=== PATIENT | female | born 1930 | race African-American/Black ===

== ENCOUNTER 2016-06-23 23:14 | Emergency (ER) | payer MEDICARE, MEDICAID ==
--- NOTE | 2016-06-23 23:30 | ER Document Report ---
ED General - General Stated Complaint: CHEST PAIN Notes: Patient is a 86-year-old female presents for complaint of chest pain. She sent from correction. She has dementia. Zach Gonzalez asked her if she is having chest pain she just complains of pain in her arm from where we are poking her for a blood draw. She is not complaining of chest pain. I have the nurses wait several minutes before attempting to poke her Phenergan and then ask her again about chest pain and she denies. She does not complain of chest pain until I push on her chest and then she yells at me for pushing on her chest. She is not short of breath. She denies any recent infections. History is limited due to the patient's dementia. TRAVEL OUTSIDE OF THE [place] IN LAST 30 DAYS: No - Related Data Allergies/Adverse Reactions: codeine [Codeine] Allergy (Verified 09/05/14 13:56) iodine [Iodine] Allergy (Verified 09/05/14 13:56) Shellfish * [Shellfish] Allergy (Verified 09/05/14 13:56) Past Medical History - Social History Smoking Status: Unknown if Ever Smoked Frequency of alcohol use: None Drug Abuse: None Family History: Reviewed & Not Pertinent - Past Medical History Cardiac Medical History: Reports: Hx Atrial Fibrillation, Hx Heart Attack - The patient had an elevated troponin, but negative catheterization 03/03/13, Hx Hypercholesterolemia, Hx Hypertension Denies: Hx Coronary Artery Disease Pulmonary Medical History: Denies: Hx Asthma, Hx Bronchitis, Hx COPD, Hx Pneumonia, Hx Tuberculosis Neurological Medical History: Reports: Hx Cerebrovascular Accident. Denies: Hx Seizures Endocrine Medical History: GI Medical History: Reports: Hx Gastroesophageal Reflux Disease Musculoskeltal Medical History: Denies Hx Arthritis - was told patient has a broken back Psychiatric Medical History: Reports: Hx Dementia, Hx Depression Past Surgical History: Reports: Hx Appendectomy, Hx Cardiac Surgery - pacer/ defib, Hx Pacemaker. Denies: Hx Hysterectomy - Immunizations Hx Diphtheria, Pertussis, Tetanus Vaccination: No Hx Pneumococcal Vaccination: 09/28/13 Review of Systems - Review of Systems Notes: My Normal Review Basic REVIEW OF SYSTEMS: CONSTITUTIONAL : Denies fever, chills, or sweats. Denies recent illness. EENT: Denies eye, ear, throat, or mouth pain or symptoms. Denies nasal or sinus congestion. CARDIOVASCULAR: Previous complaint of chest pain. RESPIRATORY: Denies cough, cold, or chest congestion. Denies shortness of breath, difficulty breathing, or wheezing. GASTROINTESTINAL: Denies abdominal pain. Denies nausea, vomiting, or diarrhea. Denies constipation. Last BM: MUSCULOSKELETAL: Denies neck or back pain or joint pain or swelling. SKIN: Denies rash or skin lesions. NEUROLOGICAL: Denies sensory or motor loss. ALL OTHER SYSTEMS REVIEWED AND NEGATIVE. Physical Exam - Vital signs Vitals: Resp BP Pulse Ox 28 H 136/68 H 100 06/23/16 23:26 06/23/16 23:26 06/23/16 23:26 - Notes Notes: General Appearance: Well nourished, alert, intermittently cooperative, no acute distress, mild obvious discomfort. Vitals: reviewed, See vital signs table. Head: no swelling or tenderness to the head Eyes: PERRL, EOMI, Conjuctiva clear Mouth: No decreasd moisture Neck: Supple, no neck tenderness Chest wall: Pain to palpation over the anterior chest wall. Mostly on the left side. Patient is very tender to any palpation. Patient does not show any signs of pain when not pushing on the chest. Lungs: No wheezing, No rales, No rhonci, No accessory muscle use, good air exchange bilaterally. Heart: Normal rate, Regular rythm, No murmur, no rub Abdomen: Normal BS, soft, No rigidity, No abdominal tenderness, No guarding, no rebound, no abdominal masses, no organomegaly Extremities: strength 5/5 in all extremities, good pulses in all extremities, no swelling or tenderness in the extremities, no edema. Skin: warm, dry, appropriate color, no rash Neuro: speech clear, oriented x 2, agitated affect, responds appropriately to questions. Course - Vital Signs Vital signs: Temp Pulse Resp BP Pulse Ox 98.1 F 67 18 168/97 H 100 06/23/16 23:29 06/23/16 23:29 06/24/16 04:02 06/24/16 04:02 06/24/16 04:02 - Laboratory Result Diagrams: 06/23/16 23:42 06/23/16 23:42 Laboratory results interpreted by me: 06/23/16 06/23/16 23:42 23:42 Hgb 9.9 L Hct 30.7 L MCV 77 L MCH 25.0 L RDW 16.7 H Creatinine 1.32 H Est GFR ( Amer) 46 L Est GFR (Non-Af Amer) 38 L - EKG Interpretation by Me Additional EKG results interpreted by me: 06/23/16 23:28 EKG is reviewed and interpreted by me. EKG shows sinus rhythm with rate of 68 bpm. Patient does have some ST segment depression and T-wave inversions in the lateral leads which is actually improved in comparison to her old EKG from 09/05/2014. CO interval, QRS duration are within normal range. QTc interval is prolonged. 06/24/16 01:27 EKG #2 is reviewed and interpreted by me. EKG shows a paced rhythm with rate of [address] segment elevation. Patient's the same ST segment depression with T-wave inversions in the lateral leads. This is unchanged comparison to her previous. CO interval, QRS duration are within normal range. QTc interval slightly prolonged. - Transfer of Care Notes: 06/24/16 05:41 Patient's chest pain seems to be very much musculoskeletal on exam. Chest is very tender to palpation. She does not have any pain over her chest unless you are pushing on her chest. History from her is very limited. I did obtain EKGs which did not show any acute changes comparison to her previous EKGs. I did obtain a troponin and delta troponin which are stable. I did call and speak with her primary care doctor, Dr. Krause. Informed him of the patient's findings. He agrees that the patient can be treated discharged home that he would follow very closely with the patient to reevaluate her. I will write strict instructions for her to return to ER immediately if she has any worsening of her symptoms. Dictation of this chart was performed using voice recognition software; therefore, there may be some unintended grammatical errors. Discharge - Discharge Clinical Impression: Chest pain Qualifiers: Chest pain type: unspecified Qualified Code(s): R07.9 - Chest pain, unspecified Condition: Good Disposition: HOME, SELF-CARE Additional Instructions: NORMAL EXAM AND WORKUP: At this time, your examination and workup show no significant abnormality. No significant abnormal physical findings were noted. All laboratory, EKG, and imaging (x-ray) studies that were ordered show no significant abnormality. Although your examination and all studies that were ordered showed no significant abnormal finding, there are no examinations and no studies that are 100% accurate. There is always the possibility that some abnormality could exist and not be detected with physical examination or within the limits and capabilities of laboratory and other studies. You should return or follow up as you were instructed on your visit today for further evaluation if your symptoms do not resolve. CHEST WALL PAIN: Your chest pain may be coming from the chest wall. This is often caused by straining the muscles or joints in the chest during physical activity, direct trauma, coughing, or vigorous vomiting. Persons with arthritis are especially prone to this type of pain, due to inflammation of the cartilage joints near the breast bone. Occasionally, no cause can be found. Rest from strenuous physical activity. This kind of chest pain is usually made worse by movement of the chest. Depending on the symptoms, we may prescribe medicine for pain, muscle relaxation, and antiinflammatory effects. If the pain is new, and seems to be due to muscle strain, cold packs can help. Otherwise, apply gentle warmth to the painful area for 15 minutes every hour or two. You should call contact the doctor immediately if things change. Further evaluation is needed if you develop a fever or cough, if the nature of the pain changes, or if you become short of breath. ASPIRIN: Aspirin has been shown to have a beneficial effect on blood circulation by reducing the clotting effect of platelets in the blood. These beneficial effects can be achieved by taking just a single baby (81 mg) aspirin a day. It is recommended that any person over the age of forty take a single baby aspirin every day for heart and brain circulation, unless you are allergic to aspirin or have some significant bleeding disorder. It is strongly recommended that people who have proven cardiac or blood circulation disturbances should take a baby aspirin every day. FOLLOW-UP CARE: If you have been referred to a physician for follow-up care, call the physician s office for an appointment as you were instructed or within the next two days. If you experience worsening or a significant change in your symptoms, notify the physician immediately or return to the Emergency Department at any time for re-evaluation. Please make a very close follow up appointment with Dr. Krause, your physician, in 1-2 days. I did discuss your case with Dr. Krause and he is expecting to follow up with your closely. please call his office to arrange for the follow up appointment. Referrals: SUDHIR KRAUSE MD [Primary Care Provider] - 06/25/16
[2016-06-24 00:03] LABS: ABSOLUTE BASOPHILS # (AUTO) 0.1 10^3/uL (0.0-0.2); ABSOLUTE EOSINOPHILS # (AUTO) 0.3 10^3/uL (0.0-0.6); ABSOLUTE LYMPHOCYTES (AUTO) 2.1 10^3/uL (0.5-4.7); ABSOLUTE MONOCYTES (AUTO) 0.7 10^3/uL (0.1-1.4); ABSOLUTE NEUT (AUTO) 3.2 10^3/uL (1.7-8.2); BASOPHILS % (AUTO) 0.8 % (0-2); EOSINOPHILS % (AUTO) 5.2 % (0-6); HEMATOCRIT 30.7 % (36.0-47.0); HEMOGLOBIN 9.9 g/dL (12.0-15.5); LYMPHOCYTES % (AUTO) 32.4 % (13-45); MEAN CORPUSCULAR HGB CONC 32.2 g/dL (32.0-36.0); MEAN CORPUSCULAR VOLUME 77 fl (80-97); MONOCYTES % (AUTO) 11.2 % (3-13); RED BLOOD COUNT 3.96 10^6/uL (3.72-5.28); RED CELL DISTRIBUTION WIDTH 16.7 % (11.5-14.0); SEGMENTED NEUTROPHILS % (AUTO) 50.4 % (42-78); WHITE BLOOD COUNT 6.4 10^3/uL (4.0-10.5)
[2016-06-24 00:06] LABS: ALANINE AMINOTRANSFERASE 25 U/L (9-52); ALKALINE PHOSPHATASE 79 U/L (38-126); ANION GAP 13 (5-19); ASPARTATE AMINO TRANSFERASE 28 U/L (14-36); BILIRUBIN,DIRECT 0.2 mg/dL (0.0-0.4); BILIRUBIN,TOTAL 0.5 mg/dL (0.2-1.3); BLOOD UREA NITROGEN 16 mg/dL (7-20); CALCIUM 9.5 mg/dL (8.4-10.2); CARBON DIOXIDE 24 mmol/L (22-30); CHLORIDE 105 mmol/L (98-107); CREATINE KINASE 114 U/L (30-135); CREATININE RESULT 1.32 mg/dL (0.52-1.25); GLUCOSE 99 mg/dL (75-110); POTASSIUM 4.1 mmol/L (3.6-5.0); TOTAL PROTEIN 8.1 g/dL (6.3-8.2)
[2016-06-24 00:17] LABS: CREATINE KINASE MB 0.94 ng/mL (<4.55)
[2016-06-24 00:25] LABS: TROPONIN I 0.038 ng/mL
[2016-06-24 04:10] VITALS: BP 168/97
--- NOTE | 2016-06-24 13:09 | EKG REPORT ---
SEVERITY:- ABNORMAL ECG - SINUS RHYTHM LVH WITH SECONDARY REPOLARIZATION ABNORMALITY BORDERLINE PROLONGED QT INTERVAL : Confirmed by: Jada Marie MD 24-Jun-2016 13:08:56
--- NOTE | 2016-06-24 13:09 | EKG REPORT ---
SEVERITY:- ABNORMAL ECG - ATRIAL-PACED COMPLEXES PROBABLE LEFT ATRIAL ABNORMALITY LVH WITH SECONDARY REPOLARIZATION ABNORMALITY PROBABLE INFERIOR INFARCT, AGE INDETERMINATE BORDERLINE PROLONGED QT INTERVAL : Confirmed by: Jdaa Marie MD 24-Jun-2016 13:08:51
== END 2016-06-24 04:00 | disposition home or self-care (01) ==
LOC: ER 23:14
DX: R07.9 Chest pain, unspecified (principal); F03.90 Unspecified dementia, unspecified severity, without behavioral disturbance, psychotic disturbance, mood disturbance, and anxiety; I10 Essential (primary) hypertension; I48.91 Unspecified atrial fibrillation; Z95.810 Presence of automatic (implantable) cardiac defibrillator; Z88.5 Allergy status to narcotic agent; Z91.013 Allergy to seafood
CPT/HCPCS: 36415; 71010; 80053; 80061; 82550; 82553; 84484; 85025; 93005; 93010; 99285

== ENCOUNTER 2016-11-19 23:57 | Emergency (ER) | payer MEDICARE, MEDICAID ==
[2016-11-20 00:29] LABS: ABSOLUTE LYMPHOCYTES (AUTO) 1.7 10^3/uL (0.5-4.7); ABSOLUTE MONOCYTES (AUTO) 0.7 10^3/uL (0.1-1.4); BASOPHILS % (AUTO) 0.3 % (0-2); EOSINOPHILS % (AUTO) 0.3 % (0-6); HEMATOCRIT 32.3 % (36.0-47.0); HEMOGLOBIN 10.5 g/dL (12.0-15.5); HGB HCT DIFFERENCE -0.8; LYMPHOCYTES % (AUTO) 20.1 % (13-45); MEAN CORPUSCULAR HEMOGLOBIN 25.8 pg (27.0-33.4); MEAN CORPUSCULAR HGB CONC 32.4 g/dL (32.0-36.0); MEAN CORPUSCULAR VOLUME 80 fl (80-97); RED BLOOD COUNT 4.05 10^6/uL (3.72-5.28); RED CELL DISTRIBUTION WIDTH 16.4 % (11.5-14.0); SEGMENTED NEUTROPHILS % (AUTO) 71.3 % (42-78); WHITE BLOOD COUNT 8.4 10^3/uL (4.0-10.5)
[2016-11-20 00:30] LABS: VENOUS BLOOD BASE EXCESS 0.7 mmol/L; VENOUS BLOOD HCO3 24.8 mmol/L (20-32); VENOUS BLOOD PCO2 38.1 mmHg (35-63); VENOUS BLOOD PH 7.43 (7.30-7.42)
[2016-11-20 00:38] LABS: PROTHROMBIN TIME 13.9 SEC (11.4-15.4)
[2016-11-20 00:44] LABS: APPEARANCE,URINE CLOUDY; BILIRUBIN,URINE NEGATIVE (NEGATIVE); GLUCOSE, URINE NEGATIVE (NEGATIVE); KETONES,URINE NEGATIVE (NEGATIVE); LEUKOCYTE ESTERASE,URINE NEGATIVE (NEGATIVE); NITRITE,URINE NEGATIVE (NEGATIVE); PROTEIN,URINE >=500 mg/dL (NEGATIVE); URINE SPECIFIC GRAVITY 1.031; UROBILINOGEN,URINE NEGATIVE mg/dL (<2.0)
--- NOTE | 2016-11-20 00:59 | ER Document Report ---
ED General - General Chief Complaint: Fever Stated Complaint: FEVER/DIARRHEA Time Seen by Provider: 11/20/16 00:01 Mode of Arrival: Medic Information source: Patient Notes: 86 yr old female presents with complaints of abd pain, diarrhea of 3 day duration with fever today. pt denies any vomiting. TRAVEL OUTSIDE OF THE [place] IN LAST 30 DAYS: No - HPI Onset: Other Onset/Duration: Persistent Quality of pain: Cramping Severity: Mild Pain Level: 1 Associated symptoms: Diarrhea, Fever Exacerbated by: Denies Relieved by: Denies Similar symptoms previously: No Recently seen / treated by doctor: No - Related Data Allergies/Adverse Reactions: codeine [Codeine] Allergy (Verified 09/05/14 13:56) iodine [Iodine] Allergy (Verified 09/05/14 13:56) Shellfish * [Shellfish] Allergy (Verified 09/05/14 13:56) Past Medical History - Social History Smoking Status: Never Smoker Cigarette use (# per day): No Chew tobacco use (# tins/day): No Smoking Education Provided: No Family History: Reviewed & Not Pertinent - Past Medical History Cardiac Medical History: Reports: Hx Atrial Fibrillation, Hx Heart Attack - The patient had an elevated troponin, but negative catheterization 03/03/13, Hx Hypercholesterolemia, Hx Hypertension Denies: Hx Coronary Artery Disease Pulmonary Medical History: Denies: Hx Asthma, Hx Bronchitis, Hx COPD, Hx Pneumonia, Hx Tuberculosis Neurological Medical History: Reports: Hx Cerebrovascular Accident. Denies: Hx Seizures Endocrine Medical History: GI Medical History: Reports: Hx Gastroesophageal Reflux Disease Musculoskeltal Medical History: Denies Hx Arthritis - was told patient has a broken back Psychiatric Medical History: Reports: Hx Dementia, Hx Depression Past Surgical History: Reports: Hx Appendectomy, Hx Cardiac Surgery - pacer/ defib, Hx Pacemaker. Denies: Hx Hysterectomy - Immunizations Hx Diphtheria, Pertussis, Tetanus Vaccination: No Hx Pneumococcal Vaccination: 09/28/13 Review of Systems - Review of Systems Notes: REVIEW OF SYSTEMS: CONSTITUTIONAL : Denies fever, chills, or sweats. Denies recent illness. EENT: Denies eye, ear, throat, or mouth pain or symptoms. Denies nasal or sinus congestion or discharge. Denies throat, tongue, or mouth swelling or difficulty swallowing. CARDIOVASCULAR: Denies chest pain. Denies palpitations or racing or irregular heart beat. Denies ankle edema. RESPIRATORY: Denies cough, cold, or chest congestion. Denies shortness of breath, difficulty breathing, or wheezing. GASTROINTESTINAL: abd pain, diarrhea GENITOURINARY: Denies difficulty urinating, painful urination, burning, frequency, blood in urine, or discharge. FEMALE GENITOURINARY: Denies vaginal bleeding, heavy or abnormal periods, irregular periods. Denies vaginal discharge or odor. MUSCULOSKELETAL: Denies back or neck pain or stiffness. Denies joint pain or swelling. SKIN: Denies rash, lesions or sores. HEMATOLOGIC : Denies easy bruising or bleeding. LYMPHATIC: Denies swollen, enlarged glands. NEUROLOGICAL: Denies confusion or altered mental status. Denies passing out or loss of consciousness. Denies dizziness or lightheadedness. Denies headache. Denies weakness or paralysis or loss of use of either side. Denies problems with gait or speech. Denies sensory loss, numbness, or tingling. Denies seizures. PSYCHIATRIC: Denies anxiety or stress. Denies depression, suicidal ideation, or homicidal ideation. ALL OTHER SYSTEMS REVIEWED AND NEGATIVE. PHYSICAL EXAMINATION: GENERAL: Well-appearing, well-nourished and in no acute distress. HEAD: Atraumatic, normocephalic. EYES: Pupils equal round and reactive to light, extraocular movements intact, conjunctiva are normal. ENT: Nares patent, oropharynx clear without exudates. Moist mucous membranes. NECK: Normal range of motion, supple without lymphadenopathy LUNGS: Breath sounds clear to auscultation bilaterally and equal. No wheezes rales or rhonchi. HEART: Regular rate and rhythm without murmurs ABDOMEN: Soft, distended, mildly tender all throughout Female : deferred Musculoskeletal: Normal range of motion, no pitting or edema. No cyanosis. NEUROLOGICAL: Cranial nerves grossly intact. Normal speech, normal gait. Normal sensory, motor exams PSYCH: Normal mood, normal affect. SKIN: Warm, Dry, normal turgor, no rashes or lesions noted. Dictation was performed using [employer] voice recognition software Physical Exam - Vital signs Vitals: Resp Pulse Ox 18 96 11/20/16 00:12 11/20/16 00:12 Course - Re-evaluation Re-evalutation: 11/20/16 01:[address] still results pending at this time - Vital Signs Vital signs: Temp Pulse Resp BP Pulse Ox 99.6 F 20 167/74 H 96 11/20/16 00:41 11/20/16 01:00 11/20/16 00:31 11/20/16 00:40 - Laboratory Result Diagrams: 11/20/16 00:08 11/20/16 00:08 Laboratory results interpreted by me: 11/20/16 11/20/16 11/20/16 00:08 00:08 00:25 Hgb 10.5 L Hct 32.3 L MCH 25.8 L RDW 16.4 H VBG pH 7.43 H Urine Protein >=500 H Discharge - Discharge Referrals: SUDHIR KRAUSE MD [Primary Care Provider] - Follow up as needed
--- NOTE | 2016-11-20 03:05 | RADIOLOGY REPORT (SQ) ---
EXAM DESCRIPTION: KUB/ABDOMEN (SINGLE VIEW) COMPLETED DATE/TIME: 11/20/2016 1:57 am REASON FOR STUDY: fever diarrhea COMPARISON: 08/28/2013. NUMBER OF VIEWS: One view. TECHNIQUE: Supine radiographic image of the abdomen acquired. LIMITATIONS: None. FINDINGS: BOWEL GAS PATTERN: Normal bowel gas pattern. No dilated loops. CALCIFICATIONS: No suspicious calcifications. SOFT TISSUES: No gross mass or suggestion of organomegaly. HARDWARE: Right upper abdominal clips. Partially imaged cardiac stimulation lead. BONES: Mild chronic deformity of the right paracentral superior L2 endplate and/or mild -moderate dis c desiccation/ spondylosis. [id number] osteoarthritis involves the bilateral hip joints. OTHER: No other significant finding. IMPRESSION: No acute findings. TECHNICAL DOCUMENTATION: JOB ID: [id number] [employer]- All Rights Reserved
--- NOTE | 2016-11-20 03:14 | RADIOLOGY REPORT (SQ) ---
EXAM DESCRIPTION: CT ABD/PELVIS NO ORAL OR IV COMPLETED DATE/TIME: 11/20/2016 1:58 am REASON FOR STUDY: abd pain COMPARISON: 03/31/2015. CR, 11/20/2016. TECHNIQUE: CT scan of the abdomen and pelvis performed without intravenous or oral contrast. Images reviewed with lung, soft tissue, and bone windows. Reconstructed coronal and sagittal MPR images revi ewed. All images stored on PACS. All CT scanners at this facility use dose modulation, iterative reconstruction, and/or weight based d osing when appropriate to reduce radiation dose to as low as reasonably achievable (ALARA). [facility]: Dose Right [facility]: CareDose [facility]: Dose Right [facility]: Teradose 4D [facility]: Smart Philoptima RADIATION DOSE: Up-to-date CT equipment and radiation dose reduction techniques were employed. CTDIv ol: 25.4 mGy. DLP: 1368 mGy-cm.mGy. LIMITATIONS: None. FINDINGS: LOWER CHEST: No significant findings. No nodules or infiltrates. Cardiac stimulation lead s and metallic hardware of the left inferior chest wall partially imaged. Small atelectasis or scar bilateral lung bases. NON-CONTRASTED LIVER, SPLEEN, ADRENALS: Evaluation limited by lack of IV contrast. 1.2 cm low-attenu ation splenic lesion consistent with cyst or hemangioma without suspicious interval change compared w ith prior exam, 03/31/2015. PANCREAS: No masses. No peripancreatic inflammatory changes. GALLBLADDER: A RIGHT KIDNEY AND URETER: No suspicious masses. Assessment limited by lack of IV contrast. No signif icant calcifications. No hydronephrosis or hydroureter. 0.7 cm likely benign hemorrhagic exophytic cyst of the left kidney, not definitively characterized, stable in size as compared with prior exam, 03/31/2015. LEFT KIDNEY AND URETER: No suspicious masses. Assessment limited by lack of IV contrast. No signifi cant calcifications. No hydronephrosis or hydroureter. AORTA AND RETROPERITONEUM: No aneurysm. No retroperitoneal masses or adenopathy. Atherosclerosis. BOWEL AND PERITONEAL CAVITY: No obvious masses or inflammatory changes. No free fluid. Small fluid r etention in the colon may indicate malabsorption or nonspecific gastroenteritis. APPENDIX: Surgically absent. PELVIS, BLADDER, AND ABDOMINAL WALL:No abnormal masses. No free fluid. Bladder normal. Extensive phl eboliths. BONES: No significant findings. Chronic mild anterior vertebral wedging at the L1 level. Mild disc desiccation. 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 OTHER: No other significant finding. IMPRESSION: Small fluid retention in the large bowel which may indicate malabsorption or nonspecific gastroenteritis. COMMENT: Quality ID # [id number]: Final reports with documentation of one or more dose reduction techniques (e.g., Automated exposure control, adjustment of the mA and/or kV according to patient size, use of iterative reconstruction technique) TECHNICAL DOCUMENTATION: JOB ID: [id number] [employer]- All Rights Reserved
[2016-11-20 03:16] LABS: ALANINE AMINOTRANSFERASE 24 U/L (9-52); ALBUMIN 3.7 g/dL (3.5-5.0); ALKALINE PHOSPHATASE 80 U/L (38-126); ANION GAP 14 (5-19); ASPARTATE AMINO TRANSFERASE 23 U/L (14-36); BILIRUBIN,DIRECT 0.4 mg/dL (0.0-0.4); BILIRUBIN,TOTAL 0.6 mg/dL (0.2-1.3); BLOOD UREA NITROGEN 18 mg/dL (7-20); CALCIUM 9.2 mg/dL (8.4-10.2); CARBON DIOXIDE 24 mmol/L (22-30); CHLORIDE 103 mmol/L (98-107); CREATININE RESULT 1.45 mg/dL (0.52-1.25); GLUCOSE 107 mg/dL (75-110); POTASSIUM 4.5 mmol/L (3.6-5.0); SODIUM 140.7 mmol/L (137-145); TOTAL PROTEIN 7.9 g/dL (6.3-8.2)
[2016-11-20 04:00] VITALS: BP 158/73
--- NOTE | 2016-11-20 15:36 | EKG REPORT ---
SEVERITY:- ABNORMAL ECG - SINUS OR ECTOPIC ATRIAL RHYTHM LVH WITH SECONDARY REPOLARIZATION ABNORMALITY : Confirmed by: Ok Nash 20-Nov-2016 15:36:00
== END 2016-11-20 04:00 | disposition home or self-care (01) ==
LOC: ER 23:57
DX: K52.9 Noninfective gastroenteritis and colitis, unspecified (principal); R50.9 Fever, unspecified; R19.7 Diarrhea, unspecified
CPT/HCPCS: 36415; 74000; 74176; 80053; 81001; 82272; 82803; 83605; 85025; 85610; 87040; 87045; 87077; 87086; 87186; 87205; 87493; 93005; 93010; 99284

== ENCOUNTER 2017-01-18 20:51 | Emergency (ER) | payer MEDICARE, MEDICAID ==
[2017-01-18 21:16] LABS: ABSOLUTE BASOPHILS # (AUTO) 0.1 10^3/uL (0.0-0.2); ABSOLUTE EOSINOPHILS # (AUTO) 0.4 10^3/uL (0.0-0.6); ABSOLUTE LYMPHOCYTES (AUTO) 3.5 10^3/uL (0.5-4.7); ABSOLUTE MONOCYTES (AUTO) 0.8 10^3/uL (0.1-1.4); BASOPHILS % (AUTO) 0.9 % (0-2); EOSINOPHILS % (AUTO) 3.8 % (0-6); HEMATOCRIT 29.5 % (36.0-47.0); HEMOGLOBIN 9.6 g/dL (12.0-15.5); HGB HCT DIFFERENCE -0.7; LYMPHOCYTES % (AUTO) 35.9 % (13-45); MEAN CORPUSCULAR HEMOGLOBIN 26.2 pg (27.0-33.4); MEAN CORPUSCULAR HGB CONC 32.7 g/dL (32.0-36.0); MEAN CORPUSCULAR VOLUME 80 fl (80-97); MONOCYTES % (AUTO) 7.8 % (3-13); RED BLOOD COUNT 3.68 10^6/uL (3.72-5.28); RED CELL DISTRIBUTION WIDTH 16.2 % (11.5-14.0); SEGMENTED NEUTROPHILS % (AUTO) 51.6 % (42-78); WHITE BLOOD COUNT 9.6 10^3/uL (4.0-10.5)
--- NOTE | 2017-01-18 21:23 | RADIOLOGY REPORT (SQ) ---
EXAM DESCRIPTION: CHEST SINGLE VIEW COMPLETED DATE/TIME: 01/18/2017 9:14 pm REASON FOR STUDY: cp COMPARISON: 06/24/2016. EXAM PARAMETERS: NUMBER OF VIEWS: One view. TECHNIQUE: Single frontal radiographic view of the chest acquired. RADIATION DOSE: NA LIMITATIONS: None. FINDINGS: LUNGS AND PLEURA: No opacities, masses or pneumothorax. No pleural effusion. MEDIASTINUM AND HILAR STRUCTURES: No masses. Contour normal. HEART AND VASCULAR STRUCTURES: Heart normal in size. Normal vasculature. BONES: No acute findings. Degenerative changes in the spine. HARDWARE: Defibrillator. OTHER: No other significant finding. IMPRESSION: NO ACUTE RADIOGRAPHIC FINDING IN THE CHEST. TECHNICAL DOCUMENTATION: JOB ID: [id number]
[2017-01-18 21:35] LABS: ALANINE AMINOTRANSFERASE 23 U/L (9-52); ALBUMIN 3.7 g/dL (3.5-5.0); ALKALINE PHOSPHATASE 95 U/L (38-126); ANION GAP 14 (5-19); ASPARTATE AMINO TRANSFERASE 20 U/L (14-36); BILIRUBIN,DIRECT 0.2 mg/dL (0.0-0.4); BILIRUBIN,TOTAL 0.3 mg/dL (0.2-1.3); BLOOD UREA NITROGEN 18 mg/dL (7-20); CALCIUM 9.6 mg/dL (8.4-10.2); CARBON DIOXIDE 25 mmol/L (22-30); CHLORIDE 104 mmol/L (98-107); CREATINE KINASE 105 U/L (30-135); CREATININE RESULT 1.57 mg/dL (0.52-1.25); GLUCOSE 153 mg/dL (75-110); POTASSIUM 4.3 mmol/L (3.6-5.0); SODIUM 142.8 mmol/L (137-145)
[2017-01-18] MEDS ORDERED: HALOPERIDOL LACTATE INJ 5 MG/1 ML VIAL IV ONE (21:42)
[2017-01-18 21:46] LABS: CREATINE KINASE MB 1.07 ng/mL (<4.55)
[2017-01-18 21:50] LABS: TROPONIN I 0.043 ng/mL
--- NOTE | 2017-01-18 21:53 | ER Document Report ---
ED General - General Chief Complaint: Chest Pain Stated Complaint: CHEST PAIN Time Seen by Provider: 01/18/17 21:14 Cannot obtain history due to: Dementia Notes: Patient is an 86-year-old female, a resident of [facility], presents with chest pain. Patient is demented and a very poor historian but has apparently been complaining of chest pain for most of the day today. She states that she did get a headache after the EMS truck administered nitroglycerin but at that it has now resolved. She is otherwise a very poor historian and not able to provide any additional meaningful details. TRAVEL OUTSIDE OF THE [place] IN LAST 30 DAYS: No - Related Data Allergies/Adverse Reactions: codeine [Codeine] Allergy (Verified 09/05/14 13:56) iodine [Iodine] Allergy (Verified 09/05/14 13:56) Shellfish * [Shellfish] Allergy (Verified 09/05/14 13:56) Past Medical History - General Information source: Patient Cannot obtain history due to: Dementia - Social History Smoking Status: Former Smoker Frequency of alcohol use: None Drug Abuse: None Lives with: Jail Family History: Reviewed & Not Pertinent - Past Medical History Cardiac Medical History: Reports: Hx Atrial Fibrillation, Hx Heart Attack - The patient had an elevated troponin, but negative catheterization 03/03/13, Hx Hypercholesterolemia, Hx Hypertension Denies: Hx Coronary Artery Disease Pulmonary Medical History: Denies: Hx Asthma, Hx Bronchitis, Hx COPD, Hx Pneumonia, Hx Tuberculosis Neurological Medical History: Reports: Hx Cerebrovascular Accident. Denies: Hx Seizures Endocrine Medical History: GI Medical History: Reports: Hx Gastroesophageal Reflux Disease Musculoskeltal Medical History: Denies Hx Arthritis - was told patient has a broken back Psychiatric Medical History: Reports: Hx Dementia, Hx Depression Past Surgical History: Reports: Hx Appendectomy, Hx Cardiac Surgery - pacer/ defib, Hx Pacemaker. Denies: Hx Hysterectomy - Immunizations Hx Diphtheria, Pertussis, Tetanus Vaccination: No Hx Pneumococcal Vaccination: 09/28/13 Review of Systems - Review of Systems Notes: Constitutional: Negative for fever. HENT: Negative for sore throat. Eyes: Negative for visual changes. Cardiovascular: Positive for chest pain. Respiratory: Negative for shortness of breath. Gastrointestinal: Negative for abdominal pain, vomiting or diarrhea. Genitourinary: Negative for dysuria. Musculoskeletal: Negative for back pain. Skin: Negative for rash. Neurological: Negative for headaches, weakness or numbness. 10 point ROS negative except as marked above and in HPI. Physical Exam - Vital signs Vitals: Pulse Ox 93 01/18/17 21:02 Course - Re-evaluation Re-evalutation: 01/18/17 21:52 Patient is a very poor historian, it is very difficult to ascertain when her chest pain started, or how long it has been ongoing. She does have a long- standing history of dementia. She does have reproduction of her pain over the left chest wall. Initial EKG is without any acute ischemic changes. He does have a known history of coronary artery disease and has had stents placed in the past for records. Her initial EKG does show sinus tachycardia but no ischemic changes. She does not have a history of DVT or pulmonary embolus. However, given her persistent tachycardia and complaints of shortness of breath associated with chest pain I do believe a d-dimer assay should be ordered to further screen for possible pulmonary embolus. Will use adjacent age-adjusted criteria. If this is abnormal will proceed with CT of the chest. Her initial troponin is mildly elevated at 0.042. 01/18/17 23:30 D-dimer is below patient's age-adjusted criteria 0.81 using 0.85 is cut off. Her rate likely has has normalized. Patient no longer has chest pain. Review of patient's prior medical records does show that she typically has a mildly elevated troponin. Will obtain second troponin to see if it is trending or remaining stable. - Vital Signs Vital signs: Temp Pulse Resp BP Pulse Ox 98.9 F 14 174/105 H 97 01/18/17 21:26 01/19/17 00:31 01/19/17 00:31 01/19/17 00:31 - Laboratory Result Diagrams: 01/18/17 21:07 01/18/17 21:07 Laboratory results interpreted by me: 01/18/17 01/18/17 01/18/17 21:07 21:07 21:07 RBC 3.68 L Hgb 9.6 L Hct 29.5 L MCH 26.2 L RDW 16.2 H D-Dimer 0.81 H Creatinine 1.57 H Est GFR ( Amer) 38 L Est GFR (Non-Af Amer) 31 L Glucose 153 H - Diagnostic Test Radiology reviewed: Image reviewed, Reports reviewed Radiology results interpreted by me: 01/19/17 01:07 Chest x-ray: No acute infiltrate or pneumothorax - EKG Interpretation by Me Additional EKG results interpreted by me: 01/19/17 01:07 Sinus tachycardia. Rate 106. No ST elevations or depressions. QTC is 484. Discharge - Discharge Clinical Impression: Dementia Qualifiers: Dementia type: unspecified type Dementia behavioral disturbance: without behavioral disturbance Qualified Code(s): F03.90 - Unspecified dementia without behavioral disturbance Chest pain Qualifiers: Chest pain type: unspecified Qualified Code(s): R07.9 - Chest pain, unspecified Condition: Fair Disposition: HOME-SNF (ED ONLY) Additional Instructions: You were seen today for chest pain. The exact cause of your pain is unclear. However, based on your cardiac enzyme testing, chest x-ray, and EKG it does not appear that it is from an immediately life-threatening cause at this time. Please return to emergency department immediately if you have worsening of your chest pain, shortness of breath, vomiting, become unable to exert yourself due to pain or difficulty breathing, you pass out, or have any pain that radiates into your arms, jaw, or back. Please also return if you have any additional symptoms that are concerning to you. Referrals: ARIAN OLMSTEAD MD [Primary Care Provider] - Follow up as needed
--- NOTE | 2017-01-18 22:49 | EKG REPORT ---
SEVERITY:- ABNORMAL ECG - SINUS TACHYCARDIA LVH WITH SECONDARY REPOLARIZATION ABNORMALITY : Confirmed by: Ok Nash 18-Jan-2017 22:48:42
[2017-01-19 02:35] VITALS: BP 182/80
== END 2017-01-19 02:06 ==
LOC: ER 20:51
DX: R07.89 Other chest pain (principal); R06.02 Shortness of breath; R00.0 Tachycardia, unspecified; F03.90 Unspecified dementia, unspecified severity, without behavioral disturbance, psychotic disturbance, mood disturbance, and anxiety; I25.10 Atherosclerotic heart disease of native coronary artery without angina pectoris; I48.91 Unspecified atrial fibrillation; I10 Essential (primary) hypertension; Z87.891 Personal history of nicotine dependence; Z88.5 Allergy status to narcotic agent; Z91.013 Allergy to seafood; Z86.73 Personal history of transient ischemic attack (TIA), and cerebral infarction without residual deficits; Z95.810 Presence of automatic (implantable) cardiac defibrillator; Z95.5 Presence of coronary angioplasty implant and graft
CPT/HCPCS: 93005; 99285; 96374; 36415; 82553; 82550; 85025; 80053; 84484; 85379; 71010; 93010; J1630

== ENCOUNTER 2017-02-04 20:59 | Emergency (ER) | payer MEDICARE, MEDICAID ==
[2017-02-04] MEDS ORDERED: HYDROCODONE/ACETAMINOPHEN 5-325 MG TABLET PO ONE (21:31)
--- NOTE | 2017-02-04 21:33 | ER Document Report ---
ED Extremity Problem, Upper - General Chief Complaint: Arm Pain Stated Complaint: LEFT ARM PAIN Time Seen by Provider: 02/04/17 21:22 Notes: Patient is a 86-year-old female that comes emergency department from long-term care facility for chief complaint of 2 days of painful left arm swelling. Patient denies injury, denies history of the same, denies fever, she denies any other locations of pain. Patient is a very poor historian. Past medical history of Alzheimer's. She is on aspirin, she does not take any other blood thinners. TRAVEL OUTSIDE OF THE [place] IN LAST 30 DAYS: No - Related Data Allergies/Adverse Reactions: codeine [Codeine] Allergy (Verified 09/05/14 13:56) iodine [Iodine] Allergy (Verified 09/05/14 13:56) Shellfish * [Shellfish] Allergy (Verified 09/05/14 13:56) Past Medical History - General Information source: Patient - Social History Smoking Status: Never Smoker Frequency of alcohol use: None Drug Abuse: None Lives with: Family Family History: Reviewed & Not Pertinent Patient has suicidal ideation: No Patient has homicidal ideation: No - Past Medical History Cardiac Medical History: Reports: Hx Atrial Fibrillation, Hx Heart Attack - The patient had an elevated troponin, but negative catheterization 03/03/13, Hx Hypercholesterolemia, Hx Hypertension Denies: Hx Coronary Artery Disease Pulmonary Medical History: Denies: Hx Asthma, Hx Bronchitis, Hx COPD, Hx Pneumonia, Hx Tuberculosis Neurological Medical History: Reports: Hx Cerebrovascular Accident. Denies: Hx Seizures Endocrine Medical History: Renal/ Medical History: Denies: Hx Peritoneal Dialysis GI Medical History: Reports: Hx Gastroesophageal Reflux Disease Musculoskeltal Medical History: Denies Hx Arthritis - was told patient has a broken back Psychiatric Medical History: Reports: Hx Dementia, Hx Depression Past Surgical History: Reports: Hx Appendectomy, Hx Cardiac Surgery - pacer/ defib, Hx Pacemaker. Denies: Hx Hysterectomy - Immunizations Hx Diphtheria, Pertussis, Tetanus Vaccination: No Hx Pneumococcal Vaccination: 09/28/13 Review of Systems - Review of Systems Constitutional: No symptoms reported EENT: No symptoms reported Cardiovascular: No symptoms reported Respiratory: No symptoms reported Gastrointestinal: No symptoms reported Genitourinary: No symptoms reported Female Genitourinary: No symptoms reported Musculoskeletal: No symptoms reported Skin: No symptoms reported Hematologic/Lymphatic: No symptoms reported Neurological/Psychological: No symptoms reported Physical Exam - Vital signs Vitals: Resp BP Pulse Ox 19 187/79 H 97 02/04/17 21:07 02/04/17 21:07 02/04/17 21:07 Interpretation: Normal - General General appearance: Appears well, Alert In distress: None - HEENT Head: Normocephalic, Atraumatic Eyes: Normal Conjunctiva: Normal Extraocular movements intact: Yes Eyelashes: Normal Pupils: PERRL - Respiratory Respiratory status: No respiratory distress Chest status: Nontender Breath sounds: Normal. No: Decreased air movement, Wheezing Chest palpation: Normal - Cardiovascular Rhythm: Regular Heart sounds: Normal auscultation Murmur: No - Abdominal Inspection: Normal Distension: No distension Bowel sounds: Normal Tenderness: Nontender Organomegaly: No organomegaly - Back Back: Normal, Nontender - Extremities General upper extremity: Other - Left upper extremity with generalized tenderness, questionable soft tissue swelling specifically at the forearm and wrist, hand exam is unremarkable, normal capillary refill and sensation, normal range of motion of the hand, wrist, elbow, shoulder. No erythema, abnormal heat , or signs of trauma. General lower extremity: Normal inspection, Nontender, Normal color, Normal ROM , Normal temperature, Normal weight bearing - Neurological Neuro grossly intact: Yes Cognition: Normal Orientation: AAOx4 [place] Coma Scale Eye Opening: Spontaneous [place] Coma Scale Verbal: Oriented Kaleb Coma Scale Motor: Obeys Commands [place] Coma Scale Total: 15 Speech: Normal Motor strength normal: LUE, RUE, LLE, RLE Sensory: Normal - Psychological Associated symptoms: Normal affect, Normal mood - Skin Skin Temperature: Warm Skin Moisture: Dry Skin Color: Normal Course - Re-evaluation Re-evalutation: Patient complains regardless of where I press on her arm whether it is the upper arm or the forearm. She has full range of motion of the wrist, elbow, and shoulder. She has questionable swelling of the forearm and wrist area, she complains the most when she is moving her wrist. No signs of trauma. Normal capillary refill and sensation. No erythema, abnormal heat, or suggestion of infection. X-ray of the forearm and arm are unremarkable. Doppler ultrasound performed because of questionable swelling, this is negative. Discussed with patient results, after discussion agreed to place a supportive cock-up splint for the wrist because this appears to be the greatest area of pain. Discussed follow- up and return precautions. Patient states understanding and agreement. - Vital Signs Vital signs: Temp Pulse Resp BP Pulse Ox 97.8 F 74 19 165/64 H 98 02/04/17 21:14 02/04/17 21:14 02/05/17 02:43 02/05/17 02:43 02/05/17 02:43 Procedures - Immobilization left wrist Pre-Proc Neuro Vasc Exam: Normal Immobilizer type: Cock-up Performed by: RN Post-Proc Neuro Vasc Exam: Normal Alignment checked and good: Yes Discharge - Discharge Clinical Impression: Left arm pain Condition: Stable Disposition: HOME, SELF-CARE Additional Instructions: The exact cause of your pain is uncertain. The x-rays are normal, the ultrasound does not show blood clot or concerning abnormality. Because the pain seems to be centered at the wrist and with moving in the wrist I recommend wearing the splint provided for support if needed, take Tylenol for pain, apply ice to the area 3 times a day for the next 2 days, follow-up with primary care. Return to emergency department for any concerning or worsening symptoms including redness, swelling, fever, or any other concerning symptoms. Forms: Elevated Blood Pressure Referrals: ARIAN OLMSTEAD MD [Primary Care Provider] - Follow up as needed
--- NOTE | 2017-02-04 22:35 | RADIOLOGY REPORT (SQ) ---
EXAM DESCRIPTION: FOREARM LEFT COMPLETED DATE/TIME: 02/04/2017 10:07 pm REASON FOR STUDY: swelling, pain COMPARISON: None. NUMBER OF VIEWS: Two views. TECHNIQUE: Two radiographic images acquired of the left forearm, including elbow and wrist in at [address] one projection. LIMITATIONS: None. FINDINGS: MINERALIZATION: Normal. BONES: No acute fracture. No worrisome bone lesions. SOFT TISSUES: No obvious swelling or foreign body. OTHER: No other significant finding. IMPRESSION: NEGATIVE STUDY OF THE LEFT FOREARM. NO RADIOGRAPHIC EVIDENCE OF ACUTE INJURY. TECHNICAL DOCUMENTATION: JOB ID: [id number] [employer]- All Rights Reserved
--- NOTE | 2017-02-04 22:35 | RADIOLOGY REPORT (SQ) ---
EXAM DESCRIPTION: HUMERUS LEFT COMPLETED DATE/TIME: 02/04/2017 10:07 pm REASON FOR STUDY: swelling, pain COMPARISON: None. NUMBER OF VIEWS: Two views. TECHNIQUE: Two radiographic images were acquired of the left humerus to include elbow and shoulder i n at least one projection. LIMITATIONS: None. FINDINGS: MINERALIZATION: Normal. BONES: No acute fracture or dislocation. No worrisome bone lesions. SOFT TISSUES: No obvious swelling or foreign body. OTHER: No other significant finding. IMPRESSION: NEGATIVE STUDY OF THE LEFT HUMERUS. NO RADIOGRAPHIC EVIDENCE OF ACUTE INJURY. TECHNICAL DOCUMENTATION: JOB ID: [id number] [employer]- All Rights Reserved
[2017-02-05 02:49] VITALS: BP 165/64
--- NOTE | 2017-02-05 10:24 | XCELERA REPORT ---
[address] [address] Upper Extremity Venous Evaluation Name: BELKIS EUCEDA Age: 86 yrs Gender: Female : 1930 Patient Status: Emergency Patient Location: ER Study Date: 02/04/2017 10:06 PM Procedure: Unilateral duplex scan of the left upper extremity veins was performed, including responses to compression and other maneuvers. Reason For Study: left arm swelling Ordering Physician: DIEUDONNE GASTELUM Performed By: Ariadna Ruth Left Sided Venous Evaluation Normal vessel filling wall to wall, compression and augmentation as well as Colour flow down to the forearm veins. Interpretation Summary Normal compression, patency, spontaneous and phasic flow of the left upper extremity veins. : DIEUDONNE GASTELUM > Dennis Pimentel
== END 2017-02-05 02:50 | disposition home or self-care (01) ==
LOC: ER 20:59
DX: M79.602 Pain in left arm (principal); G30.9 Alzheimer's disease, unspecified; F02.80 Dementia in other diseases classified elsewhere, unspecified severity, without behavioral disturbance, psychotic disturbance, mood disturbance, and anxiety; I48.91 Unspecified atrial fibrillation; I10 Essential (primary) hypertension; J44.9 Chronic obstructive pulmonary disease, unspecified; Z95.810 Presence of automatic (implantable) cardiac defibrillator; Z79.82 Long term (current) use of aspirin; Z88.5 Allergy status to narcotic agent; Z91.013 Allergy to seafood; Z86.73 Personal history of transient ischemic attack (TIA), and cerebral infarction without residual deficits
CPT/HCPCS: 99284; 93971 ×2; 73090; 73060; L3908

== ENCOUNTER 2017-03-30 04:10 | Observation (INO) | payer MEDICARE, MEDICAID ==
[2017-03-30] MEDS ORDERED: ONDANSETRON 4 MG TAB.RAPDIS PO ONE (04:27)
--- NOTE | 2017-03-30 04:31 | ER Document Report ---
ED Cardiac - General TRAVEL OUTSIDE OF THE [place] IN LAST 30 DAYS: No <DIEUDONNE GASTELUM - Last Filed: 03/30/17 07:03> <TG RENE - Last Filed: 03/30/17 09:32> - General Chief Complaint: Chest Pain Stated Complaint: CHEST PAIN Time Seen by Provider: 03/30/17 04:19 Notes: Patient is an 86-year-old female who comes emergency department for chief complaint of chest pain. She states that she woke up and she felt a stabbing pain in the left side her chest, she states she sat up, she threw up, she states that after doing that she felt improved. She comes by EMS from [facility], she was given 3 nitroglycerin SL, 324 mg of aspirin. She states she has a headache. She denies abdominal pain, she states she has feels a little bit nauseated. She denies fever chills, shortness of breath, flank pain. Past medical history of dementia, GERD, has a pacemaker, anemia, chronic kidney disease, hyperlipidemia, hypertension. (DIEUDONNE GASTELUM) - Related Data Allergies/Adverse Reactions: codeine [Codeine] Allergy (Verified 09/05/14 13:56) iodine [Iodine] Allergy (Verified 09/05/14 13:56) Shellfish * [Shellfish] Allergy (Verified 09/05/14 13:56) Past Medical History - General Information source: Patient, Transfer Record, Emergency Med Personnel - Social History Smoking Status: Never Smoker Frequency of alcohol use: None Drug Abuse: None Lives with: [facility] Family History: Reviewed & Not Pertinent - Past Medical History Cardiac Medical History: Reports: Hx Atrial Fibrillation, Hx Heart Attack - The patient had an elevated troponin, but negative catheterization 03/03/13, Hx Hypercholesterolemia, Hx Hypertension Denies: Hx Coronary Artery Disease Pulmonary Medical History: Denies: Hx Asthma, Hx Bronchitis, Hx COPD, Hx Pneumonia, Hx Tuberculosis Neurological Medical History: Reports: Hx Cerebrovascular Accident. Denies: Hx Seizures Endocrine Medical History: Renal/ Medical History: Denies: Hx Peritoneal Dialysis GI Medical History: Reports: Hx Gastroesophageal Reflux Disease Musculoskeltal Medical History: Denies Hx Arthritis - was told patient has a broken back Psychiatric Medical History: Reports: Hx Dementia, Hx Depression Past Surgical History: Reports: Hx Appendectomy, Hx Cardiac Surgery - pacer/ defib, Hx Pacemaker. Denies: Hx Hysterectomy - Immunizations Hx Diphtheria, Pertussis, Tetanus Vaccination: No Hx Pneumococcal Vaccination: 09/28/13 <WAYNE GASTELUMAN - Last Filed: 03/30/17 07:03> Review of Systems - Review of Systems Constitutional: No symptoms reported EENT: No symptoms reported Cardiovascular: See HPI Respiratory: No symptoms reported Gastrointestinal: See HPI Genitourinary: No symptoms reported Female Genitourinary: No symptoms reported Musculoskeletal: No symptoms reported Skin: No symptoms reported Hematologic/Lymphatic: No symptoms reported Neurological/Psychological: No symptoms reported <DIEUDONNE GASTELUM Last Filed: 03/30/17 07:03> Physical Exam - Vital signs Interpretation: Normal - General General appearance: Appears well, Alert In distress: None - Alert, conversational, well-appearing - HEENT Head: Normocephalic, Atraumatic Eyes: Normal Pupils: PERRL - Respiratory Respiratory status: No respiratory distress Chest status: Nontender Breath sounds: Normal. No: Decreased air movement, Wheezing Chest palpation: Normal - Cardiovascular Rhythm: Regular Heart sounds: Normal auscultation Murmur: Yes Normal capillary refill: Yes - Abdominal Inspection: Normal Distension: No distension Bowel sounds: Normal Tenderness: Nontender. No: Tender, Guarding - Back Back: Normal, Nontender. No: Tender - Extremities General upper extremity: Normal inspection, Nontender, Normal ROM, Normal strength General lower extremity: Normal inspection, Nontender, Normal ROM, Normal strength. No: Edema - Neurological Neuro grossly intact: Yes Cognition: Normal Orientation: Disoriented to time. No: Disoriented to person, Disoriented to place, Disoriented to events [place] Coma Scale Eye Opening: Spontaneous [place] Coma Scale Verbal: Oriented [place] Coma Scale Motor: Obeys Commands K[place] Coma Scale Total: 15 Speech: Normal Motor strength normal: LUE, RUE, LLE, RLE Sensory: Normal - Psychological Associated symptoms: Normal affect, Normal mood - Skin Skin Temperature: Warm Skin Moisture: Dry Skin Color: Normal <DIEUDONNE GASTELUM - Last Filed: 03/30/17 07:03> - Vital signs Vitals: Temp Pulse Resp BP Pulse Ox 97.5 F 68 23 H 184/84 H 96 03/30/17 04:10 03/30/17 04:10 03/30/17 04:10 03/30/17 04:10 03/30/17 04:10 Course - Laboratory Result Diagrams: 03/30/17 04:18 03/30/17 04:18 <DIEUDONNE GASTELUM - Last Filed: 03/30/17 07:03> - Laboratory Result Diagrams: 03/30/17 04:18 03/30/17 04:18 <TG RENE - Last Filed: 03/30/17 09:32> - Re-evaluation Re-evalutation: 03/30/17 Patient states that her symptoms have resolved at this time other than a headache and some nausea. Workup pending. EKG showing T-wave inversions laterally in consecutive leads which are new compared to prior. Suggestive of ischemia. No ST elevation noted. Prolonged QT interval at QTC of 507. Patient unsure if she is ever had a heart attack before. She does have a pacemaker. The patient had an elevated troponin, but negative catheterization according to her medical record here. CBC showing mild normocytic anemia, mild leukocytosis with no shift, nonspecific. Chemistry shows chronic kidney disease which is not significantly changed from prior. Initial troponin is 0.034 which is approximately patient's baseline based on her previous labs. 03/30/17 06:40 Patient remains chest pain-free. We will cycle troponin. Potential admission versus transfer if troponin is elevating. Patient was discussed with Dr. Willingham. 03/30/17 07:09 Introduced patient to Bentley Rene PA-C at bedside. (DIEUDONNE GASTELUM) 03/30/17 09:29 2nd Trop 0.037, dec from 0.038. We will admit to with Dr. Chakraborty. IMCU per Dr. Chakraborty. Pt has no new concerns or complaints at this time. vitals stable. (TG RENE) - Vital Signs Vital signs: Temp Pulse Resp BP Pulse Ox 97.5 F 68 13 174/84 H 93 03/30/17 04:10 03/30/17 04:10 03/30/17 09:01 03/30/17 09:01 03/30/17 09:01 - Laboratory Laboratory results interpreted by me: 03/30/17 03/30/17 04:18 04:18 WBC 11.3 H Hgb 10.1 L Hct 32.1 L MCH 25.1 L MCHC 31.3 L RDW 16.3 H Sodium 145.5 H Creatinine 1.48 H Est GFR ( Amer) 41 L Est GFR (Non-Af Amer) 34 L Glucose 112 H Total Protein 8.8 H Discharge <DIEUDONNE GASTELUM - Last Filed: 03/30/17 07:03> - Discharge Admitting Provider: [facility] Unit Admitted: IMCU <TG RENE - Last Filed: 03/30/17 09:32> - Discharge Clinical Impression: Chest pain Qualifiers: Chest pain type: unspecified Qualified Code(s): R07.9 - Chest pain, unspecified Condition: Stable Disposition: ADMITTED INPATIENT
[2017-03-30 04:46] LABS: ABSOLUTE BASOPHILS # (AUTO) 0.1 10^3/uL (0.0-0.2); ABSOLUTE EOSINOPHILS # (AUTO) 0.1 10^3/uL (0.0-0.6); ABSOLUTE LYMPHOCYTES (AUTO) 2.5 10^3/uL (0.5-4.7); ABSOLUTE MONOCYTES (AUTO) 0.7 10^3/uL (0.1-1.4); BASOPHILS % (AUTO) 0.7 % (0-2); EOSINOPHILS % (AUTO) 1.2 % (0-6); HEMATOCRIT 32.1 % (36.0-47.0); HEMOGLOBIN 10.1 g/dL (12.0-15.5); LYMPHOCYTES % (AUTO) 21.9 % (13-45); MEAN CORPUSCULAR HEMOGLOBIN 25.1 pg (27.0-33.4); MEAN CORPUSCULAR HGB CONC 31.3 g/dL (32.0-36.0); MEAN CORPUSCULAR VOLUME 80 fl (80-97); MONOCYTES % (AUTO) 5.8 % (3-13); PLATELET COUNT 278 10^3/uL (150-450); RED CELL DISTRIBUTION WIDTH 16.3 % (11.5-14.0); SEGMENTED NEUTROPHILS % (AUTO) 70.4 % (42-78); TOTAL CELLS COUNTED % (AUTO) 100 %; WHITE BLOOD COUNT 11.3 10^3/uL (4.0-10.5)
[2017-03-30 04:51] LABS: ALANINE AMINOTRANSFERASE 20 U/L (9-52); ALBUMIN 4.3 g/dL (3.5-5.0); ALKALINE PHOSPHATASE 93 U/L (38-126); ANION GAP 15 (5-19); ASPARTATE AMINO TRANSFERASE 20 U/L (14-36); BILIRUBIN,DIRECT 0.2 mg/dL (0.0-0.4); BILIRUBIN,TOTAL 0.3 mg/dL (0.2-1.3); BLOOD UREA NITROGEN 17 mg/dL (7-20); CALCIUM 10.2 mg/dL (8.4-10.2); CARBON DIOXIDE 28 mmol/L (22-30); CHLORIDE 103 mmol/L (98-107); CREATINE KINASE 115 U/L (30-135); GLUCOSE 112 mg/dL (75-110); POTASSIUM 4.6 mmol/L (3.6-5.0); SODIUM 145.5 mmol/L (137-145); TOTAL PROTEIN 8.8 g/dL (6.3-8.2)
[2017-03-30] MEDS ORDERED: MORPHINE SULFATE 10 MG/ML INJ IV ONE (04:59)
[2017-03-30 05:02] LABS: CREATINE KINASE MB 1.04 ng/mL (<4.55)
[2017-03-30 05:12] LABS: TROPONIN I 0.038 ng/mL
--- NOTE | 2017-03-30 06:08 | RADIOLOGY REPORT (SQ) ---
EXAM DESCRIPTION: CHEST SINGLE VIEW CLINICAL HISTORY: 86 years, Female, chest pain COMPARISON: 01.18. LIMITATIONS: None. FINDINGS: Mild patchiness of lower lung mercer, mild central pulmonary edema pattern, mild enlargement of the cardiac silhouette, and left cardiac stimulation device with leads. Mild osteoarthritis. IMPRESSION: Mild CHF pattern. Differential diagnosis includes mild bilateral lower lobar pulmonary edema. 2011 [email or web address]- All Rights Reserved
--- NOTE | 2017-03-30 07:25 | EKG REPORT ---
SEVERITY:- ABNORMAL ECG - SINUS RHYTHM PROBABLE LEFT ATRIAL ABNORMALITY LVH WITH SECONDARY REPOLARIZATION ABNORMALITY ABNORMAL T, PROBABLE ISCHEMIA, LATERAL LEADS BORDERLINE PROLONGED QT INTERVAL : Confirmed by: Efraín Lloyd MD 30-Mar-2017 07:24:32
[2017-03-30 11:55] LABS: CREATINE KINASE MB 1.03 ng/mL (<4.55); TROPONIN I 0.043 ng/mL
[2017-03-30] MEDS: HEPARIN SOD (PORCINE) 5,000 UNIT/ML 1 ML SYRINGE SUBCUT SCH ×2 (16:30→21:21)
[2017-03-30 17:26] LABS: CREATINE KINASE MB 1.1 ng/mL (<4.55); TROPONIN I 0.049 ng/mL
[2017-03-30] MEDS ORDERED: NITROGLYCERIN 0.4 MG/TAB 25 TAB/BOTTLE SL PRN (21:48)
--- NOTE | 2017-03-30 21:48 | PDOC H&P ---
History of Present Illness Admission Date/PCP: 03/30/17 09:35 History of Present Illness: BELKIS EUCEDA is a 86 year old female, She has advanced dementia, resident of assisted living facility, she came to the emergency room for evaluation of chest pain, the chest pain is atypical in character. Past Medical History Cardiac Medical History: Reports: Atrial Fibrillation, Myocardial Infarction - The patient had an elevated troponin, but negative catheterization 03/03/13, Hyperlipidema, Hypertension Denies: Coronary Artery Disease Neurological Medical History: Reports: Migraine Endocrine Medical History: GI Medical History: Reports: Gastroesophageal Reflux Disease Musculoskeltal Medical History: Denies: Arthritis - was told patient has a broken back Psychiatric Medical History: Reports: Dementia, Depression Hematology: Reports: Anemia Past Surgical History Past Surgical History: Reports: Appendectomy, Pacemaker Denies: Hysterectomy Social History Lives with: [facility] Smoking Status: Never Smoker Frequency of Alcohol Use: None Hx Recreational Drug Use: No Drugs: None Hx Prescription Drug Abuse: No - Advance Directive Resuscitation Status: Do Not Resuscitate Family History Family History: Reviewed & Not Pertinent Parental Family History Reviewed: Yes Children Family History Reviewed: Yes Sibling(s) Family History Reviewed.: Yes Medication/Allergy Home Medications: Amlodipine Besylate [Norvasc 5 mg Tablet] 5 mg PO DAILY 03/30/17 Aspirin [Aspirin EC] 81 mg PO DAILY 03/30/17 Citalopram Hydrobromide [Celexa] 20 mg PO DAILY 03/30/17 Donepezil HCl [Aricept] 10 mg PO QHS 03/30/17 Esomeprazole Magnesium [Nexium] 40 mg PO DAILY 03/30/17 Furosemide [Lasix 20 mg Tablet] 20 mg PO DAILY 03/30/17 Hydralazine HCl [Apresoline 25 mg Tablet] 25 mg PO Q8 03/30/17 Levothyroxine Sodium [Synthroid 0.088 mg Tablet] 0.088 mg PO DAILY 03/30/17 Lorazepam [Ativan 0.5 mg Tablet] 0.5 mg PO BID 03/30/17 Memantine HCl [Namenda 10 mg Tablet] 10 mg PO BID 03/30/17 Metoprolol Succinate [Toprol Xl 50 mg Tab.sr] 50 mg PO DAILY 03/30/17 Nifedipine [Nifedipine ER] 30 mg PO DAILY 03/30/17 Nitroglycerin [Nitrostat] 0.4 mg SL Q5MP PRN 03/30/17 Quetiapine Fumarate [Seroquel 25 mg Tablet] 25 mg PO QHS 03/30/17 Allergies/Adverse Reactions: codeine [Codeine] Allergy (Verified 09/05/14 13:56) iodine [Iodine] Allergy (Verified 09/05/14 13:56) Shellfish * [Shellfish] Allergy (Verified 09/05/14 13:56) Review of Systems Constitutional: ABSENT: chills, fever(s), headache(s), weight gain, weight loss Eyes: ABSENT: visual disturbances Ears: ABSENT: hearing changes Cardiovascular: PRESENT: chest pain Respiratory: ABSENT: cough, hemoptysis Gastrointestinal: ABSENT: abdominal pain, constipation, diarrhea, hematemesis, hematochezia, nausea, vomiting Genitourinary: ABSENT: dysuria, hematuria Musculoskeletal: ABSENT: joint swelling Integumentary: ABSENT: rash, wounds Neurological: ABSENT: abnormal gait, abnormal speech, confusion, dizziness, focal weakness, syncope Psychiatric: ABSENT: anxiety, depression, homidical ideation, suicidal ideation Endocrine: ABSENT: cold intolerance, heat intolerance, menstrual abnormalities, polydipsia, polyuria Hematologic/Lymphatic: ABSENT: easy bleeding, easy bruising, lymphadenopathy Physical Exam Vital Signs: Temp Pulse Resp BP Pulse Ox 98.4 F 70 19 147/67 H 100 03/30/17 19:05 03/30/17 19:05 03/30/17 19:05 03/30/17 19:05 03/30/17 19:05 Intake & Output 03/29/17 03/30/17 03/31/17 06:59 06:59 06:59 Intake Total 10 Balance 10 Weight 91.8 kg General appearance: PRESENT: no acute distress, well-developed, well-nourished Head exam: PRESENT: atraumatic, normocephalic Eye exam: PRESENT: conjunctiva pink, EOMI, PERRLA Ear exam: PRESENT: normal external ear exam Mouth exam: PRESENT: moist, tongue midline Neck exam: PRESENT: full ROM Respiratory exam: PRESENT: clear to auscultation bimal Cardiovascular exam: PRESENT: RRR, +S1, +S2 Pulses: PRESENT: normal dorsalis pedis pul, +2 pedal pulses bilateral Vascular exam: PRESENT: normal capillary refill GI/Abdominal exam: PRESENT: normal bowel sounds, soft Rectal exam: PRESENT: deferred Neurological exam: PRESENT: alert Psychiatric exam: PRESENT: appropriate affect, normal mood Skin exam: PRESENT: dry, intact, warm. ABSENT: cyanosis, rash Results Laboratory Results: 03/30/17 03/30/17 03/30/17 11:05 11:05 16:38 Creatine Kinase 121 126 CK-MB (CK-2) 1.03 Troponin I 0.043 03/30/17 16:38 Creatine Kinase CK-MB (CK-2) 1.10 Troponin I 0.049 Impressions: Chest X-Ray 03/30/17 04:25 IMPRESSION: Mild CHF pattern. Differential diagnosis includes mild bilateral lower lobar pulmonary edema. 2011 [employer]- All Rights Reserved Assessment & Plan - Diagnosis (1) Chest pain Qualifiers: Chest pain type: unspecified Qualified Code(s): R07.9 - Chest pain, unspecified Is this a current diagnosis for this admission?: Yes Plan: This is probably chest wall pain
[2017-03-30] MEDS ORDERED: AMLODIPINE BESYLATE 5 MG TABLET PO SCH (22:00)
[2017-03-30] MEDS ORDERED: METOPROLOL SUCCINATE 50 MG TAB.SR.24H PO SCH (22:00)
[2017-03-30] MEDS ORDERED: NIFEDIPINE 30 MG TAB.ER.24 PO SCH (22:00)
[2017-03-30] MEDS ORDERED: MEMANTINE HCL 10 MG TABLET PO SCH (22:00)
[2017-03-30] MEDS ORDERED: ASPIRIN 81 MG TABLET, ENT COATED PO SCH (22:00)
[2017-03-30] MEDS ORDERED: LORAZEPAM 0.5 MG TABLET PO SCH (22:00)
[2017-03-30] MEDS ORDERED: HYDRALAZINE HCL 25 MG TABLET PO SCH (22:00)
[2017-03-30] MEDS ORDERED: CITALOPRAM HYDROBROMIDE 20 MG TABLET PO SCH (22:00)
[2017-03-30 23:16] LABS: CREATINE KINASE MB 1.1 ng/mL (<4.55); TROPONIN I 0.051 ng/mL
[2017-03-31] MEDS: LEVOTHYROXINE SODIUM 0.088 MG TABLET PO SCH (05:47)
[2017-03-31] MEDS: HYDRALAZINE HCL 25 MG TABLET PO SCH ×3 (05:48→21:32)
[2017-03-31] MEDS: HEPARIN SOD (PORCINE) 5,000 UNIT/ML 1 ML SYRINGE SUBCUT SCH ×3 (05:48→21:32)
[2017-03-31] MEDS ORDERED: ACETAMINOPHEN 325 MG TABLET ONE (10:11)
[2017-03-31] MEDS: MEMANTINE HCL 10 MG TABLET PO SCH ×2 (10:18→21:32)
[2017-03-31] MEDS: LANSOPRAZOLE 30 MG TAB.RAP.DR PO SCH (10:18)
[2017-03-31] MEDS: CITALOPRAM HYDROBROMIDE 20 MG TABLET PO SCH (10:18)
[2017-03-31] MEDS: METOPROLOL SUCCINATE 50 MG TAB.SR.24H PO SCH (10:18)
[2017-03-31] MEDS: FUROSEMIDE 20 MG TABLET PO SCH (10:19)
[2017-03-31] MEDS: ASPIRIN 81 MG TABLET, ENT COATED PO SCH (10:19)
[2017-03-31] MEDS: LORAZEPAM 0.5 MG TABLET PO SCH ×2 (10:19→21:33)
[2017-03-31] MEDS: AMLODIPINE BESYLATE 5 MG TABLET PO SCH (10:19)
[2017-03-31] MEDS: NIFEDIPINE 30 MG TAB.ER.24 PO SCH (10:20)
[2017-03-31] MEDS ORDERED: ACETAMINOPHEN 325 MG TABLET PO PRN (11:26)
[2017-03-31 13:34] LABS: CREATINE KINASE MB 0.9 ng/mL (<4.55); TROPONIN I 0.046 ng/mL
--- NOTE | 2017-03-31 18:06 | PDOC TRANSFER SUMMARY ---
General - Admit/Disc Date/PCP Admission Date/Primary Care Provider: 03/30/17 09:35 Discharge Date: 04/01/17 - Discharge Diagnosis (1) Chest pain Is this a current diagnosis for this admission?: Yes - Additional Information Resuscitation Status: Do Not Resuscitate Discharge Diet: Diabetic Home Medications: Amlodipine Besylate [Norvasc 5 mg Tablet] 5 mg PO DAILY 03/30/17 Aspirin [Aspirin EC] 81 mg PO DAILY 03/30/17 Citalopram Hydrobromide [Celexa] 20 mg PO DAILY 03/30/17 Donepezil HCl [Aricept] 10 mg PO QHS 03/30/17 Esomeprazole Magnesium [Nexium] 40 mg PO DAILY 03/30/17 Furosemide [Lasix 20 mg Tablet] 20 mg PO DAILY 03/30/17 Hydralazine HCl [Apresoline 25 mg Tablet] 25 mg PO Q8 03/30/17 Levothyroxine Sodium [Synthroid 0.088 mg Tablet] 0.088 mg PO DAILY 03/30/17 Lorazepam [Ativan 0.5 mg Tablet] 0.5 mg PO BID 03/30/17 Memantine HCl [Namenda 10 mg Tablet] 10 mg PO BID 03/30/17 Metoprolol Succinate [Toprol Xl 50 mg Tab.sr] 50 mg PO DAILY 03/30/17 Nifedipine [Nifedipine ER] 30 mg PO DAILY 03/30/17 Nitroglycerin [Nitrostat] 0.4 mg SL Q5MP PRN 03/30/17 Quetiapine Fumarate [Seroquel 25 mg Tablet] 25 mg PO QHS 03/30/17 History of Present Illness Admission Date/PCP: 03/30/17 09:35 History of Present Illness: BELKIS EUCEDA is a 86 year old female, She has advanced dementia, resident of assisted living facility, she came to the emergency room for evaluation of chest pain, the chest pain is atypical in character. Hospital Course Hospital Course: She was admitted for evaluation of chest pain, 3 sets of cardiac enzymes was negative for acute myocardial infarction Physical Exam Vital Signs: Temp Pulse Resp BP Pulse Ox 97.9 F 72 19 135/50 H 98 03/31/17 15:36 03/31/17 15:36 03/31/17 15:36 03/31/17 15:36 03/31/17 15:36 Intake & Output 03/30/17 03/31/17 04/01/17 06:59 06:59 06:59 Intake Total 489 100 Balance 489 100 Weight 92 kg General appearance: PRESENT: no acute distress, well-developed, well-nourished Head exam: PRESENT: atraumatic, normocephalic Eye exam: PRESENT: conjunctiva pink, EOMI, PERRLA Ear exam: PRESENT: normal external ear exam Mouth exam: PRESENT: moist, tongue midline Respiratory exam: PRESENT: clear to auscultation bimal Cardiovascular exam: PRESENT: RRR Pulses: PRESENT: normal dorsalis pedis pul Vascular exam: PRESENT: normal capillary refill GI/Abdominal exam: PRESENT: normal bowel sounds, soft Rectal exam: PRESENT: deferred Extremities exam: PRESENT: full ROM Neurological exam: PRESENT: alert Psychiatric exam: PRESENT: appropriate affect, normal mood. ABSENT: homicidal ideation, suicidal ideation Skin exam: PRESENT: dry, intact, warm. ABSENT: cyanosis, rash Results Laboratory Results: 03/30/17 03/30/17 03/30/17 11:05 11:05 16:38 Creatine Kinase 121 126 CK-MB (CK-2) 1.03 Troponin I 0.043 03/30/17 03/30/17 03/30/17 16:38 22:35 22:35 Creatine Kinase 135 CK-MB (CK-2) 1.10 1.10 Troponin I 0.049 0.051 03/31/17 03/31/17 13:00 13:00 Creatine Kinase 123 CK-MB (CK-2) 0.90 Troponin I 0.046 Impressions: Chest X-Ray 03/30/17 04:25 IMPRESSION: Mild CHF pattern. Differential diagnosis includes mild bilateral lower lobar pulmonary edema. 2011 [employer]- All Rights Reserved
[2017-03-31] MEDS: DONEPEZIL HCL 5 MG TABLET PO SCH (21:33)
[2017-04-01] MEDS: LEVOTHYROXINE SODIUM 0.088 MG TABLET PO SCH (06:43)
[2017-04-01] MEDS: HYDRALAZINE HCL 25 MG TABLET PO SCH ×3 (06:43→22:15)
[2017-04-01] MEDS: HEPARIN SOD (PORCINE) 5,000 UNIT/ML 1 ML SYRINGE SUBCUT SCH ×3 (06:45→22:15)
[2017-04-01] MEDS: AMLODIPINE BESYLATE 5 MG TABLET PO SCH (10:32)
[2017-04-01] MEDS: FUROSEMIDE 20 MG TABLET PO SCH (10:32)
[2017-04-01] MEDS: ASPIRIN 81 MG TABLET, ENT COATED PO SCH (10:32)
[2017-04-01] MEDS: METOPROLOL SUCCINATE 50 MG TAB.SR.24H PO SCH (10:33)
[2017-04-01] MEDS: NIFEDIPINE 30 MG TAB.ER.24 PO SCH (10:34)
[2017-04-01] MEDS: MEMANTINE HCL 10 MG TABLET PO SCH ×2 (10:34→22:15)
[2017-04-01] MEDS: CITALOPRAM HYDROBROMIDE 20 MG TABLET PO SCH (10:35)
[2017-04-01] MEDS: LORAZEPAM 0.5 MG TABLET PO SCH ×2 (10:35→22:15)
[2017-04-01] MEDS: LANSOPRAZOLE 30 MG TAB.RAP.DR PO SCH (10:36)
[2017-04-01] MEDS: DONEPEZIL HCL 5 MG TABLET PO SCH (22:15)
[2017-04-02] MEDS: HYDRALAZINE HCL 25 MG TABLET PO SCH (07:18)
[2017-04-02] MEDS: LEVOTHYROXINE SODIUM 0.088 MG TABLET PO SCH (07:18)
[2017-04-02] MEDS: HEPARIN SOD (PORCINE) 5,000 UNIT/ML 1 ML SYRINGE SUBCUT SCH (07:19)
[2017-04-02] MEDS: LANSOPRAZOLE 30 MG TAB.RAP.DR PO SCH (09:23)
[2017-04-02] MEDS: MEMANTINE HCL 10 MG TABLET PO SCH (09:23)
[2017-04-02] MEDS: FUROSEMIDE 20 MG TABLET PO SCH (09:24)
[2017-04-02] MEDS: AMLODIPINE BESYLATE 5 MG TABLET PO SCH (09:24)
[2017-04-02] MEDS: ASPIRIN 81 MG TABLET, ENT COATED PO SCH (09:25)
[2017-04-02] MEDS: CITALOPRAM HYDROBROMIDE 20 MG TABLET PO SCH (09:25)
[2017-04-02] MEDS: LORAZEPAM 0.5 MG TABLET PO SCH (09:26)
[2017-04-02] MEDS: METOPROLOL SUCCINATE 50 MG TAB.SR.24H PO SCH (09:26)
[2017-04-02] MEDS: NIFEDIPINE 30 MG TAB.ER.24 PO SCH (09:27)
[2017-04-02 12:58] VITALS: BP 124/60
== END 2017-04-02 13:10 ==
LOC: ER 04:10 → EH 09:35 → INTOOBSV 09:35 → 3S 14:32
PROVIDERS: ADMIT Internal Medicine; ATTEND Internal Medicine
DX: R07.89 Other chest pain (principal); F03.90 Unspecified dementia, unspecified severity, without behavioral disturbance, psychotic disturbance, mood disturbance, and anxiety; I12.9 Hypertensive chronic kidney disease with stage 1 through stage 4 chronic kidney disease, or unspecified chronic kidney disease; N18.9 Chronic kidney disease, unspecified; K21.9 Gastro-esophageal reflux disease without esophagitis; R11.2 Nausea with vomiting, unspecified; D64.9 Anemia, unspecified; D72.829 Elevated white blood cell count, unspecified; I48.91 Unspecified atrial fibrillation; I25.2 Old myocardial infarction; Z66 Do not resuscitate; Z79.899 Other long term (current) drug therapy; Z79.82 Long term (current) use of aspirin; Z90.49 Acquired absence of other specified parts of digestive tract; Z95.810 Presence of automatic (implantable) cardiac defibrillator
CPT/HCPCS: 93005; 99285; 96374; 36415 ×2; 82553 ×2; 82550 ×2; 85025; 80053; 84484 ×2; 71045; 93010; G0378 ×5; A9270 ×36; J1644 ×3; J2270

== ENCOUNTER 2017-07-09 19:46 | Emergency (ER) | payer MEDICARE, MEDICAID ==
[2017-07-09] MEDS ORDERED: DIPHENHYDRAMINE HCL 50 MG/ML VIAL IV ONE (19:58)
[2017-07-09] MEDS ORDERED: PROCHLORPERAZINE EDISYLATE INJ 10 MG/2 ML VIAL IV ONE (19:58)
[2017-07-09] MEDS ORDERED: NORMAL SALINE 1000 ML 1,000 ML IV ONE (19:59)
[2017-07-09] MEDS ORDERED: ACETAMINOPHEN 325 MG TABLET PO ONE (20:14)
[2017-07-09] MEDS ORDERED: ONDANSETRON HCL INJ/PF 4 MG/2 ML SDV IV ONE (20:14)
--- NOTE | 2017-07-09 20:15 | ER Document Report ---
ED General - General Chief Complaint: Vomiting Stated Complaint: VOMITING Time Seen by Provider: 07/09/17 19:57 TRAVEL OUTSIDE OF THE [place] IN LAST 30 DAYS: No - HPI Notes: There is patient is an 87-year-old female with a history of hypertension, anxiety, dementia who presents to the ED from the halfway complaining of a headache, nausea/vomiting, and right lower quadrant abdominal pain. Now it was noted that her symptoms started over the last 24 hours. She has not been eating well. Patient is otherwise a poor historian, but is but does deny any chest pain, shortness of breath, trouble breathing, or fevers. Patient states that her headache is "really bad." When asked to specify where her abdominal pain was, patient pointed to her right lower quadrant. - Related Data Allergies/Adverse Reactions: codeine [Codeine] Allergy (Verified 09/05/14 13:56) iodine [Iodine] Allergy (Verified 09/05/14 13:56) Shellfish * [Shellfish] Allergy (Verified 09/05/14 13:56) Past Medical History - General Cannot obtain history due to: Dementia - Social History Smoking Status: Unknown if Ever Smoked Family History: Reviewed & Not Pertinent - Past Medical History Cardiac Medical History: Reports: Hx Atrial Fibrillation, Hx Heart Attack - The patient had an elevated troponin, but negative catheterization 03/03/13, Hx Hypercholesterolemia, Hx Hypertension Denies: Hx Coronary Artery Disease Pulmonary Medical History: Denies: Hx Asthma, Hx Bronchitis, Hx COPD, Hx Pneumonia, Hx Tuberculosis Neurological Medical History: Reports: Hx Cerebrovascular Accident, Hx Migraine. Denies: Hx Seizures Endocrine Medical History: Renal/ Medical History: Denies: Hx Peritoneal Dialysis GI Medical History: Reports: Hx Gastroesophageal Reflux Disease Musculoskeltal Medical History: Denies Hx Arthritis - was told patient has a broken back Psychiatric Medical History: Reports: Hx Dementia, Hx Depression Past Surgical History: Reports: Hx Appendectomy, Hx Cardiac Surgery - pacer/ defib, Hx Pacemaker. Denies: Hx Hysterectomy - Immunizations Hx Diphtheria, Pertussis, Tetanus Vaccination: No Hx Pneumococcal Vaccination: 09/28/13 Review of Systems - Review of Systems -: Yes ROS unobtainable due to patient's medical condition Physical Exam - Vital signs Vitals: Temp Pulse Resp BP Pulse Ox 98.5 F 65 20 154/61 H 97 07/09/17 19:58 07/09/17 19:58 07/09/17 19:58 07/09/17 19:58 07/09/17 19:58 - Notes Notes: PHYSICAL EXAMINATION: GENERAL: Well-appearing, well-nourished and in no acute distress. A&Ox2. Patient is no accurate with the date or recent events. She was able to tell me her name, , and where she is currently. HEAD: Atraumatic, normocephalic. EYES: Pupils equal round and reactive to light, extraocular movements intact, sclera anicteric, conjunctiva are normal. ENT: Nares patent and without discharge. oropharynx clear without exudates. No tonsilar hypertrophy or erythema. Moist mucous membranes. NECK: Normal range of motion, supple without lymphadenopathy LUNGS: Breath sounds clear to auscultation bilaterally and equal. No wheezes rales or rhonchi. HEART: Regular rate and rhythm without murmurs, rubs, gallops. ABDOMEN: Soft, nondistended abdomen. No guarding, no rebound. No masses appreciated. Normal bowel sounds present. No CVA tenderness bilaterally. + tenderness to the RLQ. Rectal: stool solid, w/o impaction. No melena or marcelo blood. Musculoskeletal: FROM to passive/active. Strength 5+/5. Extremities: No cyanosis, clubbing, or edema b/l. Peripheral pulses 2+. Capillary refill less than 3 seconds. NEUROLOGICAL: Cranial nerves grossly intact. Normal speech. Normal sensory, motor exams. PSYCH: Normal mood, normal affect. SKIN: Warm, Dry, normal turgor, no rashes or lesions noted. Course - Re-evaluation Re-evalutation: 07/09/17 22:51 Recheck on patient. Pt continues to have RLQ pain and tenderness to palp. Guiac obtained. Ct head neg. No episodes of emesis. 07/10/17 03:00 Patient is an afebrile, well-hydrated, 87-year-old female who presents to the ED with abdominal pain unspecified and headache. Patient is tolerating p.o. without any difficulties. Patient was given IV fluids. Patient given Zofran and Toradol. Pt was given solumedrol, benadryl, and pepcid due to iodine sensitivity prior to CT scan. RAM improved. CBC showed a microcytic anemia without acute blood loss or active bleeding. Guaiac was negative. CBC showed stable CKD and urinalysis was unremarkable for any acute pathology. CT unremarkable for acute pathology. Low suspicion/risk for acute appendicitis, bowel obstruction, acute cholecystitis, acute cholangitis, perforated diverticulitis, incarcerated hernia, pancreatitis, perforated ulcer, peritonitis , sepsis, or other systemic emergent condition at this time. Patient is aware that her condition can change from initial presentation and she needs to monitor symptoms closely and seek medical attention if any acute changes. I will send her home with a prescription for Zofran. Conservative measures otherwise for symptoms. Recheck with your PCM in 3-5 days. Consider consult with a slag production worker. Return to the ED with any worsening/concerning symptoms otherwise as reviewed in discharge. Patient is in agreement but again , pt does have dementia. - Vital Signs Vital signs: Temp Pulse Resp BP Pulse Ox 98.5 F 65 20 154/61 H 97 07/09/17 19:58 07/09/17 19:58 07/09/17 19:58 07/09/17 19:58 07/09/17 19:58 - Laboratory Result Diagrams: 07/09/17 20:50 07/09/17 20:50 Laboratory results interpreted by me: 07/09/17 07/09/17 07/09/17 20:50 20:50 22:25 RBC 3.61 L Hgb 8.8 L Hct 27.8 L MCV 77 L MCH 24.4 L MCHC 31.7 L RDW 15.9 H Creatinine 1.48 H Est GFR ( Amer) 40 L Est GFR (Non-Af Amer) 33 L Lipase 437.5 H Urine Protein 100 H Discharge - Discharge Clinical Impression: Unspecified abdominal pain Qualifiers: Abdominal location: lower abdomen, unspecified Qualified Code(s): R10.30 - Lower abdominal pain, unspecified Condition: Stable Disposition: HOME, SELF-CARE Instructions: Gastroenteritis (adult) ([facility]), Headache ([facility]) Additional Instructions: CT scan was unremarkable for acute pathology. Maintain adequate fluid and food intake [place] diet ([employer] Bananas, rice, apples, toast, etc Zofran as needed tylenol if needed Monitor for any worsening symptoms Make sure you are staying hydrated enough to urinate and have normal BM's Recheck with your PCM in 3-5 days Consider consult with Gastroenterology for ongoing/worsening symptoms Return to the ED with any worsening symptoms and/or development of fever, headache, chest pain, palpitations, syncope, shortness of breath, trouble breathing, abdominal pain, n/v/d, blood in stool/urine, weakness, or other worsening symptoms that are concerning to you. Prescriptions: Ondansetron [Zofran Odt 4 mg Tablet] 1 - 2 tab PO Q4H PRN #15 tab.rapdis PRN Reason: For Nausea/Vomiting Forms: Elevated Blood Pressure Referrals: AJ BURGOS MD [ACTIVE STAFF] - Follow up as needed LEWIS LUU MD [ACTIVE STAFF] - Follow up as needed SUDHIR KRAUSE MD [ACTIVE STAFF] - Follow up in 3-5 days
[2017-07-09 21:01] LABS: ABSOLUTE BASOPHILS # (AUTO) 0.1 10^3/uL (0.0-0.2); ABSOLUTE EOSINOPHILS # (AUTO) 0.2 10^3/uL (0.0-0.6); ABSOLUTE LYMPHOCYTES (AUTO) 2.1 10^3/uL (0.5-4.7); ABSOLUTE MONOCYTES (AUTO) 0.7 10^3/uL (0.1-1.4); ABSOLUTE NEUT (AUTO) 4.7 10^3/uL (1.7-8.2); BASOPHILS % (AUTO) 0.9 % (0-2); EOSINOPHILS % (AUTO) 2.3 % (0-6); HEMATOCRIT 27.8 % (36.0-47.0); HEMOGLOBIN 8.8 g/dL (12.0-15.5); LYMPHOCYTES % (AUTO) 27.3 % (13-45); MEAN CORPUSCULAR HEMOGLOBIN 24.4 pg (27.0-33.4); MEAN CORPUSCULAR HGB CONC 31.7 g/dL (32.0-36.0); MEAN CORPUSCULAR VOLUME 77 fl (80-97); MONOCYTES % (AUTO) 9.5 % (3-13); PLATELET COUNT 238 10^3/uL (150-450); RED BLOOD COUNT 3.61 10^6/uL (3.72-5.28); RED CELL DISTRIBUTION WIDTH 15.9 % (11.5-14.0); TOTAL CELLS COUNTED % (AUTO) 100 %; WHITE BLOOD COUNT 7.8 10^3/uL (4.0-10.5)
[2017-07-09 21:17] LABS: ALANINE AMINOTRANSFERASE 25 U/L (9-52); ALBUMIN 3.8 g/dL (3.5-5.0); ALKALINE PHOSPHATASE 103 U/L (38-126); ANION GAP 10 (5-19); ASPARTATE AMINO TRANSFERASE 20 U/L (14-36); BILIRUBIN,DIRECT 0.2 mg/dL (0.0-0.4); BILIRUBIN,TOTAL 0.2 mg/dL (0.2-1.3); BLOOD UREA NITROGEN 19 mg/dL (7-20); CALCIUM 9.5 mg/dL (8.4-10.2); CARBON DIOXIDE 30 mmol/L (22-30); CHLORIDE 103 mmol/L (98-107); GLUCOSE 109 mg/dL (75-110); LIPASE 437.5 U/L (23-300); POTASSIUM 4.6 mmol/L (3.6-5.0); TOTAL PROTEIN 7.7 g/dL (6.3-8.2)
--- NOTE | 2017-07-09 22:19 | RADIOLOGY REPORT (SQ) ---
EXAM DESCRIPTION: CT HEAD WITHOUT COMPLETED DATE/TIME: 07/09/2017 9:53 pm REASON FOR STUDY: headache COMPARISON: 10/07/2013 TECHNIQUE: Axial images acquired through the brain without intravenous contrast. Images reviewed wi th bone, brain and subdural windows. Additional sagittal and coronal reconstructions were generated. Images stored on PACS. All CT scanners at this facility use dose modulation, iterative reconstruction, and/or weight based d osing when appropriate to reduce radiation dose to as low as reasonably achievable (ALARA). [facility]: Dose Right [facility]: CareDose [facility]: Dose Right [facility]: Teradose 4D [facility]: [employer] RADIATION DOSE: CT Rad equipment meets quality standard of care and radiation dose reduction techniq ues were employed. CTDIvol: 53.2 mGy. DLP: 1070 mGy-cm. mGy. LIMITATIONS: Sub optimal positioning FINDINGS: VENTRICLES: Prominent ventricles secondary to involutional atrophy. CEREBRUM: No masses. No hemorrhage. No midline shift. No evidence for acute infarction. Areas of l ow density in the white matter most likely chronic small vessel ischemic changes. CEREBELLUM: No masses. No hemorrhage. No alteration of density. No evidence for acute infarction. EXTRAAXIAL SPACES: No fluid collections. No masses. ORBITS AND GLOBE: No intra- or extraconal masses. Normal contour of globe without masses. CALVARIUM: No fracture. PARANASAL SINUSES: No fluid or mucosal thickening. SOFT TISSUES: No mass or hematoma. OTHER: No other significant finding. IMPRESSION: CHRONIC MICROVASCULAR ISCHEMIA. NO ACUTE IMAGING FINDINGS IN THE BRAIN. EVIDENCE OF ACUTE STROKE: NO. COMMENT: Quality ID # [id number]: Final reports with documentation of one or more dose reduction techniques (e.g., Automated exposure control, adjustment of the mA and/or kV according to patient size, use of iterative reconstruction technique) TECHNICAL DOCUMENTATION: JOB ID: [id number] [employer]- All Rights Reserved Reading location - IP/workstation name: [email or web address]
[2017-07-09] MEDS ORDERED: KETOROLAC TROMETHAMINE INJ/PF 30 MG/1 ML SDV IV ONE (22:50)
[2017-07-09 23:22] LABS: APPEARANCE,URINE CLEAR; BILIRUBIN,URINE NEGATIVE (NEGATIVE); COLOR,URINE YELLOW; GLUCOSE, URINE NEGATIVE (NEGATIVE); KETONES,URINE NEGATIVE (NEGATIVE); LEUKOCYTE ESTERASE,URINE NEGATIVE (NEGATIVE); NITRITE,URINE NEGATIVE (NEGATIVE); PROTEIN,URINE 100 mg/dL (NEGATIVE); URINE SPECIFIC GRAVITY 1.011; UROBILINOGEN,URINE NEGATIVE mg/dL (<2.0)
[2017-07-10] MEDS ORDERED: FAMOTIDINE INJ/PF 20 MG/2 ML SDV IV ONE (00:37)
[2017-07-10] MEDS ORDERED: DIPHENHYDRAMINE HCL 50 MG/ML VIAL IV ONE (00:37)
[2017-07-10] MEDS ORDERED: METHYLPREDNISOLONE INJ 125 MG/2 ML SDV IV ONE (00:37)
--- NOTE | 2017-07-10 02:55 | RADIOLOGY REPORT (SQ) ---
EXAM DESCRIPTION: CT ABDOMEN AND PELVIS WITH CONTRAST CLINICAL HISTORY: RLQ pain COMPARISON: None Available. TECHNIQUE: CT of the abdomen and pelvis performed following IV administration of 100 mL of Isovue 300. Delayed images obtained. DLP: 2039.73 mGycm FINDINGS: Lung Bases: The visualized lung bases are clear. Cardiomegaly. Pacemaker leads partially visualized. Bones: No destructive bone lesions identified. Degenerative change of the spine and hips. Abdomen: Liver: The liver has normal size and density. No intrahepatic mass or biliary dilatation. Gallbladder: Prior cholecystectomy. Spleen, Pancreas, and Adrenal Glands: Evidence in the spleen measuring 1.5 cm likely represents a cyst or hemangioma. Kidneys: The kidneys have normal size and contour without evidence of solid mass or hydronephrosis. Bosniak class I left renal cyst. No excretion of contrast on delayed images. Vasculature: The iliac atherosclerosis. IVC is unremarkable. The portal vein is patent. The proximal visceral and renal arteries are patent. Stomach: The stomach and duodenum have normal course. Other: No free intraperitoneal air. No free fluid or lymphadenopathy. Pelvis: Bladder: Urinary bladder is unremarkable. Bowel: No dilated loops of large or small bowel. Appendix: No evidence of appendicitis. The appendix is not definitely identified. Pelvis: Prior hysterectomy. IMPRESSION: 1. No acute inflammatory or obstructive process identified. This exam was performed according to our departmental dose-optimization program, which includes automated exposure control, adjustment of the mA and/or kV according to patient size and/or use of iterative reconstruction technique.
[2017-07-10 05:27] VITALS: BP 169/88
== END 2017-07-10 05:32 | disposition home or self-care (01) ==
LOC: ER 19:46
DX: R10.30 Lower abdominal pain, unspecified (principal); Z95.810 Presence of automatic (implantable) cardiac defibrillator; Z86.73 Personal history of transient ischemic attack (TIA), and cerebral infarction without residual deficits
CPT/HCPCS: 99284; 36415; 83690; 85025; 82272; 80053; 81001; 70450; 74177; A9270; J1200; J2930; J1885; J2405; J7030; S0028

== ENCOUNTER → 2017-08-25 | Outpatient (CLI) | payer MEDICARE, MEDICAID ==
[2017-08-25 15:55] LABS: ANION GAP 8 (5-19); BLOOD UREA NITROGEN 23 mg/dL (7-20); CALCIUM 9.9 mg/dL (8.4-10.2); CARBON DIOXIDE 30 mmol/L (22-30); CHLORIDE 108 mmol/L (98-107); GLUCOSE 88 mg/dL (75-110); IRON(TIBC) 38.3 ug/dL (37-170); POTASSIUM 5.2 mmol/L (3.6-5.0); SODIUM 145.7 mmol/L (137-145)
[2017-08-25 16:12] LABS: HEMATOCRIT 29.6 % (36.0-47.0); HEMOGLOBIN 9.3 g/dL (12.0-15.5); MEAN CORPUSCULAR HGB CONC 31.5 g/dL (32.0-36.0); MEAN CORPUSCULAR VOLUME 76 fl (80-97); PLATELET COUNT 227 10^3/uL (150-450); RED BLOOD COUNT 3.88 10^6/uL (3.72-5.28); WHITE BLOOD COUNT 7.9 10^3/uL (4.0-10.5)
== END ==
LOC: OD 14:39
PROVIDERS: ATTEND Internal Medicine Gastroenterology
DX: D50.0 Iron deficiency anemia secondary to blood loss (chronic) (principal)
CPT/HCPCS: 36415; 80048; 82728; 83540; 83550; 85027

== ENCOUNTER 2017-09-01 03:44 | Inpatient (IN) | payer MEDICARE, MEDICAID ==
[2017-09-01] MEDS ORDERED: FUROSEMIDE INJ/PF 40 MG/4 ML SDV IV ONE (03:59)
[2017-09-01] MEDS ORDERED: FENTANYL CITRATE INJ/PF 100 MCG/2 ML AMPUL IV ONE (04:03)
--- NOTE | 2017-09-01 04:03 | ER Document Report ---
ED General - General Stated Complaint: PAIN ALL OVER Time Seen by Provider: 09/01/17 03:53 Notes: Patient is a pleasant 87-year-old female presents with complaint of pain into her left arm and into her legs. She has a large amount of edema in these locations. According to her paramedics shelter says that she has had worsening edema over last 4 days. She is on Lasix 80 mg every morning according to her medication list. She denies any chest pain. She denies shortness of breath. She denies any fevers. She does have history of dementia. She is also hypertensive. Her initial blood pressure was 209/85 with the paramedics. She did receive nitro from the bone screw. Her current blood pressure is 171/70. No abdominal pain. No vomiting. No diarrhea. TRAVEL OUTSIDE OF THE [place] IN LAST 30 DAYS: No - Related Data Allergies/Adverse Reactions: codeine [Codeine] Allergy (Verified 09/05/14 13:56) iodine [Iodine] Allergy (Verified 09/05/14 13:56) Shellfish * [Shellfish] Allergy (Verified 09/05/14 13:56) Past Medical History - Social History Smoking Status: Unknown if Ever Smoked Frequency of alcohol use: None Drug Abuse: None Family History: Reviewed & Not Pertinent - Past Medical History Cardiac Medical History: Reports: Hx Atrial Fibrillation, Hx Heart Attack - The patient had an elevated troponin, but negative catheterization 03/03/13, Hx Hypercholesterolemia, Hx Hypertension Denies: Hx Coronary Artery Disease Pulmonary Medical History: Denies: Hx Asthma, Hx Bronchitis, Hx COPD, Hx Pneumonia, Hx Tuberculosis Neurological Medical History: Reports: Hx Cerebrovascular Accident, Hx Migraine. Denies: Hx Seizures Endocrine Medical History: Renal/ Medical History: Denies: Hx Peritoneal Dialysis GI Medical History: Reports: Hx Gastroesophageal Reflux Disease Musculoskeltal Medical History: Denies Hx Arthritis - was told patient has a broken back Psychiatric Medical History: Reports: Hx Dementia, Hx Depression Past Surgical History: Reports: Hx Appendectomy, Hx Cardiac Surgery - pacer/ defib, Hx Pacemaker. Denies: Hx Hysterectomy - Immunizations Hx Diphtheria, Pertussis, Tetanus Vaccination: No Hx Pneumococcal Vaccination: 09/28/13 Review of Systems - Review of Systems Notes: My Normal Review Basic REVIEW OF SYSTEMS: CONSTITUTIONAL : Denies fever, chills, or sweats. Denies recent illness. EENT: Denies eye, ear, throat, or mouth pain or symptoms. Denies nasal or sinus congestion. CARDIOVASCULAR: Denies chest pain. RESPIRATORY: Denies cough, cold, or chest congestion. Denies shortness of breath, difficulty breathing, or wheezing. GASTROINTESTINAL: Denies abdominal pain. Denies nausea, vomiting, or diarrhea. Denies constipation. Last BM: GENITOURINARY: Denies difficulty urinating, painful urination, burning, frequency, or blood in urine. MUSCULOSKELETAL: Extremity edema SKIN: Denies rash or skin lesions. NEUROLOGICAL: Denies altered mental status or loss of consciousness. Denies headache. Denies weakness or paralysis or loss of use of either side. Denies problems with gait or speech. Denies sensory or motor loss. ALL OTHER SYSTEMS REVIEWED AND NEGATIVE. Physical Exam - Notes Notes: General Appearance: Well nourished, alert, cooperative, no acute distress, mild to moderate obvious discomfort. Vitals: reviewed, See vital signs table. Head: no swelling or tenderness to the head Eyes: PERRL, EOMI, Conjuctiva clear Mouth: No decreasd moisture Throat: No tonsillar inflammation, No airway obstruction, No lymphadenopathy Neck: Supple, no neck tenderness, No thyromegaly Lungs: No wheezing, No rales, No rhonci, No accessory muscle use, good air exchange bilaterally. Heart: Normal rate, Regular rythm, No murmur, no rub Abdomen: Normal BS, soft, No rigidity, No abdominal tenderness, No guarding, no rebound, no abdominal masses, no organomegaly Extremities: strength 5/5 in all extremities, good pulses in all extremities, pain to palpation of left arm and bilateral lower extremities. Patient's right arm is not swollen as her left. Both lower extremities are significantly edematous with 3+ pitting edema. Skin: warm, dry, appropriate color, no rash Neuro: speech clear, oriented x 3, normal affect, responds appropriately to questions. Course - Re-evaluation Re-evalutation: 09/01/17 06:13 She does have a large amount of edema in extremities does have point vascular congestion on x-ray that is more than her baseline. I have given her large dose Lasix. Initially her blood pressure was downtrending from the nitro was given by the paramedics however started to trend back upward again therefore have given her a dose of hydralazine as well as placed Nitropaste on her chest. Clinically she looks okay except having pain in her extremities for mild edema. Feel that it is appropriate to admit her to the hospital due to acute CHF with significant fluid overload. I did speak with Dr. Chakraborty who is covering for Dr. Oshea. He agrees to accept the patient. Dictation of this chart was performed using voice recognition software; therefore, there may be some unintended grammatical errors. - Laboratory Result Diagrams: 09/01/17 05:00 09/01/17 05:00 Laboratory results interpreted by me: 09/01/17 09/01/17 09/01/17 05:00 05:00 05:00 RBC 3.54 L Hgb 8.7 L Hct 26.9 L MCV 76 L MCH 24.7 L RDW 18.6 H Sodium 146.2 H Chloride 109 H BUN 21 H Creatinine 1.28 H Est GFR ( Amer) 48 L Est GFR (Non-Af Amer) 40 L Direct Bilirubin 0.5 H NT-Pro-B Natriuret Pep 4580 H Total Protein 8.7 H Discharge - Discharge Clinical Impression: Hypertensive urgency Pulmonary edema Qualifiers: Chronicity: acute Qualified Code(s): J81.0 - Acute pulmonary edema Condition: Stable Disposition: ADMITTED OBSERVATION Admitting Provider: Dayo Unit Admitted: Telemetry Referrals: LEWIS LUU MD [ACTIVE STAFF] - Follow up as needed
--- NOTE | 2017-09-01 04:28 | RADIOLOGY REPORT (SQ) ---
EXAM DESCRIPTION: XR CHEST 1 VIEW COMPLETED DATE/TME: 09/01/2017 03:59 CLINICAL HISTORY: pain COMPARISON: 03/30/2017 FINDINGS: Single frontal view of the chest. Left-sided dual-lead pacemaker. Cardiomegaly. Low lung volumes. Patchy bibasilar airspace opacities. Pulmonary vascular congestion. No pneumothorax. No acute osseous abnormalities. Degenerative change of the spine. Upper abdominal soft tissues are unremarkable. IMPRESSION: 1. Cardiomegaly with pulmonary vascular congestion and patchy bibasilar opacities. These findings may be related to pulmonary edema.
--- NOTE | 2017-09-01 04:30 | RADIOLOGY REPORT (SQ) ---
EXAM DESCRIPTION: XR FOREARM 2 VIEWS COMPLETED DATE/TME: 09/01/2017 03:59 CLINICAL HISTORY: 87 years, Female, pain COMPARISON: 02/04/2017 FINDINGS: 2 views of the left forearm. No acute fracture or dislocation. Osteopenia. No radiopaque foreign body or subcutaneous air identified. IMPRESSION: No acute fracture or dislocation. 2010 [employer]- All Rights Reserved
[2017-09-01 05:31] LABS: ABSOLUTE BASOPHILS # (AUTO) 0.1 10^3/uL (0.0-0.2); ABSOLUTE EOSINOPHILS # (AUTO) 0.2 10^3/uL (0.0-0.6); ABSOLUTE LYMPHOCYTES (AUTO) 1.6 10^3/uL (0.5-4.7); ABSOLUTE MONOCYTES (AUTO) 0.6 10^3/uL (0.1-1.4); ABSOLUTE NEUT (AUTO) 4.1 10^3/uL (1.7-8.2); BASOPHILS % (AUTO) 0.9 % (0-2); EOSINOPHILS % (AUTO) 2.9 % (0-6); HEMATOCRIT 26.9 % (36.0-47.0); HEMOGLOBIN 8.7 g/dL (12.0-15.5); LYMPHOCYTES % (AUTO) 24.3 % (13-45); MEAN CORPUSCULAR HEMOGLOBIN 24.7 pg (27.0-33.4); MEAN CORPUSCULAR HGB CONC 32.6 g/dL (32.0-36.0); MEAN CORPUSCULAR VOLUME 76 fl (80-97); MONOCYTES % (AUTO) 8.6 % (3-13); PLATELET COUNT 192 10^3/uL (150-450); RED BLOOD COUNT 3.54 10^6/uL (3.72-5.28); RED CELL DISTRIBUTION WIDTH 18.6 % (11.5-14.0); SEGMENTED NEUTROPHILS % (AUTO) 63.3 % (42-78); TOTAL CELLS COUNTED % (AUTO) 100 %; WHITE BLOOD COUNT 6.4 10^3/uL (4.0-10.5)
[2017-09-01 05:48] LABS: ALANINE AMINOTRANSFERASE 15 U/L (9-52); ALKALINE PHOSPHATASE 86 U/L (38-126); ANION GAP 10 (5-19); ASPARTATE AMINO TRANSFERASE 27 U/L (14-36); BILIRUBIN,DIRECT 0.5 mg/dL (0.0-0.4); BILIRUBIN,TOTAL 0.5 mg/dL (0.2-1.3); BLOOD UREA NITROGEN 21 mg/dL (7-20); CALCIUM 9.7 mg/dL (8.4-10.2); CARBON DIOXIDE 27 mmol/L (22-30); CHLORIDE 109 mmol/L (98-107); GLUCOSE 106 mg/dL (75-110); POTASSIUM 4.6 mmol/L (3.6-5.0); SODIUM 146.2 mmol/L (137-145); TOTAL PROTEIN 8.7 g/dL (6.3-8.2)
[2017-09-01] MEDS ORDERED: HYDRALAZINE HCL 50 MG TABLET PO ONE (05:57)
[2017-09-01] MEDS ORDERED: NITROGLYCERIN 2% OINTMENT 1 GM PACKET TP ONE (05:58)
[2017-09-01 06:00] LABS: TROPONIN I 0.029 ng/mL
[2017-09-01] MEDS ORDERED: NITROGLYCERIN/D5W 50 MG/250 ML RTUINJ IV PRN (08:29)
--- NOTE | 2017-09-01 08:47 | Physician Advisory Note ---
Physician Advisor ProgressNote .: Pursuant to the plan for Kevin Crane, I have reviewed the medical record for this patient. Physician Advisor Statement: Please consider documenting, if you agree: 1. "Hypertensive emergency, causing " (what s/s were caused by the HTN, such as acute pulmonary edema, exac of CHF, ARF, acute neuro dx, CP, SOB, ... ) or "HTNive urgency" (no s/sx) 2. "Acute pulmonary edema, suspect due to " - no chronic pulmonary edema, correct? 3. 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 Type Afib - persistent? paroxysmal? ... 5. "Acute hypernatremia, likely due to " 6. Medical necessity: see below. Status: Appropriately Obs to start. Medicare pt. If tomorrow she is still not sufficiently stabilized for safe d/c, please document the ongoing concerns/ clinical issues, and may change to Inpatient then. Thanks! CK
[2017-09-01 09:36] LABS: ARTERIAL BLOOD BASE EXCESS 1.3 mmol/L; ARTERIAL BLOOD H2CO3 1.07 mmol/L (1.05-1.35); ARTERIAL BLOOD HCO3 24.9 mmol/L (20-26); ARTERIAL BLOOD O2 SATURATION 82.2 % (94-98); ARTERIAL BLOOD PCO2 35.4 mmHg (35-45); ARTERIAL BLOOD PH 7.47 (7.35-7.45); ARTERIAL BLOOD PO2 43.1 mmHg (80-100)
[2017-09-01 09:37] LABS: ARTERIAL BLOOD FIO2 ROOM AIR
[2017-09-01 09:41] LABS: INTERNATIONAL RATION (INR) 1.09; PROTHROMBIN TIME 14.7 SEC (11.4-15.4)
[2017-09-01 09:42] LABS: PARTIAL THROMBOPLASTIN TIME 30.6 SEC (23.5-35.8)
[2017-09-01 09:59] LABS: LIPASE 283.8 U/L (23-300)
[2017-09-01] MEDS ORDERED: IPRATROPIUM/ALBUTEROL 0.5-2.5 MG/3 ML AMPUL NEB ONE ×2 (10:03→10:18)
[2017-09-01 10:10] LABS: CREATINE KINASE MB 0.89 ng/mL (<4.55); TROPONIN I 0.033 ng/mL
[2017-09-01 10:14] LABS: FREE T4 (FREE THYROXINE) 1.27 ng/dL (0.78-2.19)
[2017-09-01] MEDS ORDERED: METHYLPREDNISOLONE INJ 125 MG/2 ML SDV IV ONE (10:18)
[2017-09-01 10:28] LABS: THYROID STIMULATING HORMONE 18.6 uIU/mL (0.47-4.68)
[2017-09-01] MEDS: NORMAL SALINE 250 ML with FUROSEMIDE 250 MG IV PRN ×2 (11:33)
[2017-09-01 13:06] LABS: ARTERIAL BLOOD BASE EXCESS 2.1 mmol/L; ARTERIAL BLOOD H2CO3 1.32 mmol/L (1.05-1.35); ARTERIAL BLOOD HCO3 27.1 mmol/L (20-26); ARTERIAL BLOOD O2 SATURATION 96.4 % (94-98); ARTERIAL BLOOD PCO2 43.7 mmHg (35-45); ARTERIAL BLOOD PH 7.41 (7.35-7.45); ARTERIAL BLOOD PO2 84.2 mmHg (80-100); ARTERIAL BLOOD TOTAL CO2 28.4 mmol/L (21-25)
[2017-09-01 13:07] LABS: ARTERIAL BLOOD FIO2 80%
[2017-09-01 13:50] LABS: APPEARANCE,URINE CLEAR; BILIRUBIN,URINE NEGATIVE (NEGATIVE); COLOR,URINE YELLOW; GLUCOSE, URINE NEGATIVE (NEGATIVE); KETONES,URINE NEGATIVE (NEGATIVE); LEUKOCYTE ESTERASE,URINE SMALL (NEGATIVE); NITRITE,URINE NEGATIVE (NEGATIVE); PROTEIN,URINE 100 mg/dL (NEGATIVE); URINE SPECIFIC GRAVITY 1.012; UROBILINOGEN,URINE NEGATIVE mg/dL (<2.0)
[2017-09-01 15:43] LABS: CREATINE KINASE MB 1.19 ng/mL (<4.55); TROPONIN I 0.045 ng/mL
[2017-09-01] MEDS ORDERED: ENOXAPARIN SODIUM INJ 40 MG/0.4 ML DISP.SYRIN SUBCUT ONE (17:00)
--- NOTE | 2017-09-01 17:51 | XCELERA REPORT ---
[address] [address] Transthoracic Echocardiogram Report Name: BELKIS EUCEDA Age: 87 yrs Gender: Female : 1930 Patient Status: Inpatient Patient Location: [address] [place] [address] Study Date: 09/01/2017 02:46 PM Procedure: A two-dimensional transthoracic echocardiogram with color flow and Doppler was performed. Study Quality: Technically suboptimal. The study was technically difficult with many images being suboptimal in quality. Images were not obtained from all of the standard acoustic windows due to the limited scope of the study. Reason For Study: chf History: CHF. Ordering Physician: ARIAN OLMSTEAD Performed By: Waleska Talbert Interpretation Summary The left ventricle is normal in size. Probaly mild LVH.The IV septum, mid LV monaco , and the lateral wall contract normally.In theses views LVEF is low normal at 55%, but cannot be sure.The rest of the LV monaco not seen well to comment. There is no evidence of mitral valve prolapse. There is no mitral valve stenosis. Probably no MR. There is no aortic valve stenosis There is no LVOT obstruction. There is no tricuspid stenosis. Proabably Tracr TR (no good doppler intergation).Mild pulmonary hypertension.RVSP is 43 mm of Hg , with RA mean of 10. MMode/2D Measurements & Calculations RVDd: 3.1 cm LVIDd: 4.2 cm FS: 16.5 % Ao root diam: 3.0 cm IVSd: 1.8 cm LVIDs: 3.5 cm EDV(Teich): 78.8 ml Ao root area: 6.9 cm2 LVPWd: 1.4 cm ESV(Teich): 51.2 ml EF(Teich): 35.0 % Doppler Measurements & Calculations MV E max imtiaz: MV dec slope: Ao V2 max: LV V1 max P.4 cm/sec 654.4 cm/sec2 118.7 cm/sec 2.8 mmHg MV A max imtiaz: MV dec time: Ao max PG: LV V1 max: 92.9 cm/sec 0.21 sec 5.6 mmHg 84.3 cm/sec MV E/A: 1.5 PA V2 max: TR max imtiaz: 91.5 cm/sec 290.8 cm/sec PA max P.4 mmHg TR max P.8 mmHg Left Ventricle The left ventricle is normal in size. Probaly mild LVH.The IV septum, mid LV monaco , and the lateral wall contract normally.In theses views LVEF is low normal at 55%, but cannot be sure.The rest of the LV monaco not seen well to comment. Right Ventricle The right ventricle is not well visualized secondary to technical limitations. There is a pacemaker lead in the right ventricle. Atria Right atrium not well visualized secondary to technical limitations. The left atrium is mildly dilated. Mitral Valve There is no evidence of mitral valve prolapse. There is no mitral valve stenosis. Probably no MR. Aortic Valve There is no aortic valvular vegetation. There is no aortic valve stenosis. There is no LVOT obstruction. No aortic regurgitation is present. Tricuspid Valve There is no tricuspid stenosis. Proabably Tracr TR (no good doppler intergation).Mild pulmonary hypertension.RVSP is 43 mm of Hg , with RA mean of 10. Pulmonic Valve There is no pulmonic valvular stenosis. There is no pulmonic valvular regurgitation. Effusions There is no pericardial effusion. : ARIAN OLMSTEAD > Jada Marie
[2017-09-01] MEDS ORDERED: ACETAMINOPHEN 325 MG TABLET PO PRN (18:32)
[2017-09-01] MEDS ORDERED: (PENDING PHARMACY ID) (Bismuth Subsalicylate 30 ML) PO PRN (18:53)
[2017-09-01] MEDS ORDERED: BISACODYL 5 MG TABEC PO PRN (18:53)
[2017-09-01] MEDS ORDERED: ONDANSETRON 4 MG TAB.RAPDIS PO PRN (18:53)
[2017-09-01] MEDS ORDERED: CALCIUM CARBONATE 500 MG TAB.CHEW PO PRN (18:53)
[2017-09-01] MEDS ORDERED: (PENDING PHARMACY ID) (Potassium Chloride [K-Tab Er] 20 MEQ) PO SCH (19:00)
[2017-09-01] MEDS ORDERED: BISMUTH SUBSALICYLATE 524 MG/30 ML PO PRN (19:10)
[2017-09-01] MEDS ORDERED: UDCUP PO PRN (19:10)
[2017-09-01] MEDS ORDERED: CITALOPRAM HYDROBROMIDE 20 MG TABLET PO ONE (20:00)
[2017-09-01] MEDS ORDERED: AMLODIPINE BESYLATE 10 MG TABLET PO ONE (20:00)
[2017-09-01] MEDS ORDERED: ASPIRIN 81 MG TABLET, CHEWABLE PO ONE (20:00)
[2017-09-01] MEDS ORDERED: POTASSIUM CHLORIDE 10 MEQ TABLET.SA PO ONE (20:00)
[2017-09-01 21:19] LABS: CREATINE KINASE MB 1.37 ng/mL (<4.55)
[2017-09-01 21:23] LABS: TROPONIN I 0.064 ng/mL
[2017-09-01] MEDS ORDERED: (PENDING PHARMACY ID) (Donepezil Hcl [Aricept] 10 MG) PO SCH (22:00)
[2017-09-01] MEDS ORDERED: (PENDING PHARMACY ID) (Hydralazine Hcl [Hydralazine Hcl] 100 MG) PO SCH (22:00)
--- NOTE | 2017-09-01 22:30 | PDOC H&P ---
History of Present Illness Admission Date/PCP: 09/01/17 08:16 SUDHIR KRAUSE MD History of Present Illness: BELKIS EUCEDA is a 87 year old female, She has baseline dementia, resident of the retirement, patient of Dr. Krause she could emergency room for evaluation of shortness of breath, chest x-ray was done that showed pulmonary vascular congestion there was associated hypertensive emergency, blood pressure recorded was Over 200 systolic, she developed respiratory distress requiring noninvasive ventilation BiPAP.She has a permanent pacemaker, she is obviously in distress very short of breath with audible crackles with nacked ears Past Medical History Cardiac Medical History: Reports: Atrial Fibrillation, Myocardial Infarction - The patient had an elevated troponin, but negative catheterization 03/03/13, Hyperlipidema, Hypertension Neurological Medical History: Reports: Migraine Denies: Seizures Endocrine Medical History: GI Medical History: Reports: Gastroesophageal Reflux Disease Musculoskeltal Medical History: Denies: Arthritis - was told patient has a broken back Psychiatric Medical History: Reports: Dementia, Depression Hematology: Reports: Anemia Past Surgical History Past Surgical History: Reports: Appendectomy, Pacemaker Denies: Hysterectomy Social History Smoking Status: Unknown if Ever Smoked Frequency of Alcohol Use: None Hx Recreational Drug Use: No Drugs: None Hx Prescription Drug Abuse: No - Advance Directive Resuscitation Status: Do Not Resuscitate Family History Family History: Reviewed & Not Pertinent Parental Family History Reviewed: Yes Children Family History Reviewed: Yes Sibling(s) Family History Reviewed.: Yes Medication/Allergy Home Medications: Acetaminophen [Tylenol 325 mg Tablet] 650 mg PO Q4HP PRN 09/01/17 Amlodipine Besylate [Norvasc 10 mg Tablet] 10 mg PO DAILY 09/01/17 Aspirin [Aspirin 81 mg Chewable Tablet] 81 mg PO DAILY 09/01/17 Bisacodyl [Dulcolax 5 Mg Tablet] 10 mg PO HSP PRN 09/01/17 Bismuth Subsalicylate [Pepto-Bismol Susp 524 mg/30 ml Udcup] 30 ml PO Q4HP PRN 09/01/17 Calcium Carbonate [Tums Chewable 500 mg Tab.chew] 1,000 mg PO Q1HP PRN 09/01/17 Citalopram Hydrobromide [Celexa 20 mg Tablet] 20 mg PO DAILY 09/01/17 Donepezil HCl [Aricept] 10 mg PO QHS 09/01/17 Furosemide [Lasix 80 mg Tablet] 80 mg PO DAILY 09/01/17 Guaifenesin [Robitussin Syrup 200 mg/10 ml Ud Cup] 200 mg PO Q4HP PRN 09/01/17 Hydralazine HCl 100 mg PO Q8 09/01/17 Levothyroxine Sodium [Synthroid 0.088 mg Tablet] 88 mcg PO Q6AM 09/01/17 Loperamide HCl [Imodium 2 mg Capsule] 2 mg PO BIDP PRN 09/01/17 Loperamide HCl [Imodium 2 mg Capsule] 4 mg PO DAILYP PRN 09/01/17 Lorazepam [Ativan 0.5 mg Tablet] 0.5 mg PO Q12 09/01/17 Mag Hydrox/Al Hydrox/Simeth [Maalox Plus Susp 30 Udcup] 30 ml PO Q4HP PRN Magnesium Hydroxide [Milk of Magnesia 30 ml Udcup] 30 ml PO BIDP PRN 09/01/17 Memantine HCl [Namenda 10 mg Tablet] 10 mg PO Q12 09/01/17 Metoprolol Succinate [Toprol XL 100 mg Tablet] 100 mg PO Q12 09/01/17 Nitroglycerin [Nitrostat 0.4 mg (1/150 Gr) Tabs 25/Bottle] 1 tab SL Q5MP PRN 03/09 Ondansetron [Zofran Odt 4 mg Tablet] 4 mg PO Q4HP PRN 09/01/17 Potassium Chloride [K-Tab ER] 20 meq PO DAILY 09/01/17 Quetiapine Fumarate [Seroquel 25 mg Tablet] 25 mg PO QHS 09/01/17 Allergies/Adverse Reactions: codeine [Codeine] Allergy (Verified 09/01/17 08:14) iodine [Iodine] Allergy (Verified 09/01/17 08:14) Shellfish * [Shellfish] Allergy (Verified 09/01/17 08:14) Review of Systems Constitutional: PRESENT: fatigue Eyes: ABSENT: visual disturbances Ears: ABSENT: hearing changes Cardiovascular: PRESENT: dyspnea on exertion, edema Respiratory: PRESENT: cough, dyspnea Genitourinary: ABSENT: as per HPI, difficulty urinating, dysuria, hematuria, nocturia, other Integumentary: ABSENT: rash, wounds Neurological: PRESENT: confusion Psychiatric: ABSENT: anxiety, depression, homidical ideation, suicidal ideation Endocrine: ABSENT: cold intolerance, heat intolerance, menstrual abnormalities, polydipsia, polyuria Hematologic/Lymphatic: ABSENT: easy bleeding, easy bruising, lymphadenopathy Physical Exam Vital Signs: Temp Pulse Resp BP Pulse Ox 98.2 F 73 34 H 183/75 H 96 09/01/17 19:35 09/01/17 19:35 09/01/17 19:41 09/01/17 19:35 09/01/17 19:41 Intake & Output 08/31/17 09/01/17 09/02/17 06:59 06:59 06:59 Intake Total 112 Output Total 600 Balance -488 Weight 92.9 kg General appearance: PRESENT: severe distress Eye exam: PRESENT: PERRLA Respiratory exam: PRESENT: crackles Cardiovascular exam: PRESENT: +S1, +S2, systolic murmur GI/Abdominal exam: PRESENT: soft Neurological exam: PRESENT: alert, CN II-XII grossly intact Results Laboratory Results: 09/01/17 09/01/17 09/01/17 09:10 09:10 09:10 Carbonic Acid HCO3/H2CO3 Ratio ABG pH ABG pCO2 ABG pO2 ABG HCO3 ABG O2 Saturation ABG Base Excess FiO2 Phosphorus 4.0 Magnesium 1.9 Ammonia 16.6 Amylase 117 H Lipase 283.8 TSH 18.60 H Free T4 1.27 09/01/17 09/01/17 09:22 12:54 Carbonic Acid 1.07 1.32 HCO3/H2CO3 Ratio 23:1 20:1 ABG pH 7.47 H 7.41 ABG pCO2 35.4 43.7 ABG pO2 43.1 L 84.2 ABG HCO3 24.9 27.1 H ABG O2 Saturation 82.2 L 96.4 ABG Base Excess 1.3 2.1 FiO2 ROOM AIR 80% Phosphorus Magnesium Ammonia Amylase Lipase TSH Free T4 09/01/17 09/01/17 09/01/17 09:10 09:10 09:10 Creatine Kinase 57 CK-MB (CK-2) 0.89 Troponin I 0.033 NT-Pro-B Natriuret Pep 4860 H 09/01/17 09/01/17 09/01/17 14:55 14:55 20:30 Creatine Kinase 70 87 CK-MB (CK-2) 1.19 Troponin I 0.045 NT-Pro-B Natriuret Pep 09/01/17 20:30 Creatine Kinase CK-MB (CK-2) 1.37 Troponin I 0.064 NT-Pro-B Natriuret Pep Impressions: Chest X-Ray 09/01/17 03:59 IMPRESSION: 1. Cardiomegaly with pulmonary vascular congestion and patchy bibasilar opacities. These findings may be related to pulmonary edema. Forearm X-Ray 09/01/17 03:59 IMPRESSION: No acute fracture or dislocation. 2011 [employer]- All Rights Reserved Assessment & Plan - Diagnosis (1) Acute hypoxemic respiratory failure Is this a current diagnosis for this admission?: Yes Plan: Continue noninvasive ventilation (2) Hypertensive emergency Is this a current diagnosis for this admission?: Yes Plan: Start nitroglycerin infusion (3) Acute pulmonary edema Is this a current diagnosis for this admission?: Yes Plan: start Lasix infusion
[2017-09-01] MEDS: METOPROLOL SUCCINATE 50 MG TAB.SR.24H PO SCH (22:36)
[2017-09-01] MEDS: QUETIAPINE FUMARATE 25 MG TABLET PO SCH (22:38)
[2017-09-01] MEDS: DONEPEZIL HCL 5 MG TABLET PO SCH (22:38)
[2017-09-01] MEDS: MEMANTINE HCL 10 MG TABLET PO SCH (22:38)
[2017-09-01] MEDS: HYDRALAZINE HCL 50 MG TABLET PO SCH (22:39)
[2017-09-02 05:13] LABS: ABSOLUTE LYMPHOCYTES (AUTO) 0.9 10^3/uL (0.5-4.7); ABSOLUTE MONOCYTES (AUTO) 0.4 10^3/uL (0.1-1.4); ABSOLUTE NEUT (AUTO) 8.7 10^3/uL (1.7-8.2); BASOPHILS % (AUTO) 0.2 % (0-2); HEMATOCRIT 26.6 % (36.0-47.0); HEMOGLOBIN 8.5 g/dL (12.0-15.5); LYMPHOCYTES % (AUTO) 8.7 % (13-45); MEAN CORPUSCULAR HEMOGLOBIN 23.9 pg (27.0-33.4); MEAN CORPUSCULAR HGB CONC 32.1 g/dL (32.0-36.0); MEAN CORPUSCULAR VOLUME 75 fl (80-97); PLATELET COUNT 195 10^3/uL (150-450); RED BLOOD COUNT 3.57 10^6/uL (3.72-5.28); RED CELL DISTRIBUTION WIDTH 18.3 % (11.5-14.0); SEGMENTED NEUTROPHILS % (AUTO) 87.1 % (42-78); TOTAL CELLS COUNTED % (AUTO) 100 %
[2017-09-02 05:38] LABS: ALANINE AMINOTRANSFERASE 14 U/L (9-52); ALBUMIN 3.4 g/dL (3.5-5.0); ALKALINE PHOSPHATASE 70 U/L (38-126); ANION GAP 12 (5-19); ASPARTATE AMINO TRANSFERASE 22 U/L (14-36); BILIRUBIN,DIRECT 0.4 mg/dL (0.0-0.4); BILIRUBIN,TOTAL 0.6 mg/dL (0.2-1.3); BLOOD UREA NITROGEN 28 mg/dL (7-20); CALCIUM 9.3 mg/dL (8.4-10.2); CARBON DIOXIDE 28 mmol/L (22-30); CHLORIDE 105 mmol/L (98-107); CHOLESTEROL 171.66 mg/dL (0-200); GLUCOSE 121 mg/dL (75-110); POTASSIUM 4.6 mmol/L (3.6-5.0); TOTAL PROTEIN 7.6 g/dL (6.3-8.2); TRIGLYCERIDES 63 mg/dL (<150)
[2017-09-02] MEDS: LEVOTHYROXINE SODIUM 0.1 MG TABLET PO SCH (05:39)
[2017-09-02] MEDS: HYDRALAZINE HCL 50 MG TABLET PO SCH ×3 (05:40→21:30)
[2017-09-02 05:49] LABS: DIRECT LDL 103 mg/dL (<100)
[2017-09-02] MEDS ORDERED: LEVOTHYROXINE SODIUM 0.088 MG TABLET PO SCH (06:00)
[2017-09-02] MEDS: POTASSIUM CHLORIDE 10 MEQ TABLET.SA PO SCH (10:29)
[2017-09-02] MEDS: MEMANTINE HCL 10 MG TABLET PO SCH ×2 (10:29→21:32)
[2017-09-02] MEDS: METOPROLOL SUCCINATE 50 MG TAB.SR.24H PO SCH ×2 (10:29→21:30)
[2017-09-02] MEDS: AMLODIPINE BESYLATE 10 MG TABLET PO SCH (10:30)
[2017-09-02] MEDS: CITALOPRAM HYDROBROMIDE 20 MG TABLET PO SCH (10:30)
[2017-09-02] MEDS: ASPIRIN 81 MG TABLET, CHEWABLE PO SCH (10:30)
[2017-09-02] MEDS: ENOXAPARIN SODIUM INJ 40 MG/0.4 ML DISP.SYRIN SUBCUT SCH (10:30)
[2017-09-02] MEDS: NORMAL SALINE 250 ML with FUROSEMIDE 250 MG IV PRN ×2 (16:26)
[2017-09-02] MEDS ORDERED: PHARMACY COMMUNICATION ORDER MC SCH (18:00)
--- NOTE | 2017-09-02 20:48 | PDOC PROGRESS REPORT ---
Subjective Progress Note for:: 09/09/17 Subjective:: Patient was seen by the bedside she is much better than yesterday when she was admitted, the 2D echo showed preserved ejection fraction of left ventricle, EF 55% clinically she has CHF so she has CHF with preserved ejection fraction consistent with diastolic heart failure the blood pressure is better controlled she is weaned off nitroglycerin infusion, Lasix infusion is discontinued Reason For Visit: ACUTE PULMONARY EDEMA, ? ACUTE SYSTOLIC HEART FAIL Physical Exam Vital Signs: Temp Pulse Resp BP Pulse Ox 97.3 F 66 20 125/61 97 09/02/17 16:03 09/02/17 19:00 09/02/17 16:03 09/02/17 13:00 09/02/17 16:03 Intake & Output 09/01/17 09/02/17 09/03/17 06:59 06:59 06:59 Intake Total 488 1163 Output Total 1375 325 Balance -887 838 Weight 95.2 kg General appearance: PRESENT: no acute distress Head exam: PRESENT: atraumatic, normocephalic Eye exam: PRESENT: conjunctiva pink, EOMI, PERRLA Ear exam: PRESENT: normal external ear exam Mouth exam: PRESENT: moist, tongue midline Neck exam: PRESENT: full ROM Respiratory exam: PRESENT: rhonchi Cardiovascular exam: PRESENT: RRR, +S1, +S2 Pulses: PRESENT: normal dorsalis pedis pul, +2 pedal pulses bilateral Vascular exam: PRESENT: normal capillary refill GI/Abdominal exam: PRESENT: normal bowel sounds, soft Rectal exam: PRESENT: deferred Neurological exam: PRESENT: alert Psychiatric exam: PRESENT: appropriate affect, normal mood Skin exam: PRESENT: dry, intact, warm Results Laboratory Results: 09/02/17 04:37 09/02/17 04:37 09/02/17 09/02/17 04:37 04:37 WBC 10.0 RBC 3.57 L Hgb 8.5 L Hct 26.6 L MCV 75 L MCH 23.9 L MCHC 32.1 RDW 18.3 H Plt Count 195 Seg Neutrophils % 87.1 H Lymphocytes % 8.7 L Monocytes % 4.0 Eosinophils % 0.0 Basophils % 0.2 Absolute Neutrophils 8.7 H Absolute Lymphocytes 0.9 Absolute Monocytes 0.4 Absolute Eosinophils 0.0 Absolute Basophils 0.0 Sodium 145.0 Potassium 4.6 Chloride 105 Carbon Dioxide 28 Anion Gap 12 BUN 28 H Creatinine 1.88 H Est GFR ( Amer) 31 L Est GFR (Non-Af Amer) 25 L Glucose 121 H Calcium 9.3 Total Bilirubin 0.6 AST 22 ALT 14 Alkaline Phosphatase 70 Total Protein 7.6 Albumin 3.4 L Triglycerides 63 Cholesterol 171.66 LDL Cholesterol Direct 103 H VLDL Cholesterol 13.0 HDL Cholesterol 37 L 09/01/17 09/01/17 09/01/17 09:10 09:10 09:10 Creatine Kinase 57 CK-MB (CK-2) 0.89 Troponin I 0.033 NT-Pro-B Natriuret Pep 4860 H 09/01/17 09/01/17 09/01/17 14:55 14:55 20:30 Creatine Kinase 70 87 CK-MB (CK-2) 1.19 Troponin I 0.045 NT-Pro-B Natriuret Pep 09/01/17 20:30 Creatine Kinase CK-MB (CK-2) 1.37 Troponin I 0.064 NT-Pro-B Natriuret Pep Impressions: Chest X-Ray 09/01/17 03:59 IMPRESSION: 1. Cardiomegaly with pulmonary vascular congestion and patchy bibasilar opacities. These findings may be related to pulmonary edema. Forearm X-Ray 09/01/17 03:59 IMPRESSION: No acute fracture or dislocation. 2011 [employer]- All Rights Reserved Assessment & Plan - Diagnosis (1) Acute hypoxemic respiratory failure Is this a current diagnosis for this admission?: Yes Plan: Presently on nasal cannula oxygen (2) Hypertensive emergency Is this a current diagnosis for this admission?: Yes (3) Acute pulmonary edema Is this a current diagnosis for this admission?: Yes (4) Dementia Qualifiers: Dementia type: Alzheimer's disease Alzheimer's disease onset: late-onset Dementia behavioral disturbance: without behavioral disturbance Qualified Code (s): G30.1 - Alzheimer's disease with late onset; F02.80 - Dementia in other diseases classified elsewhere without behavioral disturbance; F02.80 - Dementia in other diseases classified elsewhere without behavioral disturbance; F02.80 - Dementia in other diseases classified elsewhere without behavioral disturbance Is this a current diagnosis for this admission?: Yes (5) Acute diastolic (congestive) heart failure Is this a current diagnosis for this admission?: Yes (6) Congestive heart failure with preserved left ventricular function, NYHA class 1 Is this a current diagnosis for this admission?: Yes
[2017-09-02] MEDS: DONEPEZIL HCL 5 MG TABLET PO SCH (21:30)
[2017-09-02] MEDS: QUETIAPINE FUMARATE 25 MG TABLET PO SCH (21:32)
--- NOTE | 2017-09-02 21:35 | RADIOLOGY REPORT (SQ) ---
EXAM DESCRIPTION: CHEST SINGLE VIEW COMPLETED DATE/TIME: 09/02/2017 9:24 pm REASON FOR STUDY: chf COMPARISON: 09/01/2017 EXAM PARAMETERS: NUMBER OF VIEWS: One view. TECHNIQUE: Single frontal radiographic view of the chest acquired. RADIATION DOSE: NA LIMITATIONS: None. FINDINGS: LUNGS AND PLEURA: Pulmonary edema. MEDIASTINUM AND HILAR STRUCTURES: No masses. Contour normal. HEART AND VASCULAR STRUCTURES: Borderline cardiomegaly. Pulmonary edema. BONES: No acute findings. HARDWARE: Pacemaker/defibrillator. OTHER: No other significant finding. IMPRESSION: Borderline cardiomegaly with pulmonary edema. TECHNICAL DOCUMENTATION: JOB ID: [id number] [employer]- All Rights Reserved Reading location - IP/workstation name: [email or web address]
[2017-09-03 05:23] LABS: ABSOLUTE BASOPHILS # (AUTO) 0.1 10^3/uL (0.0-0.2); ABSOLUTE LYMPHOCYTES (AUTO) 2.1 10^3/uL (0.5-4.7); ABSOLUTE NEUT (AUTO) 8.6 10^3/uL (1.7-8.2); BASOPHILS % (AUTO) 0.5 % (0-2); EOSINOPHILS % (AUTO) 0.1 % (0-6); HEMOGLOBIN 8.5 g/dL (12.0-15.5); LYMPHOCYTES % (AUTO) 17.9 % (13-45); MEAN CORPUSCULAR HEMOGLOBIN 23.6 pg (27.0-33.4); MEAN CORPUSCULAR HGB CONC 31.6 g/dL (32.0-36.0); MEAN CORPUSCULAR VOLUME 75 fl (80-97); MONOCYTES % (AUTO) 8.5 % (3-13); PLATELET COUNT 198 10^3/uL (150-450); RED BLOOD COUNT 3.61 10^6/uL (3.72-5.28); RED CELL DISTRIBUTION WIDTH 18.6 % (11.5-14.0); TOTAL CELLS COUNTED % (AUTO) 100 %; WHITE BLOOD COUNT 11.7 10^3/uL (4.0-10.5)
[2017-09-03] MEDS: LEVOTHYROXINE SODIUM 0.1 MG TABLET PO SCH (05:37)
[2017-09-03] MEDS: HYDRALAZINE HCL 50 MG TABLET PO SCH ×3 (05:38→23:00)
[2017-09-03 05:46] LABS: ALANINE AMINOTRANSFERASE 15 U/L (9-52); ALBUMIN 3.6 g/dL (3.5-5.0); ALKALINE PHOSPHATASE 70 U/L (38-126); ANION GAP 15 (5-19); ASPARTATE AMINO TRANSFERASE 22 U/L (14-36); BILIRUBIN,DIRECT 0.3 mg/dL (0.0-0.4); BILIRUBIN,TOTAL 0.3 mg/dL (0.2-1.3); BLOOD UREA NITROGEN 47 mg/dL (7-20); CALCIUM 9.1 mg/dL (8.4-10.2); CARBON DIOXIDE 29 mmol/L (22-30); CHLORIDE 102 mmol/L (98-107); GLUCOSE 90 mg/dL (75-110); POTASSIUM 4.3 mmol/L (3.6-5.0); SODIUM 146.1 mmol/L (137-145); TOTAL PROTEIN 7.8 g/dL (6.3-8.2)
[2017-09-03] MEDS: ENOXAPARIN SODIUM INJ 40 MG/0.4 ML DISP.SYRIN SUBCUT SCH (10:51)
[2017-09-03] MEDS: POTASSIUM CHLORIDE 10 MEQ TABLET.SA PO SCH (10:52)
[2017-09-03] MEDS: AMLODIPINE BESYLATE 10 MG TABLET PO SCH (10:52)
[2017-09-03] MEDS: METOPROLOL SUCCINATE 50 MG TAB.SR.24H PO SCH ×2 (10:52→23:00)
[2017-09-03] MEDS: ASPIRIN 81 MG TABLET, CHEWABLE PO SCH (10:53)
[2017-09-03] MEDS: MEMANTINE HCL 10 MG TABLET PO SCH ×2 (10:53→23:00)
[2017-09-03] MEDS: CITALOPRAM HYDROBROMIDE 20 MG TABLET PO SCH (10:53)
[2017-09-03] MEDS: ACETAMINOPHEN 325 MG TABLET PO PRN (15:52)
--- NOTE | 2017-09-03 19:27 | PDOC PROGRESS REPORT ---
Subjective Progress Note for:: 09/03/17 Subjective:: Patient is seen by the bedside, she continues to improve slowly Reason For Visit: ACUTE PULMONARY EDEMA, ? ACUTE SYSTOLIC HEART FAIL Physical Exam Vital Signs: Temp Pulse Resp BP Pulse Ox 98.5 F 59 L 20 128/62 H 93 09/03/17 15:18 09/03/17 15:18 09/03/17 15:18 09/03/17 15:18 09/03/17 15:18 Intake & Output 09/02/17 09/03/17 09/04/17 06:59 06:59 06:59 Intake Total 488 1343 703 Output Total 1375 725 Balance -887 618 703 Weight 95.2 kg 91.7 kg General appearance: PRESENT: no acute distress Eye exam: PRESENT: PERRLA Respiratory exam: PRESENT: clear to auscultation bimal Cardiovascular exam: PRESENT: +S1, +S2 GI/Abdominal exam: PRESENT: soft Neurological exam: PRESENT: alert Results Laboratory Results: 09/03/17 04:26 09/03/17 04:26 09/03/17 09/03/17 04:26 04:26 WBC 11.7 H RBC 3.61 L Hgb 8.5 L Hct 27.0 L MCV 75 L MCH 23.6 L MCHC 31.6 L RDW 18.6 H Plt Count 198 Seg Neutrophils % 73.0 Lymphocytes % 17.9 Monocytes % 8.5 Eosinophils % 0.1 Basophils % 0.5 Absolute Neutrophils 8.6 H Absolute Lymphocytes 2.1 Absolute Monocytes 1.0 Absolute Eosinophils 0.0 Absolute Basophils 0.1 Sodium 146.1 H Potassium 4.3 Chloride 102 Carbon Dioxide 29 Anion Gap 15 BUN 47 H Creatinine 2.39 H Est GFR ( Amer) 23 L Est GFR (Non-Af Amer) 19 L Glucose 90 Calcium 9.1 Total Bilirubin 0.3 AST 22 ALT 15 Alkaline Phosphatase 70 Total Protein 7.8 Albumin 3.6 09/01/17 09/01/17 09/01/17 09:10 09:10 09:10 Creatine Kinase 57 CK-MB (CK-2) 0.89 Troponin I 0.033 NT-Pro-B Natriuret Pep 4860 H 09/01/17 09/01/17 09/01/17 14:55 14:55 20:30 Creatine Kinase 70 87 CK-MB (CK-2) 1.19 Troponin I 0.045 NT-Pro-B Natriuret Pep 09/01/17 20:30 Creatine Kinase CK-MB (CK-2) 1.37 Troponin I 0.064 NT-Pro-B Natriuret Pep Impressions: Forearm X-Ray 09/01/17 03:59 IMPRESSION: No acute fracture or dislocation. 2010 [employer]- All Rights Reserved Chest X-Ray 09/02/17 00:00 IMPRESSION: Borderline cardiomegaly with pulmonary edema. Assessment & Plan - Diagnosis (1) Acute hypoxemic respiratory failure Is this a current diagnosis for this admission?: Yes (2) Hypertensive emergency Is this a current diagnosis for this admission?: Yes (3) Acute pulmonary edema Is this a current diagnosis for this admission?: Yes (4) Dementia Qualifiers: Dementia type: Alzheimer's disease Alzheimer's disease onset: late-onset Dementia behavioral disturbance: without behavioral disturbance Qualified Code (s): G30.1 - Alzheimer's disease with late onset; F02.80 - Dementia in other diseases classified elsewhere without behavioral disturbance; F02.80 - Dementia in other diseases classified elsewhere without behavioral disturbance; F02.80 - Dementia in other diseases classified elsewhere without behavioral disturbance Is this a current diagnosis for this admission?: Yes (5) Acute diastolic (congestive) heart failure Is this a current diagnosis for this admission?: Yes (6) Congestive heart failure with preserved left ventricular function, NYHA class 1 Is this a current diagnosis for this admission?: Yes - Plan Summary Plan Summary: Continue present treatment, she developed prerenal acute kidney injury most likely from overdiuresis
[2017-09-03] MEDS: DONEPEZIL HCL 5 MG TABLET PO SCH (23:00)
[2017-09-03] MEDS: QUETIAPINE FUMARATE 25 MG TABLET PO SCH (23:00)
[2017-09-04 05:27] LABS: ABSOLUTE BASOPHILS # (AUTO) 0.1 10^3/uL (0.0-0.2); ABSOLUTE EOSINOPHILS # (AUTO) 0.2 10^3/uL (0.0-0.6); ABSOLUTE LYMPHOCYTES (AUTO) 1.9 10^3/uL (0.5-4.7); ABSOLUTE MONOCYTES (AUTO) 0.7 10^3/uL (0.1-1.4); ABSOLUTE NEUT (AUTO) 5.7 10^3/uL (1.7-8.2); BASOPHILS % (AUTO) 0.6 % (0-2); EOSINOPHILS % (AUTO) 2.1 % (0-6); HEMATOCRIT 27.9 % (36.0-47.0); LYMPHOCYTES % (AUTO) 22.3 % (13-45); MEAN CORPUSCULAR HEMOGLOBIN 24.1 pg (27.0-33.4); MEAN CORPUSCULAR HGB CONC 32.2 g/dL (32.0-36.0); MEAN CORPUSCULAR VOLUME 75 fl (80-97); MONOCYTES % (AUTO) 8.8 % (3-13); PLATELET COUNT 209 10^3/uL (150-450); RED BLOOD COUNT 3.73 10^6/uL (3.72-5.28); RED CELL DISTRIBUTION WIDTH 18.6 % (11.5-14.0); SEGMENTED NEUTROPHILS % (AUTO) 66.2 % (42-78); TOTAL CELLS COUNTED % (AUTO) 100 %; WHITE BLOOD COUNT 8.5 10^3/uL (4.0-10.5)
[2017-09-04 05:53] LABS: ALANINE AMINOTRANSFERASE 18 U/L (9-52); ALBUMIN 3.3 g/dL (3.5-5.0); ALKALINE PHOSPHATASE 64 U/L (38-126); ANION GAP 12 (5-19); ASPARTATE AMINO TRANSFERASE 22 U/L (14-36); BILIRUBIN,DIRECT 0.3 mg/dL (0.0-0.4); BILIRUBIN,TOTAL 0.3 mg/dL (0.2-1.3); BLOOD UREA NITROGEN 49 mg/dL (7-20); CARBON DIOXIDE 29 mmol/L (22-30); CHLORIDE 104 mmol/L (98-107); GLUCOSE 84 mg/dL (75-110); POTASSIUM 4.2 mmol/L (3.6-5.0); SODIUM 144.8 mmol/L (137-145); TOTAL PROTEIN 7.5 g/dL (6.3-8.2)
[2017-09-04] MEDS: LEVOTHYROXINE SODIUM 0.1 MG TABLET PO SCH (06:19)
[2017-09-04] MEDS: HYDRALAZINE HCL 50 MG TABLET PO SCH ×3 (06:19→22:44)
[2017-09-04] MEDS: MEMANTINE HCL 10 MG TABLET PO SCH ×2 (10:45→22:44)
[2017-09-04] MEDS: METOPROLOL SUCCINATE 50 MG TAB.SR.24H PO SCH ×2 (10:45→22:44)
[2017-09-04] MEDS: AMLODIPINE BESYLATE 10 MG TABLET PO SCH (10:45)
[2017-09-04] MEDS: POTASSIUM CHLORIDE 10 MEQ TABLET.SA PO SCH (10:45)
[2017-09-04] MEDS: ENOXAPARIN SODIUM INJ 40 MG/0.4 ML DISP.SYRIN SUBCUT SCH (10:46)
[2017-09-04] MEDS: ASPIRIN 81 MG TABLET, CHEWABLE PO SCH (10:46)
[2017-09-04] MEDS: CITALOPRAM HYDROBROMIDE 20 MG TABLET PO SCH (10:46)
--- NOTE | 2017-09-04 20:56 | PDOC PROGRESS REPORT ---
Subjective Progress Note for:: 09/04/17 Subjective:: Patient was seen by the bedside she is progressively getting better Reason For Visit: ACUTE PULMONARY EDEMA, ? ACUTE SYSTOLIC HEART FAIL Physical Exam Vital Signs: Temp Pulse Resp BP Pulse Ox 98.6 F 60 20 129/63 H 99 09/04/17 14:52 09/04/17 19:00 09/04/17 15:29 09/04/17 14:52 09/04/17 15:29 Intake & Output 09/03/17 09/04/17 09/05/17 06:59 06:59 06:59 Intake Total 1343 1353 662 Output Total 725 Balance 618 1353 662 Weight 91.7 kg 94.1 kg General appearance: PRESENT: no acute distress Eye exam: PRESENT: PERRLA Respiratory exam: PRESENT: clear to auscultation bimal Cardiovascular exam: PRESENT: +S1, +S2 GI/Abdominal exam: PRESENT: soft Neurological exam: PRESENT: alert Results Laboratory Results: 09/04/17 04:35 09/04/17 04:35 09/04/17 09/04/17 04:35 04:35 WBC 8.5 RBC 3.73 Hgb 9.0 L Hct 27.9 L MCV 75 L MCH 24.1 L MCHC 32.2 RDW 18.6 H Plt Count 209 Seg Neutrophils % 66.2 Lymphocytes % 22.3 Monocytes % 8.8 Eosinophils % 2.1 Basophils % 0.6 Absolute Neutrophils 5.7 Absolute Lymphocytes 1.9 Absolute Monocytes 0.7 Absolute Eosinophils 0.2 Absolute Basophils 0.1 Sodium 144.8 Potassium 4.2 Chloride 104 Carbon Dioxide 29 Anion Gap 12 BUN 49 H Creatinine 1.86 H Est GFR ( Amer) 31 L Est GFR (Non-Af Amer) 26 L Glucose 84 Calcium 9.0 Total Bilirubin 0.3 AST 22 ALT 18 Alkaline Phosphatase 64 Total Protein 7.5 Albumin 3.3 L 09/01/17 09/01/17 09/01/17 09:10 09:10 09:10 Creatine Kinase 57 CK-MB (CK-2) 0.89 Troponin I 0.033 NT-Pro-B Natriuret Pep 4860 H 09/01/17 09/01/17 09/01/17 14:55 14:55 20:30 Creatine Kinase 70 87 CK-MB (CK-2) 1.19 Troponin I 0.045 NT-Pro-B Natriuret Pep 09/01/17 20:30 Creatine Kinase CK-MB (CK-2) 1.37 Troponin I 0.064 NT-Pro-B Natriuret Pep Impressions: Forearm X-Ray 09/01/17 03:59 IMPRESSION: No acute fracture or dislocation. 2010 [employer]- All Rights Reserved Chest X-Ray 09/02/17 00:00 IMPRESSION: Borderline cardiomegaly with pulmonary edema. Assessment & Plan - Diagnosis (1) Acute hypoxemic respiratory failure Is this a current diagnosis for this admission?: Yes (2) Hypertensive emergency Is this a current diagnosis for this admission?: Yes (3) Acute pulmonary edema Is this a current diagnosis for this admission?: Yes (4) Dementia Qualifiers: Dementia type: Alzheimer's disease Alzheimer's disease onset: late-onset Dementia behavioral disturbance: without behavioral disturbance Qualified Code (s): G30.1 - Alzheimer's disease with late onset; F02.80 - Dementia in other diseases classified elsewhere without behavioral disturbance; F02.80 - Dementia in other diseases classified elsewhere without behavioral disturbance; F02.80 - Dementia in other diseases classified elsewhere without behavioral disturbance Is this a current diagnosis for this admission?: Yes (5) Acute diastolic (congestive) heart failure Is this a current diagnosis for this admission?: Yes (6) Congestive heart failure with preserved left ventricular function, NYHA class 1 Is this a current diagnosis for this admission?: Yes
[2017-09-04] MEDS: QUETIAPINE FUMARATE 25 MG TABLET PO SCH (22:44)
[2017-09-04] MEDS: DONEPEZIL HCL 5 MG TABLET PO SCH (22:44)
[2017-09-05] MEDS: HYDRALAZINE HCL 50 MG TABLET PO SCH ×3 (06:22→23:00)
[2017-09-05] MEDS: LEVOTHYROXINE SODIUM 0.1 MG TABLET PO SCH (06:23)
[2017-09-05] MEDS: POTASSIUM CHLORIDE 10 MEQ TABLET.SA PO SCH (09:31)
[2017-09-05] MEDS: METOPROLOL SUCCINATE 50 MG TAB.SR.24H PO SCH ×2 (09:32→23:01)
[2017-09-05] MEDS: CITALOPRAM HYDROBROMIDE 20 MG TABLET PO SCH (09:32)
[2017-09-05] MEDS: MEMANTINE HCL 10 MG TABLET PO SCH ×2 (09:32→23:00)
[2017-09-05] MEDS: ENOXAPARIN SODIUM INJ 40 MG/0.4 ML DISP.SYRIN SUBCUT SCH (09:32)
[2017-09-05] MEDS: ASPIRIN 81 MG TABLET, CHEWABLE PO SCH (09:32)
[2017-09-05] MEDS: AMLODIPINE BESYLATE 10 MG TABLET PO SCH (09:32)
--- NOTE | 2017-09-05 11:19 | PDOC PROGRESS REPORT ---
Subjective Progress Note for:: 09/05/17 Subjective:: Patient is alert, oriented ,respond to treatment Reason For Visit: ACUTE PULMONARY EDEMA, ? ACUTE SYSTOLIC HEART FAIL Physical Exam Vital Signs: Temp Pulse Resp BP Pulse Ox 97.9 F 59 L 18 123/54 L 96 09/05/17 07:06 09/05/17 07:06 09/05/17 07:06 09/05/17 07:06 09/05/17 08:00 Intake & Output 09/04/17 09/05/17 09/06/17 06:59 06:59 06:59 Intake Total 1353 962 Balance 1353 962 Weight 94.1 kg 94.2 kg General appearance: PRESENT: no acute distress Head exam: PRESENT: atraumatic, normocephalic Eye exam: PRESENT: conjunctiva pink, EOMI, PERRLA Neck exam: PRESENT: full ROM Respiratory exam: PRESENT: clear to auscultation bimal Cardiovascular exam: PRESENT: RRR, +S1, +S2 Vascular exam: PRESENT: normal capillary refill GI/Abdominal exam: PRESENT: normal bowel sounds, soft Rectal exam: PRESENT: deferred Neurological exam: PRESENT: alert, awake, oriented to person, oriented to place , oriented to time, oriented to situation, CN II-XII grossly intact Psychiatric exam: PRESENT: appropriate affect, normal mood Skin exam: PRESENT: dry, intact, warm Results Laboratory Results: 09/04/17 04:35 09/04/17 04:35 09/01/17 09/01/17 09/01/17 09:10 09:10 09:10 Creatine Kinase 57 CK-MB (CK-2) 0.89 Troponin I 0.033 NT-Pro-B Natriuret Pep 4860 H 09/01/17 09/01/17 09/01/17 14:55 14:55 20:30 Creatine Kinase 70 87 CK-MB (CK-2) 1.19 Troponin I 0.045 NT-Pro-B Natriuret Pep 09/01/17 20:30 Creatine Kinase CK-MB (CK-2) 1.37 Troponin I 0.064 NT-Pro-B Natriuret Pep Impressions: Forearm X-Ray 09/01/17 03:59 IMPRESSION: No acute fracture or dislocation. 2010 [employer]- All Rights Reserved Chest X-Ray 09/02/17 00:00 IMPRESSION: Borderline cardiomegaly with pulmonary edema. Assessment & Plan - Diagnosis (1) Acute hypoxemic respiratory failure Is this a current diagnosis for this admission?: Yes (2) Hypertensive emergency Is this a current diagnosis for this admission?: Yes (3) Acute pulmonary edema Is this a current diagnosis for this admission?: Yes (4) Dementia Qualifiers: Dementia type: Alzheimer's disease Alzheimer's disease onset: late-onset Dementia behavioral disturbance: without behavioral disturbance Qualified Code (s): G30.1 - Alzheimer's disease with late onset; F02.80 - Dementia in other diseases classified elsewhere without behavioral disturbance; F02.80 - Dementia in other diseases classified elsewhere without behavioral disturbance; F02.80 - Dementia in other diseases classified elsewhere without behavioral disturbance Is this a current diagnosis for this admission?: Yes (5) Acute diastolic (congestive) heart failure Is this a current diagnosis for this admission?: Yes (6) Congestive heart failure with preserved left ventricular function, NYHA class 1 Is this a current diagnosis for this admission?: Yes
[2017-09-05 12:56] LABS: ABSOLUTE BASOPHILS # (AUTO) 0.1 10^3/uL (0.0-0.2); ABSOLUTE EOSINOPHILS # (AUTO) 0.3 10^3/uL (0.0-0.6); ABSOLUTE LYMPHOCYTES (AUTO) 1.8 10^3/uL (0.5-4.7); ABSOLUTE NEUT (AUTO) 6.3 10^3/uL (1.7-8.2); BASOPHILS % (AUTO) 0.6 % (0-2); EOSINOPHILS % (AUTO) 2.8 % (0-6); HEMATOCRIT 28.3 % (36.0-47.0); HEMOGLOBIN 8.9 g/dL (12.0-15.5); LYMPHOCYTES % (AUTO) 18.8 % (13-45); MEAN CORPUSCULAR HGB CONC 31.4 g/dL (32.0-36.0); MEAN CORPUSCULAR VOLUME 77 fl (80-97); PLATELET COUNT 244 10^3/uL (150-450); RED CELL DISTRIBUTION WIDTH 18.7 % (11.5-14.0); SEGMENTED NEUTROPHILS % (AUTO) 66.8 % (42-78); TOTAL CELLS COUNTED % (AUTO) 100 %; WHITE BLOOD COUNT 9.4 10^3/uL (4.0-10.5)
[2017-09-05 13:12] LABS: ALANINE AMINOTRANSFERASE 21 U/L (9-52); ALBUMIN 3.4 g/dL (3.5-5.0); ALKALINE PHOSPHATASE 69 U/L (38-126); ANION GAP 9 (5-19); ASPARTATE AMINO TRANSFERASE 23 U/L (14-36); BILIRUBIN,DIRECT 0.3 mg/dL (0.0-0.4); BILIRUBIN,TOTAL 0.3 mg/dL (0.2-1.3); BLOOD UREA NITROGEN 44 mg/dL (7-20); CALCIUM 9.4 mg/dL (8.4-10.2); CARBON DIOXIDE 29 mmol/L (22-30); CHLORIDE 107 mmol/L (98-107); GLUCOSE 89 mg/dL (75-110); POTASSIUM 4.7 mmol/L (3.6-5.0); SODIUM 145.3 mmol/L (137-145); TOTAL PROTEIN 7.5 g/dL (6.3-8.2)
[2017-09-05] MEDS: DONEPEZIL HCL 5 MG TABLET PO SCH (23:01)
[2017-09-05] MEDS: QUETIAPINE FUMARATE 25 MG TABLET PO SCH (23:02)
[2017-09-06] MEDS: LEVOTHYROXINE SODIUM 0.1 MG TABLET PO SCH (05:20)
[2017-09-06] MEDS: HYDRALAZINE HCL 50 MG TABLET PO SCH ×3 (05:20→21:57)
[2017-09-06 05:29] LABS: ABSOLUTE BASOPHILS # (AUTO) 0.1 10^3/uL (0.0-0.2); ABSOLUTE EOSINOPHILS # (AUTO) 0.3 10^3/uL (0.0-0.6); ABSOLUTE LYMPHOCYTES (AUTO) 2.3 10^3/uL (0.5-4.7); ABSOLUTE NEUT (AUTO) 4.9 10^3/uL (1.7-8.2); BASOPHILS % (AUTO) 0.9 % (0-2); EOSINOPHILS % (AUTO) 3.3 % (0-6); HEMOGLOBIN 8.5 g/dL (12.0-15.5); LYMPHOCYTES % (AUTO) 26.6 % (13-45); MEAN CORPUSCULAR HEMOGLOBIN 23.8 pg (27.0-33.4); MEAN CORPUSCULAR HGB CONC 31.5 g/dL (32.0-36.0); MEAN CORPUSCULAR VOLUME 76 fl (80-97); MONOCYTES % (AUTO) 11.4 % (3-13); PLATELET COUNT 222 10^3/uL (150-450); RED BLOOD COUNT 3.58 10^6/uL (3.72-5.28); RED CELL DISTRIBUTION WIDTH 18.4 % (11.5-14.0); SEGMENTED NEUTROPHILS % (AUTO) 57.8 % (42-78); TOTAL CELLS COUNTED % (AUTO) 100 %; WHITE BLOOD COUNT 8.6 10^3/uL (4.0-10.5)
[2017-09-06 05:33] LABS: ALANINE AMINOTRANSFERASE 16 U/L (9-52); ALBUMIN 3.5 g/dL (3.5-5.0); ALKALINE PHOSPHATASE 66 U/L (38-126); ANION GAP 10 (5-19); ASPARTATE AMINO TRANSFERASE 26 U/L (14-36); BILIRUBIN,DIRECT 0.4 mg/dL (0.0-0.4); BILIRUBIN,TOTAL 0.4 mg/dL (0.2-1.3); BLOOD UREA NITROGEN 41 mg/dL (7-20); CALCIUM 9.1 mg/dL (8.4-10.2); CARBON DIOXIDE 26 mmol/L (22-30); CHLORIDE 109 mmol/L (98-107); GLUCOSE 99 mg/dL (75-110); POTASSIUM 4.6 mmol/L (3.6-5.0); SODIUM 144.9 mmol/L (137-145); TOTAL PROTEIN 7.7 g/dL (6.3-8.2)
[2017-09-06] MEDS: POTASSIUM CHLORIDE 10 MEQ TABLET.SA PO SCH (10:59)
[2017-09-06] MEDS: METOPROLOL SUCCINATE 50 MG TAB.SR.24H PO SCH ×2 (10:59→21:56)
[2017-09-06] MEDS: MEMANTINE HCL 10 MG TABLET PO SCH ×2 (11:00→21:57)
[2017-09-06] MEDS: ASPIRIN 81 MG TABLET, CHEWABLE PO SCH (11:00)
[2017-09-06] MEDS: CITALOPRAM HYDROBROMIDE 20 MG TABLET PO SCH (11:01)
[2017-09-06] MEDS: ENOXAPARIN SODIUM INJ 40 MG/0.4 ML DISP.SYRIN SUBCUT SCH (11:01)
[2017-09-06] MEDS: AMLODIPINE BESYLATE 10 MG TABLET PO SCH (11:01)
--- NOTE | 2017-09-06 12:30 | PDOC PROGRESS REPORT ---
Subjective Progress Note for:: 09/06/17 Subjective:: Patient is seen by the bedside, there is no new complaints Reason For Visit: ACUTE PULMONARY EDEMA, ? ACUTE SYSTOLIC HEART FAIL Physical Exam Vital Signs: Temp Pulse Resp BP Pulse Ox 98.7 F 61 19 120/54 L 98 09/06/17 03:27 09/06/17 03:27 09/06/17 03:27 09/06/17 03:27 09/06/17 08:00 Intake & Output 09/05/17 09/06/17 09/07/17 06:59 06:59 06:59 Intake Total 962 1063 Balance 962 1063 Weight 94.2 kg 70.1 kg General appearance: PRESENT: no acute distress Eye exam: PRESENT: PERRLA Respiratory exam: PRESENT: clear to auscultation bimal Cardiovascular exam: PRESENT: +S1, +S2 GI/Abdominal exam: PRESENT: soft Neurological exam: PRESENT: alert Results Laboratory Results: 09/06/17 04:26 09/06/17 04:26 09/05/17 09/05/17 09/06/17 12:30 12:30 04:26 WBC 9.4 8.6 RBC 3.70 L 3.58 L Hgb 8.9 L 8.5 L Hct 28.3 L 27.0 L MCV 77 L 76 L MCH 24.0 L 23.8 L MCHC 31.4 L 31.5 L RDW 18.7 H 18.4 H Plt Count 244 222 Seg Neutrophils % 66.8 57.8 Lymphocytes % 18.8 26.6 Monocytes % 11.0 11.4 Eosinophils % 2.8 3.3 Basophils % 0.6 0.9 Absolute Neutrophils 6.3 4.9 Absolute Lymphocytes 1.8 2.3 Absolute Monocytes 1.0 1.0 Absolute Eosinophils 0.3 0.3 Absolute Basophils 0.1 0.1 Sodium 145.3 H Potassium 4.7 Chloride 107 Carbon Dioxide 29 Anion Gap 9 BUN 44 H Creatinine 1.47 H Est GFR ( Amer) 41 L Est GFR (Non-Af Amer) 34 L Glucose 89 Calcium 9.4 Total Bilirubin 0.3 AST 23 ALT 21 Alkaline Phosphatase 69 Total Protein 7.5 Albumin 3.4 L 09/06/17 04:26 WBC RBC Hgb Hct MCV MCH MCHC RDW Plt Count Seg Neutrophils % Lymphocytes % Monocytes % Eosinophils % Basophils % Absolute Neutrophils Absolute Lymphocytes Absolute Monocytes Absolute Eosinophils Absolute Basophils Sodium 144.9 Potassium 4.6 Chloride 109 H Carbon Dioxide 26 Anion Gap 10 BUN 41 H Creatinine 1.57 H Est GFR ( Amer) 38 L Est GFR (Non-Af Amer) 31 L Glucose 99 Calcium 9.1 Total Bilirubin 0.4 AST 26 ALT 16 Alkaline Phosphatase 66 Total Protein 7.7 Albumin 3.5 09/01/17 09/01/17 09/01/17 09:10 09:10 09:10 Creatine Kinase 57 CK-MB (CK-2) 0.89 Troponin I 0.033 NT-Pro-B Natriuret Pep 4860 H 09/01/17 09/01/17 09/01/17 14:55 14:55 20:30 Creatine Kinase 70 87 CK-MB (CK-2) 1.19 Troponin I 0.045 NT-Pro-B Natriuret Pep 09/01/17 20:30 Creatine Kinase CK-MB (CK-2) 1.37 Troponin I 0.064 NT-Pro-B Natriuret Pep Impressions: Forearm X-Ray 09/01/17 03:59 IMPRESSION: No acute fracture or dislocation. 2010 [employer]- All Rights Reserved Chest X-Ray 09/02/17 00:00 IMPRESSION: Borderline cardiomegaly with pulmonary edema. Assessment & Plan - Diagnosis (1) Acute hypoxemic respiratory failure Is this a current diagnosis for this admission?: Yes (2) Hypertensive emergency Is this a current diagnosis for this admission?: Yes (3) Acute pulmonary edema Is this a current diagnosis for this admission?: Yes (4) Dementia Qualifiers: Dementia type: Alzheimer's disease Alzheimer's disease onset: late-onset Dementia behavioral disturbance: without behavioral disturbance Qualified Code (s): G30.1 - Alzheimer's disease with late onset; F02.80 - Dementia in other diseases classified elsewhere without behavioral disturbance; F02.80 - Dementia in other diseases classified elsewhere without behavioral disturbance; F02.80 - Dementia in other diseases classified elsewhere without behavioral disturbance Is this a current diagnosis for this admission?: Yes (5) Acute diastolic (congestive) heart failure Is this a current diagnosis for this admission?: Yes (6) Congestive heart failure with preserved left ventricular function, NYHA class 1 Is this a current diagnosis for this admission?: Yes - Plan Summary Plan Summary: Continue treatment
[2017-09-06] MEDS: QUETIAPINE FUMARATE 25 MG TABLET PO SCH (21:56)
[2017-09-06] MEDS: ACETAMINOPHEN 325 MG TABLET PO PRN (21:57)
[2017-09-06] MEDS: DONEPEZIL HCL 5 MG TABLET PO SCH (21:57)
[2017-09-07] MEDS: HYDRALAZINE HCL 50 MG TABLET PO SCH ×3 (06:09→21:55)
[2017-09-07] MEDS: LEVOTHYROXINE SODIUM 0.1 MG TABLET PO SCH (06:09)
[2017-09-07] MEDS: ASPIRIN 81 MG TABLET, CHEWABLE PO SCH (11:21)
[2017-09-07] MEDS: POTASSIUM CHLORIDE 10 MEQ TABLET.SA PO SCH (11:21)
[2017-09-07] MEDS: CITALOPRAM HYDROBROMIDE 20 MG TABLET PO SCH (11:21)
[2017-09-07] MEDS: METOPROLOL SUCCINATE 50 MG TAB.SR.24H PO SCH ×2 (11:22→21:55)
[2017-09-07] MEDS: AMLODIPINE BESYLATE 10 MG TABLET PO SCH (11:22)
[2017-09-07] MEDS: ENOXAPARIN SODIUM INJ 40 MG/0.4 ML DISP.SYRIN SUBCUT SCH (11:22)
[2017-09-07] MEDS: MEMANTINE HCL 10 MG TABLET PO SCH ×2 (11:22→21:55)
[2017-09-07 17:46] LABS: ABSOLUTE BASOPHILS # (AUTO) 0.1 10^3/uL (0.0-0.2); ABSOLUTE EOSINOPHILS # (AUTO) 0.3 10^3/uL (0.0-0.6); ABSOLUTE LYMPHOCYTES (AUTO) 1.9 10^3/uL (0.5-4.7); ABSOLUTE MONOCYTES (AUTO) 0.8 10^3/uL (0.1-1.4); ABSOLUTE NEUT (AUTO) 5.2 10^3/uL (1.7-8.2); BASOPHILS % (AUTO) 1.3 % (0-2); EOSINOPHILS % (AUTO) 3.8 % (0-6); HEMATOCRIT 28.4 % (36.0-47.0); MEAN CORPUSCULAR HGB CONC 31.8 g/dL (32.0-36.0); MEAN CORPUSCULAR VOLUME 76 fl (80-97); MONOCYTES % (AUTO) 9.5 % (3-13); PLATELET COUNT 256 10^3/uL (150-450); RED BLOOD COUNT 3.76 10^6/uL (3.72-5.28); RED CELL DISTRIBUTION WIDTH 18.5 % (11.5-14.0); SEGMENTED NEUTROPHILS % (AUTO) 62.4 % (42-78); TOTAL CELLS COUNTED % (AUTO) 100 %; WHITE BLOOD COUNT 8.3 10^3/uL (4.0-10.5)
[2017-09-07 18:07] LABS: ALANINE AMINOTRANSFERASE 23 U/L (9-52); ALBUMIN 3.6 g/dL (3.5-5.0); ALKALINE PHOSPHATASE 82 U/L (38-126); ANION GAP 12 (5-19); ASPARTATE AMINO TRANSFERASE 32 U/L (14-36); BILIRUBIN,DIRECT 0.3 mg/dL (0.0-0.4); BILIRUBIN,TOTAL 0.3 mg/dL (0.2-1.3); BLOOD UREA NITROGEN 37 mg/dL (7-20); CALCIUM 9.1 mg/dL (8.4-10.2); CARBON DIOXIDE 26 mmol/L (22-30); CHLORIDE 108 mmol/L (98-107); GLUCOSE 124 mg/dL (75-110); SODIUM 145.5 mmol/L (137-145); TOTAL PROTEIN 7.9 g/dL (6.3-8.2)
[2017-09-07] MEDS: ACETAMINOPHEN 325 MG TABLET PO PRN (18:53)
--- NOTE | 2017-09-07 19:26 | PDOC PROGRESS REPORT ---
Subjective Progress Note for:: 09/07/17 Subjective:: Patient seen by the bedside hopefully discharge back to care home home soon Reason For Visit: ACUTE PULMONARY EDEMA, ? ACUTE SYSTOLIC HEART FAIL Physical Exam Vital Signs: Temp Pulse Resp BP Pulse Ox 98.1 F 61 18 129/51 H 100 09/07/17 15:18 09/07/17 15:18 09/07/17 15:18 09/07/17 15:18 09/07/17 15:18 Intake & Output 09/06/17 09/07/17 09/08/17 06:59 06:59 06:59 Intake Total 1063 1667 1450 Balance 1063 1667 1450 Weight 70.1 kg 79.4 kg General appearance: PRESENT: mild distress Eye exam: PRESENT: PERRLA Respiratory exam: PRESENT: rhonchi Cardiovascular exam: PRESENT: +S1, +S2 GI/Abdominal exam: PRESENT: soft Neurological exam: PRESENT: alert Results Laboratory Results: 09/07/17 17:35 09/07/17 17:35 09/07/17 09/07/17 17:35 17:35 WBC 8.3 RBC 3.76 Hgb 9.0 L Hct 28.4 L MCV 76 L MCH 24.0 L MCHC 31.8 L RDW 18.5 H Plt Count 256 Seg Neutrophils % 62.4 Lymphocytes % 23.0 Monocytes % 9.5 Eosinophils % 3.8 Basophils % 1.3 Absolute Neutrophils 5.2 Absolute Lymphocytes 1.9 Absolute Monocytes 0.8 Absolute Eosinophils 0.3 Absolute Basophils 0.1 Sodium 145.5 H Potassium 5.0 Chloride 108 H Carbon Dioxide 26 Anion Gap 12 BUN 37 H Creatinine 1.56 H Est GFR ( Amer) 38 L Est GFR (Non-Af Amer) 31 L Glucose 124 H Calcium 9.1 Total Bilirubin 0.3 AST 32 ALT 23 Alkaline Phosphatase 82 Total Protein 7.9 Albumin 3.6 09/01/17 09/01/17 09/01/17 09:10 09:10 09:10 Creatine Kinase 57 CK-MB (CK-2) 0.89 Troponin I 0.033 NT-Pro-B Natriuret Pep 4860 H 09/01/17 09/01/17 09/01/17 14:55 14:55 20:30 Creatine Kinase 70 87 CK-MB (CK-2) 1.19 Troponin I 0.045 NT-Pro-B Natriuret Pep 09/01/17 20:30 Creatine Kinase CK-MB (CK-2) 1.37 Troponin I 0.064 NT-Pro-B Natriuret Pep Impressions: Forearm X-Ray 09/01/17 03:59 IMPRESSION: No acute fracture or dislocation. 2010 [employer]- All Rights Reserved Chest X-Ray 09/02/17 00:00 IMPRESSION: Borderline cardiomegaly with pulmonary edema. Assessment & Plan - Diagnosis (1) Acute hypoxemic respiratory failure Is this a current diagnosis for this admission?: Yes (2) Hypertensive emergency Is this a current diagnosis for this admission?: Yes (3) Acute pulmonary edema Is this a current diagnosis for this admission?: Yes (4) Dementia Qualifiers: Dementia type: Alzheimer's disease Alzheimer's disease onset: late-onset Dementia behavioral disturbance: without behavioral disturbance Qualified Code (s): G30.1 - Alzheimer's disease with late onset; F02.80 - Dementia in other diseases classified elsewhere without behavioral disturbance; F02.80 - Dementia in other diseases classified elsewhere without behavioral disturbance; F02.80 - Dementia in other diseases classified elsewhere without behavioral disturbance Is this a current diagnosis for this admission?: Yes (5) Acute diastolic (congestive) heart failure Is this a current diagnosis for this admission?: Yes (6) Congestive heart failure with preserved left ventricular function, NYHA class 1 Is this a current diagnosis for this admission?: Yes
[2017-09-07] MEDS: DONEPEZIL HCL 5 MG TABLET PO SCH (21:55)
[2017-09-07] MEDS: QUETIAPINE FUMARATE 25 MG TABLET PO SCH (21:55)
[2017-09-08] MEDS: LEVOTHYROXINE SODIUM 0.1 MG TABLET PO SCH (05:01)
[2017-09-08] MEDS: HYDRALAZINE HCL 50 MG TABLET PO SCH ×3 (05:01→21:24)
[2017-09-08] MEDS: MEMANTINE HCL 10 MG TABLET PO SCH ×2 (10:06→21:24)
[2017-09-08] MEDS: ASPIRIN 81 MG TABLET, CHEWABLE PO SCH (10:06)
[2017-09-08] MEDS: CITALOPRAM HYDROBROMIDE 20 MG TABLET PO SCH (10:06)
[2017-09-08] MEDS: ENOXAPARIN SODIUM INJ 40 MG/0.4 ML DISP.SYRIN SUBCUT SCH (10:07)
[2017-09-08] MEDS: POTASSIUM CHLORIDE 10 MEQ TABLET.SA PO SCH (10:07)
[2017-09-08] MEDS: AMLODIPINE BESYLATE 10 MG TABLET PO SCH (10:07)
[2017-09-08] MEDS: METOPROLOL SUCCINATE 50 MG TAB.SR.24H PO SCH ×2 (10:07→21:24)
[2017-09-08] MEDS: QUETIAPINE FUMARATE 25 MG TABLET PO SCH (21:24)
[2017-09-08] MEDS: DONEPEZIL HCL 5 MG TABLET PO SCH (21:24)
--- NOTE | 2017-09-08 21:46 | PDOC PROGRESS REPORT ---
Subjective Progress Note for:: 09/08/17 Subjective:: Patient seen by the bedside, she be transferred back to assisted living facility at [facility] for continuity of care Reason For Visit: ACUTE PULMONARY EDEMA, ? ACUTE SYSTOLIC HEART FAIL Physical Exam Vital Signs: Temp Pulse Resp BP Pulse Ox 97.6 F 59 L 14 137/58 H 98 09/08/17 15:49 09/08/17 15:49 09/08/17 15:49 09/08/17 15:49 09/08/17 20:09 Intake & Output 09/07/17 09/08/17 09/09/17 06:59 06:59 06:59 Intake Total 1667 1650 437 Output Total 3 Balance 1667 1647 437 Weight 79.4 kg General appearance: PRESENT: no acute distress Eye exam: PRESENT: PERRLA Respiratory exam: PRESENT: rhonchi Cardiovascular exam: PRESENT: +S1, +S2 GI/Abdominal exam: PRESENT: soft Neurological exam: PRESENT: alert Results Laboratory Results: 09/07/17 17:35 09/07/17 17:35 09/01/17 09/01/17 09/01/17 09:10 09:10 09:10 Creatine Kinase 57 CK-MB (CK-2) 0.89 Troponin I 0.033 NT-Pro-B Natriuret Pep 4860 H 09/01/17 09/01/17 09/01/17 14:55 14:55 20:30 Creatine Kinase 70 87 CK-MB (CK-2) 1.19 Troponin I 0.045 NT-Pro-B Natriuret Pep 09/01/17 20:30 Creatine Kinase CK-MB (CK-2) 1.37 Troponin I 0.064 NT-Pro-B Natriuret Pep Impressions: Forearm X-Ray 09/01/17 03:59 IMPRESSION: No acute fracture or dislocation. 2010 [employer]- All Rights Reserved Chest X-Ray 09/02/17 00:00 IMPRESSION: Borderline cardiomegaly with pulmonary edema. Assessment & Plan - Diagnosis (1) Acute hypoxemic respiratory failure Is this a current diagnosis for this admission?: Yes (2) Hypertensive emergency Is this a current diagnosis for this admission?: Yes (3) Acute pulmonary edema Is this a current diagnosis for this admission?: Yes (4) Dementia Qualifiers: Dementia type: Alzheimer's disease Alzheimer's disease onset: late-onset Dementia behavioral disturbance: without behavioral disturbance Qualified Code (s): G30.1 - Alzheimer's disease with late onset; F02.80 - Dementia in other diseases classified elsewhere without behavioral disturbance; F02.80 - Dementia in other diseases classified elsewhere without behavioral disturbance; F02.80 - Dementia in other diseases classified elsewhere without behavioral disturbance Is this a current diagnosis for this admission?: Yes (5) Acute diastolic (congestive) heart failure Is this a current diagnosis for this admission?: Yes (6) Congestive heart failure with preserved left ventricular function, NYHA class 1 Is this a current diagnosis for this admission?: Yes
[2017-09-09] MEDS: LEVOTHYROXINE SODIUM 0.1 MG TABLET PO SCH (05:29)
[2017-09-09] MEDS: HYDRALAZINE HCL 50 MG TABLET PO SCH ×2 (05:29→14:02)
[2017-09-09] MEDS: ASPIRIN 81 MG TABLET, CHEWABLE PO SCH (09:26)
[2017-09-09] MEDS: CITALOPRAM HYDROBROMIDE 20 MG TABLET PO SCH (09:26)
[2017-09-09] MEDS: AMLODIPINE BESYLATE 10 MG TABLET PO SCH (09:26)
[2017-09-09] MEDS: ENOXAPARIN SODIUM INJ 40 MG/0.4 ML DISP.SYRIN SUBCUT SCH (09:27)
[2017-09-09] MEDS: MEMANTINE HCL 10 MG TABLET PO SCH (09:27)
[2017-09-09] MEDS: METOPROLOL SUCCINATE 50 MG TAB.SR.24H PO SCH (09:27)
[2017-09-09] MEDS: POTASSIUM CHLORIDE 10 MEQ TABLET.SA PO SCH (10:01)
--- NOTE | 2017-09-09 13:54 | PDOC TRANSFER SUMMARY ---
General - Admit/Disc Date/PCP Admission Date/Primary Care Provider: 09/01/17 08:16 SUDHIR KRAUSE MD Discharge Date: 09/09/17 - Discharge Diagnosis (1) Acute hypoxemic respiratory failure Is this a current diagnosis for this admission?: Yes (2) Hypertensive emergency Is this a current diagnosis for this admission?: Yes (3) Acute pulmonary edema Is this a current diagnosis for this admission?: Yes (4) Dementia Is this a current diagnosis for this admission?: Yes (5) Acute diastolic (congestive) heart failure Is this a current diagnosis for this admission?: Yes (6) Congestive heart failure with preserved left ventricular function, NYHA class 1 Is this a current diagnosis for this admission?: Yes - Additional Information Resuscitation Status: Do Not Resuscitate Prescriptions: Furosemide [Lasix 40 mg Tablet] 40 mg PO QAM #30 tablet Metoprolol Succinate [Toprol XL 200 mg Tablet] 200 mg PO DAILY #90 tab.sr.24h Home Medications: Acetaminophen [Tylenol 325 mg Tablet] 650 mg PO Q4HP PRN 09/01/17 Amlodipine Besylate [Norvasc 10 mg Tablet] 10 mg PO DAILY 09/01/17 Aspirin [Aspirin 81 mg Chewable Tablet] 81 mg PO DAILY 09/01/17 Bisacodyl [Dulcolax 5 mg Tablet] 10 mg PO HSP PRN 09/01/17 Bismuth Subsalicylate [Pepto-Bismol Susp 524 mg/30 ml Udcup] 30 ml PO Q4HP PRN 09/01/17 Calcium Carbonate [Tums Chewable 500 mg Tab.chew] 1,000 mg PO Q1HP PRN 09/01/17 Citalopram Hydrobromide [Celexa 20 mg Tablet] 20 mg PO DAILY 09/01/17 Donepezil HCl [Aricept] 10 mg PO QHS 09/01/17 Hydralazine HCl 100 mg PO Q8 09/01/17 Levothyroxine Sodium [Synthroid 0.088 mg Tablet] 88 mcg PO Q6AM 09/01/17 Mag Hydrox/Al Hydrox/Simeth [Maalox Plus Susp 30 Udcup] 30 ml PO Q4HP PRN Memantine HCl [Namenda 10 mg Tablet] 10 mg PO Q12 09/01/17 Nitroglycerin [Nitrostat 0.4 mg (1/150 Gr) Tabs 25/Bottle] 1 tab SL Q5MP PRN 03/09 Ondansetron [Zofran Odt 4 mg Tablet] 4 mg PO Q4HP PRN 09/01/17 Potassium Chloride [K-Tab ER] 20 meq PO DAILY 09/01/17 Quetiapine Fumarate [Seroquel 25 mg Tablet] 25 mg PO QHS 09/01/17 Furosemide [Lasix 40 mg Tablet] 40 mg PO QAM #30 tablet 09/09/17 Metoprolol Succinate [Toprol XL 200 mg Tablet] 200 mg PO DAILY #90 tab.sr.24h History of Present Illness Admission Date/PCP: 09/01/17 08:16 SUDHIR KRAUSE MD History of Present Illness: BELKIS EUCEDA is a 87 year old female, She has baseline dementia, resident of the group home, patient of Dr. Krause she could emergency room for evaluation of shortness of breath, chest x-ray was done that showed pulmonary vascular congestion there was associated hypertensive emergency, blood pressure recorded was Over 200 systolic, she developed respiratory distress requiring noninvasive ventilation BiPAP.She has a permanent pacemaker, she is obviously in distress very short of breath with audible crackles with naked ears Hospital Course Hospital Course: Patient was admitted for the management of acute diastolic heart failure associated with hypertensive emergency. The blood pressure on admission was over 200 systolic, she was treated with intravenous nitroglycerin infusion, she also had lasix infusion. The chest x-ray showed pulmonary edema, 2D echo was done, showed preserved ejection fraction of left ventricle, she has congestive heart failure with preserved ejection fraction of left ventricle. She developed acute kidney injury felt to be secondary to prerenal dehydration from Lasix infusion. She has baseline dementia but she was coherent, engaging. She also required noninvasive ventilation with BiPAP. Patient is presently optimized acute hospital care, she will be transferred to assisted living facility for continuity of care. Physical Exam Vital Signs: Temp Pulse Resp BP Pulse Ox 97.8 F 59 L 12 123/50 L 99 09/09/17 12:09 09/09/17 12:09 09/09/17 12:09 09/09/17 12:09 09/09/17 12:09 Intake & Output 09/08/17 09/09/17 09/10/17 06:59 06:59 06:59 Intake Total 1650 953 Output Total 3 500 Balance 1647 453 Weight 79.4 kg General appearance: PRESENT: no acute distress, well-developed, well-nourished Head exam: PRESENT: atraumatic, normocephalic Eye exam: PRESENT: conjunctiva pink, EOMI, PERRLA Ear exam: PRESENT: normal external ear exam Mouth exam: PRESENT: moist, tongue midline Respiratory exam: PRESENT: clear to auscultation bimal Cardiovascular exam: PRESENT: RRR Pulses: PRESENT: normal dorsalis pedis pul Vascular exam: PRESENT: normal capillary refill GI/Abdominal exam: PRESENT: normal bowel sounds, soft Rectal exam: PRESENT: deferred Extremities exam: PRESENT: full ROM Neurological exam: PRESENT: alert, awake, oriented to person, oriented to place , oriented to time, oriented to situation, CN II-XII grossly intact Psychiatric exam: PRESENT: appropriate affect, normal mood Skin exam: PRESENT: dry, intact, warm Results Laboratory Results: 09/07/17 17:35 09/07/17 17:35 09/01/17 09/01/17 09/01/17 09:10 09:10 09:10 Creatine Kinase 57 CK-MB (CK-2) 0.89 Troponin I 0.033 NT-Pro-B Natriuret Pep 4860 H 09/01/17 09/01/17 09/01/17 14:55 14:55 20:30 Creatine Kinase 70 87 CK-MB (CK-2) 1.19 Troponin I 0.045 NT-Pro-B Natriuret Pep 09/01/17 20:30 Creatine Kinase CK-MB (CK-2) 1.37 Troponin I 0.064 NT-Pro-B Natriuret Pep Impressions: Forearm X-Ray 09/01/17 03:59 IMPRESSION: No acute fracture or dislocation. 2010 [employer]- All Rights Reserved Chest X-Ray 09/02/17 00:00 IMPRESSION: Borderline cardiomegaly with pulmonary edema. Qualifiers - * PATIENT BEING DISCHARGED WITH ANY OF THE FOLLOWING DIAGNOSIS: No
[2017-09-09 14:34] LABS: ABSOLUTE BASOPHILS # (AUTO) 0.2 10^3/uL (0.0-0.2); ABSOLUTE EOSINOPHILS # (AUTO) 0.3 10^3/uL (0.0-0.6); ABSOLUTE LYMPHOCYTES (AUTO) 1.3 10^3/uL (0.5-4.7); ABSOLUTE MONOCYTES (AUTO) 0.6 10^3/uL (0.1-1.4); ABSOLUTE NEUT (AUTO) 5.6 10^3/uL (1.7-8.2); BASOPHILS % (AUTO) 1.9 % (0-2); EOSINOPHILS % (AUTO) 3.2 % (0-6); HEMATOCRIT 28.4 % (36.0-47.0); HEMOGLOBIN 9.2 g/dL (12.0-15.5); MEAN CORPUSCULAR HEMOGLOBIN 24.5 pg (27.0-33.4); MEAN CORPUSCULAR HGB CONC 32.5 g/dL (32.0-36.0); MEAN CORPUSCULAR VOLUME 75 fl (80-97); MONOCYTES % (AUTO) 7.4 % (3-13); PLATELET COUNT 273 10^3/uL (150-450); RED BLOOD COUNT 3.77 10^6/uL (3.72-5.28); RED CELL DISTRIBUTION WIDTH 18.8 % (11.5-14.0); SEGMENTED NEUTROPHILS % (AUTO) 71.5 % (42-78); TOTAL CELLS COUNTED % (AUTO) 100 %; WHITE BLOOD COUNT 7.9 10^3/uL (4.0-10.5)
[2017-09-09 15:04] LABS: ALANINE AMINOTRANSFERASE 31 U/L (9-52); ALBUMIN 3.8 g/dL (3.5-5.0); ALKALINE PHOSPHATASE 80 U/L (38-126); ANION GAP 15 (5-19); ASPARTATE AMINO TRANSFERASE 32 U/L (14-36); BILIRUBIN,DIRECT 0.3 mg/dL (0.0-0.4); BILIRUBIN,TOTAL 0.3 mg/dL (0.2-1.3); BLOOD UREA NITROGEN 33 mg/dL (7-20); CALCIUM 9.4 mg/dL (8.4-10.2); CARBON DIOXIDE 22 mmol/L (22-30); CHLORIDE 107 mmol/L (98-107); GLUCOSE 117 mg/dL (75-110); SODIUM 144.4 mmol/L (137-145); TOTAL PROTEIN 8.2 g/dL (6.3-8.2)
[2017-09-09 16:54] VITALS: BP 140/57
== END 2017-09-09 19:29 | DRG 304 ==
LOC: ER 03:44 → EH 06:23 → OBSVTOIN 08:16 → 3N 14:33
PROVIDERS: ADMIT Internal Medicine; ATTEND Internal Medicine
PROC: 5A09557 Assistance with Respiratory Ventilation, Greater than 96 Consecutive Hours, Continuous Positive Airway Pressure (ICD-10-PCS; principal; 2017-09-01)
DX: I16.1 Hypertensive emergency (principal); J96.01 Acute respiratory failure with hypoxia; I50.31 Acute diastolic (congestive) heart failure; N17.9 Acute kidney failure, unspecified; I11.0 Hypertensive heart disease with heart failure; Z66 Do not resuscitate; E86.0 Dehydration; I48.91 Unspecified atrial fibrillation; E78.00 Pure hypercholesterolemia, unspecified; G43.909 Migraine, unspecified, not intractable, without status migrainosus; K21.9 Gastro-esophageal reflux disease without esophagitis; F32.9 Major depressive disorder, single episode, unspecified; D64.9 Anemia, unspecified; G30.1 Alzheimer's disease with late onset; F02.80 Dementia in other diseases classified elsewhere, unspecified severity, without behavioral disturbance, psychotic disturbance, mood disturbance, and anxiety; I25.2 Old myocardial infarction; Z79.899 Other long term (current) drug therapy; Z95.0 Presence of cardiac pacemaker; Z79.82 Long term (current) use of aspirin; Z88.8 Allergy status to other drugs, medicaments and biological substances; Z88.6 Allergy status to analgesic agent; Z91.013 Allergy to seafood; Z86.73 Personal history of transient ischemic attack (TIA), and cerebral infarction without residual deficits
CPT/HCPCS: 36415; 71045; 80048; 80053; 80061; 80076; 81001; 82140; 82150; 82550; 82553; 82803; 82962; 83036; 83690; 83735; 83880; 84100; 84439; 84443; 84484; 85025; 85610; 85730; 93306; 94660; 96365; 96366; 96375; 99285; J1650; J1940; J2930; J3010; J3490; J7050

== ENCOUNTER 2017-10-03 21:45 | Emergency (ER) | payer MEDICARE, MEDICAID ==
--- NOTE | 2017-10-03 21:59 | ER Document Report ---
ED General - General Stated Complaint: ABDOMINAL PAIN Time Seen by Provider: 10/03/17 21:55 Cannot obtain history due to: Dementia Notes: Patient is an 87-year-old female who presents with complaints of generalized abdominal pain and "being sick". Patient has apparently not had a bowel movement in 5 days. She also routinely potting soil per staff at the facility where she resides. Due to the patient's profound dementia she struggles to provide any additional meaningful history. She does continue to repeat "I am sick please help me". TRAVEL OUTSIDE OF THE [place] IN LAST 30 DAYS: No - Related Data Allergies/Adverse Reactions: codeine [Codeine] Allergy (Verified 09/01/17 08:14) iodine [Iodine] Allergy (Verified 09/01/17 08:14) Shellfish * [Shellfish] Allergy (Verified 09/01/17 08:14) Past Medical History - General Information source: Transfer Record, Emergency Med Personnel Cannot obtain history due to: Dementia - Social History Smoking Status: Unknown if Ever Smoked Frequency of alcohol use: None Drug Abuse: None Lives with: [facility] Family History: Reviewed & Not Pertinent - Past Medical History Cardiac Medical History: Reports: Hx Atrial Fibrillation, Hx Heart Attack - The patient had an elevated troponin, but negative catheterization 03/03/13, Hx Hypercholesterolemia, Hx Hypertension Denies: Hx Coronary Artery Disease Pulmonary Medical History: Denies: Hx Asthma, Hx Bronchitis, Hx COPD, Hx Pneumonia, Hx Tuberculosis Neurological Medical History: Reports: Hx Cerebrovascular Accident, Hx Migraine. Denies: Hx Seizures Endocrine Medical History: Renal/ Medical History: Denies: Hx Peritoneal Dialysis GI Medical History: Reports: Hx Gastroesophageal Reflux Disease Musculoskeletal Medical History: Denies Hx Arthritis - was told patient has a broken back Psychiatric Medical History: Reports: Hx Dementia, Hx Depression Past Surgical History: Reports: Hx Appendectomy, Hx Cardiac Surgery - pacer/ defib, Hx Pacemaker. Denies: Hx Hysterectomy - Immunizations Hx Diphtheria, Pertussis, Tetanus Vaccination: No Hx Pneumococcal Vaccination: 09/28/13 Review of Systems - Review of Systems Notes: Constitutional: Negative for fever. HENT: Negative for sore throat. Eyes: Negative for visual changes. Cardiovascular: Negative for chest pain. Respiratory: Negative for shortness of breath. Gastrointestinal: Positive for abdominal pain and constipation Genitourinary: Negative for dysuria. Musculoskeletal: Negative for back pain. Skin: Negative for rash. Neurological: Negative for headaches, weakness or numbness. 10 point ROS negative except as marked above and in HPI. Physical Exam - Vital signs Vitals: Resp Pulse Ox 28 H 100 10/03/17 21:59 10/03/17 21:59 Interpretation: Normal Notes: PHYSICAL EXAMINATION: GENERAL: Appears stated age, soil noted inside the mouth HEAD: Atraumatic, normocephalic. EYES: Pupils equal round and reactive to light, extraocular movements intact, sclera anicteric, conjunctiva are normal. ENT: nares patent, oropharynx clear without exudates. Moist mucous membranes. NECK: Normal range of motion, supple without lymphadenopathy LUNGS: Breath sounds clear to auscultation bilaterally and equal. No wheezes rales or rhonchi. HEART: Regular rate and rhythm without murmurs ABDOMEN: Moderately distended abdomen without any rigidity or focal areas of rebound or tenderness. Bowel sounds are present. No masses. No hernias. EXTREMITIES: Normal range of motion, no pitting or edema. No cyanosis. NEUROLOGICAL: No focal neurological deficits. Moves all extremities spontaneously and on command. PSYCH: Alert, oriented only to person SKIN: Warm, Dry, normal turgor, no rashes or lesions noted. Course - Re-evaluation Re-evalutation: 10/03/17 21:57 Patient presents complaining of abdominal pain, nausea, apparently has not a bowel movement in 5 days and also eats potting soil on a regular basis. She is profoundly demented, unable to provide meaningful history. She is moaning, seems to be in some discomfort. Abdominal exam shows a tense abdomen but no focal tenderness, rebound or guarding. Given patient's advanced age and inability to provide significant history will obtain labs, imaging and reassess 10/04/17 00:14 CT abdomen pelvis does show moderate to severe constipation consistent with the patient's history of not having had a bowel movement in 5 days. Lactulose has been given and a MiraLAX preparation has been recommended as an outpatient. At this time will discharge with return precautions and follow-up recommendations. Verbal discharge instructions given a the bedside and opportunity for questions given. Medication warnings reviewed. Patient is in agreement with this plan and has verbalized understanding of return precautions and the need for primary care follow-up in the next 24-72 hours. - Vital Signs Vital signs: Temp Pulse Resp BP Pulse Ox 98.6 F 21 H 167/78 H 98 10/04/17 01:01 10/04/17 01:01 10/04/17 01:01 10/04/17 01:01 - Laboratory Result Diagrams: 10/03/17 22:28 10/03/17 23:25 Laboratory results interpreted by me: 10/03/17 10/03/17 22:28 23:25 Hgb 9.6 L Hct 29.7 L MCV 75 L MCH 24.4 L RDW 19.3 H BUN 21 H Creatinine 1.55 H Est GFR ( Amer) 38 L Est GFR (Non-Af Amer) 32 L Total Protein 8.4 H - Diagnostic Test Radiology reviewed: Reports reviewed Discharge - Discharge Clinical Impression: Generalized abdominal pain Constipation Qualifiers: Constipation type: unspecified constipation type Qualified Code(s): K59.00 - Constipation, unspecified Condition: Good Disposition: HOME, SELF-CARE Additional Instructions: You have been seen in the Emergency Department (ED) for abdominal pain. Your CT scan does show significant constipation. For your constipation: You should take 8 caps of MiraLAX and placed in 1 liter of Gatorade. Drink one half of the solution and wait 4 hours. If you do not have a bowel movement take the remaining half of the solution. Please follow up with your doctor as soon as possible regarding today's emergent visit and the symptoms that are bothering you. Return to the ED if your abdominal pain worsens or fails to improve, you develop bloody vomiting, bloody diarrhea, you are unable to tolerate fluids due to vomiting, fever greater than 101, or other symptoms that concern you. Referrals: SUDHIR KRAUSE MD [Primary Care Provider] - Follow up as needed
[2017-10-03 22:42] LABS: ABSOLUTE BASOPHILS # (AUTO) 0.1 10^3/uL (0.0-0.2); ABSOLUTE EOSINOPHILS # (AUTO) 0.1 10^3/uL (0.0-0.6); ABSOLUTE LYMPHOCYTES (AUTO) 2.8 10^3/uL (0.5-4.7); ABSOLUTE MONOCYTES (AUTO) 0.8 10^3/uL (0.1-1.4); ABSOLUTE NEUT (AUTO) 5.2 10^3/uL (1.7-8.2); BASOPHILS % (AUTO) 1.2 % (0-2); EOSINOPHILS % (AUTO) 0.9 % (0-6); HEMATOCRIT 29.7 % (36.0-47.0); HEMOGLOBIN 9.6 g/dL (12.0-15.5); LYMPHOCYTES % (AUTO) 31.5 % (13-45); MEAN CORPUSCULAR HEMOGLOBIN 24.4 pg (27.0-33.4); MEAN CORPUSCULAR HGB CONC 32.3 g/dL (32.0-36.0); MEAN CORPUSCULAR VOLUME 75 fl (80-97); MONOCYTES % (AUTO) 9.4 % (3-13); PLATELET COUNT 263 10^3/uL (150-450); RED BLOOD COUNT 3.94 10^6/uL (3.72-5.28); RED CELL DISTRIBUTION WIDTH 19.3 % (11.5-14.0); TOTAL CELLS COUNTED % (AUTO) 100 %
--- NOTE | 2017-10-03 23:59 | RADIOLOGY REPORT (SQ) ---
EXAM DESCRIPTION: CT abdomen pelvis without IV contrast CLINICAL HISTORY: 87 years Female diffuse abdominal pain, no bm COMPLETED DATE/TME: 10/03/2017 21:58 COMPARISON: 07/10/2017 TECHNIQUE: Contiguous axial images obtained through the abdomen and pelvis following IV contrast. Reformatted images obtained. This exam was performed according to our department optimization program which includes automated exposure control, adjustment of the mA and/or kv according to patient size and/or use of iterative reconstruction technique. FINDINGS: Cardiac enlargement. Pacemaker in place. Unenhanced liver appears unremarkable. The spleen and pancreas appear unremarkable. No adrenal masses. No evidence of hydronephrosis or obstructive uropathy. Calcific densities in the renal jennifer appear to be vascular. The gallbladder is absent. No aneurysmal dilatation of the aorta. Calcification in the aorta and its branches. Phleboliths are present in the pelvis and along the ovarian veins. No bowel obstruction. The appendix is nonvisualized. There is moderate fecal material in the colon. No free fluid. IMPRESSION: Cardiac enlargement Moderate fecal material in the colon particularly in the rectosigmoid which may reflect constipation. No additional acute abnormality noted
[2017-10-04 00:01] LABS: ALANINE AMINOTRANSFERASE 25 U/L (9-52); ALBUMIN 3.8 g/dL (3.5-5.0); ALKALINE PHOSPHATASE 92 U/L (38-126); ANION GAP 12 (5-19); ASPARTATE AMINO TRANSFERASE 29 U/L (14-36); BILIRUBIN,DIRECT 0.3 mg/dL (0.0-0.4); BILIRUBIN,TOTAL 0.5 mg/dL (0.2-1.3); BLOOD UREA NITROGEN 21 mg/dL (7-20); CALCIUM 9.6 mg/dL (8.4-10.2); CARBON DIOXIDE 27 mmol/L (22-30); CHLORIDE 104 mmol/L (98-107); GLUCOSE 107 mg/dL (75-110); LIPASE 276.9 U/L (23-300); POTASSIUM 4.4 mmol/L (3.6-5.0); SODIUM 142.8 mmol/L (137-145); TOTAL PROTEIN 8.4 g/dL (6.3-8.2)
[2017-10-04] MEDS ORDERED: LACTULOSE SYRUP 20 GM/30 ML UDCUP PO ONE (00:13)
[2017-10-04 01:09] VITALS: BP 167/78
== END 2017-10-04 01:18 | disposition home or self-care (01) ==
LOC: ER 21:45
DX: K59.00 Constipation, unspecified (principal); R10.84 Generalized abdominal pain; F03.90 Unspecified dementia, unspecified severity, without behavioral disturbance, psychotic disturbance, mood disturbance, and anxiety; I10 Essential (primary) hypertension; R11.0 Nausea; Z88.5 Allergy status to narcotic agent; Z91.013 Allergy to seafood; Z95.810 Presence of automatic (implantable) cardiac defibrillator
CPT/HCPCS: 99285; 36415; 83690; 85025; 80053; 74176; A9270

== ENCOUNTER 2017-10-09 18:00 | Emergency (ER) | payer MEDICARE, MEDICAID ==
--- NOTE | 2017-10-09 18:59 | ER Document Report ---
ED Medical Screen (RME) - General Chief Complaint: Abdominal Pain Stated Complaint: ABDOMINAL PAIN Time Seen by Provider: 10/09/17 18:53 TRAVEL OUTSIDE OF THE [place] IN LAST 30 DAYS: No - HPI Patient complains to provider of: Abdominal pain Notes: 10/09/17 18:58 87-year-old female presents to the emergency room complaining of abdominal pain , patient comes from the facility, has severe dementia, it is difficult to obtain details of her complaint secondary to her baseline condition - Related Data Allergies/Adverse Reactions: codeine [Codeine] Allergy (Verified 09/01/17 08:14) iodine [Iodine] Allergy (Verified 09/01/17 08:14) Shellfish * [Shellfish] Allergy (Verified 09/01/17 08:14) Past Medical History - Past Medical History Cardiac Medical History: Reports: Hx Atrial Fibrillation, Hx Heart Attack - The patient had an elevated troponin, but negative catheterization 03/03/13, Hx Hypercholesterolemia, Hx Hypertension Denies: Hx Coronary Artery Disease Pulmonary Medical History: Denies: Hx Asthma, Hx Bronchitis, Hx COPD, Hx Pneumonia, Hx Tuberculosis Neurological Medical History: Reports: Hx Cerebrovascular Accident, Hx Migraine. Denies: Hx Seizures Endocrine Medical History: Renal/ Medical History: Denies: Hx Peritoneal Dialysis GI Medical History: Reports: Hx Gastroesophageal Reflux Disease Musculoskeltal Medical History: Denies Hx Arthritis - was told patient has a broken back Psychiatric Medical History: Reports: Hx Dementia, Hx Depression Past Surgical History: Reports: Hx Appendectomy, Hx Cardiac Surgery - pacer/ defib, Hx Pacemaker. Denies: Hx Hysterectomy - Immunizations Hx Diphtheria, Pertussis, Tetanus Vaccination: No History of Influenza Vaccine for 12/2016 - 05/2017 Season: Unknown Physical Exam - Vital signs Vitals: Temp Pulse Resp BP Pulse Ox 98.9 F 68 18 194/76 H 97 10/09/17 18:48 10/09/17 18:48 10/09/17 18:48 10/09/17 18:48 10/09/17 18:48 Course - Vital Signs Vital signs: Temp Pulse Resp BP Pulse Ox 98.9 F 68 18 194/76 H 97 10/09/17 18:48 10/09/17 18:48 10/09/17 18:48 10/09/17 18:48 10/09/17 18:48 Doctor's Discharge - Discharge Referrals: SUDHIR KRAUSE MD [Primary Care Provider] - Follow up as needed
[2017-10-09 20:48] LABS: ABSOLUTE BASOPHILS # (AUTO) 0.1 10^3/uL (0.0-0.2); ABSOLUTE EOSINOPHILS # (AUTO) 0.1 10^3/uL (0.0-0.6); ABSOLUTE MONOCYTES (AUTO) 0.6 10^3/uL (0.1-1.4); ABSOLUTE NEUT (AUTO) 4.9 10^3/uL (1.7-8.2); BASOPHILS % (AUTO) 1.3 % (0-2); EOSINOPHILS % (AUTO) 1.4 % (0-6); HEMATOCRIT 31.5 % (36.0-47.0); HEMOGLOBIN 10.2 g/dL (12.0-15.5); LYMPHOCYTES % (AUTO) 26.2 % (13-45); MEAN CORPUSCULAR HEMOGLOBIN 24.5 pg (27.0-33.4); MEAN CORPUSCULAR HGB CONC 32.6 g/dL (32.0-36.0); MEAN CORPUSCULAR VOLUME 75 fl (80-97); MONOCYTES % (AUTO) 7.5 % (3-13); PLATELET COUNT 294 10^3/uL (150-450); RED BLOOD COUNT 4.18 10^6/uL (3.72-5.28); RED CELL DISTRIBUTION WIDTH 19.3 % (11.5-14.0); SEGMENTED NEUTROPHILS % (AUTO) 63.6 % (42-78); TOTAL CELLS COUNTED % (AUTO) 100 %; WHITE BLOOD COUNT 7.7 10^3/uL (4.0-10.5)
[2017-10-09 21:07] LABS: ALANINE AMINOTRANSFERASE 19 U/L (9-52); ALBUMIN 4.3 g/dL (3.5-5.0); ALKALINE PHOSPHATASE 95 U/L (38-126); ASPARTATE AMINO TRANSFERASE 27 U/L (14-36); BILIRUBIN,DIRECT 0.2 mg/dL (0.0-0.4); BILIRUBIN,TOTAL 0.3 mg/dL (0.2-1.3); BLOOD UREA NITROGEN 19 mg/dL (7-20); CHLORIDE 103 mmol/L (98-107); GLUCOSE 101 mg/dL (75-110); LIPASE 237.3 U/L (23-300); POTASSIUM 4.4 mmol/L (3.6-5.0); SODIUM 144.6 mmol/L (137-145); TOTAL PROTEIN 9.9 g/dL (6.3-8.2)
[2017-10-09 21:10] LABS: ANION GAP 14 (5-19); CARBON DIOXIDE 28 mmol/L (22-30)
--- NOTE | 2017-10-09 22:12 | RADIOLOGY REPORT (SQ) ---
EXAM DESCRIPTION: ABDOMEN 2 VIEWS COMPLETED DATE/TIME: 10/09/2017 9:54 pm REASON FOR STUDY: abdominal pain COMPARISON: 11/20/2016 NUMBER OF VIEWS: Two views. TECHNIQUE: Supine and erect/decubitus radiographic images of the abdomen acquired. LIMITATIONS: None. FINDINGS: FREE AIR: None. No abnormal gas collections. LUNG BASES: Clear. BOWEL GAS PATTERN: Moderate stool burden. Nonobstructive pattern. No dilated loops or air fluid leve ls. CALCIFICATIONS: No suspicious calcifications. SOFT TISSUES: No gross mass or suggestion of organomegaly. HARDWARE: None in the abdomen. BONES: No acute fracture. No worrisome bone lesions. OTHER: No other significant finding. IMPRESSION: NO RADIOGRAPHIC EVIDENCE FOR ACUTE ABDOMINAL DISEASE. TECHNICAL DOCUMENTATION: JOB ID: [id number] [place]-72 2010 [employer]- All Rights Reserved Reading location - IP/workstation name: Niko Niko
--- NOTE | 2017-10-09 22:31 | ER Document Report ---
ED General - General Chief Complaint: Abdominal Pain Stated Complaint: ABDOMINAL PAIN Time Seen by Provider: 10/09/17 18:53 Cannot obtain history due to: Dementia Notes: Patient is an 87-year-old female with a past medical history of advanced dementia who presents complaining of "I am sick". The patient was sent back from a nursing facility again today after being seen by me approximately a week ago for the same with an unrevealing workup. She is profoundly demented, unable to provide any meaningful history. TRAVEL OUTSIDE OF THE [place] IN LAST 30 DAYS: No - Related Data Allergies/Adverse Reactions: codeine [Codeine] Allergy (Verified 09/01/17 08:14) iodine [Iodine] Allergy (Verified 09/01/17 08:14) Shellfish * [Shellfish] Allergy (Verified 09/01/17 08:14) Past Medical History - General Information source: [facility] Records - Social History Smoking Status: Never Smoker Chew tobacco use (# tins/day): No Frequency of alcohol use: None Drug Abuse: None Lives with: [facility] Family History: Reviewed & Not Pertinent Patient has suicidal ideation: No Patient has homicidal ideation: No - Past Medical History Cardiac Medical History: Reports: Hx Atrial Fibrillation, Hx Heart Attack - The patient had an elevated troponin, but negative catheterization 03/03/13, Hx Hypercholesterolemia, Hx Hypertension Denies: Hx Coronary Artery Disease Pulmonary Medical History: Denies: Hx Asthma, Hx Bronchitis, Hx COPD, Hx Pneumonia, Hx Tuberculosis Neurological Medical History: Reports: Hx Cerebrovascular Accident, Hx Migraine. Denies: Hx Seizures Endocrine Medical History: Renal/ Medical History: Denies: Hx Peritoneal Dialysis GI Medical History: Reports: Hx Gastroesophageal Reflux Disease Musculoskeletal Medical History: Denies Hx Arthritis - was told patient has a broken back Psychiatric Medical History: Reports: Hx Dementia, Hx Depression Past Surgical History: Reports: Hx Appendectomy, Hx Cardiac Surgery - pacer/ defib, Hx Pacemaker. Denies: Hx Hysterectomy - Immunizations Hx Diphtheria, Pertussis, Tetanus Vaccination: No Hx Pneumococcal Vaccination: 09/28/13 Review of Systems - Review of Systems -: Yes ROS unobtainable due to patient's medical condition Physical Exam - Vital signs Vitals: Temp Pulse Resp BP Pulse Ox 98.9 F 68 18 194/76 H 97 10/09/17 18:48 10/09/17 18:48 10/09/17 18:48 07/20/18 18:48 10/09/17 18:48 Interpretation: Hypertensive Notes: PHYSICAL EXAMINATION: GENERAL: Well-appearing, well-nourished and in no acute distress. HEAD: Atraumatic, normocephalic. EYES: Pupils equal round and reactive to light, extraocular movements intact, sclera anicteric, conjunctiva are normal. ENT: nares patent, oropharynx clear without exudates. Moist mucous membranes. NECK: Normal range of motion, supple without lymphadenopathy LUNGS: Breath sounds clear to auscultation bilaterally and equal. No wheezes rales or rhonchi. HEART: Regular rate and rhythm without murmurs ABDOMEN: Soft, nontender, normoactive bowel sounds. No guarding, no rebound. No masses appreciated. EXTREMITIES: Normal range of motion, no pitting or edema. No cyanosis. NEUROLOGICAL: No focal neurological deficits. Moves all extremities spontaneously and on command. PSYCH: Alert, oriented only to person SKIN: Warm, Dry, normal turgor, no rashes or lesions noted. Course - Re-evaluation Re-evalutation: 10/09/17 22:29 Patient presents again with facility stating that the patient is complaining of abdominal pain although the patient is so profoundly demented the only thing she says over and over again as "I feel sick". I saw this patient approximately week ago for the exact same issues. She does CT scan of her abdomen and pelvis on her most recent visit with me which was noted to be unremarkable. Her labs again today are unchanged. Two-view abdomen otherwise unremarkable. I do not see any indication for repeat CT imaging today. Will obtain a urinalysis and reassess - Vital Signs Vital signs: Temp Pulse Resp BP Pulse Ox 98.9 F 68 18 194/76 H 97 10/09/17 18:48 10/09/17 18:48 10/09/17 18:48 10/09/17 18:48 10/09/17 18:48 - Laboratory Result Diagrams: 10/09/17 20:30 10/09/17 20:30 Laboratory results interpreted by me: 10/09/17 10/09/17 10/09/17 20:30 20:30 22:25 Hgb 10.2 L Hct 31.5 L MCV 75 L MCH 24.5 L RDW 19.3 H Creatinine 1.49 H Est GFR ( Amer) 40 L Est GFR (Non-Af Amer) 33 L Total Protein 9.9 H Urine Protein 100 H Urine Urobilinogen 4.0 H Ur Leukocyte Esterase SMALL H - Diagnostic Test Radiology reviewed: Reports reviewed Discharge - Discharge Clinical Impression: Advanced dementia Abdominal pain Qualifiers: Abdominal location: unspecified location Qualified Code(s): R10.9 - Unspecified abdominal pain Additional Instructions: Please return to the emergency room immediately if you experience any concerning symptoms including high fevers, severe headache, chest pain, difficulty breathing, abdominal pain, slurred speech, numbness or weakness in your arms or legs, or any other symptom that concerns you. Referrals: SUDHIR KRAUSE MD [Primary Care Provider] - Follow up as needed
[2017-10-09 23:26] LABS: APPEARANCE,URINE SLIGHTLY-CLOUDY; BILIRUBIN,URINE NEGATIVE (NEGATIVE); COLOR,URINE YELLOW; GLUCOSE, URINE NEGATIVE (NEGATIVE); KETONES,URINE NEGATIVE (NEGATIVE); LEUKOCYTE ESTERASE,URINE SMALL (NEGATIVE); NITRITE,URINE NEGATIVE (NEGATIVE); PROTEIN,URINE 100 mg/dL (NEGATIVE); URINE SPECIFIC GRAVITY 1.015
[2017-10-10 04:59] VITALS: BP 187/82
== END 2017-10-10 04:59 | disposition home or self-care (01) ==
LOC: ER 18:00
DX: R10.9 Unspecified abdominal pain (principal); F03.90 Unspecified dementia, unspecified severity, without behavioral disturbance, psychotic disturbance, mood disturbance, and anxiety; I10 Essential (primary) hypertension; Z87.19 Personal history of other diseases of the digestive system; Z90.49 Acquired absence of other specified parts of digestive tract; Z95.810 Presence of automatic (implantable) cardiac defibrillator; Z88.5 Allergy status to narcotic agent; Z91.013 Allergy to seafood
CPT/HCPCS: 36415; 51701; 74019; 80053; 81001; 83690; 85025; 99285

== ENCOUNTER 2017-12-13 01:08 | Inpatient (IN) | payer MEDICARE, MEDICAID ==
[2017-12-13] MEDS ORDERED: FUROSEMIDE INJ/PF 40 MG/4 ML SDV ONE (01:23)
[2017-12-13] MEDS ORDERED: NITROGLYCERIN/D5W 50 MG/250 ML RTUINJ IV PRN (01:36)
[2017-12-13] MEDS ORDERED: FUROSEMIDE INJ/PF 40 MG/4 ML SDV IV ONE (01:48)
[2017-12-13 01:54] LABS: ABSOLUTE BASOPHILS # (AUTO) 0.1 10^3/uL (0.0-0.2); ABSOLUTE NEUT (AUTO) 12.5 10^3/uL (1.7-8.2); BASOPHILS % (AUTO) 0.4 % (0-2); HEMATOCRIT 28.1 % (36.0-47.0); HEMOGLOBIN 8.7 g/dL (12.0-15.5); LYMPHOCYTES % (AUTO) 7.1 % (13-45); MEAN CORPUSCULAR VOLUME 77 fl (80-97); MONOCYTES % (AUTO) 6.6 % (3-13); PLATELET COUNT 246 10^3/uL (150-450); RED BLOOD COUNT 3.63 10^6/uL (3.72-5.28); RED CELL DISTRIBUTION WIDTH 16.9 % (11.5-14.0); SEGMENTED NEUTROPHILS % (AUTO) 85.9 % (42-78); TOTAL CELLS COUNTED % (AUTO) 100 %; WHITE BLOOD COUNT 14.6 10^3/uL (4.0-10.5)
--- NOTE | 2017-12-13 01:59 | ER Document Report ---
ED General - General Chief Complaint: Breathing Difficulty Stated Complaint: DIFFICULTY BREATHING Time Seen by Provider: 12/13/17 01:30 Mode of Arrival: Ambulatory Information source: Patient Cannot obtain history due to: Dementia, Unstable vital signs Notes: 87-year-old female with dementia, atrial fibrillation, hypertension, congestive heart failure, hyperlipidemia presents via EMS from her nursing facility and respiratory distress. Per EMS upon their arrival patient was found to be 86% on room air. TRAVEL OUTSIDE OF THE [place] IN LAST 30 DAYS: No - HPI Onset: Just prior to arrival - Related Data Allergies/Adverse Reactions: codeine [Codeine] Allergy (Verified 12/13/17 01:27) iodine [Iodine] Allergy (Verified 12/13/17 01:27) Shellfish * [Shellfish] Allergy (Verified 12/13/17:) Past Medical History - General Information source: Patient - Social History Smoking Status: Unknown if Ever Smoked Frequency of alcohol use: None Drug Abuse: None Lives with: Skilled Nursing Family History: Reviewed & Not Pertinent Patient has suicidal ideation: No Patient has homicidal ideation: No - Past Medical History Cardiac Medical History: Reports: Hx Atrial Fibrillation, Hx Congestive Heart Failure, Hx Heart Attack - The patient had an elevated troponin, but negative catheterization 03/03/13, Hx Hypercholesterolemia, Hx Hypertension Denies: Hx Coronary Artery Disease Pulmonary Medical History: Denies: Hx Asthma, Hx Bronchitis, Hx COPD, Hx Pneumonia, Hx Tuberculosis Neurological Medical History: Reports: Hx Cerebrovascular Accident, Hx Migraine. Denies: Hx Seizures Endocrine Medical History: Renal/ Medical History: Denies: Hx Peritoneal Dialysis GI Medical History: Reports: Hx Gastroesophageal Reflux Disease Musculoskeletal Medical History: Comment Only Hx Arthritis - was told patient has a broken back Psychiatric Medical History: Reports: Hx Dementia, Hx Depression Past Surgical History: Reports: Hx Appendectomy, Hx Cardiac Surgery - pacer/ defib, Hx Pacemaker. Denies: Hx Hysterectomy - Immunizations Hx Diphtheria, Pertussis, Tetanus Vaccination: No Hx Pneumococcal Vaccination: 09/28/13 Review of Systems - Review of Systems -: Yes ROS unobtainable due to patient's medical condition Physical Exam - Vital signs Vitals: BP Pulse Ox 175/99 H 91 L 12/13/17 01:10 12/13/17 01:10 Interpretation: Hypertensive, Hypoxic - Notes Notes: PHYSICAL EXAMINATION: GENERAL: Ill-appearing, in acute distress. HEAD: Atraumatic, normocephalic. EYES: Pupils equal round and reactive to light, extraocular movements intact, conjunctiva are normal. ENT: Nares patent, oropharynx clear without exudates. Dry mucous membranes. NECK: Normal range of motion, supple without lymphadenopathy LUNGS: Coarse breath sounds bilaterally no wheezes rales HEART: Regular rate irregular rhythm without murmurs ABDOMEN: Soft, nontender, + abdomen distention. No guarding, no rebound. No masses appreciated. Female : deferred Musculoskeletal: Normal range of motion, 2+ pitting edema. No cyanosis. NEUROLOGICAL: Cranial nerves grossly intact. Normal sensory, motor exams PSYCH: Normal mood, normal affect. SKIN: Warm, Dry, normal turgor, no rashes or lesions noted. Course - Re-evaluation Re-evalutation: 12/13/17 02:58 87-year-old female presents in respiratory distress from her nursing facility. EMS reports that they found the patient at 86% on room air. They placed her on BiPAP and upon her arrival to the emergency department she was 88%. Patient was promptly placed on cooling tower technician and BiPAP where her oxygen saturation improved greatly. Lung exam is significant for coarse wet breath sounds bilaterally. Patient has 2+ pitting edema. She was hypertensive, tachypneic and retracting. Patient was placed on a nitro drip after Nitropaste did not improve the patient's symptoms. She did receive IV Lasix 40 mg. Chest x-ray concerning for pulmonary edema versus pneumonia. With the patient's elevated white count and elevated lactate we have administered vancomycin and Zosyn. Patient's current vital signs are heart rate of 98, blood pressure 171/64 and she is 97% on BiPAP. Patient will be accepted by the hospitalist Dr. Noguera to the [facility] - Vital Signs Vital signs: Temp Pulse Resp BP Pulse Ox 99.1 F 94 28 H 140/64 H 93 12/13/17 05:01 12/13/17 04:58 12/13/17 05:01 12/13/17 05:01 12/13/17 05:01 - Laboratory Result Diagrams: 12/13/17 01:25 12/13/17 01:25 Laboratory results interpreted by me: 12/13/17 12/13/17 12/13/17 01:25 01:25 01:25 WBC 14.6 H RBC 3.63 L Hgb 8.7 L Hct 28.1 L MCV 77 L MCH 24.0 L MCHC 31.0 L RDW 16.9 H Seg Neutrophils % 85.9 H Lymphocytes % 7.1 L Absolute Neutrophils 12.5 H VBG pH BUN 27 H Creatinine 1.52 H Est GFR ( Amer) 39 L Est GFR (Non-Af Amer) 32 L Glucose 205 H Lactic Acid 4.7 H NT-Pro-B Natriuret Pep Total Protein 8.7 H Urine Protein 12/13/17 12/13/17 12/13/17 01:25 01:25 01:44 WBC RBC Hgb Hct MCV MCH MCHC RDW Seg Neutrophils % Lymphocytes % Absolute Neutrophils VBG pH 7.29 L BUN Creatinine Est GFR ( Amer) Est GFR (Non-Af Amer) Glucose Lactic Acid NT-Pro-B Natriuret Pep 6930 H Total Protein Urine Protein 30 H - Diagnostic Test Radiology reviewed: Image reviewed, Reports reviewed - EKG Interpretation by Ga EKG shows normal: Sinus rhythm Rate: Normal Voltage: Consistant with LVH Critical Care Note - Critical Care Note Total time excluding time spent on procedures (mins): 40 - minutes of critical care time spent in direct contact evaluating and reevaluating the patient, treating symptoms, reviewing labs and studies and speaking with family and consultants excluding any procedures Discharge - Discharge Clinical Impression: Chronic kidney disease, stage 3, Lactic acidosis Pulmonary edema Qualifiers: Chronicity: acute Qualified Code(s): J81.0 - Acute pulmonary edema Pneumonia Qualifiers: Pneumonia type: due to unspecified organism Laterality: bilateral Lung location : unspecified part of lung Qualified Code(s): J18.9 - Pneumonia, unspecified organism Sepsis Qualifiers: Sepsis type: sepsis due to unspecified organism Qualified Code(s): A41.9 - Sepsis, unspecified organism Leukocytosis Qualifiers: Leukocytosis type: unspecified Qualified Code(s): D72.829 - Elevated white blood cell count, unspecified Anemia Qualifiers: Anemia type: unspecified type Qualified Code(s): D64.9 - Anemia, unspecified Dementia Qualifiers: Dementia type: Alzheimer's disease Alzheimer's disease onset: late-onset Dementia behavioral disturbance: without behavioral disturbance Qualified Code(s ): G30.1 - Alzheimer's disease with late onset HTN (hypertension) Qualifiers: Hypertension type: essential hypertension Qualified Code(s): I10 - Essential ( primary) hypertension Condition: Fair Disposition: ADMITTED INPATIENT Admitting Provider: Hospitalist Unit Admitted: [facility]
[2017-12-13 02:04] LABS: APPEARANCE,URINE CLEAR; BILIRUBIN,URINE NEGATIVE (NEGATIVE); COLOR,URINE STRAW; GLUCOSE, URINE NEGATIVE (NEGATIVE); KETONES,URINE NEGATIVE (NEGATIVE); LEUKOCYTE ESTERASE,URINE NEGATIVE (NEGATIVE); NITRITE,URINE NEGATIVE (NEGATIVE); PROTEIN,URINE 30 mg/dL (NEGATIVE); URINE SPECIFIC GRAVITY 1.009; UROBILINOGEN,URINE NEGATIVE mg/dL (<2.0)
[2017-12-13 02:07] LABS: ALANINE AMINOTRANSFERASE 22 U/L (9-52); ALBUMIN 3.8 g/dL (3.5-5.0); ALKALINE PHOSPHATASE 113 U/L (38-126); ANION GAP 13 (5-19); ASPARTATE AMINO TRANSFERASE 24 U/L (14-36); BILIRUBIN,DIRECT 0.3 mg/dL (0.0-0.4); BILIRUBIN,TOTAL 0.5 mg/dL (0.2-1.3); BLOOD UREA NITROGEN 27 mg/dL (7-20); CALCIUM 9.6 mg/dL (8.4-10.2); CARBON DIOXIDE 26 mmol/L (22-30); CHLORIDE 103 mmol/L (98-107); CREATINE KINASE 99 U/L (30-135); GLUCOSE 205 mg/dL (75-110); POTASSIUM 4.2 mmol/L (3.6-5.0); SODIUM 141.6 mmol/L (137-145); TOTAL PROTEIN 8.7 g/dL (6.3-8.2)
[2017-12-13 02:09] LABS: VENOUS BLOOD PCO2 55.2 mmHg (35-63); VENOUS BLOOD PH 7.29 (7.30-7.42)
[2017-12-13 02:10] LABS: VENOUS BLOOD BASE EXCESS -1.4 mmol/L; VENOUS BLOOD HCO3 25.8 mmol/L (20-32)
--- NOTE | 2017-12-13 02:17 | RADIOLOGY REPORT (SQ) ---
EXAM DESCRIPTION: X-ray single view chest CLINICAL HISTORY: 87 years Female, SOB COMPARISON: Prior chest x-ray performed on 09/02/2017. TECHNIQUE: Single portable view of the chest performed on 12/13/2017 at 1:30 AM FINDINGS: The lungs are well expanded. There is persistent diffuse bilateral airspace disease which may be due to edema or possibly pneumonia. There is no evidence of a pneumothorax. The cardiac silhouette is grossly within normal limits. The mediastinal contours are normal. No acute osseous abnormality is identified. No focal soft tissue abnormalities are seen. 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 Persistent, worsening diffuse bilateral airspace disease which may be due to pulmonary edema or possibly pneumonia. 2. Stable left subclavian bipolar AICD.
[2017-12-13 02:18] LABS: CREATINE KINASE MB 1.51 ng/mL (<4.55); TROPONIN I 0.088 ng/mL
[2017-12-13] MEDS ORDERED: PIPERACILLIN/TAZOBACTAM 3.375 GM VIAL IV ONE (02:53)
[2017-12-13] MEDS ORDERED: VANCOMYCIN HCL INJ 1000 MG VIAL IV ONE (02:53)
[2017-12-13] MEDS ORDERED: CEFTRIAXONE 1 GM/D5W RTU 1 GM/50 ML RTUPB IV ONE (03:05)
[2017-12-13] MEDS ORDERED: IPRATROPIUM/ALBUTEROL 0.5-2.5 MG/3 ML AMPUL NEB PRN (04:58)
[2017-12-13] MEDS ORDERED: MAG HYDROX/AL HYDROX/SIMETH SUSP 30 ML UDCUP PO PRN (04:58)
[2017-12-13] MEDS ORDERED: PROMETHAZINE HCL 25 MG SUPP.RECT PR PRN (04:58)
[2017-12-13] MEDS ORDERED: PROMETHAZINE HCL INJ 25 MG/1 ML VIAL IV PRN (04:58)
[2017-12-13] MEDS ORDERED: METOPROLOL TARTRATE PF/INJ 5 MG/5 ML SDV IV PRN ×2 (05:04→14:33)
[2017-12-13] MEDS ORDERED: NORMAL SALINE 250 ML IV PRN (05:06)
[2017-12-13] MEDS ORDERED: NITROGLYCERIN 2% OINTMENT 1 GM PACKET TP ONE (05:15)
[2017-12-13] MEDS ORDERED: PIPERACILLIN/TAZOBACTAM 3.375 GM VIAL IV SCH (05:45)
[2017-12-13] MEDS ORDERED: VANCOMYCIN HCL 0 MG in DEXTROSE 5%-WATER 250 ML IV NR (05:45)
--- NOTE | 2017-12-13 06:00 | PDOC H&P ---
History of Present Illness Admission Date/PCP: 12/13/17 03:04 Patient complains of: SOB History of Present Illness: BELKIS EUCEDA is a 87 year old female with dementia, resident of jail, atrial fibrillation, hypertension, congestive heart failure, hyperlipidemia presents via EMS from her nursing facility and respiratory distress. Per EMS upon their arrival patient was found to be 86% on room air. Patient cannot provide any information secondary to her advanced dementia. Patient was initiated on BiPAP and her oxygen saturation improved to 94%. Chest x-ray positive for bilateral pulmonary edema. Questionable pneumonia and she was initiated on IV vancomycin and IV Zosyn. By the time I evaluated her the patient was not in respiratory distress wearing still BiPAP. Found with 2+ lower extremity pitting edema, initially hypertensive tachypneic using accessory muscles as per ED attending note, nitro drip initiated. Given 40 mg of IV Lasix. Dr. Mili Oshea was called by the ED attending, she tells me that he states he is no longer her primary care physician Past Medical History Cardiac Medical History: Reports: Atrial Fibrillation, Congestive Heart Failure , Myocardial Infarction - The patient had an elevated troponin, but negative catheterization 03/03/13, Hyperlipidema, Hypertension Denies: Coronary Artery Disease Pulmonary Medical History: Denies: Asthma, Bronchitis, Chronic Obstructive Pulmonary Disease (COPD), Pneumonia, Tuberculosis Neurological Medical History: Reports: Migraine Denies: Seizures Endocrine Medical History: GI Medical History: Reports: Gastroesophageal Reflux Disease Musculoskeltal Medical History: Comment Only: Arthritis - was told patient has a broken back Psychiatric Medical History: Reports: Dementia, Depression Hematology: Reports: Anemia Past Surgical History Past Surgical History: Reports: Appendectomy, Pacemaker Social History Lives with: [facility] Smoking Status: Unknown if Ever Smoked Frequency of Alcohol Use: None Hx Recreational Drug Use: No Drugs: None Hx Prescription Drug Abuse: No Family History Family History: Reviewed & Not Pertinent Parental Family History Reviewed: No - Unable to obtain Children Family History Reviewed: NA Sibling(s) Family History Reviewed.: NA Medication/Allergy Home Medications: Acetaminophen [Tylenol 325 mg Tablet] 650 mg PO Q4HP PRN 09/01/17 Amlodipine Besylate [Norvasc 10 mg Tablet] 10 mg PO DAILY 09/01/17 Aspirin [Aspirin 81 mg Chewable Tablet] 81 mg PO DAILY 09/01/17 Bisacodyl [Dulcolax 5 mg Tablet] 10 mg PO HSP PRN 09/01/17 Bismuth Subsalicylate [Pepto-Bismol Susp 524 mg/30 ml Udcup] 30 ml PO Q4HP PRN 09/01/17 Calcium Carbonate [Tums Chewable 500 mg Tab.chew] 1,000 mg PO Q1HP PRN 09/01/17 Citalopram Hydrobromide [Celexa 20 mg Tablet] 20 mg PO DAILY 09/01/17 Donepezil HCl [Aricept] 10 mg PO QHS 09/01/17 Hydralazine HCl 100 mg PO Q8 09/01/17 Levothyroxine Sodium [Synthroid 0.088 mg Tablet] 88 mcg PO Q6AM 09/01/17 Mag Hydrox/Al Hydrox/Simeth [Maalox Plus Susp 30 Udcup] 30 ml PO Q4HP PRN Memantine HCl [Namenda 10 mg Tablet] 10 mg PO Q12 09/01/17 Nitroglycerin [Nitrostat 0.4 mg (1/150 Gr) Tabs 25/Bottle] 1 tab SL Q5MP PRN 03/09 Ondansetron [Zofran Odt 4 mg Tablet] 4 mg PO Q4HP PRN 09/01/17 Potassium Chloride [K-Tab ER] 20 meq PO DAILY 09/01/17 Quetiapine Fumarate [Seroquel 25 mg Tablet] 25 mg PO QHS 09/01/17 Furosemide [Lasix 40 mg Tablet] 40 mg PO QAM #30 tablet 09/09/17 Metoprolol Succinate [Toprol XL 200 mg Tablet] 200 mg PO DAILY #90 tab.sr.24h Allergies/Adverse Reactions: codeine [Codeine] Allergy (Verified 12/13/17 01:27) iodine [Iodine] Allergy (Verified 12/13/17 01:27) Shellfish * [Shellfish] Allergy (Verified 12/13/17 01:27) Review of Systems Review of Systems: Patient is unable to provide reliable information Physical Exam Vital Signs: Temp Pulse Resp BP Pulse Ox 99.1 F 92 28 H 140/64 H 93 12/13/17 05:01 12/13/17 01:23 12/13/17 05:01 12/13/17 05:01 12/13/17 05:01 Intake & Output 12/11/17 12/12/17 12/13/17 06:59 06:59 06:59 Output Total 1300 Balance -1300 Additional comments: General appearance: Well-developed, well-nourished, alert and cooperative, and appears to be in no acute distress. Wearing BiPAP Head: Normocephalic Eyes: PEERL, EOMI, vision is grossly intact. Ears: External auditory canal and tympanic membranes clear, hearing grossly intact. Nose: No nasal discharge. Throat: Oral cavity and pharynx normal. No inflammation, swelling, exudate or lesions. Neck: Neck supple, nontender without lymphadenopathy, masses or thyromegaly. Cardiac: Normal S1 and S2. No S3, S4 or murmurs. Rhythm is regular. There is 2+ lower extremities pittingf peripheral edema, cyanosis or pallor. Extremities are warm and well perfused. Capillary refill is less than 2 seconds. No carotid bruits. Lungs: Crackles 2/3 inferior bilaterally, do not appreciate wheezing or diminished breath sounds. Not using accessory muscles at the time of my evaluation. Abdomen: Positive bowel sounds. Soft. Nondistended, nontender. No guarding or rebound. No masses. No hepatosplenomegaly Extremities: No significant deformity or joint abnormality. Peripheral pulses intact. No varicosities. Neurological: Cranial nerves II through XII grossly intact. Strength and sensation symmetric and intact throughout. Reflexes 2+ throughout. Skin: Skin normal color, texture and turgor with no lesions or eruptions, warm and dry. Psychiatric: Advanced dementia Results Laboratory Results: 12/13/17 12/13/17 12/13/17 01:25 01:25 01:25 WBC 14.6 H RBC 3.63 L Hgb 8.7 L Hct 28.1 L MCV 77 L MCH 24.0 L MCHC 31.0 L RDW 16.9 H Plt Count 246 Seg Neutrophils % 85.9 H Lymphocytes % 7.1 L Monocytes % 6.6 Eosinophils % 0.0 Basophils % 0.4 Absolute Neutrophils 12.5 H Absolute Lymphocytes 1.0 Absolute Monocytes 1.0 Absolute Eosinophils 0.0 Absolute Basophils 0.1 VBG pH VBG pCO2 VBG HCO3 VBG Base Excess Sodium 141.6 Potassium 4.2 Chloride 103 Carbon Dioxide 26 Anion Gap 13 BUN 27 H Creatinine 1.52 H Est GFR ( Amer) 39 L Est GFR (Non-Af Amer) 32 L Glucose 205 H Lactic Acid 4.7 H Calcium 9.6 Total Bilirubin 0.5 Direct Bilirubin 0.3 AST 24 ALT 22 Alkaline Phosphatase 113 Creatine Kinase 99 CK-MB (CK-2) Troponin I NT-Pro-B Natriuret Pep Total Protein 8.7 H Albumin 3.8 Urine Color Urine Appearance Urine pH Ur Specific [place] Urine Protein Urine Glucose (UA) Urine Ketones Urine Blood Urine Nitrite Urine Bilirubin Urine Urobilinogen Ur Leukocyte Esterase Urine WBC (Auto) Urine RBC (Auto) Urine Bacteria (Auto) Squamous Epi Cells Auto Urine Mucus (Auto) Urine Ascorbic Acid 12/13/17 12/13/17 12/13/17 01:25 01:25 01:44 WBC RBC Hgb Hct MCV MCH MCHC RDW Plt Count Seg Neutrophils % Lymphocytes % Monocytes % Eosinophils % Basophils % Absolute Neutrophils Absolute Lymphocytes Absolute Monocytes Absolute Eosinophils Absolute Basophils VBG pH 7.29 L VBG pCO2 55.2 VBG HCO3 25.8 VBG Base Excess -1.4 Sodium Potassium Chloride Carbon Dioxide Anion Gap BUN Creatinine Est GFR ( Amer) Est GFR (Non-Af Amer) Glucose Lactic Acid Calcium Total Bilirubin Direct Bilirubin AST ALT Alkaline Phosphatase Creatine Kinase CK-MB (CK-2) 1.51 Troponin I 0.088 NT-Pro-B Natriuret Pep 6930 H Total Protein Albumin Urine Color STRAW Urine Appearance CLEAR Urine pH 6.0 Ur Specific [place] 1.009 Urine Protein 30 H Urine Glucose (UA) NEGATIVE Urine Ketones NEGATIVE Urine Blood NEGATIVE Urine Nitrite NEGATIVE Urine Bilirubin NEGATIVE Urine Urobilinogen NEGATIVE Ur Leukocyte Esterase NEGATIVE Urine WBC (Auto) 0 Urine RBC (Auto) 2 Urine Bacteria (Auto) TRACE Squamous Epi Cells Auto <1 Urine Mucus (Auto) RARE Urine Ascorbic Acid NEGATIVE Impressions: Chest X-Ray 12/13/17 00:00 IMPRESSION: 1. Persistent, worsening diffuse bilateral airspace disease which may be due to pulmonary edema or possibly pneumonia. 2. Stable left subclavian bipolar AICD. Assessment & Plan - Diagnosis (1) Acute on chronic diastolic (congestive) heart failure Is this a current diagnosis for this admission?: Yes Plan: Patient comes with progressive shortness of breath, acute hypoxic respiratory failure, patient initiated on BiPAP. Lasix 40 mg IV given, will continue with 40 mg IV every 12 hours. Telemetry monitoring. Cardiac markers total of 3. Daily weights. Amezquita catheter with a strict input and output. Will resume her home medications. BNP 6930, increased from 4860 on August this year. There is a concern that the patient can have in addition pneumonia, 1 dose of IV vancomycin and IV Zosyn was given, I will continue with his medications and to clarify the diagnosis. Hemoglobin 8.7 and hematocrit 28, suboptimal for acute CHF exacerbation, I will go ahead and place an order for 1 PRBC. We will switch nitroglycerin infusion for nitro ointment 1 inch. Usually on 60 mg p.o. Lasix (2) Chronic kidney disease, stage 3 Is this a current diagnosis for this admission?: Yes Plan: Stable (3) Lactic acidosis Is this a current diagnosis for this admission?: Yes Plan: Likely secondary to hypoxia and respiratory distress with use of accessory muscles. Lactic acid 4.7. Will reassess this value at 8 in the morning. (4) Acute respiratory failure with hypoxia and hypercapnia Is this a current diagnosis for this admission?: Yes Plan: vbg 7./55, patient currently on BiPAP, as per assessment #1. (5) Elevated troponin Is this a current diagnosis for this admission?: Yes Plan: Troponins are chronically elevated, today 0.088, more elevated than the usual, likely secondary to her acute respiratory distress with cardiac strain. Will cycle cardiac enzymes 3. (6) HTN (hypertension) Qualifiers: Hypertension type: essential hypertension Qualified Code(s): I10 - Essential (primary) hypertension Is this a current diagnosis for this admission?: Yes Plan: Continue home antihypertensive medications (7) Hypothyroidism Is this a current diagnosis for this admission?: Yes Plan: Continue Synthroid (8) Paroxysmal atrial fibrillation Is this a current diagnosis for this admission?: Yes Plan: Not on anticoagulation, continue home medications. - Time Time Spent: 30 to 50 Minutes - Inpatient Certification Based on my medical assessment, after consideration of the patient's comorbidities, presenting symptoms, or acuity I expect that the services needed warrant INPATIENT care.: Yes I certify that my determination is in accordance with my understanding of Medicare's requirements for reasonable and necessary INPATIENT services [42 CFR 412.3e].: Yes Medical Necessity: Risk of Diagnosis Which Will Require Inpatient Eval/Care/ Monitoring
[2017-12-13] MEDS: HEPARIN SOD (PORCINE) 5,000 UNIT/ML 1 ML SYRINGE SUBCUT SCH ×2 (06:55→14:52)
[2017-12-13] MEDS: ACETAMINOPHEN 325 MG TABLET PO PRN ×2 (08:25→18:04)
[2017-12-13] MEDS: FUROSEMIDE INJ/PF 40 MG/4 ML SDV IV SCH (09:43)
[2017-12-13] MEDS: PIPERACILLIN SODIUM/TAZOBACTAM 3.375 GM in NORMAL SALINE 100 ML IV SCH ×3 (09:43→20:43)
[2017-12-13] MEDS: NITROGLYCERIN 2% OINTMENT 1 GM PACKET TP SCH ×3 (11:27→20:42)
--- NOTE | 2017-12-13 14:32 | EKG REPORT ---
SEVERITY:- ABNORMAL ECG - SINUS RHYTHM ATRIAL PREMATURE COMPLEX LVH WITH SECONDARY REPOLARIZATION ABNORMALITY : Confirmed by: Jada Marie MD 13-Dec-2017 14:30:47
[2017-12-13] MEDS: METOPROLOL SUCCINATE 50 MG TAB.SR.24H PO SCH (14:52)
[2017-12-14] MEDS: NITROGLYCERIN 2% OINTMENT 1 GM PACKET TP SCH ×4 (02:08→21:36)
[2017-12-14] MEDS: HEPARIN SOD (PORCINE) 5,000 UNIT/ML 1 ML SYRINGE SUBCUT SCH ×4 (02:10→21:34)
[2017-12-14] MEDS: FUROSEMIDE INJ/PF 40 MG/4 ML SDV IV SCH ×3 (02:12→21:34)
[2017-12-14] MEDS: METOPROLOL SUCCINATE 50 MG TAB.SR.24H PO SCH ×3 (02:14→21:33)
[2017-12-14] MEDS: PIPERACILLIN SODIUM/TAZOBACTAM 3.375 GM in NORMAL SALINE 100 ML IV SCH ×2 (02:24→09:14)
[2017-12-14 05:16] LABS: ABSOLUTE BASOPHILS # (AUTO) 0.1 10^3/uL (0.0-0.2); ABSOLUTE LYMPHOCYTES (AUTO) 1.7 10^3/uL (0.5-4.7); ABSOLUTE MONOCYTES (AUTO) 0.9 10^3/uL (0.1-1.4); ABSOLUTE NEUT (AUTO) 8.4 10^3/uL (1.7-8.2); BASOPHILS % (AUTO) 0.8 % (0-2); EOSINOPHILS % (AUTO) 0.4 % (0-6); HEMATOCRIT 22.4 % (36.0-47.0); MEAN CORPUSCULAR HEMOGLOBIN 24.4 pg (27.0-33.4); MEAN CORPUSCULAR HGB CONC 32.2 g/dL (32.0-36.0); MEAN CORPUSCULAR VOLUME 76 fl (80-97); MONOCYTES % (AUTO) 8.1 % (3-13); PLATELET COUNT 175 10^3/uL (150-450); RED BLOOD COUNT 2.95 10^6/uL (3.72-5.28); RED CELL DISTRIBUTION WIDTH 16.5 % (11.5-14.0); SEGMENTED NEUTROPHILS % (AUTO) 75.7 % (42-78); TOTAL CELLS COUNTED % (AUTO) 100 %; WHITE BLOOD COUNT 11.1 10^3/uL (4.0-10.5)
[2017-12-14 05:28] LABS: HEMOGLOBIN 7.2 g/dL (12.0-15.5)
[2017-12-14 05:40] LABS: ANION GAP 7 (5-19); BLOOD UREA NITROGEN 26 mg/dL (7-20); CALCIUM 8.9 mg/dL (8.4-10.2); CARBON DIOXIDE 32 mmol/L (22-30); CHLORIDE 100 mmol/L (98-107); GLUCOSE 99 mg/dL (75-110); POTASSIUM 4.3 mmol/L (3.6-5.0); SODIUM 139.1 mmol/L (137-145)
[2017-12-14] MEDS: VANCOMYCIN HCL 1,000 MG in DEXTROSE 5%-WATER 250 ML IV SCH (06:05)
[2017-12-14] MEDS: ACETAMINOPHEN 325 MG TABLET PO PRN ×2 (09:19→15:58)
[2017-12-14] MEDS ORDERED: PROMETHAZINE HCL INJ 25 MG/1 ML VIAL IV PRN (09:30)
--- NOTE | 2017-12-14 13:18 | PDOC PROGRESS REPORT ---
Subjective Progress Note for:: 12/14/17 Subjective:: Possibly denies shortness of breath. Patient is confused and unable to provide any history. She does appear to be comfortable. No bleeding noted although her hemoglobin has dropped from about 9.5 on admission 7.2. Reason For Visit: CHF EXACERBATION, ACUTE HYPOXIC RESP FAILURE Physical Exam Vital Signs: Temp Pulse Resp BP Pulse Ox 100.4 F 78 16 128/68 H 100 12/14/17 11:46 12/14/17 11:46 12/14/17 11:46 12/14/17 11:46 12/14/17 11:46 Intake & Output 12/13/17 12/14/17 12/15/17 06:59 06:59 06:59 Intake Total 65 752 500 Output Total 1300 2780 250 Balance -1234 -2027 250 Weight 97.8 kg 98.7 kg General appearance: PRESENT: no acute distress, well-developed, well-nourished Head exam: PRESENT: atraumatic, normocephalic Eye exam: PRESENT: conjunctiva pink, EOMI, PERRLA. ABSENT: scleral icterus Ear exam: PRESENT: normal external ear exam Mouth exam: PRESENT: moist, tongue midline Neck exam: ABSENT: carotid bruit, JVD, lymphadenopathy, thyromegaly Respiratory exam: PRESENT: decreased breath sounds, unlabored. ABSENT: rales, rhonchi, wheezes Cardiovascular exam: PRESENT: irregular rhythm - Occasionally, +S1, +S2. ABSENT : diastolic murmur, rubs, systolic murmur Pulses: PRESENT: normal dorsalis pedis pul Vascular exam: PRESENT: normal capillary refill GI/Abdominal exam: PRESENT: normal bowel sounds, soft. ABSENT: distended, guarding, mass, organolmegaly, rebound, tenderness Rectal exam: PRESENT: deferred Extremities exam: PRESENT: full ROM, +1 edema. ABSENT: calf tenderness, clubbing, pedal edema Neurological exam: PRESENT: alert, awake, CN II-XII grossly intact, other - Confused. ABSENT: motor sensory deficit Psychiatric exam: PRESENT: appropriate affect. ABSENT: homicidal ideation, suicidal ideation Skin exam: PRESENT: dry, intact, warm. ABSENT: cyanosis, rash Results Laboratory Results: 12/14/17 04:32 12/14/17 04:32 12/13/17 12/13/17 12/14/17 07:45 19:11 04:32 WBC 11.1 H RBC 2.95 L Hgb 7.2 L Hct 22.4 L MCV 76 L MCH 24.4 L MCHC 32.2 RDW 16.5 H Plt Count 175 Seg Neutrophils % 75.7 Lymphocytes % 15.0 Monocytes % 8.1 Eosinophils % 0.4 Basophils % 0.8 Absolute Neutrophils 8.4 H Absolute Lymphocytes 1.7 Absolute Monocytes 0.9 Absolute Eosinophils 0.0 Absolute Basophils 0.1 Sodium Potassium Chloride Carbon Dioxide Anion Gap BUN Creatinine Est GFR ( Amer) Est GFR (Non-Af Amer) Glucose Lactic Acid 1.7 Calcium Blood Type O POSITIVE Antibody Screen NEGATIVE 12/14/17 04:32 WBC RBC Hgb Hct MCV MCH MCHC RDW Plt Count Seg Neutrophils % Lymphocytes % Monocytes % Eosinophils % Basophils % Absolute Neutrophils Absolute Lymphocytes Absolute Monocytes Absolute Eosinophils Absolute Basophils Sodium 139.1 Potassium 4.3 Chloride 100 Carbon Dioxide 32 H Anion Gap 7 BUN 26 H Creatinine 1.83 H Est GFR ( Amer) 32 L Est GFR (Non-Af Amer) 26 L Glucose 99 Lactic Acid Calcium 8.9 Blood Type Antibody Screen 12/13/17 12/13/17 12/13/17 07:45 13:15 19:11 Troponin I 0.115 0.147 0.166 Impressions: Chest X-Ray 12/13/17 00:00 IMPRESSION: 1. Persistent, worsening diffuse bilateral airspace disease which may be due to pulmonary edema or possibly pneumonia. 2. Stable left subclavian bipolar AICD. Assessment & Plan - Diagnosis (1) Acute on chronic diastolic (congestive) heart failure Is this a current diagnosis for this admission?: Yes (2) Acute respiratory failure with hypoxia and hypercapnia Is this a current diagnosis for this admission?: Yes (3) Anemia Qualifiers: Anemia type: unspecified type Qualified Code(s): D64.9 - Anemia, unspecified Is this a current diagnosis for this admission?: Yes Plan: Recent iron studies reveals it to be grossly intact and normal. Attempt was made to transfuse patient today however we are unable to get in touch with her family for consent. As this is not an emergency will hold off for now and try again through the day. (4) Chronic kidney disease, stage 3 Is this a current diagnosis for this admission?: Yes (5) Dementia Qualifiers: Dementia type: Alzheimer's disease Alzheimer's disease onset: late-onset Dementia behavioral disturbance: without behavioral disturbance Qualified Code (s): G30.1 - Alzheimer's disease with late onset; F02.80 - Dementia in other diseases classified elsewhere without behavioral disturbance; F02.80 - Dementia in other diseases classified elsewhere without behavioral disturbance; F02.80 - Dementia in other diseases classified elsewhere without behavioral disturbance Is this a current diagnosis for this admission?: Yes (6) Elevated troponin Is this a current diagnosis for this admission?: Yes (7) Paroxysmal atrial fibrillation Is this a current diagnosis for this admission?: Yes - Time Time Spent with patient: 15-24 minutes Medications reviewed and adjusted accordingly: Yes Anticipated discharge: SNF Within: within 72 hours - Inpatient Certification Based on my medical assessment, after consideration of the patient's comorbidities, presenting symptoms, or acuity I expect that the services needed warrant INPATIENT care.: Yes Medical Necessity: Significant Comorbidiites Make Outpatient Treatment Too Risky , Need Close Monitoring Due to Risk of Patient Decompensation, Need for IV Antibiotics - Plan Summary Plan Summary: Acute decompensation of CHF for which patient is on Lasix as well as nitroglycerin. Urine output is adequate. We will continue to follow. Echocardiogram done in August 2017 reveals a slightly low normal ejection fraction at 55% with no other significant valvular findings. At this time no repeat echocardiogram is indicated 2. Possible pneumonia with patient actually remained afebrile. She is currently on Zosyn and ceftriaxone. I will adjust antibiotics to cover atypical organisms as well as possible healthcare associated pneumonia as she is from an assisted living. 3. Anemia likely secondary to chronic kidney disease as well as underlying illnesses. There is no evidence of an acute blood loss either clinically or overtly. Recent iron studies was 40. She will be transfused once were able to get in touch with the family. 4. Chronic kidney disease stage III with a baseline creatinine. To be about 1.5 currently at 1.83 likely secondary to diuresis with Lasix. Will continue to monitor 5. Patient is confused. She is a full code.
[2017-12-14] MEDS ORDERED: LEVOFLOXACIN 500 MG/D5W RTU 500 MG/100 ML RTUPB IV SCH (14:00)
[2017-12-14 21:33] LABS: HEMATOCRIT 26.5 % (36.0-47.0); HEMOGLOBIN 8.9 g/dL (12.0-15.5); MEAN CORPUSCULAR HEMOGLOBIN 25.4 pg (27.0-33.4); MEAN CORPUSCULAR HGB CONC 33.5 g/dL (32.0-36.0); MEAN CORPUSCULAR VOLUME 76 fl (80-97); PLATELET COUNT 193 10^3/uL (150-450); RED BLOOD COUNT 3.49 10^6/uL (3.72-5.28); RED CELL DISTRIBUTION WIDTH 16.7 % (11.5-14.0); WHITE BLOOD COUNT 10.2 10^3/uL (4.0-10.5)
[2017-12-15] MEDS: NITROGLYCERIN 2% OINTMENT 1 GM PACKET TP SCH ×4 (04:02→22:20)
[2017-12-15 05:16] LABS: ABSOLUTE BASOPHILS # (AUTO) 0.1 10^3/uL (0.0-0.2); ABSOLUTE EOSINOPHILS # (AUTO) 0.3 10^3/uL (0.0-0.6); ABSOLUTE LYMPHOCYTES (AUTO) 1.7 10^3/uL (0.5-4.7); BASOPHILS % (AUTO) 0.9 % (0-2); EOSINOPHILS % (AUTO) 2.3 % (0-6); HEMATOCRIT 27.7 % (36.0-47.0); HEMOGLOBIN 9.1 g/dL (12.0-15.5); LYMPHOCYTES % (AUTO) 15.6 % (13-45); MEAN CORPUSCULAR HEMOGLOBIN 25.1 pg (27.0-33.4); MEAN CORPUSCULAR VOLUME 76 fl (80-97); MONOCYTES % (AUTO) 8.7 % (3-13); PLATELET COUNT 182 10^3/uL (150-450); RED BLOOD COUNT 3.63 10^6/uL (3.72-5.28); SEGMENTED NEUTROPHILS % (AUTO) 72.5 % (42-78); TOTAL CELLS COUNTED % (AUTO) 100 %
[2017-12-15] MEDS: VANCOMYCIN HCL 1,000 MG in DEXTROSE 5%-WATER 250 ML IV SCH (05:34)
[2017-12-15] MEDS: HEPARIN SOD (PORCINE) 5,000 UNIT/ML 1 ML SYRINGE SUBCUT SCH ×3 (05:35→22:20)
[2017-12-15 05:41] LABS: ANION GAP 10 (5-19); BLOOD UREA NITROGEN 32 mg/dL (7-20); CARBON DIOXIDE 32 mmol/L (22-30); CHLORIDE 101 mmol/L (98-107); GLUCOSE 99 mg/dL (75-110); POTASSIUM 3.8 mmol/L (3.6-5.0)
[2017-12-15] MEDS: FUROSEMIDE INJ/PF 40 MG/4 ML SDV IV SCH (10:08)
[2017-12-15] MEDS: ACETAMINOPHEN 325 MG TABLET PO PRN ×2 (10:09→18:55)
[2017-12-15] MEDS: METOPROLOL SUCCINATE 50 MG TAB.SR.24H PO SCH ×2 (10:09→22:20)
--- NOTE | 2017-12-15 15:24 | PDOC PROGRESS REPORT ---
Subjective Progress Note for:: 12/15/17 Subjective:: Possibly denies shortness of breath. Patient is confused and unable to provide any history. She does appear to be comfortable. She received 1 unit PRBC due to anemia Reason For Visit: CHF EXACERBATION, ACUTE HYPOXIC RESP FAILURE Physical Exam Vital Signs: Temp Pulse Resp BP Pulse Ox 98.5 F 72 16 144/71 H 100 12/15/17 11:23 12/15/17 11:23 12/15/17 11:23 12/15/17 11:23 12/15/17 11:23 Intake & Output 12/14/17 12/15/17 12/16/17 06:59 06:59 06:59 Intake Total 752 1343 841 Output Total 1632 2850 1125 Balance -8 -1507 -284 Weight 98.7 kg 96.2 kg General appearance: PRESENT: no acute distress, obese, well-developed, well- nourished Head exam: PRESENT: atraumatic, normocephalic Eye exam: PRESENT: conjunctiva pink, EOMI, PERRLA. ABSENT: scleral icterus Ear exam: PRESENT: normal external ear exam Mouth exam: PRESENT: moist, tongue midline Neck exam: ABSENT: carotid bruit, JVD, lymphadenopathy, thyromegaly Respiratory exam: PRESENT: clear to auscultation bimal, crackles, decreased breath sounds. ABSENT: rales, rhonchi, wheezes Cardiovascular exam: PRESENT: RRR, +S1, +S2. ABSENT: diastolic murmur, rubs, systolic murmur Pulses: PRESENT: normal dorsalis pedis pul Vascular exam: PRESENT: normal capillary refill GI/Abdominal exam: PRESENT: normal bowel sounds, soft. ABSENT: distended, guarding, mass, organolmegaly, rebound, tenderness Rectal exam: PRESENT: deferred Extremities exam: PRESENT: full ROM, pedal edema, +2 edema. ABSENT: calf tenderness, clubbing Neurological exam: PRESENT: alert, awake, other - confused. ABSENT: motor sensory deficit Psychiatric exam: PRESENT: appropriate affect, normal mood. ABSENT: homicidal ideation, suicidal ideation Skin exam: PRESENT: dry, intact, warm. ABSENT: cyanosis, rash Results Laboratory Results: 12/15/17 04:37 12/15/17 04:37 12/13/17 12/14/17 12/15/17 07:45 21:17 04:37 WBC 10.2 11.0 H RBC 3.49 L 3.63 L Hgb 8.9 L 9.1 L Hct 26.5 L 27.7 L MCV 76 L 76 L MCH 25.4 L 25.1 L MCHC 33.5 33.0 RDW 16.7 H 17.0 H Plt Count 193 182 Seg Neutrophils % 72.5 Lymphocytes % 15.6 Monocytes % 8.7 Eosinophils % 2.3 Basophils % 0.9 Absolute Neutrophils 8.0 Absolute Lymphocytes 1.7 Absolute Monocytes 1.0 Absolute Eosinophils 0.3 Absolute Basophils 0.1 Sodium Potassium Chloride Carbon Dioxide Anion Gap BUN Creatinine Est GFR ( Amer) Est GFR (Non-Af Amer) Glucose Calcium Blood Type O POSITIVE Antibody Screen NEGATIVE 12/15/17 04:37 WBC RBC Hgb Hct MCV MCH MCHC RDW Plt Count Seg Neutrophils % Lymphocytes % Monocytes % Eosinophils % Basophils % Absolute Neutrophils Absolute Lymphocytes Absolute Monocytes Absolute Eosinophils Absolute Basophils Sodium 143.0 Potassium 3.8 Chloride 101 Carbon Dioxide 32 H Anion Gap 10 BUN 32 H Creatinine 2.00 H Est GFR ( Amer) 29 L Est GFR (Non-Af Amer) 24 L Glucose 99 Calcium 9.0 Blood Type Antibody Screen 12/13/17 12/13/17 12/13/17 07:45 13:15 19:11 Troponin I 0.115 0.147 0.166 NT-Pro-B Natriuret Pep 12/15/17 04:37 Troponin I NT-Pro-B Natriuret Pep 6010 H Impressions: Chest X-Ray 12/13/17 00:00 IMPRESSION: 1. Persistent, worsening diffuse bilateral airspace disease which may be due to pulmonary edema or possibly pneumonia. 2. Stable left subclavian bipolar AICD. Assessment & Plan - Diagnosis (1) Acute on chronic diastolic (congestive) heart failure Is this a current diagnosis for this admission?: Yes (2) Acute respiratory failure with hypoxia and hypercapnia Is this a current diagnosis for this admission?: Yes (3) Anemia Qualifiers: Anemia type: unspecified type Qualified Code(s): D64.9 - Anemia, unspecified Is this a current diagnosis for this admission?: Yes (4) Chronic kidney disease, stage 3 Is this a current diagnosis for this admission?: Yes (5) Dementia Qualifiers: Dementia type: Alzheimer's disease Alzheimer's disease onset: late-onset Dementia behavioral disturbance: without behavioral disturbance Qualified Code (s): G30.1 - Alzheimer's disease with late onset; F02.80 - Dementia in other diseases classified elsewhere without behavioral disturbance; F02.80 - Dementia in other diseases classified elsewhere without behavioral disturbance; F02.80 - Dementia in other diseases classified elsewhere without behavioral disturbance Is this a current diagnosis for this admission?: Yes (6) Elevated troponin Is this a current diagnosis for this admission?: Yes (7) Paroxysmal atrial fibrillation Is this a current diagnosis for this admission?: Yes - Time Time Spent with patient: 15-24 minutes Medications reviewed and adjusted accordingly: Yes Anticipated discharge: SNF Within: within 48 hours - Inpatient Certification Based on my medical assessment, after consideration of the patient's comorbidities, presenting symptoms, or acuity I expect that the services needed warrant INPATIENT care.: Yes Medical Necessity: Significant Comorbidiites Make Outpatient Treatment Too Risky , Need for Nebulizer Therapy and Monitoring of Response, Risk of Complication if Not Cared For in Hospital - Plan Summary Plan Summary: 1.Acute decompensation of CHF Cont Lasix as well as nitroglycerin. Urine output is adequate. We will continue to follow. Echocardiogram done in August 2017 reveals a slightly low normal ejection fraction at 55% with no other significant valvular findings. At this time no repeat echocardiogram is indicated 2. Possible pneumonia - DC Vanc due to nephrotoxicity, cont levaquin and if coverage for MRSA needed, consider Clinda Would obtain CXR in am 3. Anemia likely secondary to chronic kidney disease as well as underlying illnesses. There is no evidence of an acute blood loss either clinically or overtly. Recent iron studies was 40. s/p 1 unit PRBC 4. Chronic kidney disease stage III with a baseline creatinine around 1.5 currently at 2 likely secondary to diuresis with Lasix. She is also on Vancomycin and has underlying kidney disease Will continue to monitor 5. Patient is confused. She is a full code.
[2017-12-16] MEDS: NITROGLYCERIN 2% OINTMENT 1 GM PACKET TP SCH ×3 (04:23→14:44)
[2017-12-16] MEDS: HEPARIN SOD (PORCINE) 5,000 UNIT/ML 1 ML SYRINGE SUBCUT SCH ×3 (06:02→21:36)
[2017-12-16 06:16] LABS: ABSOLUTE BASOPHILS # (AUTO) 0.1 10^3/uL (0.0-0.2); ABSOLUTE EOSINOPHILS # (AUTO) 0.3 10^3/uL (0.0-0.6); ABSOLUTE LYMPHOCYTES (AUTO) 1.7 10^3/uL (0.5-4.7); ABSOLUTE MONOCYTES (AUTO) 0.9 10^3/uL (0.1-1.4); ABSOLUTE NEUT (AUTO) 6.4 10^3/uL (1.7-8.2); BASOPHILS % (AUTO) 0.6 % (0-2); EOSINOPHILS % (AUTO) 3.3 % (0-6); HEMATOCRIT 28.1 % (36.0-47.0); HEMOGLOBIN 9.2 g/dL (12.0-15.5); LYMPHOCYTES % (AUTO) 18.4 % (13-45); MEAN CORPUSCULAR HEMOGLOBIN 25.3 pg (27.0-33.4); MEAN CORPUSCULAR HGB CONC 32.7 g/dL (32.0-36.0); MEAN CORPUSCULAR VOLUME 77 fl (80-97); MONOCYTES % (AUTO) 9.3 % (3-13); PLATELET COUNT 193 10^3/uL (150-450); RED BLOOD COUNT 3.63 10^6/uL (3.72-5.28); RED CELL DISTRIBUTION WIDTH 17.2 % (11.5-14.0); SEGMENTED NEUTROPHILS % (AUTO) 68.4 % (42-78); TOTAL CELLS COUNTED % (AUTO) 100 %; WHITE BLOOD COUNT 9.3 10^3/uL (4.0-10.5)
[2017-12-16 06:35] LABS: ANION GAP 5 (5-19); BLOOD UREA NITROGEN 29 mg/dL (7-20); CALCIUM 9.1 mg/dL (8.4-10.2); CARBON DIOXIDE 35 mmol/L (22-30); CHLORIDE 99 mmol/L (98-107); GLUCOSE 98 mg/dL (75-110); POTASSIUM 4.6 mmol/L (3.6-5.0); SODIUM 139.4 mmol/L (137-145)
[2017-12-16 06:40] LABS: VANCOMYCIN,TROUGH 5.8 ug/mL (5.0-20.0)
[2017-12-16] MEDS: LEVOFLOXACIN 500 MG TABLET PO SCH (09:24)
[2017-12-16] MEDS: FUROSEMIDE INJ/PF 40 MG/4 ML SDV IV SCH (09:24)
[2017-12-16] MEDS: METOPROLOL SUCCINATE 50 MG TAB.SR.24H PO SCH ×2 (09:25→21:37)
[2017-12-16] MEDS: ACETAMINOPHEN 325 MG TABLET PO PRN (09:27)
--- NOTE | 2017-12-16 09:28 | RADIOLOGY REPORT (SQ) ---
EXAM DESCRIPTION: CHEST SINGLE VIEW COMPLETED DATE/TIME: 12/16/2017 9:12 am REASON FOR STUDY: F/U PNA COMPARISON: 12/13/2017 EXAM PARAMETERS: NUMBER OF VIEWS: One view. TECHNIQUE: Single frontal radiographic view of the chest acquired. RADIATION DOSE: NA LIMITATIONS: None. FINDINGS: LUNGS AND PLEURA: Interval improvement and significant decrease in the airspace disease p reviously identified in the lungs. Slight to mild residual remains. No pneumothorax or pleural effu cary. MEDIASTINUM AND HILAR STRUCTURES: No masses. Contour normal. HEART AND VASCULAR STRUCTURES: Stable appearance. BONES: No acute findings. HARDWARE: Cardiac pacemaker/AICD, stable finding. OTHER: No other significant finding. IMPRESSION: 1. Significant improvement in the appearance of the lungs since the previous examinatio n dated 12/13/2017. Marked clearing of the bilateral airspace disease with slight to mild residual re maining in the lungs. TECHNICAL DOCUMENTATION: JOB ID: [id number] [employer]- All Rights Reserved Reading location - IP/workstation name: [email or web address]
--- NOTE | 2017-12-16 09:40 | PDOC PROGRESS REPORT ---
Subjective Progress Note for:: 12/16/17 Subjective:: Possibly denies shortness of breath. Patient is confused and unable to provide any history. She does appear to be comfortable. She received 1 unit PRBC due to anemia Reason For Visit: CHF EXACERBATION, ACUTE HYPOXIC RESP FAILURE Physical Exam Vital Signs: Temp Pulse Resp BP Pulse Ox 98.4 F 70 16 161/80 H 98 12/16/17 07:19 12/16/17 07:19 12/16/17 07:19 12/16/17 07:19 12/16/17 07:19 Intake & Output 12/15/17 12/16/17 12/17/17 06:59 06:59 06:59 Intake Total 1343 956 Output Total 2850 3125 Balance -1507 -2169 Weight 96.2 kg 95.3 kg General appearance: PRESENT: no acute distress, well-nourished Head exam: PRESENT: atraumatic, normocephalic Eye exam: PRESENT: conjunctiva pink, EOMI, PERRLA. ABSENT: scleral icterus Ear exam: PRESENT: normal external ear exam Mouth exam: PRESENT: moist, tongue midline Neck exam: ABSENT: carotid bruit, JVD, lymphadenopathy, thyromegaly Respiratory exam: PRESENT: crackles, decreased breath sounds. ABSENT: rales, rhonchi, wheezes Cardiovascular exam: PRESENT: RRR, +S1, +S2, other - Occasionally irregular. ABSENT: diastolic murmur, rubs, systolic murmur Pulses: PRESENT: normal dorsalis pedis pul Vascular exam: PRESENT: normal capillary refill GI/Abdominal exam: PRESENT: normal bowel sounds, soft. ABSENT: distended, guarding, mass, organolmegaly, rebound, tenderness Rectal exam: PRESENT: deferred Extremities exam: PRESENT: full ROM. ABSENT: calf tenderness, clubbing, pedal edema Neurological exam: PRESENT: alert, awake, other. ABSENT: motor sensory deficit Psychiatric exam: PRESENT: appropriate affect, normal mood. ABSENT: homicidal ideation, suicidal ideation Skin exam: PRESENT: dry, intact, warm. ABSENT: cyanosis, rash Results Laboratory Results: 12/16/17 05:55 12/16/17 05:55 12/16/17 12/16/17 05:55 05:55 WBC 9.3 RBC 3.63 L Hgb 9.2 L Hct 28.1 L MCV 77 L MCH 25.3 L MCHC 32.7 RDW 17.2 H Plt Count 193 Seg Neutrophils % 68.4 Lymphocytes % 18.4 Monocytes % 9.3 Eosinophils % 3.3 Basophils % 0.6 Absolute Neutrophils 6.4 Absolute Lymphocytes 1.7 Absolute Monocytes 0.9 Absolute Eosinophils 0.3 Absolute Basophils 0.1 Sodium 139.4 Potassium 4.6 Chloride 99 Carbon Dioxide 35 H Anion Gap 5 BUN 29 H Creatinine 1.53 H Est GFR ( Amer) 39 L Est GFR (Non-Af Amer) 32 L Glucose 98 Calcium 9.1 12/13/17 12/13/17 12/13/17 07:45 13:15 19:11 Troponin I 0.115 0.147 0.166 NT-Pro-B Natriuret Pep 12/15/17 04:37 Troponin I NT-Pro-B Natriuret Pep 6010 H Impressions: Chest X-Ray 12/16/17 08:00 IMPRESSION: 1. Significant improvement in the appearance of the lungs since the previous examination dated 12/13/2017. Marked clearing of the bilateral airspace disease with slight to mild residual remaining in the lungs. Assessment & Plan - Diagnosis (1) Pneumonia Qualifiers: Pneumonia type: due to unspecified organism Laterality: bilateral Lung location: unspecified part of lung Qualified Code(s): J18.9 - Pneumonia, unspecified organism Is this a current diagnosis for this admission?: Yes Plan: Patient had infiltrates and bilateral airspace disease as well as leukocytosis on initial presentation. She also had peripheral vascular congestion. Repeat chest x-ray done today reveals improved airspace disease and patient appears to be clinically improved also. Will continue with Levaquin every 48 hours. Obtain physical therapy for mobilization (2) Acute on chronic diastolic (congestive) heart failure Is this a current diagnosis for this admission?: Yes (3) Acute respiratory failure with hypoxia and hypercapnia Is this a current diagnosis for this admission?: Yes (4) Anemia Qualifiers: Anemia type: unspecified type Qualified Code(s): D64.9 - Anemia, unspecified Is this a current diagnosis for this admission?: Yes Plan: H&H remained stable status post transfusion. She can follow-up as outpatient for further evaluation if needed (5) Chronic kidney disease, stage 3 Is this a current diagnosis for this admission?: Yes (6) Dementia Qualifiers: Dementia type: Alzheimer's disease Alzheimer's disease onset: late-onset Dementia behavioral disturbance: without behavioral disturbance Qualified Code (s): G30.1 - Alzheimer's disease with late onset; F02.80 - Dementia in other diseases classified elsewhere without behavioral disturbance; F02.80 - Dementia in other diseases classified elsewhere without behavioral disturbance; F02.80 - Dementia in other diseases classified elsewhere without behavioral disturbance Is this a current diagnosis for this admission?: Yes (7) Elevated troponin Is this a current diagnosis for this admission?: Yes Plan: Likely secondary to pulmonary vascular congestion (8) Paroxysmal atrial fibrillation Is this a current diagnosis for this admission?: Yes (9) Acute kidney injury Is this a current diagnosis for this admission?: Yes Plan: Likely diuretic induced. It has improved since decreasing Lasix. We will continue to monitor and continue judicious Lasix - Time Time Spent with patient: 15-24 minutes Medications reviewed and adjusted accordingly: Yes Anticipated discharge: SNF Within: within 48 hours - Inpatient Certification Based on my medical assessment, after consideration of the patient's comorbidities, presenting symptoms, or acuity I expect that the services needed warrant INPATIENT care.: Yes Medical Necessity: Need Close Monitoring Due to Risk of Patient Decompensation, Need for IV Antibiotics
[2017-12-16] MEDS ORDERED: HYDRALAZINE HCL INJ/PF 20 MG/1 ML SDV IV PRN (17:25)
[2017-12-16] MEDS ORDERED: (PENDING PHARMACY ID) (Risperidone [Risperdal] 0.5 MG) PO SCH (18:00)
[2017-12-16] MEDS: MEMANTINE HCL 10 MG TABLET PO SCH (18:32)
[2017-12-16] MEDS: HYDRALAZINE HCL 50 MG TABLET PO SCH (21:37)
[2017-12-16] MEDS: DONEPEZIL HCL 5 MG TABLET PO SCH (21:38)
[2017-12-16] MEDS: CLONIDINE HCL 0.1 MG TABLET PO SCH (21:39)
[2017-12-16] MEDS ORDERED: (PENDING PHARMACY ID) (Donepezil Hcl [Aricept] 10 MG) PO SCH (22:00)
[2017-12-17] MEDS: HEPARIN SOD (PORCINE) 5,000 UNIT/ML 1 ML SYRINGE SUBCUT SCH ×3 (05:29→21:40)
[2017-12-17] MEDS: HYDRALAZINE HCL 50 MG TABLET PO SCH ×3 (05:30→21:40)
[2017-12-17] MEDS: LEVOTHYROXINE SODIUM 0.088 MG TABLET PO SCH (05:30)
[2017-12-17] MEDS: AMLODIPINE BESYLATE 10 MG TABLET PO SCH (09:58)
[2017-12-17] MEDS: METOPROLOL SUCCINATE 50 MG TAB.SR.24H PO SCH ×2 (09:59→21:40)
[2017-12-17] MEDS: ISOSORBIDE MONONITRATE 30 MG TAB.ER.24H PO SCH (10:00)
[2017-12-17] MEDS: CITALOPRAM HYDROBROMIDE 20 MG TABLET PO SCH (10:00)
[2017-12-17] MEDS ORDERED: (PENDING PHARMACY ID) (Potassium Chloride [K-Tab Er] 20 MEQ) PO SCH (10:00)
[2017-12-17] MEDS: POTASSIUM CHLORIDE 10 MEQ CAPSULE.ER PO SCH (10:00)
[2017-12-17] MEDS: MEMANTINE HCL 10 MG TABLET PO SCH ×2 (10:01→17:46)
[2017-12-17] MEDS: CLONIDINE HCL 0.1 MG TABLET PO SCH ×2 (10:01→21:40)
[2017-12-17] MEDS: POLYETHYLENE GLYCOL 3350 POWDER 17 GM/1 PACKET PO SCH (10:01)
[2017-12-17] MEDS: FUROSEMIDE INJ/PF 40 MG/4 ML SDV IV SCH (10:02)
--- NOTE | 2017-12-17 14:57 | PDOC PROGRESS REPORT ---
Subjective Progress Note for:: 12/17/17 Subjective:: Patient denies shortness of breath. Actually saw the patient ambulating today and she did very well with the aid of a walker and with physical therapy. It appears she is from assisted living and at this point she likely needs half-way facility. Patient is confused and unable to provide any history. She does appear to be comfortable. She received 1 unit PRBC due to anemia Reason For Visit: CHF EXACERBATION, ACUTE HYPOXIC RESP FAILURE Physical Exam Vital Signs: Temp Pulse Resp BP Pulse Ox 97.8 F 64 18 135/61 H 99 12/17/17 11:09 12/17/17 11:09 12/17/17 11:09 12/17/17 11:09 12/17/17 11:09 Intake & Output 12/16/17 12/17/17 12/18/17 06:59 06:59 06:59 Intake Total 956 677 240 Output Total 3125 3075 300 Balance -2169 -2398 -60 Weight 95.3 kg 92.2 kg General appearance: PRESENT: no acute distress, hard of hearing, well-developed , well-nourished Head exam: PRESENT: atraumatic, normocephalic Eye exam: PRESENT: conjunctiva pink, EOMI. ABSENT: scleral icterus Ear exam: PRESENT: normal external ear exam Mouth exam: PRESENT: moist, tongue midline Neck exam: ABSENT: carotid bruit, JVD, lymphadenopathy, thyromegaly Respiratory exam: PRESENT: decreased breath sounds, rhonchi, unlabored. ABSENT : rales, tachypnea, wheezes Cardiovascular exam: PRESENT: RRR, +S1, +S2. ABSENT: diastolic murmur, rubs, systolic murmur Pulses: PRESENT: normal dorsalis pedis pul Vascular exam: PRESENT: normal capillary refill GI/Abdominal exam: PRESENT: normal bowel sounds, soft. ABSENT: distended, guarding, mass, organolmegaly, rebound, tenderness Rectal exam: PRESENT: deferred Extremities exam: PRESENT: full ROM. ABSENT: calf tenderness, clubbing, pedal edema Neurological exam: PRESENT: alert, awake, oriented to person, oriented to place , oriented to time. ABSENT: motor sensory deficit Psychiatric exam: PRESENT: appropriate affect, normal mood. ABSENT: homicidal ideation, suicidal ideation Skin exam: PRESENT: dry, intact, warm. ABSENT: cyanosis, rash Results Laboratory Results: 12/16/17 05:55 12/16/17 05:55 12/13/17 12/13/17 12/13/17 07:45 13:15 19:11 Troponin I 0.115 0.147 0.166 NT-Pro-B Natriuret Pep 12/15/17 04:37 Troponin I NT-Pro-B Natriuret Pep 6010 H Impressions: Chest X-Ray 12/16/17 08:00 IMPRESSION: 1. Significant improvement in the appearance of the lungs since the previous examination dated 12/13/2017. Marked clearing of the bilateral airspace disease with slight to mild residual remaining in the lungs. Assessment & Plan - Diagnosis (1) Pneumonia Qualifiers: Pneumonia type: due to unspecified organism Laterality: bilateral Lung location: unspecified part of lung Qualified Code(s): J18.9 - Pneumonia, unspecified organism Is this a current diagnosis for this admission?: Yes (2) Acute on chronic diastolic (congestive) heart failure Is this a current diagnosis for this admission?: Yes (3) Acute respiratory failure with hypoxia and hypercapnia Is this a current diagnosis for this admission?: Yes (4) Anemia Qualifiers: Anemia type: unspecified type Qualified Code(s): D64.9 - Anemia, unspecified Is this a current diagnosis for this admission?: Yes (5) Chronic kidney disease, stage 3 Is this a current diagnosis for this admission?: Yes (6) Dementia Qualifiers: Dementia type: Alzheimer's disease Alzheimer's disease onset: late-onset Dementia behavioral disturbance: without behavioral disturbance Qualified Code (s): G30.1 - Alzheimer's disease with late onset; F02.80 - Dementia in other diseases classified elsewhere without behavioral disturbance; F02.80 - Dementia in other diseases classified elsewhere without behavioral disturbance; F02.80 - Dementia in other diseases classified elsewhere without behavioral disturbance Is this a current diagnosis for this admission?: Yes (7) Elevated troponin Is this a current diagnosis for this admission?: Yes (8) Paroxysmal atrial fibrillation Is this a current diagnosis for this admission?: Yes (9) Acute kidney injury Is this a current diagnosis for this admission?: Yes - Time Time Spent with patient: 15-24 minutes Medications reviewed and adjusted accordingly: Yes Anticipated discharge: SNF Within: within 24 hours - Inpatient Certification Based on my medical assessment, after consideration of the patient's comorbidities, presenting symptoms, or acuity I expect that the services needed warrant INPATIENT care.: Yes Medical Necessity: Need for IV Antibiotics - Plan Summary Plan Summary: 1.Acute decompensation of CHF Cont Lasix as well as nitroglycerin. Urine output is adequate. We will continue to follow. Echocardiogram done in August 2017 reveals a slightly low normal ejection fraction at 55% with no other significant valvular findings. At this time no repeat echocardiogram is indicated Will continue judicious Lasix 2. Possible pneumonia - DC Vanc due to nephrotoxicity, cont levaquin and if coverage for MRSA needed, consider Clinda F/u CXR shows improved consolidation 3. Anemia likely secondary to chronic kidney disease as well as underlying illnesses. There is no evidence of an acute blood loss either clinically or overtly. Recent iron studies was 40. s/p 1 unit PRBC. Hg stable 4. Chronic kidney disease stage III with a baseline creatinine around 1.5. Slight worsening with vancomycin which has since been discontinued as well as diuresis. Creatinine down to 1.5 we will recheck labs in a.m. 5. Patient is confused. Mental status however appears to be better today. She has been seen by physical therapy and the plan is for her to be discharged to [facility]. Patient was actually had an assisted living prior to admission. She may be able to be discharged in a.m. if she continues to progress and remains stable she is a full code.
[2017-12-17] MEDS: RISPERIDONE 0.25 MG TABLET PO SCH (21:39)
[2017-12-17] MEDS: DONEPEZIL HCL 5 MG TABLET PO SCH (21:40)
[2017-12-18] MEDS: HEPARIN SOD (PORCINE) 5,000 UNIT/ML 1 ML SYRINGE SUBCUT SCH ×2 (05:04→15:39)
[2017-12-18] MEDS: HYDRALAZINE HCL 50 MG TABLET PO SCH ×2 (05:04→15:39)
[2017-12-18] MEDS: LEVOTHYROXINE SODIUM 0.088 MG TABLET PO SCH (05:04)
[2017-12-18 05:53] LABS: ABSOLUTE BASOPHILS # (AUTO) 0.1 10^3/uL (0.0-0.2); ABSOLUTE EOSINOPHILS # (AUTO) 0.3 10^3/uL (0.0-0.6); ABSOLUTE LYMPHOCYTES (AUTO) 1.6 10^3/uL (0.5-4.7); ABSOLUTE MONOCYTES (AUTO) 0.8 10^3/uL (0.1-1.4); BASOPHILS % (AUTO) 0.8 % (0-2); EOSINOPHILS % (AUTO) 3.3 % (0-6); HEMATOCRIT 29.3 % (36.0-47.0); HEMOGLOBIN 9.4 g/dL (12.0-15.5); LYMPHOCYTES % (AUTO) 20.8 % (13-45); MEAN CORPUSCULAR HEMOGLOBIN 25.1 pg (27.0-33.4); MEAN CORPUSCULAR HGB CONC 32.2 g/dL (32.0-36.0); MEAN CORPUSCULAR VOLUME 78 fl (80-97); MONOCYTES % (AUTO) 10.2 % (3-13); PLATELET COUNT 178 10^3/uL (150-450); RED BLOOD COUNT 3.74 10^6/uL (3.72-5.28); RED CELL DISTRIBUTION WIDTH 18.1 % (11.5-14.0); SEGMENTED NEUTROPHILS % (AUTO) 64.9 % (42-78); TOTAL CELLS COUNTED % (AUTO) 100 %; WHITE BLOOD COUNT 7.8 10^3/uL (4.0-10.5)
[2017-12-18 06:12] LABS: ANION GAP 8 (5-19); BLOOD UREA NITROGEN 28 mg/dL (7-20); CARBON DIOXIDE 30 mmol/L (22-30); CHLORIDE 101 mmol/L (98-107); GLUCOSE 94 mg/dL (75-110); POTASSIUM 4.3 mmol/L (3.6-5.0); SODIUM 138.5 mmol/L (137-145)
[2017-12-18] MEDS: LEVOFLOXACIN 500 MG TABLET PO SCH (10:10)
[2017-12-18] MEDS: POTASSIUM CHLORIDE 10 MEQ CAPSULE.ER PO SCH (10:10)
[2017-12-18] MEDS: FUROSEMIDE INJ/PF 40 MG/4 ML SDV IV SCH (10:10)
[2017-12-18] MEDS: POLYETHYLENE GLYCOL 3350 POWDER 17 GM/1 PACKET PO SCH (10:10)
[2017-12-18] MEDS: RISPERIDONE 0.25 MG TABLET PO SCH ×2 (10:10→18:10)
[2017-12-18] MEDS: MEMANTINE HCL 10 MG TABLET PO SCH ×2 (10:11→18:10)
[2017-12-18] MEDS: CITALOPRAM HYDROBROMIDE 20 MG TABLET PO SCH (10:11)
[2017-12-18] MEDS: ISOSORBIDE MONONITRATE 30 MG TAB.ER.24H PO SCH (10:11)
[2017-12-18] MEDS: METOPROLOL SUCCINATE 50 MG TAB.SR.24H PO SCH (10:11)
[2017-12-18] MEDS: CLONIDINE HCL 0.1 MG TABLET PO SCH (10:11)
[2017-12-18] MEDS: AMLODIPINE BESYLATE 10 MG TABLET PO SCH (10:11)
--- NOTE | 2017-12-18 13:32 | PDOC DISCHARGE SUMMARY ---
General - Admit/Disc Date/PCP Admission Date/Primary Care Provider: 12/13/17 03:04 SUDHIR KRAUSE MD Discharge Date: 12/18/17 - Discharge Diagnosis (1) Acute on chronic diastolic (congestive) heart failure Is this a current diagnosis for this admission?: Yes (2) Acute respiratory failure with hypoxia and hypercapnia Is this a current diagnosis for this admission?: Yes (3) Chronic kidney disease, stage 3 Is this a current diagnosis for this admission?: Yes (4) HTN (hypertension) Is this a current diagnosis for this admission?: Yes (5) Hypothyroidism Is this a current diagnosis for this admission?: Yes (6) Paroxysmal atrial fibrillation Is this a current diagnosis for this admission?: Yes - Additional Information Discharge Diet: As Tolerated, Cardiac Discharge Activity: Activity As Tolerated, Weigh Daily Home Medications: Amlodipine Besylate [Norvasc 10 mg Tablet] 10 mg PO DAILY 12/13/17 Citalopram Hydrobromide [Celexa 20 mg Tablet] 20 mg PO DAILY 12/13/17 Clonidine HCl [Catapres 0.1 mg Tablet] 0.1 mg PO Q12 12/13/17 Donepezil HCl [Aricept] 10 mg PO QHS 12/13/17 Furosemide [Lasix 40 mg Tablet] 40 mg PO DAILY 12/13/17 Hydralazine HCl 100 mg PO Q8 12/13/17 Levothyroxine Sodium [Synthroid 0.088 mg Tablet] 0.088 mg PO Q6AM 12/13/17 Memantine HCl [Namenda 10 mg Tablet] 10 mg PO BID 12/13/17 Metolazone [Zaroxolyn 2.5 mg Tablet] 2.5 mg PO MOWEFR@1000 12/13/17 Metoprolol Succinate [Toprol XL 100 mg Tablet] 100 mg PO Q12 12/13/17 Polyethylene Glycol 3350 [Miralax Powder 17 gm/Packet] 17 gm PO DAILY 12/13/17 Potassium Chloride [K-Tab ER] 20 meq PO DAILY 12/13/17 Risperidone [Risperdal] 0.5 mg PO BID 12/13/17 Ipratropium/Albuterol Sulfate [Duoneb 3 ml Ampul] 3 ml NEB RTQ3HP PRN vial.neb 12/18/17 Isosorbide Mononitrate [Imdur 30 mg Tablet.er] 30 mg PO DAILY tab.er.24h History of Present Illness History of Present Illness: BELKIS EUCEDA is a 87 year old female with dementia, resident of assisted, atrial fibrillation, hypertension, congestive heart failure, hyperlipidemia presents via EMS from her nursing facility and respiratory distress. Per EMS upon their arrival patient was found to be 86% on room air. Patient cannot provide any information secondary to her advanced dementia. Patient was initiated on BiPAP and her oxygen saturation improved to 94%. Chest x-ray positive for bilateral pulmonary edema. Questionable pneumonia and she was initiated on IV vancomycin and IV Zosyn. By the time I evaluated her the patient was not in respiratory distress wearing still BiPAP. Found with 2+ lower extremity pitting edema, initially hypertensive tachypneic using accessory muscles as per ED attending note, nitro drip initiated. Given 40 mg of IV Lasix. Hospital Course Hospital Course: 1.Acute decompensation of CHF started IV Lasix as well as nitroglycerin. Urine output is adequate. Echocardiogram done in August 2017 reveals a slightly normal ejection fraction at 55% with no other significant valvular findings. At this time no repeat echocardiogram is indicated 2. Possible pneumonia -was started on vancomycin and Levaquin and vancomycin was later stopped. 3. Anemia likely secondary to chronic kidney disease as well as underlying illnesses. There is no evidence of an acute blood loss either clinically or overtly. Recent iron studies was 40. s/p 1 unit PRBC. Hg stable 4. Chronic kidney disease stage III with a baseline creatinine around 1.5. Slight worsening with vancomycin which has since been discontinued as well as diuresis. 5. Chronic dementia Patient stable for discharge back to assisted Physical Exam Vital Signs: Temp Pulse Resp BP Pulse Ox 99.1 F 67 18 125/60 98 12/18/17 07:53 12/18/17 07:53 12/18/17 07:53 12/18/17 07:53 12/18/17 07:53 Intake & Output 12/17/17 12/18/17 12/19/17 06:59 06:59 06:59 Intake Total 677 835 Output Total 3075 1725 Balance -2398 -890 Weight 203 lb 4.259 oz 201 lb 8.04 oz General appearance: PRESENT: no acute distress Head exam: PRESENT: atraumatic, normocephalic Eye exam: PRESENT: conjunctiva pink, EOMI, PERRLA. ABSENT: scleral icterus Ear exam: PRESENT: normal external ear exam Mouth exam: PRESENT: moist, tongue midline Respiratory exam: PRESENT: crackles. ABSENT: accessory muscle use Cardiovascular exam: PRESENT: RRR. ABSENT: diastolic murmur, rubs, systolic murmur Pulses: PRESENT: normal dorsalis pedis pul Vascular exam: PRESENT: normal capillary refill GI/Abdominal exam: PRESENT: normal bowel sounds, soft. ABSENT: distended, guarding, mass, organolmegaly, rebound, tenderness Rectal exam: PRESENT: deferred Extremities exam: PRESENT: pedal edema. ABSENT: calf tenderness, clubbing Neurological exam: PRESENT: other - Chronic dementia Results Laboratory Results: 12/18/17 05:19 12/18/17 05:19 12/18/17 12/18/17 05:19 05:19 WBC 7.8 RBC 3.74 Hgb 9.4 L Hct 29.3 L MCV 78 L MCH 25.1 L MCHC 32.2 RDW 18.1 H Plt Count 178 Seg Neutrophils % 64.9 Lymphocytes % 20.8 Monocytes % 10.2 Eosinophils % 3.3 Basophils % 0.8 Absolute Neutrophils 5.0 Absolute Lymphocytes 1.6 Absolute Monocytes 0.8 Absolute Eosinophils 0.3 Absolute Basophils 0.1 Sodium 138.5 Potassium 4.3 Chloride 101 Carbon Dioxide 30 Anion Gap 8 BUN 28 H Creatinine 1.54 H Est GFR ( Amer) 39 L Est GFR (Non-Af Amer) 32 L Glucose 94 Calcium 9.0 12/13/17 12/13/17 12/13/17 07:45 13:15 19:11 Troponin I 0.115 0.147 0.166 NT-Pro-B Natriuret Pep 12/15/17 12/18/17 04:37 05:19 Troponin I NT-Pro-B Natriuret Pep 6010 H 3250 H Impressions: Chest X-Ray 12/16/17 08:00 IMPRESSION: 1. Significant improvement in the appearance of the lungs since the previous examination dated 12/13/2017. Marked clearing of the bilateral airspace disease with slight to mild residual remaining in the lungs. Qualifiers - * PATIENT BEING DISCHARGED WITH ANY OF THE FOLLOWING DIAGNOSIS: Heart Failure HF Pt being discharged on ACEI for LVEF less than 40%?: No Reason(s) for not prescribing ACEI:: Tx not tolerated HF Pt being discharged on ARBS for LVEF less than 40%?: No Reason(s) for not prescribing ARBS:: Tx not tolerated HF Pt with Afib discharged with Warfarin?: No Reason(s) for not prescribing Warfarin:: Not indicated HF Pt discharged on evidence-based Beta Ross:: Yes
[2017-12-18 18:38] VITALS: BP 130/52
== END 2017-12-18 19:59 | DRG 291 ==
LOC: ER 01:08 → EH 03:04 → 3N 05:46
PROVIDERS: ADMIT Internal Medicine; ATTEND Internal Medicine
PROC: 5A09457 Assistance with Respiratory Ventilation, 24-96 Consecutive Hours, Continuous Positive Airway Pressure (ICD-10-PCS; 2017-12-13)
PROC: 30233N1 Transfusion of Nonautologous Red Blood Cells into Peripheral Vein, Percutaneous Approach (ICD-10-PCS; principal; 2017-12-14)
DX: I13.0 Hypertensive heart and chronic kidney disease with heart failure and stage 1 through stage 4 chronic kidney disease, or unspecified chronic kidney disease (principal); I50.33 Acute on chronic diastolic (congestive) heart failure; J96.02 Acute respiratory failure with hypercapnia; J96.01 Acute respiratory failure with hypoxia; N18.3 Chronic kidney disease, stage 3 (moderate); R74.8 Abnormal levels of other serum enzymes; E03.9 Hypothyroidism, unspecified; I48.0 Paroxysmal atrial fibrillation; D63.1 Anemia in chronic kidney disease; G30.1 Alzheimer's disease with late onset; F02.80 Dementia in other diseases classified elsewhere, unspecified severity, without behavioral disturbance, psychotic disturbance, mood disturbance, and anxiety; Z79.899 Other long term (current) drug therapy
CPT/HCPCS: 36415; 36430; 71045; 80048; 80053; 80202; 81001; 82550; 82553; 82803; 83605; 83880; 84484; 85025; 85027; 86850; 86900; 86901; 86920; 93005; 93010; 94660; 96374; 99291; G8978-GP; G8979-GP; J1644; J1940; J1956; J2543; J3370; J3490; J7060; P9016

== ENCOUNTER 2018-01-06 20:02 | Inpatient (IN) | payer MEDICARE, MEDICAID ==
[2018-01-06] MEDS ORDERED: ASPIRIN 81 MG TABLET, CHEWABLE PO ONE (20:08)
--- NOTE | 2018-01-06 20:43 | ER Document Report ---
ED Cardiac - General Chief Complaint: Chest Pain Stated Complaint: CHEST PAIN Time Seen by Provider: 01/06/18 20:42 Mode of Arrival: Stretcher Information source: Patient, Emergency Med Personnel Notes: Patient presented to the ED with chest pain. She was given aspirin and nitro by the salesperson parts. Her chest pain is currently resolved. Patient is also complaining of shortness of breath. She says she cannot lay down flat without having short of breath. Patient is a poor historian. TRAVEL OUTSIDE OF THE [place] IN LAST 30 DAYS: No - HPI Patient complains to provider of: Chest pain, Shortness of breath Was the onset of pain: Sudden Is the pain a: New problem Chest pain location: Substernal Quality of pain: Intermittent, Achy Severity now: Moderate Severity at worst: Moderate Pain level currently: Denies Chest pain precipitating factors: At Rest Cardiac risk factors: Hx CHF Associated symptoms: Shortness of breath Exacerbated by: Lying flat Relieved by: Leaning forward Similar symptoms previously: Yes Recently seen / treated by doctor: No - Related Data Allergies/Adverse Reactions: codeine [Codeine] Allergy (Verified 12/13/17 01:27) iodine [Iodine] Allergy (Verified 12/13/17 01:27) Shellfish * [Shellfish] Allergy (Verified 12/13/17 01:27) Past Medical History - Social History Smoking Status: Unknown if Ever Smoked Family History: Reviewed & Not Pertinent - Past Medical History Cardiac Medical History: Reports: Hx Atrial Fibrillation, Hx Congestive Heart Failure, Hx Heart Attack - The patient had an elevated troponin, but negative catheterization 03/03/13, Hx Hypercholesterolemia, Hx Hypertension Denies: Hx Coronary Artery Disease Pulmonary Medical History: Denies: Hx Asthma, Hx Bronchitis, Hx COPD, Hx Pneumonia, Hx Tuberculosis Neurological Medical History: Reports: Hx Cerebrovascular Accident, Hx Migraine. Denies: Hx Seizures Endocrine Medical History: Renal/ Medical History: Denies: Hx Peritoneal Dialysis GI Medical History: Reports: Hx Gastroesophageal Reflux Disease Musculoskeletal Medical History: Comment Only Hx Arthritis - was told patient has a broken back Psychiatric Medical History: Reports: Hx Dementia, Hx Depression Past Surgical History: Reports: Hx Appendectomy, Hx Cardiac Surgery - pacer/ defib, Hx Pacemaker. Denies: Hx Hysterectomy - Immunizations Hx Diphtheria, Pertussis, Tetanus Vaccination: No Hx Pneumococcal Vaccination: 09/28/13 Review of Systems - Review of Systems Constitutional: No symptoms reported EENT: No symptoms reported Cardiovascular: Chest pain, Orthopnea, Dyspnea Respiratory: Short of breath Gastrointestinal: No symptoms reported Genitourinary: No symptoms reported Female Genitourinary: No symptoms reported Musculoskeletal: Leg swelling, Ankle swelling Skin: No symptoms reported Hematologic/Lymphatic: No symptoms reported Neurological/Psychological: No symptoms reported -: Yes All other systems reviewed and negative Physical Exam - Vital signs Vitals: Pulse Ox 99 01/06/18 20:16 Interpretation: Normal - General General appearance: Appears well, Alert In distress: None - HEENT Head: Normocephalic, Atraumatic Eyes: Normal Pupils: PERRL - Respiratory Respiratory status: Respiratory distress Chest status: Nontender Breath sounds: Rales, Rhonchi Chest palpation: Normal - Cardiovascular Rhythm: Regular Heart sounds: Normal auscultation Murmur: No - Abdominal Inspection: Normal Distension: No distension Bowel sounds: Normal Tenderness: Nontender Organomegaly: No organomegaly - Back Back: Normal, Nontender - Extremities General upper extremity: Normal inspection, Nontender, Normal color, Normal ROM , Normal temperature General lower extremity: Normal inspection, Nontender, Edema - 4+ bilaterally, Normal color, Normal ROM, Normal temperature, Normal weight bearing. No: Deshawn' s sign - Neurological Neuro grossly intact: Yes Cognition: Normal Orientation: AAOx4 Kaleb Coma Scale Eye Opening: Spontaneous Kaleb Coma Scale Verbal: Oriented Kaleb Coma Scale Motor: Obeys Commands [place] Coma Scale Total: 15 Speech: Normal Motor strength normal: LUE, RUE, LLE, RLE Sensory: Normal - Psychological Associated symptoms: Normal affect, Normal mood - Skin Skin Temperature: Warm Skin Moisture: Dry Skin Color: Normal Course - Vital Signs Vital signs: Temp Pulse Resp BP Pulse Ox 98.4 F 75 15 178/82 H 100 01/07/18 01:30 01/07/18 01:30 01/07/18 01:30 01/07/18 01:30 01/07/18 01:30 - Laboratory Result Diagrams: 01/06/18 20:55 01/06/18 20:55 Laboratory results interpreted by me: 01/06/18 01/06/18 01/06/18 20:55 20:55 20:55 Hgb 10.7 L Hct 32.6 L MCV 78 L MCH 25.6 L RDW 19.0 H BUN 26 H Creatinine 1.46 H Est GFR ( Amer) 41 L Est GFR (Non-Af Amer) 34 L NT-Pro-B Natriuret Pep 2160 H Total Protein 8.5 H Urine Protein 01/06/18 22:36 Hgb Hct MCV MCH RDW BUN Creatinine Est GFR ( Amer) Est GFR (Non-Af Amer) NT-Pro-B Natriuret Pep Total Protein Urine Protein 100 H - Diagnostic Test Radiology reviewed: Image reviewed, Reports reviewed - EKG Interpretation by Me EKG shows normal: Sinus rhythm Rate: Normal - 69 Voltage: Consistant with LVH When compared to previous EKG there are: Previous EKG unavailable Additional EKG results interpreted by me: 01/06/18 22:19 T wave inversion in the lateral leads. No STEMI. - Consults No standard instances Time consulted: 22:00 Reason for consultation: 01/06/18 22:20 I called and spoke with Dr. Mason Oshea and he said that the patient does not belong to him anymore. He recommended I call Dr. Chakraborty to admit patient. I called Dr. Chakraborty and he also said the patient does not belong to him that I should call the hospitalist to admit the patient. So I called Dr. Neena Bryant the hospitalist account retention representative and she will admit patient for further evaluation and management. - Transfer of Care Care transferred to following provider: Patient will be admitted by Dr Neena Noguera. Discharge - Discharge Clinical Impression: Pedal edema, Orthopnea Chest pain Qualifiers: Chest pain type: unspecified Qualified Code(s): R07.9 - Chest pain, unspecified Acute exacerbation of CHF (congestive heart failure) Qualifiers: Heart failure type: unspecified Qualified Code(s): I50.9 - Heart failure, unspecified Chronic kidney disease (CKD) Qualifiers: Chronic kidney disease stage: unspecified stage Qualified Code(s): N18.9 - Chronic kidney disease, unspecified Condition: Stable Disposition: ADMITTED INPATIENT Admitting Provider: [facility] Admitted: Telemetry
--- NOTE | 2018-01-06 20:53 | RADIOLOGY REPORT (SQ) ---
EXAM DESCRIPTION: CHEST SINGLE VIEW COMPLETED DATE/TIME: 01/06/2018 8:35 pm REASON FOR STUDY: cp COMPARISON: 09/05/2014 EXAM PARAMETERS: NUMBER OF VIEWS: One view. TECHNIQUE: Single frontal radiographic view of the chest acquired. RADIATION DOSE: NA LIMITATIONS: None. FINDINGS: LUNGS AND PLEURA: Mild pulmonary vascular congestion. No pulmonary edema. No infiltrate or effusion. MEDIASTINUM AND HILAR STRUCTURES: No masses. Contour normal. HEART AND VASCULAR STRUCTURES: Cardiomegaly. BONES: No acute findings. HARDWARE: Pacemaker/defibrillator. OTHER: No other significant finding. IMPRESSION: Cardiomegaly without pulmonary edema. TECHNICAL DOCUMENTATION: JOB ID: [id number] [employer]- All Rights Reserved Reading location - IP/workstation name: [email or web address]
[2018-01-06 21:15] LABS: ABSOLUTE EOSINOPHILS # (AUTO) 0.3 10^3/uL (0.0-0.6); ABSOLUTE LYMPHOCYTES (AUTO) 1.9 10^3/uL (0.5-4.7); ABSOLUTE MONOCYTES (AUTO) 0.6 10^3/uL (0.1-1.4); ABSOLUTE NEUT (AUTO) 5.4 10^3/uL (1.7-8.2); BASOPHILS % (AUTO) 0.6 % (0-2); EOSINOPHILS % (AUTO) 3.4 % (0-6); HEMATOCRIT 32.6 % (36.0-47.0); HEMOGLOBIN 10.7 g/dL (12.0-15.5); LYMPHOCYTES % (AUTO) 22.4 % (13-45); MEAN CORPUSCULAR HEMOGLOBIN 25.6 pg (27.0-33.4); MEAN CORPUSCULAR HGB CONC 32.8 g/dL (32.0-36.0); MEAN CORPUSCULAR VOLUME 78 fl (80-97); MONOCYTES % (AUTO) 7.8 % (3-13); PLATELET COUNT 194 10^3/uL (150-450); RED BLOOD COUNT 4.18 10^6/uL (3.72-5.28); SEGMENTED NEUTROPHILS % (AUTO) 65.8 % (42-78); TOTAL CELLS COUNTED % (AUTO) 100 %; WHITE BLOOD COUNT 8.3 10^3/uL (4.0-10.5)
[2018-01-06 21:37] LABS: ALANINE AMINOTRANSFERASE 17 U/L (9-52); ALBUMIN 3.8 g/dL (3.5-5.0); ALKALINE PHOSPHATASE 111 U/L (38-126); ANION GAP 10 (5-19); ASPARTATE AMINO TRANSFERASE 21 U/L (14-36); BILIRUBIN,DIRECT 0.1 mg/dL (0.0-0.4); BILIRUBIN,TOTAL 0.4 mg/dL (0.2-1.3); BLOOD UREA NITROGEN 26 mg/dL (7-20); CALCIUM 9.9 mg/dL (8.4-10.2); CARBON DIOXIDE 27 mmol/L (22-30); CHLORIDE 103 mmol/L (98-107); CREATINE KINASE 44 U/L (30-135); GLUCOSE 106 mg/dL (75-110); POTASSIUM 4.6 mmol/L (3.6-5.0); SODIUM 140.4 mmol/L (137-145); TOTAL PROTEIN 8.5 g/dL (6.3-8.2)
[2018-01-06 21:48] LABS: CREATINE KINASE MB 0.76 ng/mL (<4.55); TROPONIN I 0.032 ng/mL
[2018-01-06] MEDS ORDERED: FUROSEMIDE INJ/PF 40 MG/4 ML SDV IV ONE (21:57)
[2018-01-06] MEDS ORDERED: MAG HYDROX/AL HYDROX/SIMETH SUSP 30 ML UDCUP PO PRN (23:21)
[2018-01-06] MEDS ORDERED: PROMETHAZINE HCL 25 MG TABLET PO PRN (23:21)
[2018-01-06] MEDS ORDERED: PROMETHAZINE HCL INJ 25 MG/1 ML VIAL IV PRN (23:21)
[2018-01-06] MEDS ORDERED: IPRATROPIUM/ALBUTEROL 0.5-2.5 MG/3 ML AMPUL NEB PRN (23:21)
[2018-01-06 23:55] LABS: APPEARANCE,URINE CLOUDY; BILIRUBIN,URINE NEGATIVE (NEGATIVE); COLOR,URINE YELLOW; GLUCOSE, URINE NEGATIVE (NEGATIVE); KETONES,URINE NEGATIVE (NEGATIVE); LEUKOCYTE ESTERASE,URINE NEGATIVE (NEGATIVE); NITRITE,URINE NEGATIVE (NEGATIVE); PROTEIN,URINE 100 mg/dL (NEGATIVE); URINE SPECIFIC GRAVITY 1.015; UROBILINOGEN,URINE NEGATIVE mg/dL (<2.0)
--- NOTE | 2018-01-06 23:56 | PDOC H&P ---
History of Present Illness Admission Date/PCP: 01/06/18 22:42 unknown Patient complains of: Sob History of Present Illness: BELKIS EUCEDA is a 87 year old female from a halfway facility with extensive past medical history who comes to the emergency department complaining of shortness of breath for the last 2 days. Patient is a very poor historian and besides her shortness of breath, complains of orthopnea, very mild cough, chest pain that she cannot describe, also lower extremities edema that has been worsening. In the emergency department patient seems to be comfortable on 2 L oxygen via nasal cannula. Chest x-ray does not show any pulmonary edema. Troponins x1-. EKG has not been done. Patient is evidently orthopneic and is unable to lay down, is asking to be sitting on a chair. 40 mg of IV Lasix given. Dr. Mason Oshea is not longer her primary care physician, unknown who is now. Past Medical History Cardiac Medical History: Reports: Atrial Fibrillation, Congestive Heart Failure , Myocardial Infarction - The patient had an elevated troponin, but negative catheterization 03/03/13, Hyperlipidema, Hypertension Denies: Coronary Artery Disease Pulmonary Medical History: Denies: Asthma, Bronchitis, Chronic Obstructive Pulmonary Disease (COPD), Pneumonia, Tuberculosis Neurological Medical History: Reports: Migraine Denies: Seizures Endocrine Medical History: GI Medical History: Reports: Gastroesophageal Reflux Disease Musculoskeltal Medical History: Comment Only: Arthritis - was told patient has a broken back Psychiatric Medical History: Reports: Dementia, Depression Hematology: Reports: Anemia Past Surgical History Past Surgical History: Reports: Appendectomy, Pacemaker Denies: Hysterectomy Social History Smoking Status: Never Smoker Frequency of Alcohol Use: None Hx Recreational Drug Use: No Drugs: None Hx Prescription Drug Abuse: No Family History Family History: Reviewed & Not Pertinent Parental Family History Reviewed: No Children Family History Reviewed: NA Sibling(s) Family History Reviewed.: NA Medication/Allergy Home Medications: Amlodipine Besylate [Norvasc 10 mg Tablet] 10 mg PO DAILY 12/13/17 Citalopram Hydrobromide [Celexa 20 mg Tablet] 20 mg PO DAILY 12/13/17 Clonidine HCl [Catapres 0.1 mg Tablet] 0.1 mg PO Q12 12/13/17 Donepezil HCl [Aricept] 10 mg PO QHS 12/13/17 Furosemide [Lasix 40 mg Tablet] 40 mg PO DAILY 12/13/17 Hydralazine HCl 100 mg PO Q8 12/13/17 Levothyroxine Sodium [Synthroid 0.088 mg Tablet] 0.088 mg PO Q6AM 12/13/17 Memantine HCl [Namenda 10 mg Tablet] 10 mg PO BID 12/13/17 Metolazone [Zaroxolyn 2.5 mg Tablet] 2.5 mg PO MOWEFR@1000 12/13/17 Metoprolol Succinate [Toprol XL 100 mg Tablet] 100 mg PO Q12 12/13/17 Polyethylene Glycol 3350 [Miralax Powder 17 gm/Packet] 17 gm PO DAILY 12/13/17 Potassium Chloride [K-Tab ER] 20 meq PO DAILY 12/13/17 Risperidone [Risperdal] 0.5 mg PO BID 12/13/17 Ipratropium/Albuterol Sulfate [Duoneb 3 ml Ampul] 3 ml NEB RTQ3HP PRN vial.neb 12/18/17 Isosorbide Mononitrate [Imdur 30 mg Tablet.er] 30 mg PO DAILY tab.er.24h Allergies/Adverse Reactions: codeine [Codeine] Allergy (Verified 12/13/17 01:27) iodine [Iodine] Allergy (Verified 12/13/17 01:27) Shellfish * [Shellfish] Allergy (Verified 12/13/17 01:27) Review of Systems Review of Systems: As outlined in the HPI, others negative, very poor historian Physical Exam Vital Signs: Temp Pulse Resp BP Pulse Ox 97.8 F 19 162/75 H 97 01/06/18 21:19 01/06/18 21:19 01/06/18 21:19 01/06/18 21:19 Additional comments: General appearance: Decondition, alert and cooperative, and appears to be in no acute distress, wearing nasal cannula Head: Normocephalic Eyes: PEERL, EOMI, vision decreased. Ears: External auditory canal and tympanic membranes clear, hearing severely decreased. Nose: No nasal discharge. Throat: Oral cavity and pharynx normal. No inflammation, swelling, exudate or lesions. Poor dentition Neck: Neck supple, nontender without lymphadenopathy, masses or thyromegaly. Cardiac: Normal S1 and S2. No S3, S4 or murmurs. Rhythm is regular. There is 4+ lower extremities peripheral pitting edema, cyanosis or pallor. Extremities are warm and well perfused. Capillary refill is less than 2 seconds. No carotid bruits. Lungs: diffused mild rales, no rhonchi or wheezing or diminished breath sounds. Not using accessory muscles. Bilateral decreased breath sounds with no optimal inspiratory effort. Abdomen: Positive bowel sounds. Soft. Nondistended, nontender. No guarding or rebound. No masses. No hepatosplenomegaly Extremities: No significant deformity or joint abnormality. Peripheral pulses intact. No varicosities. Neurological: Cranial nerves II through XII grossly intact. Move 4 extremities Psychiatric: The mental examination revealed the patient was able to tell me the year, month, she could not tell me the president or the date. Results Laboratory Results: 01/06/18 01/06/18 01/06/18 20:55 20:55 20:55 Sodium 140.4 Potassium 4.6 Chloride 103 Carbon Dioxide 27 Anion Gap 10 BUN 26 H Creatinine 1.46 H Est GFR ( Amer) 41 L Est GFR (Non-Af Amer) 34 L Glucose 106 Calcium 9.9 Total Bilirubin 0.4 Direct Bilirubin 0.1 AST 21 ALT 17 Alkaline Phosphatase 111 Creatine Kinase 44 CK-MB (CK-2) 0.76 Troponin I 0.032 NT-Pro-B Natriuret Pep 2160 H Total Protein 8.5 H Albumin 3.8 Impressions: Chest X-Ray 01/06/18 20:09 IMPRESSION: Cardiomegaly without pulmonary edema. Assessment & Plan - Diagnosis (1) Acute on chronic diastolic (congestive) heart failure Is this a current diagnosis for this admission?: Yes Plan: Patient comes with respiratory symptoms and severe lower extremities edema associated with orthopnea. BNP is better than during her last admission 2160, chest x-ray unremarkable. Clinically she looks like CHF exacerbation so I will go ahead and continue her with 40 mg of IV Lasix every 12 hours. Patient has a Amezquita catheter in place and we will monitor strict input and output. Daily weights. Cardiology has been consulted for evaluation and further recommendations. Cardiac markers x3. Continuous telemetry monitoring. (2) Chronic kidney disease, stage 3 Is this a current diagnosis for this admission?: Yes Plan: Stable, avoid nephrotoxic drugs (3) Dementia Qualifiers: Dementia type: Alzheimer's disease Alzheimer's disease onset: late-onset Dementia behavioral disturbance: without behavioral disturbance Qualified Code (s): G30.1 - Alzheimer's disease with late onset; F02.80 - Dementia in other diseases classified elsewhere without behavioral disturbance; F02.80 - Dementia in other diseases classified elsewhere without behavioral disturbance; F02.80 - Dementia in other diseases classified elsewhere without behavioral disturbance Is this a current diagnosis for this admission?: Yes Plan: Advanced dementia, continue with memantine and risperidone (4) HTN (hypertension) Qualifiers: Hypertension type: essential hypertension Qualified Code(s): I10 - Essential (primary) hypertension Is this a current diagnosis for this admission?: Yes Plan: Not well controlled, upon arrival 162/75. Continue with clonidine, hydralazine , metoprolol (5) Hypothyroidism Is this a current diagnosis for this admission?: Yes Plan: Continue with Synthroid (6) Paroxysmal atrial fibrillation Is this a current diagnosis for this admission?: Yes Plan: Not on anticoagulation, on beta-reid. (7) CAD (coronary artery disease) Is this a current diagnosis for this admission?: Yes Plan: Continue with Imdur and metoprolol - Time Time Spent: 30 to 50 Minutes - Inpatient Certification Based on my medical assessment, after consideration of the patient's comorbidities, presenting symptoms, or acuity I expect that the services needed warrant INPATIENT care.: Yes I certify that my determination is in accordance with my understanding of Medicare's requirements for reasonable and necessary INPATIENT services [42 CFR 412.3e].: Yes Medical Necessity: Risk of Complication if Not Cared For in Hospital
[2018-01-07] MEDS ORDERED: FUROSEMIDE INJ/PF 40 MG/4 ML SDV IV ONE (01:30)
[2018-01-07] MEDS ORDERED: HYDRALAZINE HCL 50 MG TABLET PO ONE (02:15)
[2018-01-07] MEDS: ACETAMINOPHEN 325 MG TABLET PO PRN ×2 (02:27→20:16)
[2018-01-07] MEDS: HEPARIN SOD (PORCINE) 5,000 UNIT/ML 1 ML SYRINGE SUBCUT SCH ×3 (05:27→21:42)
[2018-01-07 06:22] LABS: MEAN CORPUSCULAR HEMOGLOBIN 25.6 pg (27.0-33.4); MEAN CORPUSCULAR HGB CONC 33.2 g/dL (32.0-36.0); MEAN CORPUSCULAR VOLUME 77 fl (80-97); PLATELET COUNT 180 10^3/uL (150-450); RED BLOOD COUNT 3.89 10^6/uL (3.72-5.28); WHITE BLOOD COUNT 9.5 10^3/uL (4.0-10.5)
[2018-01-07 06:52] LABS: ANION GAP 10 (5-19); BLOOD UREA NITROGEN 25 mg/dL (7-20); CALCIUM 9.6 mg/dL (8.4-10.2); CARBON DIOXIDE 27 mmol/L (22-30); CHLORIDE 103 mmol/L (98-107); GLUCOSE 95 mg/dL (75-110); POTASSIUM 4.1 mmol/L (3.6-5.0); SODIUM 139.9 mmol/L (137-145)
--- NOTE | 2018-01-07 07:34 | EKG REPORT ---
SEVERITY:- ABNORMAL ECG - SINUS RHYTHM LVH WITH SECONDARY REPOLARIZATION ABNORMALITY BORDERLINE INFERIOR Q WAVES : Confirmed by: Efraín Lloyd MD 07-Jan-2018 07:34:00
[2018-01-07] MEDS: FUROSEMIDE INJ/PF 40 MG/4 ML SDV IV SCH ×2 (10:13→21:40)
[2018-01-07] MEDS ORDERED: PROMETHAZINE HCL INJ 25 MG/1 ML VIAL IV PRN (12:00)
--- NOTE | 2018-01-07 17:02 | PDOC PROGRESS REPORT ---
Subjective Progress Note for:: 01/07/18 Subjective:: No reports of any adverse events overnight. This is a very pleasant lady who obviously has some sort of cognitive impairment, history of dementia as noted in the chart, and she cannot really provide me with anything in the way of a history. When I came in to see her they were getting her out of the bed and getting her situated into the chair at the bedside. She is very pleasant and smiles most of the time and mostly just responds "yeah." Reason For Visit: CHF EXACERBATION Physical Exam Vital Signs: Temp Pulse Resp BP Pulse Ox 98.5 F 66 20 150/63 H 97 01/07/18 08:24 01/07/18 15:48 01/07/18 15:48 01/07/18 08:24 01/07/18 15:48 Intake & Output 01/06/18 01/07/18 01/08/18 06:59 06:59 06:59 Output Total 925 Balance -925 Weight 99.3 kg General appearance: PRESENT: no acute distress, cooperative, disheveled, morbidly obese Teeth exam: PRESENT: poor dentation Neck exam: ABSENT: JVD Respiratory exam: PRESENT: decreased breath sounds, symmetrical, unlabored. ABSENT: accessory muscle use, rales, rhonchi, tachypnea, wheezes Cardiovascular exam: PRESENT: RRR, +S1, +S2. ABSENT: diastolic murmur, systolic murmur GI/Abdominal exam: PRESENT: normal bowel sounds, soft. ABSENT: guarding, rebound, tenderness Extremities exam: PRESENT: pedal edema, +1 edema - It was very tense and when I tried to press on her legs she went says if it was uncomfortable, more like trace edema instead of 1+. ABSENT: clubbing Musculoskeletal exam: PRESENT: normal inspection. ABSENT: deformity Neurological exam: PRESENT: alert, awake, oriented to person. ABSENT: oriented to place, oriented to time Results Laboratory Results: 01/07/18 06:11 01/07/18 06:11 01/07/18 01/07/18 06:11 06:11 WBC 9.5 RBC 3.89 Hgb 10.0 L Hct 30.0 L MCV 77 L MCH 25.6 L MCHC 33.2 RDW 19.0 H Plt Count 180 Sodium 139.9 Potassium 4.1 Chloride 103 Carbon Dioxide 27 Anion Gap 10 BUN 25 H Creatinine 1.46 H Est GFR ( Amer) 41 L Est GFR (Non-Af Amer) 34 L Glucose 95 Calcium 9.6 Magnesium 2.0 01/06/18 01/07/18 01/07/18 23:59 06:11 12:38 Troponin I 0.038 0.039 0.043 Impressions: Chest X-Ray 01/06/18 20:09 IMPRESSION: Cardiomegaly without pulmonary edema. Assessment & Plan - Diagnosis (1) Acute exacerbation of CHF (congestive heart failure) Qualifiers: Heart failure type: diastolic Qualified Code(s): I50.33 - Acute on chronic diastolic (congestive) heart failure Is this a current diagnosis for this admission?: Yes Plan: Her echocardiogram from back in August shows a preserved EF with pulmonary hypertension and RVSP of 43 mmHg, more indicative of diastolic failure. She does not appear terribly edematous at this time. We will continue to try to get some more fluid off of her, and she may be able to go home as early as tomorrow. She has been documented as having NYHA class I heart failure. - Time Time Spent with patient: 25-34 minutes
[2018-01-07] MEDS: HYDRALAZINE HCL INJ/PF 20 MG/1 ML SDV IV PRN (21:41)
[2018-01-08] MEDS: HEPARIN SOD (PORCINE) 5,000 UNIT/ML 1 ML SYRINGE SUBCUT SCH ×2 (06:45→16:03)
--- NOTE | 2018-01-08 10:18 | PDOC TRANSFER SUMMARY ---
General - Admit/Disc Date/PCP Admission Date/Primary Care Provider: 01/06/18 22:42 Discharge Date: 01/08/18 - Discharge Diagnosis (1) Acute exacerbation of CHF (congestive heart failure) Is this a current diagnosis for this admission?: Yes Summary: Responded very well to IV Lasix. Had 4500 mL diuresis yesterday. - Additional Information Resuscitation Status: Full Code Discharge Diet: Cardiac Discharge Activity: Other - resume previous level Home Medications: Amlodipine Besylate [Norvasc 10 mg Tablet] 10 mg PO DAILY 12/13/17 Citalopram Hydrobromide [Celexa 20 mg Tablet] 20 mg PO DAILY 12/13/17 Clonidine HCl [Catapres 0.1 mg Tablet] 0.1 mg PO Q12 12/13/17 Donepezil HCl [Aricept] 10 mg PO QHS 12/13/17 Furosemide [Lasix 40 mg Tablet] 40 mg PO DAILY 12/13/17 Hydralazine HCl 100 mg PO Q8 12/13/17 Levothyroxine Sodium [Synthroid 0.088 mg Tablet] 0.088 mg PO Q6AM 12/13/17 Memantine HCl [Namenda 10 mg Tablet] 10 mg PO BID 12/13/17 Metolazone [Zaroxolyn 2.5 mg Tablet] 2.5 mg PO MOWEFR@1000 12/13/17 Metoprolol Succinate [Toprol XL 100 mg Tablet] 100 mg PO Q12 12/13/17 Polyethylene Glycol 3350 [Miralax Powder 17 gm/Packet] 17 gm PO DAILY 12/13/17 Potassium Chloride [K-Tab ER] 20 meq PO DAILY 12/13/17 Risperidone [Risperdal] 0.5 mg PO BID 12/13/17 Ipratropium/Albuterol Sulfate [Duoneb 3 ml Ampul] 3 ml NEB RTQ3HP PRN vial.neb 12/18/17 Isosorbide Mononitrate [Imdur 30 mg Tablet.er] 30 mg PO DAILY tab.er.24h Acetaminophen [Tylenol 325 mg Tablet] 650 mg PO Q4HP PRN 01/07/18 Magnesium Hydroxide [Milk of Magnesia 30 ml Udcup] 30 ml PO BIDP PRN 01/07/18 History of Present Illness Admission Date/PCP: 01/06/18 22:42 History of Present Illness: BELKIS EUCEDA is a 87 year old female from a [facility] with extensive past medical history who comes to the emergency department complaining of shortness of breath for the last 2 days. Patient is a very poor historian and besides her shortness of breath, complains of orthopnea, very mild cough, chest pain that she cannot describe, also lower extremities edema that has been worsening. In the emergency department patient seems to be comfortable on 2 L oxygen via nasal cannula. Chest x-ray does not show any pulmonary edema. Troponins x1-. EKG has not been done. Patient is evidently orthopneic and is unable to lay down, is asking to be sitting on a chair. 40 mg of IV Lasix given. Dr. Mason Oshea is not longer her primary care physician, unknown who is now. Hospital Course Hospital Course: She looked to be harboring some peripheral edema, so she was treated with IV Lasix and experienced an excellent result. She will go back to the SNF on her usual medications. She needs daily weights checked, and Dr. Allen's office should be notified if she has more than 2-3 lbs weight gain in a day, or more than 4-5 lb in a week. She will follow up with Dr. Allen in 2 weeks. She was discharged today in good condition. Physical Exam Vital Signs: Temp Pulse Resp BP Pulse Ox 97.7 F 71 14 162/68 H 95 01/08/18 07:40 01/08/18 09:00 01/08/18 09:00 01/08/18 07:40 01/08/18 09:00 Intake & Output 01/07/18 01/08/18 01/09/18 06:59 06:59 06:59 Intake Total 1232 Output Total 081 9410 Balance -921 -1092 Weight 99.3 kg 100.7 kg General appearance: PRESENT: no acute distress, cooperative, disheveled, morbidly obese Teeth exam: PRESENT: poor dentation Neck exam: ABSENT: JVD Respiratory exam: PRESENT: decreased breath sounds, symmetrical, unlabored. ABSENT: accessory muscle use, rales, rhonchi, tachypnea, wheezes Cardiovascular exam: PRESENT: RRR, +S1, +S2. ABSENT: diastolic murmur, systolic murmur GI/Abdominal exam: PRESENT: normal bowel sounds, soft. ABSENT: guarding, rebound, tenderness Extremities exam: PRESENT: pedal edema, +1 edema - It was very tense and when I tried to press on her legs she went says if it was uncomfortable, more like trace edema instead of 1+. ABSENT: clubbing Musculoskeletal exam: PRESENT: normal inspection. ABSENT: deformity Neurological exam: PRESENT: alert, awake, oriented to person. ABSENT: oriented to place, oriented to time Results Laboratory Results: 01/07/18 06:11 01/07/18 06:11 01/06/18 01/07/18 01/07/18 23:59 06:11 12:38 Troponin I 0.038 0.039 0.043 01/07/18 17:57 Troponin I 0.041 Impressions: Chest X-Ray 01/06/18 20:09 IMPRESSION: Cardiomegaly without pulmonary edema. Transfer Plan - Disposition Transfer Plan: back to SNF. Follow up with Dr. Allen in 2 weeks. We need clarification on who is her primary care provider now that Dr. Mili Oshea is no longer seeing her. Qualifiers - * PATIENT BEING DISCHARGED WITH ANY OF THE FOLLOWING DIAGNOSIS: Heart Failure HF Pt being discharged on ACEI for LVEF less than 40%?: No Reason(s) for not prescribing ACEI:: Not indicated - HFpEF HF Pt being discharged on ARBS for LVEF less than 40%?: No Reason(s) for not prescribing ARBS:: Not indicated - HFpEF HF Pt with Afib discharged with Warfarin?: No Reason(s) for not prescribing Warfarin:: Not indicated - no afib HF Pt discharged on evidence-based Beta Ross:: Yes
[2018-01-08] MEDS: FUROSEMIDE INJ/PF 40 MG/4 ML SDV IV SCH (10:29)
[2018-01-08 14:16] VITALS: BP 168/79
[2018-01-08] MEDS: ACETAMINOPHEN 325 MG TABLET PO PRN (16:29)
[2018-01-08] MEDS: HYDRALAZINE HCL INJ/PF 20 MG/1 ML SDV IV PRN (16:30)
== END 2018-01-08 17:00 | DRG 292 ==
LOC: ER 20:02 → EH 22:42 → 5 01-07 00:30
PROVIDERS: ADMIT Internal Medicine; ATTEND Internal Medicine
PROC: 5A09357 Assistance with Respiratory Ventilation, Less than 24 Consecutive Hours, Continuous Positive Airway Pressure (ICD-10-PCS; principal; 2018-01-07)
DX: I11.0 Hypertensive heart disease with heart failure (principal); Z68.41 Body mass index [BMI] 40.0-44.9, adult; I50.33 Acute on chronic diastolic (congestive) heart failure; N18.3 Chronic kidney disease, stage 3 (moderate); E78.5 Hyperlipidemia, unspecified; K21.9 Gastro-esophageal reflux disease without esophagitis; G30.1 Alzheimer's disease with late onset; I48.0 Paroxysmal atrial fibrillation; F02.80 Dementia in other diseases classified elsewhere, unspecified severity, without behavioral disturbance, psychotic disturbance, mood disturbance, and anxiety; F32.9 Major depressive disorder, single episode, unspecified; E66.01 Morbid (severe) obesity due to excess calories; I25.10 Atherosclerotic heart disease of native coronary artery without angina pectoris; E03.9 Hypothyroidism, unspecified; I25.2 Old myocardial infarction; Z90.49 Acquired absence of other specified parts of digestive tract; Z95.0 Presence of cardiac pacemaker; Z79.899 Other long term (current) drug therapy; Z88.5 Allergy status to narcotic agent; Z88.8 Allergy status to other drugs, medicaments and biological substances; Z91.013 Allergy to seafood
CPT/HCPCS: 36415; 51702; 71045; 80048; 80053; 81001; 82550; 82553; 83735; 83880; 84484; 85025; 85027; 93005; 93010; 99285; J0360; J1644; J1940; J3490

== ENCOUNTER 2018-01-08 22:19 | Emergency (ER) | payer MEDICARE, MEDICAID ==
--- NOTE | 2018-01-09 00:07 | ER Document Report ---
ED General - General Chief Complaint: Foot Pain Stated Complaint: ABDOMINAL PAIN Time Seen by Provider: 01/08/18 23:12 Cannot obtain history due to: Dementia Notes: Patient presents by EMS apparently with a complaint of bilateral foot pain and itching. Patient is profoundly demented, unable to provide any significant history. She denies any complaints at the time of my assessment other than wanting more blankets. She denies any abdominal pain, leg pain, weakness, numbness, chest pain or shortness of breath. She states she does not know why she is here in the emergency department. TRAVEL OUTSIDE OF THE [place] IN LAST 30 DAYS: No - Related Data Allergies/Adverse Reactions: codeine [Codeine] Allergy (Verified 12/13/17 01:27) iodine [Iodine] Allergy (Verified 12/13/17:) Shellfish * [Shellfish] Allergy (Verified 12/13/17:) Past Medical History - General Information source: Patient, Emergency Med Personnel - Social History Smoking Status: Never Smoker Frequency of alcohol use: None Drug Abuse: None Lives with: [facility] Family History: Reviewed & Not Pertinent Patient has suicidal ideation: No Patient has homicidal ideation: No - Past Medical History Cardiac Medical History: Reports: Hx Atrial Fibrillation, Hx Congestive Heart Failure, Hx Heart Attack - The patient had an elevated troponin, but negative catheterization 03/03/13, Hx Hypercholesterolemia, Hx Hypertension Denies: Hx Coronary Artery Disease Pulmonary Medical History: Denies: Hx Asthma, Hx Bronchitis, Hx COPD, Hx Pneumonia, Hx Tuberculosis Neurological Medical History: Reports: Hx Cerebrovascular Accident, Hx Migraine. Denies: Hx Seizures Endocrine Medical History: Renal/ Medical History: Denies: Hx Peritoneal Dialysis GI Medical History: Reports: Hx Gastroesophageal Reflux Disease Musculoskeletal Medical History: Reports Hx Arthritis - was told patient has a broken back Psychiatric Medical History: Reports: Hx Dementia, Hx Depression Past Surgical History: Reports: Hx Appendectomy, Hx Cardiac Surgery - pacer/ defib, Hx Pacemaker. Denies: Hx Hysterectomy - Immunizations Hx Diphtheria, Pertussis, Tetanus Vaccination: No Hx Pneumococcal Vaccination: 09/28/13 Review of Systems - Review of Systems Notes: Constitutional: Negative for fever. HENT: Negative for sore throat. Eyes: Negative for visual changes. Cardiovascular: Negative for chest pain. Respiratory: Negative for shortness of breath. Gastrointestinal: Negative for abdominal pain, vomiting or diarrhea. Genitourinary: Negative for dysuria. Musculoskeletal: Negative for back pain. Skin: Negative for rash. Neurological: Negative for headaches, weakness or numbness. 10 point ROS negative except as marked above and in HPI. Physical Exam - Vital signs Vitals: Temp Pulse Resp BP Pulse Ox 98.1 F 78 18 116/52 L 100 01/08/18 22:28 01/08/18 22:28 01/08/18 22:28 01/08/18 22:28 01/08/18 22:28 Interpretation: Normal Notes: PHYSICAL EXAMINATION: GENERAL: Elderly, in no acute distress HEAD: Atraumatic, normocephalic. EYES: Pupils equal round and reactive to light, extraocular movements intact, sclera anicteric, conjunctiva are normal. ENT: nares patent, oropharynx clear without exudates. Moist mucous membranes. NECK: Normal range of motion, supple without lymphadenopathy LUNGS: Breath sounds clear to auscultation bilaterally and equal. No wheezes rales or rhonchi. HEART: Regular rate and rhythm without murmurs ABDOMEN: Soft, nontender, normoactive bowel sounds. No guarding, no rebound. No masses appreciated. EXTREMITIES: Normal range of motion, 2+ pitting edema in the bilateral lower extremities that is equal and symmetric, no cyanosis. NEUROLOGICAL: No focal neurological deficits. Moves all extremities spontaneously and on command. PSYCH: Alert, oriented only to person SKIN: Warm, Dry, normal turgor, no rashes or lesions noted. Course - Re-evaluation Re-evalutation: 01/09/18 00:04 Patient presents without any specific complaints to me although originally apparently complained to the paramedics and nursing staff about bilateral foot pain and itching. She denies this complaint at the time of my assessment. She also apparently originally complain of abdominal pain which she now denies. The patient only complains that she would like more blankets. Her exam is effectively unremarkable with the exception of bilateral lower extremity edema which is equal and symmetric, appears chronic in nature. Patient has a known history of congestive heart failure and chronic kidney disease. No evidence of cellulitis in the feet. Given the absence of any complaints at the time of my assessment. At this time will discharge with return precautions and follow-up recommendations. Verbal discharge instructions given a the bedside and opportunity for questions given. Medication warnings reviewed. Patient is in agreement with this plan and has verbalized understanding of return precautions and the need for primary care follow-up in the next 24-72 hours. - Vital Signs Vital signs: Temp Pulse Resp BP Pulse Ox 98.1 F 78 18 116/52 L 100 01/08/18 22:28 01/08/18 22:28 01/08/18 22:28 01/08/18 22:28 01/08/18 22:28 Discharge - Discharge Clinical Impression: Pedal edema, Foot pain, bilateral Condition: Good Disposition: HOME, SELF-CARE Additional Instructions: Please return to the emergency room immediately if you experience any concerning symptoms including high fevers, severe headache, chest pain, difficulty breathing, abdominal pain, slurred speech, numbness or weakness in your arms or legs, or any other symptom that concerns you. Referrals: SUDHIR KRAUSE MD [Primary Care Provider] - Follow up as needed
[2018-01-09 01:19] VITALS: BP 155/65
== END 2018-01-09 01:25 ==
LOC: ER 22:19
DX: M79.671 Pain in right foot (principal); M79.672 Pain in left foot; L29.9 Pruritus, unspecified; R60.0 Localized edema; F03.90 Unspecified dementia, unspecified severity, without behavioral disturbance, psychotic disturbance, mood disturbance, and anxiety; I10 Essential (primary) hypertension; Z88.5 Allergy status to narcotic agent; Z91.013 Allergy to seafood
CPT/HCPCS: 99283

== ENCOUNTER 2018-02-04 18:14 | Emergency (ER) | payer MEDICARE, MEDICAID ==
[2018-02-04] MEDS ORDERED: ASPIRIN 81 MG TABLET, CHEWABLE PO ONE (18:40)
[2018-02-04] MEDS ORDERED: FUROSEMIDE INJ/PF 40 MG/4 ML SDV IV ONE (18:53)
--- NOTE | 2018-02-04 18:54 | ER Document Report ---
ED General - General Stated Complaint: CHEST PAIN Time Seen by Provider: 02/04/18 18:26 Mode of Arrival: Ambulatory Information source: Patient Notes: Patient sent from her nursing facility for complaints of chest pain. Patient walked out of her room at the nursing facility and said that she was having chest pressure. EMS contacted. Patient was given aspirin, nitro in route. Patient is a very poor historian in the emergency department. Denies any current chest pain. Denies shortness of breath. Just says that she needs to urinate. Patient does have 1+ lower extremity pitting edema. Hx of CHF. TRAVEL OUTSIDE OF THE [place] IN LAST 30 DAYS: No - HPI Onset: Just prior to arrival Onset/Duration: Sudden Quality of pain: Pressure Associated symptoms: None Exacerbated by: Denies Relieved by: Denies - Related Data Allergies/Adverse Reactions: codeine [Codeine] Allergy (Verified 12/13/17 01:27) iodine [Iodine] Allergy (Verified 12/13/17 01:27) Shellfish * [Shellfish] Allergy (Verified 12/13/17 01:27) Past Medical History - General Information source: Patient - Social History Smoking Status: Unknown if Ever Smoked Family History: Reviewed & Not Pertinent - Past Medical History Cardiac Medical History: Reports: Hx Atrial Fibrillation, Hx Congestive Heart Failure, Hx Heart Attack - The patient had an elevated troponin, but negative catheterization 03/03/13, Hx Hypercholesterolemia, Hx Hypertension Denies: Hx Coronary Artery Disease Pulmonary Medical History: Denies: Hx Asthma, Hx Bronchitis, Hx COPD, Hx Pneumonia, Hx Tuberculosis Neurological Medical History: Reports: Hx Cerebrovascular Accident, Hx Migraine. Denies: Hx Seizures Endocrine Medical History: Renal/ Medical History: Denies: Hx Peritoneal Dialysis GI Medical History: Reports: Hx Gastroesophageal Reflux Disease Musculoskeletal Medical History: Reports Hx Arthritis - was told patient has a broken back Psychiatric Medical History: Reports: Hx Dementia, Hx Depression Past Surgical History: Reports: Hx Appendectomy, Hx Cardiac Surgery - pacer/ defib, Hx Pacemaker. Denies: Hx Hysterectomy - Immunizations Hx Diphtheria, Pertussis, Tetanus Vaccination: No Hx Pneumococcal Vaccination: 09/28/13 Review of Systems - Review of Systems Constitutional: No symptoms reported EENT: No symptoms reported Cardiovascular: Chest pain Respiratory: No symptoms reported Gastrointestinal: No symptoms reported Genitourinary: No symptoms reported Female Genitourinary: No symptoms reported Musculoskeletal: No symptoms reported Skin: No symptoms reported Hematologic/Lymphatic: No symptoms reported Neurological/Psychological: No symptoms reported -: Yes All other systems reviewed and negative Physical Exam - Vital signs Vitals: Pulse Ox 99 02/04/18 18:26 - Notes Notes: PHYSICAL EXAMINATION: GENERAL: Well-appearing, well-nourished and in no acute distress. HEAD: Atraumatic, normocephalic. EYES: Pupils equal round and reactive to light, extraocular movements intact, conjunctiva are normal. ENT: Nares patent, oropharynx clear without exudates. Moist mucous membranes. NECK: Normal range of motion, supple without lymphadenopathy LUNGS: Breath sounds clear to auscultation bilaterally and equal. No wheezes rales or rhonchi. HEART: Regular rate and rhythm without murmurs ABDOMEN: Soft, nontender, nondistended abdomen. No guarding, no rebound. No masses appreciated. Female : deferred Musculoskeletal: Normal range of motion, 1+ pitting edema. No cyanosis. NEUROLOGICAL: Cranial nerves grossly intact. Normal speech, normal gait. Normal sensory, motor exams PSYCH: Normal mood, normal affect. SKIN: Warm, Dry, normal turgor, no rashes or lesions noted. Course - Re-evaluation Re-evalutation: 02/04/18 18:56 EKG: Ventricular rate 60, PA interval 192, castration 92, QTc 460, atrial paced rhythm. No ST segment elevation. 02/04/18 20:31 On re-evaluation, patient is resting comfortably in the room. No distress. Given lasix for the lower extremity pitting edema with history of CHF. CXR does not show an acute process. Troponin and creatinine are comparable to previous values. BNP elevated but patient is not having difficulty breathing and chest xray does not show an acute process. Family at bedside. They say that she's doing better. She has no complaints. 2 sets of cardiac enzymes obtained. 2nd troponin trending down. I will discharge the patient home. Patient and her family were told to follow up with the family physician this week, to continue taking medication as directed, and to return for worsening symptoms. 02/04/18 22:50 02/04/18 22:52 - Vital Signs Vital signs: Temp Pulse Resp BP Pulse Ox 97.8 F 22 H 146/83 H 95 02/04/18 18:58 02/04/18 21:31 02/04/18 21:31 02/04/18 21:31 - Laboratory Result Diagrams: 02/04/18 18:45 02/04/18 18:45 Laboratory results interpreted by me: 02/04/18 02/04/18 02/04/18 18:45 18:45 18:45 RBC 3.37 L Hgb 8.8 L Hct 27.1 L MCH 26.1 L RDW 20.2 H BUN 43 H Creatinine 1.78 H Est GFR ( Amer) 33 L Est GFR (Non-Af Amer) 27 L Glucose 138 H NT-Pro-B Natriuret Pep 6350 H Total Protein 8.4 H Discharge - Discharge Clinical Impression: Chest pain Qualifiers: Chest pain type: unspecified Qualified Code(s): R07.9 - Chest pain, unspecified Condition: Good Disposition: HOME, SELF-CARE Instructions: Chest Pain of Unclear Cause ([facility]) Referrals: SUDHIR KRAUSE MD [Primary Care Provider] - Follow up as needed
[2018-02-04 18:55] LABS: ABSOLUTE EOSINOPHILS # (AUTO) 0.3 10^3/uL (0.0-0.6); ABSOLUTE MONOCYTES (AUTO) 0.7 10^3/uL (0.1-1.4); ABSOLUTE NEUT (AUTO) 4.9 10^3/uL (1.7-8.2); EOSINOPHILS % (AUTO) 3.7 % (0-6); HEMATOCRIT 27.1 % (36.0-47.0); HEMOGLOBIN 8.8 g/dL (12.0-15.5); MEAN CORPUSCULAR HEMOGLOBIN 26.1 pg (27.0-33.4)
--- NOTE | 2018-02-04 19:03 | RADIOLOGY REPORT (SQ) ---
EXAM DESCRIPTION: CHEST SINGLE VIEW COMPLETED DATE/TIME: 02/04/2018 6:51 pm REASON FOR STUDY: chest pain COMPARISON: 01/06/2018 TECHNIQUE: Single frontal radiographic view of the chest acquired. NUMBER OF VIEWS: One view. LIMITATIONS: None. FINDINGS: LUNGS AND PLEURA: No pneumothorax. No consolidation or pleural effusion. MEDIASTINUM AND HILAR STRUCTURES: Stable. HEART AND VASCULAR STRUCTURES: Similar cardiomegaly. BONES: No acute findings. HARDWARE: Cardiac defibrillator. OTHER: No other significant finding. IMPRESSION: NO ACUTE FINDINGS. TECHNICAL DOCUMENTATION: JOB ID: [id number] [place]-72 2010 [employer]- All Rights Reserved Reading location - IP/workstation name: [email or web address]
[2018-02-04 19:21] LABS: ABSOLUTE BASOPHILS # (AUTO) 0.1 10^3/uL (0.0-0.2); ABSOLUTE LYMPHOCYTES (AUTO) 1.6 10^3/uL (0.5-4.7); BASOPHILS % (AUTO) 0.7 % (0-2); LYMPHOCYTES % (AUTO) 21.1 % (13-45); MEAN CORPUSCULAR HGB CONC 32.5 g/dL (32.0-36.0); MEAN CORPUSCULAR VOLUME 80 fl (80-97); MONOCYTES % (AUTO) 9.1 % (3-13); PLATELET COUNT 175 10^3/uL (150-450); RED BLOOD COUNT 3.37 10^6/uL (3.72-5.28); RED CELL DISTRIBUTION WIDTH 20.2 % (11.5-14.0); SEGMENTED NEUTROPHILS % (AUTO) 65.4 % (42-78); TOTAL CELLS COUNTED % (AUTO) 100 %; WHITE BLOOD COUNT 7.5 10^3/uL (4.0-10.5)
[2018-02-04 19:25] LABS: ALANINE AMINOTRANSFERASE 13 U/L (9-52); ALBUMIN 3.8 g/dL (3.5-5.0); ALKALINE PHOSPHATASE 99 U/L (38-126); ANION GAP 11 (5-19); ASPARTATE AMINO TRANSFERASE 20 U/L (14-36); BILIRUBIN,DIRECT 0.3 mg/dL (0.0-0.4); BILIRUBIN,TOTAL 0.3 mg/dL (0.2-1.3); BLOOD UREA NITROGEN 43 mg/dL (7-20); CALCIUM 9.5 mg/dL (8.4-10.2); CARBON DIOXIDE 29 mmol/L (22-30); CHLORIDE 103 mmol/L (98-107); GLUCOSE 138 mg/dL (75-110); SODIUM 142.5 mmol/L (137-145); TOTAL PROTEIN 8.4 g/dL (6.3-8.2)
[2018-02-04 19:44] LABS: TROPONIN I 0.044 ng/mL
[2018-02-04 21:56] VITALS: BP 146/83
--- NOTE | 2018-02-05 10:38 | EKG REPORT ---
SEVERITY:- ABNORMAL ECG - ATRIAL-PACED RHYTHM NONSPECIFIC T ABNORMALITIES, LATERAL LEADS : Confirmed by: Ok Nash 05-Feb-2018 10:37:48
== END 2018-02-04 23:49 | disposition home or self-care (01) ==
LOC: ER 18:14
DX: R07.9 Chest pain, unspecified (principal); I48.91 Unspecified atrial fibrillation; I50.9 Heart failure, unspecified; I11.0 Hypertensive heart disease with heart failure; Z88.6 Allergy status to analgesic agent; Z91.013 Allergy to seafood; I25.2 Old myocardial infarction; Z95.810 Presence of automatic (implantable) cardiac defibrillator
CPT/HCPCS: 93005; 99285; 96374; 36415; 85025; 80053; 84484; 83880; 71045; 93010; J1940

== ENCOUNTER 2018-02-16 11:59 | Emergency (ER) | payer MEDICARE, MEDICAID ==
--- NOTE | 2018-02-16 13:00 | ER Document Report ---
ED General - General Chief Complaint: Foot Injury Stated Complaint: POSSIBLE ABSCESS Time Seen by Provider: 02/16/18 12:20 Notes: Patient is a 87-year-old female that presents to the emergency department for chief complaint of left leg pain and swelling. Patient is a poor historian, according to facility notes, the patient has had pain in her left lower leg, they noticed the wound, that had some drainage so the felt it may be infected so they brought her to the emergency department. Patient states she has been having pain and has been difficult to move her legs, because of the swelling associated with it. She noticed a wound on the outside of her leg, she is not sure how long it has been there. Denies any fevers, chills, night sweats, chest pain, shortness of breath, nausea, vomiting or abdominal pain. Past Medical History: Atrial fibrillation, CHF, chronic kidney disease, dementia , hypertension, hypothyroidism Past Surgical History: Reviewed and not pertinent for current presentation Social History: Denies current tobacco, alcohol or drug use, currently lives at a skilled facility. Family History: Reviewed and noncontributory for presenting illness Allergies: Reviewed, see documented allergy list. REVIEW OF SYSTEMS: Other than noted above, the 12 point review of systems was reviewed with the patient and were negative, all pertinent findings are included in the HPI. PHYSICAL EXAMINATION: Vital signs reviewed, nursing noted reviewed. GENERAL: Elderly female, chronically ill appearing, no acute distress. HEAD: Atraumatic, normocephalic. EYES: Eyes appear normal, extraocular movements intact, sclera anicteric, conjunctiva are normal. ENT: nares patent, oropharynx clear without exudates. Moist mucous membranes. Patient is rather hard of hearing. NECK: Normal range of motion, supple without lymphadenopathy LUNGS: Breath sounds clear to auscultation bilaterally and equal. No wheezes rales or rhonchi. HEART: Regular rate and rhythm without murmurs ABDOMEN: Soft, obese, nontender, normoactive bowel sounds. No rebound, guarding , or rigidity. No masses appreciated. EXTREMITIES: Patient has bilateral 3+ pitting edema to the upper thigh, appears to be chronic in nature, chronic stasis changes noted, slightly worse on the left compared to the right, there is a lateral wound on the left lower extremity , it appears to be consistent with a venous stasis wound, no surrounding erythema, nontender to palpate. The rest of the patient's extremity exam is unremarkable. NEUROLOGICAL: No focal neurological deficits. Moves all extremities spontaneously Motor and sensory grossly intact on exam. PSYCH: Normal mood, normal affect. SKIN: Warm, Dry, normal turgor, no rashes TRAVEL OUTSIDE OF THE [place] IN LAST 30 DAYS: No - Related Data Allergies/Adverse Reactions: codeine [Codeine] Allergy (Verified 12/13/17:) iodine [Iodine] Allergy (Verified 12/13/17:) Shellfish * [Shellfish] Allergy (Verified 12/13/17:) Past Medical History - Social History Smoking Status: Never Smoker Frequency of alcohol use: None Drug Abuse: None Family History: Reviewed & Not Pertinent Patient has suicidal ideation: No Patient has homicidal ideation: No - Past Medical History Cardiac Medical History: Reports: Hx Atrial Fibrillation, Hx Congestive Heart Failure, Hx Heart Attack - The patient had an elevated troponin, but negative catheterization 03/03/13, Hx Hypercholesterolemia, Hx Hypertension Denies: Hx Coronary Artery Disease Pulmonary Medical History: Denies: Hx Asthma, Hx Bronchitis, Hx COPD, Hx Pneumonia, Hx Tuberculosis Neurological Medical History: Reports: Hx Cerebrovascular Accident, Hx Migraine. Denies: Hx Seizures Endocrine Medical History: Renal/ Medical History: Denies: Hx Peritoneal Dialysis GI Medical History: Reports: Hx Gastroesophageal Reflux Disease Musculoskeletal Medical History: Reports Hx Arthritis - was told patient has a broken back Psychiatric Medical History: Reports: Hx Dementia, Hx Depression Past Surgical History: Reports: Hx Appendectomy, Hx Cardiac Surgery - pacer/ defib, Hx Pacemaker. Denies: Hx Hysterectomy - Immunizations Hx Diphtheria, Pertussis, Tetanus Vaccination: No Hx Pneumococcal Vaccination: 09/28/13 Physical Exam - Vital signs Vitals: Temp Pulse Resp BP Pulse Ox 97.8 F 59 L 16 125/79 98 02/16/18 12:06 02/16/18 12:06 02/16/18 12:06 02/16/18 12:06 02/16/18 12:06 Course - Re-evaluation Re-evalutation: Patient seen and examined vital signs reviewed. Laboratory data and imaging were ordered as appropriate for the patient's presenting symptoms and complaint, with consideration of any critical or life threatening conditions that may be associated with their obtained history and exam as noted above. Patient was treated with doxycycline Results were reviewed when available and demonstrated negative duplex imaging of the left lower extremity, no DVT or SVT The patient was re-evaluated and was stable, blood work did not reveal any leukocytosis, she had baseline anemia from her chronic kidney disease, her BUN/ creatinine were around her baseline as well, patient's wound seems most consistent with a chronic stasis ulcer, perhaps just worse, and started to have drainage, will discharge her home on doxycycline for 10 days, advised follow-up with wound care. Results were discussed with the patient at this point, after careful consideration I feel that that patient can be discharged from the emergency department, the patient was educated treatments and reasons to return to the emergency department based on their presumed diagnosis as noted above, they were advised to followup with a primary care physician in 2-3 days. Patient was agreeable to plan of care. *Note is created using voice recognition software and may contain spelling, syntax or grammatical errors. Laboratory 02/16/18 02/16/18 16:17 16:17 WBC 7.5 RBC 3.41 L Hgb 9.0 L Hct 27.7 L MCV 81 MCH 26.3 L MCHC 32.4 RDW 19.8 H Plt Count 209 Seg Neutrophils % 72.5 Lymphocytes % 17.3 Monocytes % 6.7 Eosinophils % 2.7 Basophils % 0.8 Absolute Neutrophils 5.4 Absolute Lymphocytes 1.3 Absolute Monocytes 0.5 Absolute Eosinophils 0.2 Absolute Basophils 0.1 Sodium 145.0 Potassium 4.6 Chloride 100 Carbon Dioxide 33 H Anion Gap 12 BUN 52 H Creatinine 2.04 H Est GFR ( Amer) 28 L Est GFR (Non-Af Amer) 23 L Glucose 99 Calcium 9.3 Venous Doppler Study 02/16/18 13:14 IMPRESSION: NO EVIDENCE OF DVT OR SVT IN THE LEFT LEG. - Vital Signs Vital signs: Temp Pulse Resp BP Pulse Ox 97.8 F 59 L 16 125/79 98 02/16/18 12:06 02/16/18 12:06 02/16/18 12:06 02/16/18 12:06 02/16/18 12:06 - Laboratory Result Diagrams: 02/16/18 16:17 02/16/18 16:17 Laboratory results interpreted by me: 02/16/18 02/16/18 16:17 16:17 RBC 3.41 L Hgb 9.0 L Hct 27.7 L MCH 26.3 L RDW 19.8 H Carbon Dioxide 33 H BUN 52 H Creatinine 2.04 H Est GFR ( Amer) 28 L Est GFR (Non-Af Amer) 23 L Discharge - Discharge Clinical Impression: Venous ulcer of left leg Cellulitis Qualifiers: Site of cellulitis: extremity Site of cellulitis of extremity: lower extremity Laterality: left Qualified Code(s): L03.116 - Cellulitis of left lower limb Condition: Stable Disposition: HOME, SELF-CARE Instructions: Cellulitis ([facility]) Additional Instructions: Please take the antibiotics as prescribed, he may need to follow-up with the wound care center, which phone number is provided, please finish the full course of antibiotics, you may take Tylenol 1000mg 3 times daily for your pain. Attempt to keep your leg elevated as much as possible to help with any swelling. Prescriptions: Doxycycline Hyclate 100 mg PO BID #20 capsule Referrals: JEFF TIJERINA MD [Primary Care Provider] - Follow up in 3-5 days [facility] [Provider Group] - Follow up in 3-5 days
[2018-02-16] MEDS ORDERED: DOXYCYCLINE HYCLATE INJ 100 MG VIAL IV ONE (14:00)
--- NOTE | 2018-02-16 15:47 | RADIOLOGY REPORT (SQ) ---
EXAM DESCRIPTION: VENOUS UNILATERAL LOWER COMPLETED DATE/TIME: 02/16/2018 3:35 pm REASON FOR STUDY: pain left leg, swelling COMPARISON: None. TECHNIQUE: Dynamic and static lares scale and color images acquired of the left leg venous system. Se lected spectral images acquired with additional compression and augmentation maneuvers. The contralat eral common femoral vein and saphenofemoral junction were also imaged. Images stored on PACS. LIMITATIONS: None. FINDINGS: COMMON FEMORAL: Normal phasicity, compression and augmentation. No visualized echogenic ma terial on lares scale. No defects on color images. FEMORAL: Normal compression and augmentation. No visualized echogenic material on lares scale. No defe cts on color images. POPLITEAL: Normal compression, augmentation. No visualized echogenic material on lares scale. No defec ts on color images. CALF VESSELS: Normal compression, augmentation. No visualized echogenic material on lares scale. No de fects on color images. GSV and SSV: Normal compression, augmentation. No visualized echogenic material on lares scale. No def ects on color images. ANY DEEP VENOUS INSUFFICIENCY: Not evaluated. ANY EVIDENCE OF POPLITEAL CYST: No. OTHER: No other significant finding. CONTRALATERAL COMMON FEMORAL VEIN AND SAPHENOFEMORAL JUNCTION: Normal phasicity, compression and augmentation. No visualized echogenic material on lares scale. No de fects on color images. IMPRESSION: NO EVIDENCE OF DVT OR SVT IN THE LEFT LEG. TECHNICAL DOCUMENTATION: JOB ID: [id number] [employer]- All Rights Reserved Reading location - IP/workstation name: [email or web address]
[2018-02-16] MEDS ORDERED: DOXYCYCLINE HYCLATE 100 MG TABLET PO ONE (16:08)
[2018-02-16 16:27] LABS: ABSOLUTE BASOPHILS # (AUTO) 0.1 10^3/uL (0.0-0.2); ABSOLUTE EOSINOPHILS # (AUTO) 0.2 10^3/uL (0.0-0.6); ABSOLUTE LYMPHOCYTES (AUTO) 1.3 10^3/uL (0.5-4.7); ABSOLUTE MONOCYTES (AUTO) 0.5 10^3/uL (0.1-1.4); ABSOLUTE NEUT (AUTO) 5.4 10^3/uL (1.7-8.2); BASOPHILS % (AUTO) 0.8 % (0-2); EOSINOPHILS % (AUTO) 2.7 % (0-6); HEMATOCRIT 27.7 % (36.0-47.0); LYMPHOCYTES % (AUTO) 17.3 % (13-45); MEAN CORPUSCULAR HEMOGLOBIN 26.3 pg (27.0-33.4); MEAN CORPUSCULAR HGB CONC 32.4 g/dL (32.0-36.0); MEAN CORPUSCULAR VOLUME 81 fl (80-97); MONOCYTES % (AUTO) 6.7 % (3-13); PLATELET COUNT 209 10^3/uL (150-450); RED BLOOD COUNT 3.41 10^6/uL (3.72-5.28); RED CELL DISTRIBUTION WIDTH 19.8 % (11.5-14.0); SEGMENTED NEUTROPHILS % (AUTO) 72.5 % (42-78); TOTAL CELLS COUNTED % (AUTO) 100 %; WHITE BLOOD COUNT 7.5 10^3/uL (4.0-10.5)
[2018-02-16 16:46] LABS: ANION GAP 12 (5-19); BLOOD UREA NITROGEN 52 mg/dL (7-20); CALCIUM 9.3 mg/dL (8.4-10.2); CARBON DIOXIDE 33 mmol/L (22-30); CHLORIDE 100 mmol/L (98-107); GLUCOSE 99 mg/dL (75-110); POTASSIUM 4.6 mmol/L (3.6-5.0)
[2018-02-16 18:36] VITALS: BP 150/77
== END 2018-02-16 17:50 | disposition home or self-care (01) ==
LOC: ER 11:59
DX: I83.029 Varicose veins of left lower extremity with ulcer of unspecified site (principal); L97.929 Non-pressure chronic ulcer of unspecified part of left lower leg with unspecified severity; L03.116 Cellulitis of left lower limb; I13.0 Hypertensive heart and chronic kidney disease with heart failure and stage 1 through stage 4 chronic kidney disease, or unspecified chronic kidney disease; N18.9 Chronic kidney disease, unspecified; I50.9 Heart failure, unspecified; I48.91 Unspecified atrial fibrillation; Z95.810 Presence of automatic (implantable) cardiac defibrillator
CPT/HCPCS: 99284; 36415; 85025; 80048; 93971; A9270

== ENCOUNTER 2018-03-30 14:25 | Inpatient (IN) | payer MEDICARE, MEDICAID ==
[2018-03-30 15:01] LABS: ABSOLUTE BASOPHILS # (AUTO) 0.1 10^3/uL (0.0-0.2); ABSOLUTE EOSINOPHILS # (AUTO) 0.1 10^3/uL (0.0-0.6); ABSOLUTE LYMPHOCYTES (AUTO) 0.9 10^3/uL (0.5-4.7); ABSOLUTE MONOCYTES (AUTO) 0.6 10^3/uL (0.1-1.4); ABSOLUTE NEUT (AUTO) 4.8 10^3/uL (1.7-8.2); BASOPHILS % (AUTO) 0.8 % (0-2); EOSINOPHILS % (AUTO) 1.1 % (0-6); HEMATOCRIT 26.8 % (36.0-47.0); HEMOGLOBIN 8.6 g/dL (12.0-15.5); LYMPHOCYTES % (AUTO) 14.7 % (13-45); MEAN CORPUSCULAR HEMOGLOBIN 25.7 pg (27.0-33.4); MEAN CORPUSCULAR HGB CONC 32.3 g/dL (32.0-36.0); MEAN CORPUSCULAR VOLUME 80 fl (80-97); MONOCYTES % (AUTO) 8.9 % (3-13); PLATELET COUNT 186 10^3/uL (150-450); RED BLOOD COUNT 3.37 10^6/uL (3.72-5.28); RED CELL DISTRIBUTION WIDTH 17.7 % (11.5-14.0); SEGMENTED NEUTROPHILS % (AUTO) 74.5 % (42-78); TOTAL CELLS COUNTED % (AUTO) 100 %; WHITE BLOOD COUNT 6.4 10^3/uL (4.0-10.5)
--- NOTE | 2018-03-30 15:03 | ER Document Report ---
ED General - General Stated Complaint: DIFFICULTY BREATHING Time Seen by Provider: 03/30/18 14:35 Mode of Arrival: Medic - This is an 87-year-old female who presents from a retirement facility that presents for evaluation of shortness of breath as well as abdominal swelling. She has no known history of abdominal swelling in the past. Rest of history is limited secondary to this patient's dementia. Information source: Emergency Med Personnel, [facility] Records Cannot obtain history due to: Dementia TRAVEL OUTSIDE OF THE [place] IN LAST 30 DAYS: No - HPI Patient complains to provider of: short of breath Onset: Other - This is an 87-year-old female presents for shortness of breathThis is an 87-year-old female who presents from a retirement facility that presents for evaluation of shortness of breath as well as abdominal sw elling. She has no known history of abdominal swelling in the past. Rest of history is limited secondary to this patient's dementia. - Related Data Allergies/Adverse Reactions: codeine [Codeine] Allergy (Verified 12/13/17 01:27) iodine [Iodine] Allergy (Verified 12/13/17 01:27) Shellfish * [Shellfish] Allergy (Verified 12/13/17 01:27) Past Medical History - General Information source: Emergency Med Personnel, [facility] Records Cannot obtain history due to: Dementia - Social History Smoking Status: Unknown if Ever Smoked Family History: Reviewed & Not Pertinent - Past Medical History Cardiac Medical History: Reports: Hx Atrial Fibrillation, Hx Congestive Heart Failure, Hx Heart Attack - The patient had an elevated troponin, but negative catheterization 03/03/13, Hx Hypercholesterolemia, Hx Hypertension Denies: Hx Coronary Artery Disease Pulmonary Medical History: Denies: Hx Asthma, Hx Bronchitis, Hx COPD, Hx Pneumonia, Hx Tuberculosis Neurological Medical History: Reports: Hx Cerebrovascular Accident, Hx Migraine. Denies: Hx Seizures Endocrine Medical History: Renal/ Medical History: Denies: Hx Peritoneal Dialysis GI Medical History: Reports: Hx Gastroesophageal Reflux Disease Musculoskeletal Medical History: Reports Hx Arthritis - was told patient has a broken back Psychiatric Medical History: Reports: Hx Dementia, Hx Depression Past Surgical History: Reports: Hx Appendectomy, Hx Cardiac Surgery - pacer/defib, Hx Pacemaker. Denies: Hx Hysterectomy - Immunizations Hx Diphtheria, Pertussis, Tetanus Vaccination: No Hx Pneumococcal Vaccination: 09/28/13 Review of Systems - Review of Systems -: Yes ROS unobtainable due to patient's medical condition Physical Exam - Vital signs Vitals: Resp 12 03/30/18 14:38 Interpretation: Hypoxic - General General appearance: Appears well In distress: Mild - HEENT Head: Normocephalic Eyes: Normal Conjunctiva: Normal Cornea: Normal Extraocular movements intact: No - Respiratory Respiratory status: No respiratory distress Chest status: Nontender Breath sounds: Normal Chest palpation: Normal - Cardiovascular Rhythm: Regular Heart sounds: Normal auscultation Murmur: No - Abdominal Inspection: Obese Distension: No distension Tenderness: Nontender - Back Back: Normal, Nontender - Extremities General upper extremity: Normal inspection, Nontender General lower extremity: Edema - +2 pitting edema in the lower extremities - Neurological Neuro grossly intact: No Cognition: Confused, Inattentive Orientation: Disoriented to person, Disoriented to place, Disoriented to time Kaleb Coma Scale Eye Opening: Spontaneous Golf Coma Scale Verbal: Confused Kaleb Coma Scale Motor: Localizes to Pain Golf Coma Scale Total: 13 Speech: Normal Motor strength normal: LUE, RUE, LLE, RLE - Psychological Associated symptoms: Confused, Flat affect Course - Re-evaluation Re-evalutation: 87-year-old female presents for abdominal distention as well as shortness of breath. Of note this patient's weight has fluctuated wildly but generally appears to have a dry weight somewhere around the 80 kg range. Today she is 109 kg, she demonstrates obvious swelling and edema all the way from the lower extremities into the back and abdomen. Her abdomen is slightly rounded lightly tender. She does have an elevated BNP as she is grossly fluid overloaded has an elevated creatinine and some LFT I worry that this could represent congestion related to cardiac origin. She does have an echo which was performed approximately 8 months prior which time she had a normal left ventricular ejection fraction however she is on a diuretic. We will obtain an x-ray of the chest will obtain a CT of the abdomen given this patient's abdominal rounding distention. We will administer Lasix IV because of the patient's poor continence and inability to move will insert a Amezquita catheter. Have contacted the on-call hospitalist for evaluation and admission of this pat ient. She will be admitted for further monitoring telemetry monitoring and fluid status monitoring. Dr. Waters has agreed to the evaluation of this patient. - Vital Signs Vital signs: Temp Pulse Resp BP Pulse Ox 97 F L 66 17 147/99 H 98 03/30/18 15:00 03/30/18 22:59 03/30/18 21:02 03/30/18 21:02 03/30/18 21:02 - Laboratory Result Diagrams: 03/30/18 14:34 03/30/18 14:34 Laboratory results interpreted by me: 03/30/18 03/30/18 03/30/18 14:34 14:34 14:34 RBC 3.37 L Hgb 8.6 L Hct 26.8 L MCH 25.7 L RDW 17.7 H BUN 67 H Creatinine 2.44 H Est GFR ( Amer) 23 L Est GFR (Non-Af Amer) 19 L Glucose 136 H Lactic Acid AST 37 H Alkaline Phosphatase 128 H NT-Pro-B Natriuret Pep 5790 H Total Protein 9.2 H Ur Leukocyte Esterase 03/30/18 03/30/18 14:34 15:53 RBC Hgb Hct MCH RDW BUN Creatinine Est GFR ( Amer) Est GFR (Non-Af Amer) Glucose Lactic Acid 2.5 H AST Alkaline Phosphatase NT-Pro-B Natriuret Pep Total Protein Ur Leukocyte Esterase SMALL H Discharge - Discharge Clinical Impression: Acute pulmonary edema Edema Qualifiers: Edema type: unspecified Qualified Code(s): R60.9 - Edema, unspecified CKD (chronic kidney disease) Qualifiers: Chronic kidney disease stage: unspecified stage Qualified Code(s): N18.9 - Chronic kidney disease, unspecified Condition: Stable Disposition: ADMITTED INPATIENT Admitting Provider: Hospitalist Unit Admitted: Telemetry
[2018-03-30 15:31] LABS: ALANINE AMINOTRANSFERASE 19 U/L (9-52); ALBUMIN 4.4 g/dL (3.5-5.0); ALKALINE PHOSPHATASE 128 U/L (38-126); ANION GAP 12 (5-19); ASPARTATE AMINO TRANSFERASE 37 U/L (14-36); BILIRUBIN,DIRECT 0.3 mg/dL (0.0-0.4); BILIRUBIN,TOTAL 0.5 mg/dL (0.2-1.3); BLOOD UREA NITROGEN 67 mg/dL (7-20); CALCIUM 9.2 mg/dL (8.4-10.2); CARBON DIOXIDE 29 mmol/L (22-30); CHLORIDE 101 mmol/L (98-107); CREATINE KINASE 76 U/L (30-135); GLUCOSE 136 mg/dL (75-110); LIPASE 280.4 U/L (23-300); POTASSIUM 4.3 mmol/L (3.6-5.0); SODIUM 141.5 mmol/L (137-145); TOTAL PROTEIN 9.2 g/dL (6.3-8.2)
[2018-03-30 15:37] LABS: VENOUS BLOOD BASE EXCESS 0.8 mmol/L; VENOUS BLOOD HCO3 26.9 mmol/L (20-32); VENOUS BLOOD PCO2 47.7 mmHg (35-63); VENOUS BLOOD PH 7.37 (7.30-7.42)
[2018-03-30 15:39] LABS: TROPONIN I 0.033 ng/mL
[2018-03-30] MEDS ORDERED: FUROSEMIDE INJ/PF 100 MG/10 ML SDV IV ONE (15:45)
[2018-03-30 16:20] LABS: APPEARANCE,URINE CLOUDY; BILIRUBIN,URINE NEGATIVE (NEGATIVE); COLOR,URINE YELLOW; GLUCOSE, URINE NEGATIVE (NEGATIVE); KETONES,URINE NEGATIVE (NEGATIVE); LEUKOCYTE ESTERASE,URINE SMALL (NEGATIVE); NITRITE,URINE NEGATIVE (NEGATIVE); PROTEIN,URINE NEGATIVE (NEGATIVE); URINE SPECIFIC GRAVITY 1.013; UROBILINOGEN,URINE NEGATIVE mg/dL (<2.0)
--- NOTE | 2018-03-30 16:30 | RADIOLOGY REPORT (SQ) ---
EXAM DESCRIPTION: CT ABD/PELVIS NO ORAL OR IV COMPLETED DATE/TIME: 03/30/2018 4:11 pm REASON FOR STUDY: abdominal pain and distention COMPARISON: 10/03/2017. TECHNIQUE: CT scan of the abdomen and pelvis performed without intravenous or oral contrast. Images reviewed with lung, soft tissue, and bone windows. Reconstructed coronal and sagittal MPR images revi ewed. All images stored on PACS. All CT scanners at this facility use dose modulation, iterative reconstruction, and/or weight based d osing when appropriate to reduce radiation dose to as low as reasonably achievable (ALARA). [facility]: Dose Right [facility]: CareDose [facility]: Dose Right [facility]: Teradose 4D [facility]: [employer] RADIATION DOSE: CT Rad equipment meets quality standard of care and radiation dose reduction techniq ues were employed. CTDIvol: 19.2 mGy. DLP: 1067 mGy-cm.mGy. LIMITATIONS: None. FINDINGS: LOWER CHEST: Cardiomegaly. Bilateral pleural effusions. Atelectasis. NON-CONTRASTED LIVER, SPLEEN, ADRENALS: Evaluation limited by lack of IV contrast. No identified sign ificant masses. PANCREAS: No masses. No peripancreatic inflammatory changes. GALLBLADDER: Gallstones. No inflammatory changes to suggest cholecystitis. RIGHT KIDNEY AND URETER: No suspicious masses. Assessment limited by lack of IV contrast. No signif icant calcifications. No hydronephrosis or hydroureter. LEFT KIDNEY AND URETER: No suspicious masses. Assessment limited by lack of IV contrast. No signifi cant calcifications. No hydronephrosis or hydroureter. AORTA AND RETROPERITONEUM: No aneurysm. No retroperitoneal masses or adenopathy. BOWEL AND PERITONEAL CAVITY: No obvious masses or inflammatory changes. No free fluid. APPENDIX: Normal. PELVIS, BLADDER, AND ABDOMINAL WALL:No abnormal masses. No free fluid. Catheter in the bladder. BONES: No significant findings. Degenerative changes in the spine. OTHER: No other significant finding. IMPRESSION: 1. NO SIGNIFICANT OR ACUTE PROCESS IN THE ABDOMEN OR PELVIS. 2. CARDIOMEGALY. BILATERAL PLEURAL EFFUSIONS WITH BASILAR ATELECTASIS. COMMENT: Quality ID # [id number]: Final reports with documentation of one or more dose reduction techniques (e.g., Automated exposure control, adjustment of the mA and/or kV according to patient size, use of iterative reconstruction technique) TECHNICAL DOCUMENTATION: JOB ID: [id number] [employer] Radiology [employer]- All Rights Reserved Reading location - IP/workstation name: [email or web address]
--- NOTE | 2018-03-30 16:30 | RADIOLOGY REPORT (SQ) ---
EXAM DESCRIPTION: CHEST SINGLE VIEW COMPLETED DATE/TIME: 03/30/2018 4:14 pm REASON FOR STUDY: short of breath COMPARISON: 02/04/2018. NUMBER OF VIEWS: One view. TECHNIQUE: Single frontal radiographic view of the chest acquired. LIMITATIONS: None. FINDINGS: LUNGS AND PLEURA: No opacities, masses or pneumothorax. No pleural effusion. MEDIASTINUM AND HILAR STRUCTURES: No masses or contour abnormality. HEART AND VASCULATURE: Cardiac enlargement. Vascular congestion. BONES: No acute findings. HARDWARE: Defibrillator. OTHER: No other significant finding. IMPRESSION: CARDIAC ENLARGEMENT. VASCULAR CONGESTION. TECHNICAL DOCUMENTATION: JOB ID: [id number] [employer]- All Rights Reserved Reading location - IP/workstation name: [email or web address]
[2018-03-30] MEDS ORDERED: IPRATROPIUM/ALBUTEROL 0.5-2.5 MG/3 ML AMPUL NEB PRN (17:48)
[2018-03-30] MEDS ORDERED: (PENDING PHARMACY ID) (Risperidone [Risperdal] 0.5 MG) PO SCH (18:00)
--- NOTE | 2018-03-30 18:03 | PDOC H&P ---
History of Present Illness Admission Date/PCP: 03/30/18 17:05 JEFF TIJERINA MD History of Present Illness: BELKIS EUCEDA is a 87 year old female who was in this hospital a couple of months ago for acute exacerbation of diastolic heart failure. She lives in a long-term care facility called [facility], and was apparently found today by the nursing program director in her current condition and they called EMS to bring her to the hospital. Patient herself has a history of dementia and is unable to provide any kind of history, the ER physician attempted to contact her family but no one answered the phone, and we do not have any other kind of a history from the facility. It seems that she is approximately 20 kg above what seems to be her dry weight. The only thing she says to me is "I got to pee." She does not appear to be in any sort of respiratory distress, but she is diffusely edematous. Her creatinine is elevated a bit above its usual elevated baseline. Past Medical History Cardiac Medical History: Reports: Atrial Fibrillation, Congestive Heart Failure, Myocardial Infarction - The patient had an elevated troponin, but negative catheterization 03/03/13, Hyperlipidema, Hypertension Denies: Coronary Artery Disease Pulmonary Medical History: Denies: Asthma, Bronchitis, Chronic Obstructive Pulmonary Disease (COPD), Pneumonia, Tuberculosis Neurological Medical History: Reports: Migraine Denies: Seizures Endocrine Medical History: GI Medical History: Reports: Gastroesophageal Reflux Disease Musculoskeltal Medical History: Reports: Arthritis - was told patient has a broken back Psychiatric Medical History: Reports: Dementia, Depression Hematology: Reports: Anemia Past Surgical History Past Surgical History: Reports: Appendectomy, Pacemaker Denies: Hysterectomy Social History Smoking Status: Unknown if Ever Smoked Frequency of Alcohol Use: None Hx Recreational Drug Use: No Drugs: None Hx Prescription Drug Abuse: No Family History Family History: Reviewed & Not Pertinent Parental Family History Reviewed: No - Unable to obtain Children Family History Reviewed: No - Unable to obtain Sibling(s) Family History Reviewed.: No - Unable to obtain Medication/Allergy Home Medications: Amlodipine Besylate [Norvasc 10 mg Tablet] 10 mg PO DAILY 12/13/17 Citalopram Hydrobromide [Celexa 20 mg Tablet] 20 mg PO DAILY 12/13/17 Clonidine HCl [Catapres 0.1 mg Tablet] 0.1 mg PO Q12 12/13/17 Donepezil HCl [Aricept] 10 mg PO QHS 12/13/17 Furosemide [Lasix 40 mg Tablet] 40 mg PO DAILY 12/13/17 Hydralazine HCl 100 mg PO Q8 12/13/17 Levothyroxine Sodium [Synthroid 0.088 mg Tablet] 0.088 mg PO Q6AM 12/13/17 Memantine HCl [Namenda 10 mg Tablet] 10 mg PO BID 12/13/17 Metolazone [Zaroxolyn 2.5 mg Tablet] 2.5 mg PO MOWEFR@1000 12/13/17 Metoprolol Succinate [Toprol XL 100 mg Tablet] 100 mg PO Q12 12/13/17 Polyethylene Glycol 3350 [Miralax Powder 17 gm/Packet] 17 gm PO DAILY 12/13/17 Potassium Chloride [K-Tab ER] 20 meq PO DAILY 12/13/17 Risperidone [Risperdal] 0.5 mg PO BID 12/13/17 Ipratropium/Albuterol Sulfate [Duoneb 3 ml Ampul] 3 ml NEB RTQ3HP PRN vial.neb 12/18/17 Isosorbide Mononitrate [Imdur 30 mg Tablet.er] 30 mg PO DAILY tab.er.24h 12/18/17 Acetaminophen [Tylenol 325 mg Tablet] 650 mg PO Q4HP PRN 01/07/18 Magnesium Hydroxide [Milk of Magnesia 30 ml Udcup] 30 ml PO BIDP PRN 01/07/18 Doxycycline Hyclate 100 mg PO BID #20 capsule 02/16/18 Allergies/Adverse Reactions: codeine [Codeine] Allergy (Verified 12/13/17 01:27) iodine [Iodine] Allergy (Verified 12/13/17 01:27) Shellfish * [Shellfish] Allergy (Verified 12/13/17 01:27) Review of Systems ROS unobtainable: Due to mental status Physical Exam Vital Signs: Temp Pulse Resp BP Pulse Ox 97 F L 62 15 180/97 H 99 03/30/18 15:00 03/30/18 15:00 03/30/18 15:00 03/30/18 15:00 03/30/18 15:00 Intake & Output 03/29/18 03/30/18 03/31/18 06:59 06:59 06:59 Weight 109 kg General appearance: PRESENT: disheveled, mild distress, morbidly obese Head exam: PRESENT: atraumatic, normocephalic Eye exam: PRESENT: EOMI, PERRLA. ABSENT: conjunctival injection, nystagmus, scleral icterus Ear exam: PRESENT: normal external ear exam Mouth exam: PRESENT: dry mucosa, neck supple Teeth exam: PRESENT: poor dentation Neck exam: PRESENT: full ROM. ABSENT: carotid bruit, JVD - Difficult to tell due to her body habitus, lymphadenopathy, tenderness, thyromegaly Respiratory exam: PRESENT: decreased breath sounds, symmetrical, unlabored. ABSENT: accessory muscle use, rales, rhonchi, tachypnea, wheezes Cardiovascular exam: PRESENT: RRR, +S1, +S2, other - Her heart sounds were a bit difficult to hear Vascular exam: PRESENT: normal capillary refill GI/Abdominal exam: PRESENT: normal bowel sounds, soft, other - She had pitting lower back and abdominal wall edema. ABSENT: distended, guarding, rebound, tenderness Extremities exam: PRESENT: pedal edema, +2 edema - She was edematous from her feet up to her mid abdomen and the upper part of her lumbar spine. ABSENT: clubbing Musculoskeletal exam: PRESENT: normal inspection. ABSENT: deformity Neurological exam: PRESENT: alert, awake, oriented to person, CN II-XII grossly intact - I could not get her to comply with all aspects of the exam, but she moves both arms independently, displayed no facial asymmetry, and had no focal or lateralizing deficits. ABSENT: oriented to place, oriented to time, oriented to situation Psychiatric exam: PRESENT: flat affect Skin exam: PRESENT: dry, warm Results Laboratory Results: 03/30/18 14:34 03/30/18 14:34 03/30/18 03/30/18 03/30/18 14:34 14:34 14:34 WBC 6.4 RBC 3.37 L Hgb 8.6 L Hct 26.8 L MCV 80 MCH 25.7 L MCHC 32.3 RDW 17.7 H Plt Count 186 Seg Neutrophils % 74.5 Lymphocytes % 14.7 Monocytes % 8.9 Eosinophils % 1.1 Basophils % 0.8 Absolute Neutrophils 4.8 Absolute Lymphocytes 0.9 Absolute Monocytes 0.6 Absolute Eosinophils 0.1 Absolute Basophils 0.1 VBG pH VBG pCO2 VBG HCO3 VBG Base Excess Sodium 141.5 Potassium 4.3 Chloride 101 Carbon Dioxide 29 Anion Gap 12 BUN 67 H Creatinine 2.44 H Est GFR ( Amer) 23 L Est GFR (Non-Af Amer) 19 L Glucose 136 H Lactic Acid Cancelled Calcium 9.2 Total Bilirubin 0.5 AST 37 H ALT 19 Alkaline Phosphatase 128 H Total Protein 9.2 H Albumin 4.4 Lipase 280.4 Urine Color Urine Appearance Urine pH Ur Specific [place] Urine Protein Urine Glucose (UA) Urine Ketones Urine Blood Urine Nitrite Ur Leukocyte Esterase Urine WBC (Auto) Urine RBC (Auto) 03/30/18 03/30/18 03/30/18 14:34 15:11 15:53 WBC RBC Hgb Hct MCV MCH MCHC RDW Plt Count Seg Neutrophils % Lymphocytes % Monocytes % Eosinophils % Basophils % Absolute Neutrophils Absolute Lymphocytes Absolute Monocytes Absolute Eosinophils Absolute Basophils VBG pH 7.37 VBG pCO2 47.7 VBG HCO3 26.9 VBG Base Excess 0.8 Sodium Potassium Chloride Carbon Dioxide Anion Gap BUN Creatinine Est GFR ( Amer) Est GFR (Non-Af Amer) Glucose Lactic Acid 2.5 H Calcium Total Bilirubin AST ALT Alkaline Phosphatase Total Protein Albumin Lipase Urine Color YELLOW Urine Appearance CLOUDY Urine pH 5.0 Ur Specific [place] 1.013 Urine Protein NEGATIVE Urine Glucose (UA) NEGATIVE Urine Ketones NEGATIVE Urine Blood NEGATIVE Urine Nitrite NEGATIVE Ur Leukocyte Esterase SMALL H Urine WBC (Auto) 1 Urine RBC (Auto) 0 03/30/18 03/30/18 14:34 14:34 Creatine Kinase 76 Troponin I 0.033 NT-Pro-B Natriuret Pep 5790 H Impressions: Chest X-Ray 03/30/18 15:45 IMPRESSION: CARDIAC ENLARGEMENT. VASCULAR CONGESTION. Abdomen/Pelvis CT 03/30/18 15:46 IMPRESSION: 1. NO SIGNIFICANT OR ACUTE PROCESS IN THE ABDOMEN OR PELVIS. 2. CARDIOMEGALY. BILATERAL PLEURAL EFFUSIONS WITH BASILAR ATELECTASIS. Assessment & Plan - Diagnosis (1) Acute kidney injury superimposed on chronic kidney disease Is this a current diagnosis for this admission?: Yes Plan: The last time she was here her creatinine was about what it is now, it was when she was admitted back in December it was a bit lower. I cannot give her fluids because she is acutely volume overloaded, but I am hoping that by giving her appropriate diuresis it will stimulate renal blood flow as well (2) Acute on chronic diastolic (congestive) heart failure Is this a current diagnosis for this admission?: Yes Plan: We will put her on some IV Lasix. She continues on her Toprol-XL. I do not see where she is on an CALLIE inhibitor or an ARB, but given her acute renal failure I am going to hold off on that for now. We will give her her other blood pressure medications. Monitor her urine output closely. Cardiac diet. Strict I's and O's. - Time Time Spent: 50 to 70 Minutes - Inpatient Certification Based on my medical assessment, after consideration of the patient's comorbidities, presenting symptoms, or acuity I expect that the services needed warrant INPATIENT care.: Yes I certify that my determination is in accordance with my understanding of Medicare's requirements for reasonable and necessary INPATIENT services [42 CFR 412.3e].: Yes Medical Necessity: Need Close Monitoring Due to Risk of Patient Decompensation, Need For Continuous Telemetry Monitoring, Risk of Complication if Not Cared For in Hospital
--- NOTE | 2018-03-30 18:49 | EKG REPORT ---
SEVERITY:- ABNORMAL ECG - SINUS OR ECTOPIC ATRIAL RHYTHM NONSPECIFIC T ABNORMALITIES, DIFFUSE LEADS : Confirmed by: Efraín Lloyd MD 30-Mar-2018 18:48:53
[2018-03-30] MEDS: MEMANTINE HCL 10 MG TABLET PO SCH (19:41)
[2018-03-30] MEDS ORDERED: (PENDING PHARMACY ID) (Hydralazine Hcl [Hydralazine Hcl] 100 MG) PO SCH (22:00)
[2018-03-30] MEDS ORDERED: (PENDING PHARMACY ID) (Donepezil Hcl [Aricept] 10 MG) PO SCH (22:00)
[2018-03-30] MEDS: DONEPEZIL HCL 5 MG TABLET PO SCH (22:19)
[2018-03-30] MEDS: CLONIDINE HCL 0.1 MG TABLET PO SCH (22:19)
[2018-03-30] MEDS: HYDRALAZINE HCL 50 MG TABLET PO SCH (22:19)
[2018-03-30] MEDS: FUROSEMIDE INJ/PF 40 MG/4 ML SDV IV SCH (22:19)
[2018-03-30] MEDS: RISPERIDONE 0.25 MG TABLET PO SCH (22:19)
[2018-03-31] MEDS: HEPARIN SOD (PORCINE) 5,000 UNIT/ML 1 ML SYRINGE SUBCUT SCH ×4 (00:06→21:23)
[2018-03-31] MEDS: ACETAMINOPHEN 325 MG TABLET PO PRN ×2 (00:06→16:45)
[2018-03-31] MEDS: HYDRALAZINE HCL 50 MG TABLET PO SCH ×3 (05:39→21:24)
[2018-03-31] MEDS: LEVOTHYROXINE SODIUM 0.088 MG TABLET PO SCH (05:40)
[2018-03-31 07:12] LABS: ANION GAP 10 (5-19); BLOOD UREA NITROGEN 61 mg/dL (7-20); CALCIUM 9.3 mg/dL (8.4-10.2); CARBON DIOXIDE 33 mmol/L (22-30); CHLORIDE 99 mmol/L (98-107); GLUCOSE 99 mg/dL (75-110); POTASSIUM 3.9 mmol/L (3.6-5.0); SODIUM 141.9 mmol/L (137-145)
[2018-03-31] MEDS: METOLAZONE 2.5 MG TABLET PO SCH (10:10)
[2018-03-31] MEDS: RISPERIDONE 0.25 MG TABLET PO SCH ×2 (10:10→21:24)
[2018-03-31] MEDS: FUROSEMIDE INJ/PF 40 MG/4 ML SDV IV SCH ×2 (10:10→21:20)
[2018-03-31] MEDS: MEMANTINE HCL 10 MG TABLET PO SCH ×2 (10:10→17:27)
[2018-03-31] MEDS: CLONIDINE HCL 0.1 MG TABLET PO SCH ×2 (10:11→21:24)
[2018-03-31] MEDS: POLYETHYLENE GLYCOL 3350 POWDER 17 GM/1 PACKET PO SCH (10:11)
[2018-03-31] MEDS: ISOSORBIDE MONONITRATE 30 MG TAB.ER.24H PO SCH (10:11)
[2018-03-31] MEDS: CITALOPRAM HYDROBROMIDE 20 MG TABLET PO SCH (10:11)
--- NOTE | 2018-03-31 17:41 | PDOC PROGRESS REPORT ---
Subjective Progress Note for:: 03/31/18 Subjective:: No adverse events overnight. No new complaints. Sitting up in bed watching television and eating her lunch never came in today. She was very pleasant. She denied any chest pain or shortness of breath. Reason For Visit: HEART FAILURE Physical Exam Vital Signs: Temp Pulse Resp BP Pulse Ox 97.7 F 63 20 116/55 L 95 03/31/18 11:32 03/31/18 14:00 03/31/18 11:32 03/31/18 11:32 03/31/18 11:32 Intake & Output 03/30/18 03/31/18 04/01/18 06:59 06:59 06:59 Output Total 600 Balance -600 Weight 109 kg General appearance: PRESENT: no acute distress, cooperative, disheveled Respiratory exam: PRESENT: crackles - Bibasilar, symmetrical, unlabored. ABSENT: accessory muscle use, prolonged expiratory phas, rhonchi, tachypnea, wheezes Cardiovascular exam: PRESENT: RRR, +S1, +S2 Vascular exam: PRESENT: normal capillary refill GI/Abdominal exam: PRESENT: normal bowel sounds, soft. ABSENT: distended, guarding, rebound, tenderness Extremities exam: PRESENT: pedal edema, +2 edema - Up to just superior to the waist. ABSENT: clubbing Musculoskeletal exam: PRESENT: normal inspection. ABSENT: deformity Neurological exam: PRESENT: alert, awake, oriented to person. ABSENT: oriented to place, oriented to time, oriented to situation Psychiatric exam: PRESENT: appropriate affect Skin exam: PRESENT: dry, warm Results Laboratory Results: 03/30/18 14:34 03/31/18 06:14 03/30/18 03/31/18 19:28 06:14 Sodium 141.9 Potassium 3.9 Chloride 99 Carbon Dioxide 33 H Anion Gap 10 BUN 61 H Creatinine 2.51 H Est GFR ( Amer) 22 L Est GFR (Non-Af Amer) 18 L Glucose 99 Lactic Acid 1.8 Calcium 9.3 03/30/18 03/30/18 03/31/18 14:34 14:34 06:14 Creatine Kinase 76 Troponin I 0.033 NT-Pro-B Natriuret Pep 5790 H 7800 H Impressions: Chest X-Ray 03/30/18 15:45 IMPRESSION: CARDIAC ENLARGEMENT. VASCULAR CONGESTION. Abdomen/Pelvis CT 03/30/18 15:46 IMPRESSION: 1. NO SIGNIFICANT OR ACUTE PROCESS IN THE ABDOMEN OR PELVIS. 2. CARDIOMEGALY. BILATERAL PLEURAL EFFUSIONS WITH BASILAR ATELECTASIS. Assessment & Plan - Diagnosis (1) Acute kidney injury superimposed on chronic kidney disease Is this a current diagnosis for this admission?: Yes Plan: Creatinine is not much different from yesterday. We will continue to monitor this closely while we diurese her. (2) Acute on chronic diastolic (congestive) heart failure Is this a current diagnosis for this admission?: Yes Plan: She still needs more fluid off. We will continue to diurese her. Continue to watch her electrolytes and her renal function. Continue fluid restriction. Plan for medical optimization once she is closer to her dry weight. - Time Time Spent with patient: 15-24 minutes
[2018-03-31] MEDS: DONEPEZIL HCL 5 MG TABLET PO SCH (21:24)
--- NOTE | 2018-03-31 22:27 | XCELERA REPORT ---
[address] [address] Transthoracic Echocardiogram Report Name: BELKIS EUCEDA Age: 87 yrs Gender: Female : 1930 Patient Status: Inpatient Patient Location: [place] [address]^A Study Date: 03/30/2018 06:18 PM Height: 64 in Weight: 240 lb BSA: 2.1 m2 Procedure: A two-dimensional transthoracic echocardiogram with color flow and Doppler was performed. The study was technically difficult with many images being suboptimal in quality. POor endocardial defenition. Reason For Study: chf Ordering Physician: RONI BARR Performed By: Ambreen Ulrich Interpretation Summary POor endocardial defenition. The left ventricle is normal in size. There is mild concentric left ventricular hypertrophy. LV EF is 60% Left ventricular systolic function is normal. Doppler measurements suggest normal left ventricular diastolic function The left ventricular wall motion is normal. There is no thrombus. The right ventricle is not well visualized secondary to technical limitations Right atrium not well visualized secondary to technical limitations The left atrial size is normal. There is no evidence of mitral valve prolapse. There is no vegetation seen on the mitral valve. There is no mitral valve stenosis. There is a trace to mild amount of mitral regurgitation There is no aortic valvular vegetation. There is no aortic valve stenosis There is no LVOT obstruction. No aortic regurgitation is present. There is no tricuspid stenosis. There is a moderate amount of tricuspid regurgitation There is mild pulmonary hypertension by echo RVSP is 40 mm of Hg , with RA mean of 10. There is no pericardial effusion. MMode/2D Measurements & Calculations RVDd: 3.8 cm LVIDd: 3.5 cm FS: 33.0 % Ao root diam: 2.7 cm IVSd: 1.3 cm LVIDs: 2.4 cm EDV(Teich): 52.1 ml Ao root area: 5.8 cm2 LVPWd: 1.3 cm ESV(Teich): 19.5 ml LA dimension: 4.0 cm EF(Teich): 62.6 % Doppler Measurements & Calculations MV E max imtiaz: MV P1/2t max imtiaz: Ao V2 max: LV V1 max P.0 cm/sec 123.1 cm/sec 155.7 cm/sec 3.5 mmHg MV A max imtiaz: MV P1/2t: 112.7 msec Ao max PG: LV V1 max: 87.4 cm/sec MVA(P1/2t): 2.0 cm2 9.7 mmHg 91.8 cm/sec MV E/A: 1.3 MV dec slope: 319.8 cm/sec2 MV dec time: 0.25 sec PA V2 max: PI end-d imtiaz: TR max imtiaz: MV P1/2t-pr_phl: 80.5 cm/sec 119.0 cm/sec 275.4 cm/sec 77.4 msec PA max P.6 mmHg TR max P.3 mmHg Left Ventricle The left ventricle is normal in size. There is mild concentric left ventricular hypertrophy. LV EF is 60%. Left ventricular systolic function is normal. Doppler measurements suggest normal left ventricular diastolic function. The left ventricular wall motion is normal. There is no thrombus. Right Ventricle The right ventricle is not well visualized secondary to technical limitations. Atria Right atrium not well visualized secondary to technical limitations. The left atrial size is normal. Mitral Valve There is mild mitral annular calcification. There is no evidence of mitral valve prolapse. There is no vegetation seen on the mitral valve. There is no mitral valve stenosis. There is a trace to mild amount of mitral regurgitation. Aortic Valve There is no aortic valvular vegetation. There is no aortic valve stenosis. There is no LVOT obstruction. No aortic regurgitation is present. Tricuspid Valve There is no tricuspid stenosis. There is a moderate amount of tricuspid regurgitation. There is mild pulmonary hypertension by echo. RVSP is 40 mm of Hg , with RA mean of 10. Pulmonic Valve There is no pulmonic valvular stenosis. There is no pulmonic valvular regurgitation. Great Vessels The aortic root is not well visualized. The inferior vena cava was not visualized. Effusions There is no pericardial effusion. : RONI BARR > Jada Marie
[2018-04-01] MEDS: HEPARIN SOD (PORCINE) 5,000 UNIT/ML 1 ML SYRINGE SUBCUT SCH ×3 (05:22→22:04)
[2018-04-01] MEDS: LEVOTHYROXINE SODIUM 0.088 MG TABLET PO SCH (05:23)
[2018-04-01] MEDS: HYDRALAZINE HCL 50 MG TABLET PO SCH ×3 (05:23→22:04)
[2018-04-01 06:08] LABS: ANION GAP 12 (5-19); BLOOD UREA NITROGEN 67 mg/dL (7-20); CARBON DIOXIDE 31 mmol/L (22-30); CHLORIDE 97 mmol/L (98-107); GLUCOSE 111 mg/dL (75-110); POTASSIUM 3.6 mmol/L (3.6-5.0); SODIUM 140.1 mmol/L (137-145)
[2018-04-01] MEDS: ISOSORBIDE MONONITRATE 30 MG TAB.ER.24H PO SCH (10:08)
[2018-04-01] MEDS: MEMANTINE HCL 10 MG TABLET PO SCH ×2 (10:08→17:52)
[2018-04-01] MEDS: CLONIDINE HCL 0.1 MG TABLET PO SCH ×2 (10:08→22:04)
[2018-04-01] MEDS: POLYETHYLENE GLYCOL 3350 POWDER 17 GM/1 PACKET PO SCH (10:08)
[2018-04-01] MEDS: CITALOPRAM HYDROBROMIDE 20 MG TABLET PO SCH (10:08)
[2018-04-01] MEDS: FUROSEMIDE INJ/PF 40 MG/4 ML SDV IV SCH ×2 (10:08→22:04)
[2018-04-01] MEDS: RISPERIDONE 0.25 MG TABLET PO SCH ×2 (10:08→22:04)
--- NOTE | 2018-04-01 15:33 | PDOC PROGRESS REPORT ---
Subjective Progress Note for:: 04/01/18 Subjective:: No adverse events overnight. She has had an excellent diuresis in the last 24 hours. Her swelling has gone down noticeably. She did not eat very much of her breakfast, but she ate pretty well yesterday overall. She was asleep when I went in the room, but she woke up easily and was pleasant and conversed with me as best she could. Reason For Visit: HEART FAILURE Physical Exam Vital Signs: Temp Pulse Resp BP Pulse Ox 98.7 F 71 16 123/56 L 97 04/01/18 11:44 04/01/18 14:00 04/01/18 11:44 04/01/18 11:44 04/01/18 11:44 Intake & Output 03/31/18 04/01/18 04/02/18 06:59 06:59 06:59 Intake Total 262 Output Total 600 2850 Balance -600 -2588 Weight 106.3 kg 105.5 kg General appearance: PRESENT: no acute distress, cooperative, disheveled Respiratory exam: PRESENT: symmetrical, unlabored. ABSENT: accessory muscle use, crackles, prolonged expiratory phase, rhonchi, tachypnea, wheezes Cardiovascular exam: PRESENT: RRR, +S1, +S2 Vascular exam: PRESENT: normal capillary refill GI/Abdominal exam: PRESENT: normal bowel sounds, soft. ABSENT: distended, guarding, rebound, tenderness Extremities exam: PRESENT: pedal edema, +2 edema -about residential up the lower leg distal to the knee bilaterally. ABSENT: clubbing Musculoskeletal exam: PRESENT: normal inspection. ABSENT: deformity Neurological exam: PRESENT: alert, awake, oriented to person. ABSENT: oriented to place, oriented to time, oriented to situation Psychiatric exam: PRESENT: appropriate affect Skin exam: PRESENT: dry, warm Results Laboratory Results: 03/30/18 14:34 04/01/18 04:49 04/01/18 04:49 Sodium 140.1 Potassium 3.6 Chloride 97 L Carbon Dioxide 31 H Anion Gap 12 BUN 67 H Creatinine 2.33 H Est GFR ( Amer) 24 L Est GFR (Non-Af Amer) 20 L Glucose 111 H Calcium 9.0 03/30/18 03/30/18 03/31/18 14:34 14:34 06:14 Creatine Kinase 76 Troponin I 0.033 NT-Pro-B Natriuret Pep 5790 H 7800 H Impressions: Chest X-Ray 03/30/18 15:45 IMPRESSION: CARDIAC ENLARGEMENT. VASCULAR CONGESTION. Abdomen/Pelvis CT 03/30/18 15:46 IMPRESSION: 1. NO SIGNIFICANT OR ACUTE PROCESS IN THE ABDOMEN OR PELVIS. 2. CARDIOMEGALY. BILATERAL PLEURAL EFFUSIONS WITH BASILAR ATELECTASIS. Assessment & Plan - Diagnosis (1) Acute kidney injury superimposed on chronic kidney disease Is this a current diagnosis for this admission?: Yes Plan: Her creatinine had improved a little bit today. We continue to monitor her creatinine in the setting of her diuresis. (2) Acute on chronic diastolic (congestive) heart failure Is this a current diagnosis for this admission?: Yes Plan: She is responding well to IV Lasix. We will continue to diurese her and monitor her electrolytes and renal function. Once we got her back down closer to a dry weight, we will then medically optimize her medication regimen. - Time Time Spent with patient: 15-24 minutes
[2018-04-01] MEDS: DONEPEZIL HCL 5 MG TABLET PO SCH (22:05)
[2018-04-02] MEDS: HYDRALAZINE HCL 50 MG TABLET PO SCH ×3 (05:15→21:10)
[2018-04-02] MEDS: LEVOTHYROXINE SODIUM 0.088 MG TABLET PO SCH (05:15)
[2018-04-02] MEDS: HEPARIN SOD (PORCINE) 5,000 UNIT/ML 1 ML SYRINGE SUBCUT SCH ×3 (05:15→23:01)
[2018-04-02 06:00] LABS: ANION GAP 8 (5-19); BLOOD UREA NITROGEN 63 mg/dL (7-20); CALCIUM 9.1 mg/dL (8.4-10.2); CARBON DIOXIDE 36 mmol/L (22-30); CHLORIDE 96 mmol/L (98-107); GLUCOSE 110 mg/dL (75-110); POTASSIUM 3.5 mmol/L (3.6-5.0); SODIUM 140.4 mmol/L (137-145)
[2018-04-02] MEDS: ISOSORBIDE MONONITRATE 30 MG TAB.ER.24H PO SCH (09:48)
[2018-04-02] MEDS: FUROSEMIDE INJ/PF 40 MG/4 ML SDV IV SCH ×2 (09:48→21:10)
[2018-04-02] MEDS: MEMANTINE HCL 10 MG TABLET PO SCH ×2 (09:48→18:04)
[2018-04-02] MEDS: METOLAZONE 2.5 MG TABLET PO SCH (09:48)
[2018-04-02] MEDS: CITALOPRAM HYDROBROMIDE 20 MG TABLET PO SCH (09:48)
[2018-04-02] MEDS: RISPERIDONE 0.25 MG TABLET PO SCH ×2 (09:48→21:10)
[2018-04-02] MEDS: CLONIDINE HCL 0.1 MG TABLET PO SCH ×2 (09:48→21:10)
[2018-04-02] MEDS: POLYETHYLENE GLYCOL 3350 POWDER 17 GM/1 PACKET PO SCH (09:49)
--- NOTE | 2018-04-02 18:56 | PDOC PROGRESS REPORT ---
Subjective Progress Note for:: 04/02/18 Subjective:: No adverse events overnight. She continues to diurese well. She continues to have a good reduction in her swelling. She was asleep when I went in the room, but she woke up easily and was pleasant and conversed with me as best she could. Reason For Visit: HEART FAILURE Physical Exam Vital Signs: Temp Pulse Resp BP Pulse Ox 97.8 F 78 16 112/58 L 99 04/02/18 11:27 04/02/18 18:43 04/02/18 11:27 04/02/18 11:27 04/02/18 11:27 Intake & Output 04/01/18 04/02/18 04/03/18 06:59 06:59 06:59 Intake Total 262 971 473 Output Total 2850 1985 1200 Balance -2588 -1694 -727 Weight 105.5 kg 108 kg General appearance: PRESENT: no acute distress, cooperative, disheveled Respiratory exam: PRESENT: symmetrical, unlabored. ABSENT: accessory muscle use, crackles, prolonged expiratory phase, rhonchi, tachypnea, wheezes Cardiovascular exam: PRESENT: RRR, +S1, +S2 Vascular exam: PRESENT: normal capillary refill GI/Abdominal exam: PRESENT: normal bowel sounds, soft. ABSENT: distended, guarding, rebound, tenderness Extremities exam: PRESENT: pedal edema, +2 edema -about senior care up the lower leg distal to the knee bilaterally. ABSENT: clubbing Musculoskeletal exam: PRESENT: normal inspection. ABSENT: deformity Neurological exam: PRESENT: alert, awake, oriented to person. ABSENT: oriented to place, oriented to time, oriented to situation Psychiatric exam: PRESENT: appropriate affect Skin exam: PRESENT: dry, warm Results Laboratory Results: 03/30/18 14:34 04/02/18 05:04 04/02/18 05:04 Sodium 140.4 Potassium 3.5 L Chloride 96 L Carbon Dioxide 36 H Anion Gap 8 BUN 63 H Creatinine 2.36 H Est GFR ( Amer) 24 L Est GFR (Non-Af Amer) 20 L Glucose 110 Calcium 9.1 03/30/18 03/30/18 03/31/18 14:34 14:34 06:14 Creatine Kinase 76 Troponin I 0.033 NT-Pro-B Natriuret Pep 5790 H 7800 H Impressions: Chest X-Ray 03/30/18 15:45 IMPRESSION: CARDIAC ENLARGEMENT. VASCULAR CONGESTION. Abdomen/Pelvis CT 03/30/18 15:46 IMPRESSION: 1. NO SIGNIFICANT OR ACUTE PROCESS IN THE ABDOMEN OR PELVIS. 2. CARDIOMEGALY. BILATERAL PLEURAL EFFUSIONS WITH BASILAR ATELECTASIS. Assessment & Plan - Diagnosis (1) Acute kidney injury superimposed on chronic kidney disease Is this a current diagnosis for this admission?: Yes Plan: Her creatinine has improved a little bit since admission. We continue to monitor her creatinine in the setting of her diuresis. Baseline creatinine is around 2 (2) Acute on chronic diastolic (congestive) heart failure Is this a current diagnosis for this admission?: Yes Plan: She is responding well to IV Lasix. We will continue to diurese her and monitor her electrolytes and renal function. Once we got her back down closer to a dry weight, we will then medically optimize her medication regimen. She will probably need another day or 2 of IV Lasix, which she is tolerating well at this point. - Time Time Spent with patient: 15-24 minutes
[2018-04-02] MEDS: DONEPEZIL HCL 5 MG TABLET PO SCH (21:10)
[2018-04-02 21:39] LABS: HEMATOCRIT 25.6 % (36.0-47.0); HEMOGLOBIN 8.4 g/dL (12.0-15.5); MEAN CORPUSCULAR HEMOGLOBIN 25.3 pg (27.0-33.4); MEAN CORPUSCULAR HGB CONC 32.7 g/dL (32.0-36.0); MEAN CORPUSCULAR VOLUME 77 fl (80-97); PLATELET COUNT 179 10^3/uL (150-450); RED BLOOD COUNT 3.31 10^6/uL (3.72-5.28); RED CELL DISTRIBUTION WIDTH 16.6 % (11.5-14.0); WHITE BLOOD COUNT 8.6 10^3/uL (4.0-10.5)
[2018-04-03] MEDS: HYDRALAZINE HCL 50 MG TABLET PO SCH ×3 (05:10→21:18)
[2018-04-03] MEDS: HEPARIN SOD (PORCINE) 5,000 UNIT/ML 1 ML SYRINGE SUBCUT SCH ×3 (05:11→21:18)
[2018-04-03] MEDS: LEVOTHYROXINE SODIUM 0.088 MG TABLET PO SCH (05:11)
[2018-04-03 06:23] LABS: ANION GAP 9 (5-19); BLOOD UREA NITROGEN 60 mg/dL (7-20); CALCIUM 9.4 mg/dL (8.4-10.2); CARBON DIOXIDE 37 mmol/L (22-30); CHLORIDE 94 mmol/L (98-107); GLUCOSE 102 mg/dL (75-110); POTASSIUM 3.5 mmol/L (3.6-5.0); SODIUM 139.6 mmol/L (137-145)
[2018-04-03] MEDS: ISOSORBIDE MONONITRATE 30 MG TAB.ER.24H PO SCH (11:07)
[2018-04-03] MEDS: CITALOPRAM HYDROBROMIDE 20 MG TABLET PO SCH (11:08)
[2018-04-03] MEDS: MEMANTINE HCL 10 MG TABLET PO SCH ×2 (11:08→18:43)
[2018-04-03] MEDS: RISPERIDONE 0.25 MG TABLET PO SCH ×2 (11:08→21:19)
[2018-04-03] MEDS: POLYETHYLENE GLYCOL 3350 POWDER 17 GM/1 PACKET PO SCH (11:08)
[2018-04-03] MEDS: CLONIDINE HCL 0.1 MG TABLET PO SCH ×2 (11:08→21:19)
[2018-04-03] MEDS: FUROSEMIDE INJ/PF 40 MG/4 ML SDV IV SCH ×2 (11:08→21:18)
--- NOTE | 2018-04-03 15:39 | PDOC PROGRESS REPORT ---
Subjective Progress Note for:: 04/03/18 Subjective:: No adverse events overnight. No new complaints. Vital signs been stable. She had excellent diuresis overnight. She is been eating and drinking without difficulty. Reason For Visit: HEART FAILURE Physical Exam Vital Signs: Temp Pulse Resp BP Pulse Ox 98.1 F 79 19 154/62 H 92 04/03/18 11:43 04/03/18 11:43 04/03/18 11:43 04/03/18 11:43 04/03/18 11:43 Intake & Output 04/02/18 04/03/18 04/04/18 06:59 06:59 06:59 Intake Total 971 523 222 Output Total 3595 4900 1200 Balance -1694 -4377 -978 Weight 108 kg 103.2 kg General appearance: PRESENT: no acute distress, cooperative, disheveled Respiratory exam: PRESENT: symmetrical, unlabored. ABSENT: accessory muscle use, crackles, prolonged expiratory phase, rhonchi, tachypnea, wheezes Cardiovascular exam: PRESENT: RRR, +S1, +S2 Vascular exam: PRESENT: normal capillary refill GI/Abdominal exam: PRESENT: normal bowel sounds, soft. ABSENT: distended, gua rding, rebound, tenderness Extremities exam: PRESENT: pedal edema, +2 edema -about skilled nursing up the lower leg distal to the knee bilaterally. ABSENT: clubbing Musculoskeletal exam: PRESENT: normal inspection. ABSENT: deformity Neurological exam: PRESENT: alert, awake, oriented to person. ABSENT: oriented to place, oriented to time, oriented to situation Psychiatric exam: PRESENT: appropriate affect Skin exam: PRESENT: dry, warm Results Laboratory Results: 04/02/18 21:23 04/03/18 05:09 04/02/18 04/03/18 21:23 05:09 WBC 8.6 RBC 3.31 L Hgb 8.4 L Hct 25.6 L MCV 77 L MCH 25.3 L MCHC 32.7 RDW 16.6 H Plt Count 179 Sodium 139.6 Potassium 3.5 L Chloride 94 L Carbon Dioxide 37 H Anion Gap 9 BUN 60 H Creatinine 2.16 H Est GFR ( Amer) 26 L Est GFR (Non-Af Amer) 22 L Glucose 102 Calcium 9.4 03/30/18 03/30/18 03/31/18 14:34 14:34 06:14 Creatine Kinase 76 Troponin I 0.033 NT-Pro-B Natriuret Pep 5790 H 7800 H Impressions: Chest X-Ray 03/30/18 15:45 IMPRESSION: CARDIAC ENLARGEMENT. VASCULAR CONGESTION. Abdomen/Pelvis CT 03/30/18 15:46 IMPRESSION: 1. NO SIGNIFICANT OR ACUTE PROCESS IN THE ABDOMEN OR PELVIS. 2. CARDIOMEGALY. BILATERAL PLEURAL EFFUSIONS WITH BASILAR ATELECTASIS. Assessment & Plan - Diagnosis (1) Acute kidney injury superimposed on chronic kidney disease Is this a current diagnosis for this admission?: Yes Plan: Her creatinine has improved a little bit since admission. We continue to monitor her creatinine in the setting of her diuresis. Baseline creatinine is around 2 (2) Acute on chronic diastolic (congestive) heart failure Is this a current diagnosis for this admission?: Yes Plan: We have switched her back over to her oral Lasix. We were going to send her back home today, but her facility does not take people back on the weekend. - Time Time Spent with patient: 15-24 minutes
[2018-04-03] MEDS: DONEPEZIL HCL 5 MG TABLET PO SCH (21:19)
[2018-04-04] MEDS: LEVOTHYROXINE SODIUM 0.088 MG TABLET PO SCH (05:18)
[2018-04-04] MEDS: HYDRALAZINE HCL 50 MG TABLET PO SCH ×3 (05:18→21:40)
[2018-04-04] MEDS: HEPARIN SOD (PORCINE) 5,000 UNIT/ML 1 ML SYRINGE SUBCUT SCH ×3 (05:18→21:40)
[2018-04-04 05:58] LABS: ANION GAP 9 (5-19); BLOOD UREA NITROGEN 54 mg/dL (7-20); CALCIUM 9.9 mg/dL (8.4-10.2); CARBON DIOXIDE 38 mmol/L (22-30); CHLORIDE 93 mmol/L (98-107); GLUCOSE 105 mg/dL (75-110); POTASSIUM 3.8 mmol/L (3.6-5.0); SODIUM 139.9 mmol/L (137-145)
[2018-04-04] MEDS: CLONIDINE HCL 0.1 MG TABLET PO SCH ×2 (10:50→21:40)
[2018-04-04] MEDS: RISPERIDONE 0.25 MG TABLET PO SCH ×2 (10:50→21:40)
[2018-04-04] MEDS: FUROSEMIDE INJ/PF 40 MG/4 ML SDV IV SCH ×2 (10:51→21:40)
[2018-04-04] MEDS: ISOSORBIDE MONONITRATE 30 MG TAB.ER.24H PO SCH (10:51)
[2018-04-04] MEDS: MEMANTINE HCL 10 MG TABLET PO SCH ×2 (10:51→17:47)
[2018-04-04] MEDS: POLYETHYLENE GLYCOL 3350 POWDER 17 GM/1 PACKET PO SCH (10:51)
[2018-04-04] MEDS: CITALOPRAM HYDROBROMIDE 20 MG TABLET PO SCH (10:51)
--- NOTE | 2018-04-04 15:37 | PDOC PROGRESS REPORT ---
Subjective Progress Note for:: 04/04/18 Subjective:: No adverse events overnight. No new complaints. Vital signs been stable. She is pleasant and cooperative. She is been eating and drinking without difficulty. Reason For Visit: HEART FAILURE Physical Exam Vital Signs: Temp Pulse Resp BP Pulse Ox 98.4 F 81 16 142/38 H 91 L 04/04/18 12:03 04/04/18 12:03 04/04/18 12:03 04/04/18 12:03 04/04/18 12:03 Intake & Output 04/03/18 04/04/18 04/05/18 06:59 06:59 06:59 Intake Total 523 816 0 Output Total 4900 5300 1300 Balance -8724 -9486 -1300 Weight 103.2 kg 95.4 kg General appearance: PRESENT: no acute distress, cooperative, disheveled Respiratory exam: PRESENT: symmetrical, unlabored. ABSENT: accessory muscle use, crackles, prolonged expiratory phase, rhonchi, tachypnea, wheezes Cardiovascular exam: PRESENT: RRR, +S1, +S2 Vascular exam: PRESENT: normal capillary refill GI/Abdominal exam: PRESENT: normal bowel sounds, soft. ABSENT: distended, guarding, rebound, tenderness Extremities exam: PRESENT: pedal edema, +2 edema -about retirement up the lower leg distal to the knee bilaterally. ABSENT: clubbing Musculoskeletal exam: PRESENT: normal inspection. ABSENT: deformity Neurological exam: PRESENT: alert, awake, oriented to person. ABSENT: oriented to place, oriented to time, oriented to situation Psychiatric exam: PRESENT: appropriate affect Skin exam: PRESENT: dry, warm Results Laboratory Results: 04/02/18 21:23 04/04/18 05:06 04/04/18 05:06 Sodium 139.9 Potassium 3.8 Chloride 93 L Carbon Dioxide 38 H Anion Gap 9 BUN 54 H Creatinine 1.92 H Est GFR ( Amer) 30 L Est GFR (Non-Af Amer) 25 L Glucose 105 Calcium 9.9 03/30/18 03/30/18 03/31/18 14:34 14:34 06:14 Creatine Kinase 76 Troponin I 0.033 NT-Pro-B Natriuret Pep 5790 H 7800 H Impressions: Chest X-Ray 03/30/18 15:45 IMPRESSION: CARDIAC ENLARGEMENT. VASCULAR CONGESTION. Abdomen/Pelvis CT 03/30/18 15:46 IMPRESSION: 1. NO SIGNIFICANT OR ACUTE PROCESS IN THE ABDOMEN OR PELVIS. 2. CARDIOMEGALY. BILATERAL PLEURAL EFFUSIONS WITH BASILAR ATELECTASIS. Assessment & Plan - Diagnosis (1) Acute kidney injury superimposed on chronic kidney disease Is this a current diagnosis for this admission?: Yes Plan: Her creatinine has improved a little bit since admission. Baseline creatinine is around 2 (2) Acute on chronic diastolic (congestive) heart failure Is this a current diagnosis for this admission?: Yes Plan: We have switched her back over to her oral Lasix. We were going to send her back home yesterday, but her facility does not take people back on the weekend. - Time Time Spent with patient: 15-24 minutes
[2018-04-04] MEDS: DONEPEZIL HCL 5 MG TABLET PO SCH (21:40)
[2018-04-05] MEDS: HEPARIN SOD (PORCINE) 5,000 UNIT/ML 1 ML SYRINGE SUBCUT SCH ×2 (05:13→14:54)
[2018-04-05] MEDS: HYDRALAZINE HCL 50 MG TABLET PO SCH ×2 (05:13→14:53)
[2018-04-05] MEDS: LEVOTHYROXINE SODIUM 0.088 MG TABLET PO SCH (05:13)
[2018-04-05 05:23] LABS: ANION GAP 10 (5-19); BLOOD UREA NITROGEN 46 mg/dL (7-20); CARBON DIOXIDE 36 mmol/L (22-30); CHLORIDE 93 mmol/L (98-107); GLUCOSE 116 mg/dL (75-110); POTASSIUM 3.6 mmol/L (3.6-5.0)
[2018-04-05] MEDS: ISOSORBIDE MONONITRATE 30 MG TAB.ER.24H PO SCH (11:17)
[2018-04-05] MEDS: CITALOPRAM HYDROBROMIDE 20 MG TABLET PO SCH (11:17)
[2018-04-05] MEDS: MEMANTINE HCL 10 MG TABLET PO SCH ×2 (11:17→17:22)
[2018-04-05] MEDS: CLONIDINE HCL 0.1 MG TABLET PO SCH (11:17)
[2018-04-05] MEDS: METOLAZONE 2.5 MG TABLET PO SCH (11:18)
[2018-04-05] MEDS: FUROSEMIDE INJ/PF 40 MG/4 ML SDV IV SCH (11:18)
[2018-04-05] MEDS: RISPERIDONE 0.25 MG TABLET PO SCH (11:18)
[2018-04-05] MEDS: POLYETHYLENE GLYCOL 3350 POWDER 17 GM/1 PACKET PO SCH (11:18)
--- NOTE | 2018-04-05 12:15 | PDOC TRANSFER SUMMARY ---
General - Admit/Disc Date/PCP Admission Date/Primary Care Provider: 03/30/18 17:05 JEFF TIJERINA MD Discharge Date: 04/05/18 - Discharge Diagnosis (1) Acute kidney injury superimposed on chronic kidney disease Is this a current diagnosis for this admission?: Yes Summary: Her creatinine actually improved after diuresis. Her creatinine is at its baseline of around 2.3. (2) Acute on chronic diastolic (congestive) heart failure Is this a current diagnosis for this admission?: Yes Summary: She responded very well to IV Lasix. We have gotten approximately 15 kg of fluid off of her. We believe her current dose of Lasix is appropriate as long as her fluid intake is being monitored and does not exceed 1500 mL's per day - Additional Information Resuscitation Status: Full Code Discharge Diet: Cardiac Discharge Activity: Balance Activity w/Rest, Slowly Increase Activity, Supervised Activity Home Medications: Amlodipine Besylate [Norvasc 10 mg Tablet] 10 mg PO DAILY 12/13/17 Citalopram Hydrobromide [Celexa 20 mg Tablet] 20 mg PO DAILY 12/13/17 Clonidine HCl [Catapres 0.1 mg Tablet] 0.1 mg PO Q12 12/13/17 Donepezil HCl [Aricept] 10 mg PO QHS 12/13/17 Hydralazine HCl 100 mg PO Q8 12/13/17 Levothyroxine Sodium [Synthroid 0.088 mg Tablet] 0.088 mg PO Q6AM 12/13/17 Memantine HCl [Namenda 10 mg Tablet] 10 mg PO BID 12/13/17 Metolazone [Zaroxolyn 2.5 mg Tablet] 2.5 mg PO DAILY 12/13/17 Metoprolol Succinate [Toprol XL 100 mg Tablet] 100 mg PO Q12 12/13/17 Polyethylene Glycol 3350 [Miralax Powder 17 gm/Packet] 17 gm PO DAILY 12/13/17 Risperidone [Risperdal] 0.5 mg PO BID 12/13/17 Isosorbide Mononitrate [Imdur 30 mg Tablet.er] 30 mg PO DAILY tab.er.24h 12/18/17 Furosemide [Lasix 80 mg Tablet] 80 mg PO DAILY 03/30/18 Potassium Chloride 30 meq PO DAILY 03/30/18 History of Present Illness Admission Date/PCP: 03/30/18 17:05 JEFF TIJERINA MD History of Present Illness: BELKIS ROSE is a 87 year old female who was in this hospital a couple of months ago for acute exacerbation of diastolic heart failure. She lives in a long-term care facility called the [facility], and was apparently found today by the director industrial nursing in her current condition and they called EMS to bring her to the hospital. Patient herself has a history of dementia and is unable to provide any kind of history, the ER physician attempted to contact her family but no one answered the phone, and we do not have any other kind of a history from the facility. It seems that she is approximately 20 kg above what seems to be her dry weight. The only thing she says to me is "I got to pee." She does not appear to be in any sort of respiratory distress, but she is diffusely edematous. Her creatinine is elevated a bit above its usual elevated baseline. Hospital Course Hospital Course: We put Ms. Rose on a fluid restriction of approximately 1200 mL's per day and put her on IV Lasix and she diuresed remarkably well. Her creatinine actually improved a little bit from when she came in and has settled down to her baseline of around 2.3. She was around 109 kg when she came in and she is down to 94 kg at discharge, and this corresponds to the large amount of fluid we have diuresed. As long as she is on a fluid restriction of about 1500 mL's per day, we think that her home dose of Lasix should be sufficient. We have not made any other changes to any of her home medications. Her echocardiogram showed an EF of 60%, the right ventricle was not well visualized, but the right ventricular systolic pressure was elevated at 40 mmHg, suggesting diastolic dysfunction. Her labs and examinations are reassuring and she is discharged in good c ondition. Physical Exam Vital Signs: Temp Pulse Resp BP Pulse Ox 98.8 F 76 14 146/69 H 96 04/05/18 08:00 04/05/18 08:00 04/05/18 08:00 04/05/18 08:00 04/05/18 08:00 Intake & Output 04/04/18 04/05/18 04/06/18 06:59 06:59 06:59 Intake Total 816 404 Output Total 7869 1614 Balance -3460 -1526 Weight 95.4 kg 94.2 kg General appearance: PRESENT: no acute distress, cooperative, disheveled Respiratory exam: PRESENT: symmetrical, unlabored. ABSENT: accessory muscle use, crackles, prolonged expiratory phase, rhonchi, tachypnea, wheezes Cardiovascular exam: PRESENT: RRR, +S1, +S2 Vascular exam: PRESENT: normal capillary refill GI/Abdominal exam: PRESENT: normal bowel sounds, soft. ABSENT: distended, guarding, rebound, tenderness Extremities exam: PRESENT: pedal edema, +2 edema -about group home up the lower leg distal to the knee bilaterally. ABSENT: clubbing Musculoskeletal exam: PRESENT: normal inspection. ABSENT: deformity Neurological exam: PRESENT: alert, awake, oriented to person. ABSENT: oriented to place, oriented to time, oriented to situation Psychiatric exam: PRESENT: appropriate affect Skin exam: PRESENT: dry, warm Results Laboratory Results: 04/02/18 21:23 04/05/18 04:37 04/05/18 04:37 Sodium 139.0 Potassium 3.6 Chloride 93 L Carbon Dioxide 36 H Anion Gap 10 BUN 46 H Creatinine 2.18 H Est GFR ( Amer) 26 L Est GFR (Non-Af Amer) 21 L Glucose 116 H Calcium 10.0 03/30/18 03/30/18 03/31/18 14:34 14:34 06:14 Creatine Kinase 76 Troponin I 0.033 NT-Pro-B Natriuret Pep 5790 H 7800 H Impressions: Chest X-Ray 03/30/18 15:45 IMPRESSION: CARDIAC ENLARGEMENT. VASCULAR CONGESTION. Abdomen/Pelvis CT 03/30/18 15:46 IMPRESSION: 1. NO SIGNIFICANT OR ACUTE PROCESS IN THE ABDOMEN OR PELVIS. 2. CARDIOMEGALY. BILATERAL PLEURAL EFFUSIONS WITH BASILAR ATELECTASIS. Transfer Plan - Time Spent with Patient Time spent with patient: Less than 30 Minutes Qualifiers - * PATIENT BEING DISCHARGED WITH ANY OF THE FOLLOWING DIAGNOSIS: Heart Failure HF Pt being discharged on ACEI for LVEF less than 40%?: No Reason(s) for not prescribing ACEI:: Not indicated - EF is normal HF Pt being discharged on ARBS for LVEF less than 40%?: No Reason(s) for not prescribing ARBS:: Not indicated - EF is normal HF Pt with Afib discharged with Warfarin?: No Reason(s) for not prescribing Warfarin:: Not indicated - Sinus rhythm HF Pt discharged on evidence-based Beta Ross:: Yes
[2018-04-05 16:36] VITALS: BP 122/44
== END 2018-04-05 19:10 | DRG 682 ==
LOC: ER 14:25 → EH 17:05 → 3W 22:53
PROVIDERS: ADMIT Internal Medicine; ATTEND Internal Medicine
DX: N17.9 Acute kidney failure, unspecified (principal); I50.33 Acute on chronic diastolic (congestive) heart failure; I13.0 Hypertensive heart and chronic kidney disease with heart failure and stage 1 through stage 4 chronic kidney disease, or unspecified chronic kidney disease; I48.91 Unspecified atrial fibrillation; E78.5 Hyperlipidemia, unspecified; N18.9 Chronic kidney disease, unspecified; K21.9 Gastro-esophageal reflux disease without esophagitis; F03.90 Unspecified dementia, unspecified severity, without behavioral disturbance, psychotic disturbance, mood disturbance, and anxiety; I25.2 Old myocardial infarction; Z86.73 Personal history of transient ischemic attack (TIA), and cerebral infarction without residual deficits
CPT/HCPCS: 36415; 71045; 74176; 80048; 80053; 81001; 82550; 82803; 83605; 83690; 83880; 84484; 85025; 85027; 93005; 93010; 93306; 96374; 99285; J1644; J1940; J3490

== ENCOUNTER 2018-05-30 09:44 | Emergency (ER) | payer MEDICARE, MEDICAID ==
[2018-05-30] MEDS ORDERED: ASPIRIN 81 MG TABLET, CHEWABLE PO ONE (09:45)
[2018-05-30 10:25] LABS: ABSOLUTE BASOPHILS # (AUTO) 0.1 10^3/uL (0.0-0.2); ABSOLUTE EOSINOPHILS # (AUTO) 0.1 10^3/uL (0.0-0.6); ABSOLUTE LYMPHOCYTES (AUTO) 2.7 10^3/uL (0.5-4.7); ABSOLUTE MONOCYTES (AUTO) 0.9 10^3/uL (0.1-1.4); ABSOLUTE NEUT (AUTO) 5.3 10^3/uL (1.7-8.2); BASOPHILS % (AUTO) 0.8 % (0-2); EOSINOPHILS % (AUTO) 1.2 % (0-6); HEMATOCRIT 30.5 % (36.0-47.0); HEMOGLOBIN 9.8 g/dL (12.0-15.5); LYMPHOCYTES % (AUTO) 30.1 % (13-45); MEAN CORPUSCULAR HEMOGLOBIN 25.9 pg (27.0-33.4); MEAN CORPUSCULAR HGB CONC 32.2 g/dL (32.0-36.0); MEAN CORPUSCULAR VOLUME 81 fl (80-97); MONOCYTES % (AUTO) 9.6 % (3-13); PLATELET COUNT 231 10^3/uL (150-450); RED BLOOD COUNT 3.79 10^6/uL (3.72-5.28); RED CELL DISTRIBUTION WIDTH 19.3 % (11.5-14.0); SEGMENTED NEUTROPHILS % (AUTO) 58.3 % (42-78); TOTAL CELLS COUNTED % (AUTO) 100 %
[2018-05-30 10:41] LABS: ALANINE AMINOTRANSFERASE 20 U/L (9-52); ALBUMIN 4.4 g/dL (3.5-5.0); ALKALINE PHOSPHATASE 123 U/L (38-126); ANION GAP 10 (5-19); ASPARTATE AMINO TRANSFERASE 30 U/L (14-36); BILIRUBIN,DIRECT 0.3 mg/dL (0.0-0.4); BILIRUBIN,TOTAL 0.4 mg/dL (0.2-1.3); BLOOD UREA NITROGEN 38 mg/dL (7-20); CALCIUM 9.4 mg/dL (8.4-10.2); CARBON DIOXIDE 32 mmol/L (22-30); CHLORIDE 99 mmol/L (98-107); CREATINE KINASE 59 U/L (30-135); GLUCOSE 104 mg/dL (75-110); SODIUM 141.2 mmol/L (137-145); TOTAL PROTEIN 10.1 g/dL (6.3-8.2)
[2018-05-30 10:47] LABS: CREATINE KINASE MB 0.93 ng/mL (<4.55)
[2018-05-30 10:55] LABS: TROPONIN I 0.037 ng/mL
--- NOTE | 2018-05-30 11:28 | RADIOLOGY REPORT (SQ) ---
EXAM DESCRIPTION: CHEST SINGLE VIEW COMPLETED DATE/TIME: 05/30/2018 10:59 am REASON FOR STUDY: bed 10 cp COMPARISON: 03/30/2018 NUMBER OF VIEWS: One view. TECHNIQUE: Single frontal radiographic view of the chest acquired. LIMITATIONS: None. FINDINGS: LUNGS AND PLEURA: No opacities, masses or pneumothorax. No pleural effusion. MEDIASTINUM AND HILAR STRUCTURES: No masses or contour abnormality. HEART AND VASCULATURE: Cardiac enlargement. Vascular congestion. BONES: No acute findings. HARDWARE: Unchanged position of defibrillator. OTHER: No other significant finding. IMPRESSION: CARDIAC ENLARGEMENT. VASCULAR CONGESTION. TECHNICAL DOCUMENTATION: JOB ID: [id number] [employer]- All Rights Reserved Reading location - IP/workstation name: [email or web address]
--- NOTE | 2018-05-30 12:27 | EKG REPORT ---
SEVERITY:- ABNORMAL ECG - SINUS RHYTHM ABNORMAL T, CONSIDER ISCHEMIA, DIFFUSE LEADS : Confirmed by: Jada Marie MD 30-May-2018 12:26:39
[2018-05-30] MEDS ORDERED: FUROSEMIDE 80 MG TABLET PO ONE (12:53)
[2018-05-30] MEDS ORDERED: FUROSEMIDE 40 MG TABLET PO ONE (13:09)
[2018-05-30 13:23] VITALS: BP 210/83
--- NOTE | 2018-05-30 13:25 | ER Document Report ---
ED General - General Chief Complaint: Chest Tightness Stated Complaint: CHEST PAIN Time Seen by Provider: 05/30/18 09:50 Primary Care Provider: JEFF TIJERINA MD [Primary Care Provider] - Follow up as needed TRAVEL OUTSIDE OF THE [place] IN LAST 30 DAYS: No - HPI Patient complains to provider of: Chest tightness Notes: Patient presents today from a local skilled nursing facility for possible chest tightness. Most of the HPI is obtained from nursing staff and EMS. Patient apparently does have a history of dementia CHF was complaining of tightness in her chest therefore was brought to the ER for further evaluation. Because of the underlying dementia patient is not able to contribute to the HPI process. A brief review of the patient's past medical records available in [employer] was performed - Related Data Allergies/Adverse Reactions: codeine [Codeine] Allergy (Verified 12/13/17 01:27) iodine [Iodine] Allergy (Verified 12/13/17 01:27) Shellfish * [Shellfish] Allergy (Verified 12/13/17 01:27) Past Medical History - Social History Smoking Status: Unknown if Ever Smoked Chew tobacco use (# tins/day): No Frequency of alcohol use: None Drug Abuse: None Family History: Reviewed & Not Pertinent Patient has suicidal ideation: No Patient has homicidal ideation: No - Past Medical History Cardiac Medical History: Reports: Hx Atrial Fibrillation, Hx Congestive Heart Failure, Hx Heart Attack - The patient had an elevated troponin, but negative catheterization 03/03/13, Hx Hypercholesterolemia, Hx Hypertension Denies: Hx Coronary Artery Disease Pulmonary Medical History: Denies: Hx Asthma, Hx Bronchitis, Hx COPD, Hx Pneumonia, Hx Tuberculosis Neurological Medical History: Reports: Hx Cerebrovascular Accident, Hx Migraine. Denies: Hx Seizures Endocrine Medical History: Renal/ Medical History: Denies: Hx Peritoneal Dialysis GI Medical History: Reports: Hx Gastroesophageal Reflux Disease Musculoskeletal Medical History: Reports Hx Arthritis - was told patient has a broken back Psychiatric Medical History: Reports: Hx Dementia, Hx Depression Past Surgical History: Reports: Hx Appendectomy, Hx Cardiac Surgery - pacer/defib, Hx Pacemaker. Denies: Hx Hysterectomy - Immunizations Hx Diphtheria, Pertussis, Tetanus Vaccination: No Hx Pneumococcal Vaccination: 09/28/13 Review of Systems - Review of Systems -: Yes ROS unobtainable due to patient's medical condition - Dementia Physical Exam - Vital signs Vitals: Resp Pulse Ox 15 94 05/30/18 10:00 05/30/18 10:00 Interpretation: Normal - General General appearance: Appears well, Alert - HEENT Head: Normocephalic, Atraumatic Eyes: Normal Pupils: PERRL - Respiratory Respiratory status: No respiratory distress Chest status: Nontender Breath sounds: Normal Chest palpation: Normal - Cardiovascular Rhythm: Regular Heart sounds: Normal auscultation Murmur: No - Abdominal Inspection: Normal Distension: No distension Bowel sounds: Normal Tenderness: Nontender Organomegaly: No organomegaly - Back Back: Normal, Nontender - Extremities General upper extremity: Normal inspection, Nontender, Normal color, Normal ROM, Normal temperature General lower extremity: Normal inspection, Nontender, Normal color, Normal ROM, Normal temperature, Normal weight bearing. 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 Troponins are negative for any signs of acute ischemia. Patient EKG shows diffuse T wave inversions V4 through V6 which are also seen on previous EKG performed March 30, 2018. I was EKG shows normal sinus rhythm with a rate of 73 OK of 192 QRS duration of 90 Q Tc/QT of 472 428. Patient has remained stable here no signs of any significant pathology. Mild vascular congestion seen on chest x-ray does not patient received her diuretic this morning patient was given her home medication here will be discharged back to nursing care facility. - Vital Signs Vital signs: Temp Pulse Resp BP Pulse Ox 98.1 F 20 178/84 H 97 05/30/18 10:29 05/30/18 13:01 05/30/18 12:01 05/30/18 13:01 - Laboratory Result Diagrams: 05/30/18 10:10 05/30/18 10:10 Laboratory results interpreted by me: 03/10/19 03/10/19 10:10 10:10 Hgb 9.8 L Hct 30.5 L MCH 25.9 L RDW 19.3 H Carbon Dioxide 32 H BUN 38 H Creatinine 1.65 H Est GFR ( Amer) 36 L Est GFR (Non-Af Amer) 29 L Total Protein 10.1 H Discharge - Discharge Clinical Impression: CAD (coronary artery disease) Qualifiers: Coronary Disease-Associated Artery/Lesion type: [place] artery [place] vs. transplanted heart: [place] heart Associated angina: without angina Qualified Cod e(s): I25.10 - Atherosclerotic heart disease of [place] coronary artery without angina pectoris CKD (chronic kidney disease) Qualifiers: Chronic kidney disease stage: unspecified stage Qualified Code(s): N18.9 - Chronic kidney disease, unspecified Dementia Qualifiers: Dementia type: unspecified type Dementia behavioral disturbance: without behavioral disturbance Qualified Code(s): F03.90 - Unspecified dementia without behavioral disturbance CHF (congestive heart failure) Qualifiers: Heart failure type: unspecified Heart failure chronicity: unspecified Qualified Code(s): I50.9 - Heart failure, unspecified Condition: Fair Disposition: REHAB FACILITY Instructions: Chest Pain of Unclear Cause ([facility]), Chest Wall Pain ([facility]), Con gestive Heart Failure ([facility]) Additional Instructions: Patient is EKG and cardiac studies are negative for any signs of acute ischemia or heart attack. Patient's chest x-rays not show any signs of pneumonia or flexion of the patient's laboratory studies. Chest x-ray does show some mild vascular congestion we did give the patient her dose of diuretic Lasix 80 mg. Patient's vital signs have been stable while here in the ER no signs of hypoxia or respiratory distress. Patient should continue all of her home medications and follow-up with her primary care physician. Referrals: JEFF TIJERINA MD [Primary Care Provider] - Follow up as needed
[2018-05-30] MEDS ORDERED: CLONIDINE HCL 0.2 MG TABLET PO ONE (13:55)
[2018-05-30] MEDS ORDERED: METOPROLOL SUCCINATE 50 MG TAB.SR.24H PO ONE (13:55)
== END 2018-05-30 14:21 ==
LOC: ER 09:44
DX: I13.0 Hypertensive heart and chronic kidney disease with heart failure and stage 1 through stage 4 chronic kidney disease, or unspecified chronic kidney disease (principal); N18.9 Chronic kidney disease, unspecified; R07.9 Chest pain, unspecified; F03.90 Unspecified dementia, unspecified severity, without behavioral disturbance, psychotic disturbance, mood disturbance, and anxiety; I48.91 Unspecified atrial fibrillation; I50.9 Heart failure, unspecified; E78.00 Pure hypercholesterolemia, unspecified; I25.10 Atherosclerotic heart disease of native coronary artery without angina pectoris; Z88.6 Allergy status to analgesic agent; Z91.013 Allergy to seafood; Z95.0 Presence of cardiac pacemaker; I25.2 Old myocardial infarction
CPT/HCPCS: 93005; 99285; 36415; 82553; 82550; 85025; 80053; 84484; 71045; 93010; A9270 ×2

== ENCOUNTER 2018-08-19 10:21 | Inpatient (IN) | payer MEDICARE, MEDICAID ==
--- NOTE | 2018-08-19 10:58 | ER Document Report ---
ED General - General Stated Complaint: CONGESTION Time Seen by Provider: 08/19/18 10:42 Notes: 88-year-old female with history of dementia presents with altered mental status cough congestion and need for pacemaker check. Unclear why she needs her pacemaker checked but she has been coughing and congested for a few days is been altered from baseline per facility as well as having strong smelling urine. Temperature was 99 oral at the facility. Patient cannot give further history. TRAVEL OUTSIDE OF THE [place] IN LAST 30 DAYS: No - Related Data Allergies/Adverse Reactions: codeine [Codeine] Allergy (Verified 12/13/17 01:27) iodine [Iodine] Allergy (Verified 12/13/17 01:27) Shellfish * [Shellfish] Allergy (Verified 12/13/17:) Past Medical History - Social History Smoking Status: Unknown if Ever Smoked Family History: Reviewed & Not Pertinent - Past Medical History Cardiac Medical History: Reports: Hx Atrial Fibrillation, Hx Congestive Heart Failure, Hx Heart Attack - The patient had an elevated troponin, but negative catheterization 03/03/13, Hx Hypercholesterolemia, Hx Hypertension Denies: Hx Coronary Artery Disease Pulmonary Medical History: Denies: Hx Asthma, Hx Bronchitis, Hx COPD, Hx Pneumonia, Hx Tuberculosis Neurological Medical History: Reports: Hx Cerebrovascular Accident, Hx Migraine. Denies: Hx Seizures Endocrine Medical History: Renal/ Medical History: Denies: Hx Peritoneal Dialysis GI Medical History: Reports: Hx Gastroesophageal Reflux Disease Musculoskeletal Medical History: Reports Hx Arthritis - was told patient has a broken back, Denies Hx Systemic Lupus Erythematosus Psychiatric Medical History: Reports: Hx Dementia, Hx Depression Past Surgical History: Reports: Hx Appendectomy, Hx Cardiac Surgery - pacer/defib, Hx Pacemaker. Denies: Hx Hysterectomy - Immunizations Hx Diphtheria, Pertussis, Tetanus Vaccination: No Hx Pneumococcal Vaccination: 09/28/13 Review of Systems - Review of Systems Notes: REVIEW OF SYSTEMS Caveat altered mental status PHYSICAL EXAMINATION General: No acute distress, well-nourished Head: Atraumatic, normocephalic ENT: Mouth normal, oropharynx moist, no exudates or tonsillar enlargement Eyes: Conjunctiva normal, pupils equal, lids normal Neck: No JVD, supple, no guarding CVS: Normal rate, regular rhythm, no murmurs Resp: No resp distress, equal and normal breath sounds bilaterally GI: Nondistended, soft, mild suprapubic tenderness to palpation, no rebound or g uarding Ext: No deformities, no edema, normal range of motion in upper and lower ext Back: No CVA or midline TTP Skin: No rash, warm Lymphatic: No lymphadeopathy noted Neuro: Be aroused to voice but does not follow commands. Does not answer questions. No apparent facial asymmetry. Withdraws to pain with all 4 extremities.. Physical Exam - Vital signs Vitals: Resp Pulse Ox 22 H 94 08/19/18 10:37 08/19/18 10:37 Course - Re-evaluation Re-evalutation: 08/19/18 13:24 Patient presents with altered mental status congestion, history of heart failu re, and possible strong urine. Suspect for sepsis or volume overload. Did not initially give fluids. Patient remained afebrile. Urinalysis negative. BNP elevated, with troponin detectable. Given Lasix IV. Patient to be admitted to the hospitalist for further management. She has no trauma do not suspect any stroke/bleed in her head. - Vital Signs Vital signs: Temp Pulse Resp BP Pulse Ox 99.9 F 20 127/53 H 95 08/19/18 11:30 08/19/18 12:01 08/19/18 12:01 08/19/18 12:01 - Laboratory Result Diagrams: 08/19/18 11:05 08/19/18 11:05 Laboratory results interpreted by me: 08/19/18 08/19/18 08/19/18 11:05 11:05 11:05 WBC 11.0 H RBC 3.43 L Hgb 9.4 L Hct 28.7 L RDW 15.7 H Carbon Dioxide 32 H BUN 38 H Creatinine 2.19 H Est GFR ( Amer) 26 L Est GFR (Non-Af Amer) 21 L NT-Pro-B Natriuret Pep 5260 H Total Protein 8.5 H Urine Protein Urine Urobilinogen 08/19/18 11:26 WBC RBC Hgb Hct RDW Carbon Dioxide BUN Creatinine Est GFR ( Amer) Est GFR (Non-Af Amer) NT-Pro-B Natriuret Pep Total Protein Urine Protein 100 H Urine Urobilinogen 4.0 H - Diagnostic Test Radiology reviewed: Image reviewed, Reports reviewed - EKG Interpretation by Me EKG shows normal: Sinus rhythm Rate: Normal Rhythm: NSR When compared to previous EKG there are: No significant change - Lateral T wave inversion and LVH signs with no acute ST deviation Discharge - Discharge Clinical Impression: Acute metabolic encephalopathy Acute exacerbation of congestive heart failure Qualifiers: Heart failure type: diastolic Qualified Code(s): I50.33 - Acute on chronic diastolic (congestive) heart failure Congestive heart failure (CHF) Qualifiers: Heart failure type: diastolic Heart failure chronicity: acute Qualified Code(s): I50.31 - Acute diastolic (congestive) heart failure Condition: Good Disposition: ADMITTED INPATIENT Admitting Provider: Trey (Hospitalist) Unit Admitted: Telemetry
[2018-08-19 11:15] LABS: ABSOLUTE BASOPHILS # (AUTO) 0.1 10^3/uL (0.0-0.2); ABSOLUTE LYMPHOCYTES (AUTO) 1.7 10^3/uL (0.5-4.7); ABSOLUTE MONOCYTES (AUTO) 1.2 10^3/uL (0.1-1.4); ABSOLUTE NEUT (AUTO) 8.1 10^3/uL (1.7-8.2); BASOPHILS % (AUTO) 0.6 % (0-2); EOSINOPHILS % (AUTO) 0.2 % (0-6); HEMATOCRIT 28.7 % (36.0-47.0); HEMOGLOBIN 9.4 g/dL (12.0-15.5); MEAN CORPUSCULAR HEMOGLOBIN 27.5 pg (27.0-33.4); MEAN CORPUSCULAR HGB CONC 32.8 g/dL (32.0-36.0); MEAN CORPUSCULAR VOLUME 84 fl (80-97); MONOCYTES % (AUTO) 10.5 % (3-13); PLATELET COUNT 224 10^3/uL (150-450); RED BLOOD COUNT 3.43 10^6/uL (3.72-5.28); RED CELL DISTRIBUTION WIDTH 15.7 % (11.5-14.0); SEGMENTED NEUTROPHILS % (AUTO) 73.7 % (42-78); TOTAL CELLS COUNTED % (AUTO) 100 %
[2018-08-19 11:23] LABS: INTERNATIONAL RATION (INR) 1.06; PROTHROMBIN TIME 14.4 SEC (11.4-15.4)
[2018-08-19 11:36] LABS: ALANINE AMINOTRANSFERASE 16 U/L (9-52); ALBUMIN 3.6 g/dL (3.5-5.0); ALKALINE PHOSPHATASE 72 U/L (38-126); ANION GAP 12 (5-19); ASPARTATE AMINO TRANSFERASE 22 U/L (14-36); BILIRUBIN,DIRECT 0.3 mg/dL (0.0-0.4); BILIRUBIN,TOTAL 0.4 mg/dL (0.2-1.3); BLOOD UREA NITROGEN 38 mg/dL (7-20); CALCIUM 9.3 mg/dL (8.4-10.2); CARBON DIOXIDE 32 mmol/L (22-30); CHLORIDE 99 mmol/L (98-107); GLUCOSE 95 mg/dL (75-110); POTASSIUM 4.6 mmol/L (3.6-5.0); TOTAL PROTEIN 8.5 g/dL (6.3-8.2)
[2018-08-19 11:55] LABS: TROPONIN I 0.055 ng/mL
[2018-08-19 12:15] LABS: APPEARANCE,URINE SLIGHTLY-CLOUDY; BILIRUBIN,URINE NEGATIVE (NEGATIVE); COLOR,URINE YELLOW; GLUCOSE, URINE NEGATIVE (NEGATIVE); KETONES,URINE NEGATIVE (NEGATIVE); LEUKOCYTE ESTERASE,URINE NEGATIVE (NEGATIVE); NITRITE,URINE NEGATIVE (NEGATIVE); PROTEIN,URINE 100 mg/dL (NEGATIVE); URINE SPECIFIC GRAVITY 1.015
[2018-08-19] MEDS ORDERED: FUROSEMIDE INJ/PF 40 MG/4 ML SDV IV ONE (12:21)
[2018-08-19] MEDS ORDERED: ONDANSETRON HCL INJ/PF 4 MG/2 ML SDV IV PRN (13:23)
--- NOTE | 2018-08-19 13:48 | PDOC H&P ---
History of Present Illness Admission Date/PCP: 08/19/18 12:47 JEFF TIJERINA MD Patient complains of: Shortness of breath History of Present Illness: BELKIS EUCEDA is a 88 year old female with history of dementia, congestive heart failure, atrial fibrillation, hyperlipidemia, hypertension [facility] brought to the emergency room with increased shortness of breath and sleepiness for the last few days. Also noticed to have urinary symptoms. 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 Pulse oxes in the emergency room are stable BNP is a 5300 on physical examination as per the ER physician crackles at the bases. Medical consult was called for admission for CHF exacerbation found to have elevated creatinine and for CATHIE. Past Medical History Cardiac Medical History: Reports: Atrial Fibrillation, Congestive Heart Failure, Myocardial Infarction - The patient had an elevated troponin, but negative cath eterization 03/03/13, Hyperlipidema, Hypertension Denies: Coronary Artery Disease Pulmonary Medical History: Denies: Asthma, Bronchitis, Chronic Obstructive Pulmonary Disease (COPD), Pneumonia, Tuberculosis Neurological Medical History: Reports: Migraine Denies: Seizures Endocrine Medical History: GI Medical History: Reports: Gastroesophageal Reflux Disease Musculoskeltal Medical History: Reports: Arthritis - was told patient has a broken back Psychiatric Medical History: Reports: Dementia, Depression Hematology: Reports: Anemia Past Surgical History Past Surgical History: Reports: Appendectomy, Pacemaker Denies: Hysterectomy Social History Information Source: Emergency Med Personnel Lives with: [facility] Smoking Status: Unknown if Ever Smoked Frequency of Alcohol Use: None Hx Recreational Drug Use: No Drugs: None Hx Prescription Drug Abuse: No - Advance Directive Resuscitation Status: Full Code Family History Family History: Reviewed & Not Pertinent Parental Family History Reviewed: Yes Children Family History Reviewed: Yes Sibling(s) Family History Reviewed.: Yes Medication/Allergy Home Medications: Amlodipine Besylate [Norvasc 10 mg Tablet] 10 mg PO DAILY 12/13/17 Citalopram Hydrobromide [Celexa 20 mg Tablet] 20 mg PO DAILY 12/13/17 Clonidine HCl [Catapres 0.1 mg Tablet] 0.1 mg PO Q12 12/13/17 Donepezil HCl [Aricept] 10 mg PO QHS 12/13/17 Hydralazine HCl 100 mg PO Q8 12/13/17 Levothyroxine Sodium [Synthroid 0.088 mg Tablet] 0.088 mg PO Q6AM 12/13/17 Memantine HCl [Namenda 10 mg Tablet] 10 mg PO BID 12/13/17 Metolazone [Zaroxolyn 2.5 mg Tablet] 2.5 mg PO DAILY 12/13/17 Metoprolol Succinate [Toprol XL 100 mg Tablet] 100 mg PO Q12 12/13/17 Polyethylene Glycol 3350 [Miralax Powder 17 gm/Packet] 17 gm PO DAILY 12/13/17 Risperidone [Risperdal] 0.5 mg PO BID 12/13/17 Isosorbide Mononitrate [Imdur 30 mg Tablet.er] 30 mg PO DAILY tab.er.24h 12/18/17 Furosemide [Lasix 80 mg Tablet] 80 mg PO DAILY 03/30/18 Potassium Chloride 30 meq PO DAILY 03/30/18 Ipratropium/Albuterol Sulfate [Duoneb 3 ml Ampul] 3 ml NEB RTQ3HP PRN vial.neb 04/05/18 Allergies/Adverse Reactions: codeine [Codeine] Allergy (Verified 12/13/17 01:27) iodine [Iodine] Allergy (Verified 12/13/17 01:27) Shellfish * [Shellfish] Allergy (Verified 12/13/17 01:27) Review of Systems ROS unobtainable: Due to mental status Eyes: PRESENT: visual disturbances Ears: PRESENT: hearing changes Physical Exam Vital Signs: Temp Pulse Resp BP Pulse Ox 99.9 F 20 127/53 H 95 08/19/18 11:30 08/19/18 12:01 08/19/18 12:01 08/19/18 12:01 Intake & Output 08/18/18 08/19/18 08/20/18 06:59 06:59 06:59 Weight 95.254 kg General appearance: PRESENT: no acute distress, disheveled, obese, other - Patient has advanced dementia unable to give any information. Head exam: PRESENT: atraumatic Eye exam: PRESENT: PERRLA Cardiovascular exam: PRESENT: irregular rhythm, systolic murmur Rectal exam: PRESENT: deferred Extremities exam: PRESENT: +1 edema Neurological exam: PRESENT: alert Psychiatric exam: PRESENT: appropriate affect, normal mood. ABSENT: homicidal ideation, suicidal ideation Results Laboratory Results: 08/19/18 11:05 08/19/18 11:05 08/19/18 08/19/18 08/19/18 11:05 11:05 11:05 WBC 11.0 H RBC 3.43 L Hgb 9.4 L Hct 28.7 L MCV 84 MCH 27.5 MCHC 32.8 RDW 15.7 H Plt Count 224 Seg Neutrophils % 73.7 Lymphocytes % 15.0 Monocytes % 10.5 Eosinophils % 0.2 Basophils % 0.6 Absolute Neutrophils 8.1 Absolute Lymphocytes 1.7 Absolute Monocytes 1.2 Absolute Eosinophils 0.0 Absolute Basophils 0.1 Sodium 143.0 Potassium 4.6 Chloride 99 Carbon Dioxide 32 H Anion Gap 12 BUN 38 H Creatinine 2.19 H Est GFR ( Amer) 26 L Est GFR (Non-Af Amer) 21 L Glucose 95 Lactic Acid 1.9 Calcium 9.3 Total Bilirubin 0.4 AST 22 ALT 16 Alkaline Phosphatase 72 Total Protein 8.5 H Albumin 3.6 Urine Color Urine Appearance Urine pH Ur Specific Irving Urine Protein Urine Glucose (UA) Urine Ketones Urine Blood Urine Nitrite Ur Leukocyte Esterase Urine WBC (Auto) Urine RBC (Auto) 08/19/18 11:26 WBC RBC Hgb Hct MCV MCH MCHC RDW Plt Count Seg Neutrophils % Lymphocytes % Monocytes % Eosinophils % Basophils % Absolute Neutrophils Absolute Lymphocytes Absolute Monocytes Absolute Eosinophils Absolute Basophils Sodium Potassium Chloride Carbon Dioxide Anion Gap BUN Creatinine Est GFR ( Amer) Est GFR (Non-Af Amer) Glucose Lactic Acid Calcium Total Bilirubin AST ALT Alkaline Phosphatase Total Protein Albumin Urine Color YELLOW Urine Appearance SLIGHTLY-CLOUDY Urine pH 5.0 Ur Specific Irving 1.015 Urine Protein 100 H Urine Glucose (UA) NEGATIVE Urine Ketones NEGATIVE Urine Blood NEGATIVE Urine Nitrite NEGATIVE Ur Leukocyte Esterase NEGATIVE Urine WBC (Auto) 4 Urine RBC (Auto) 6 08/19/18 11:05 Troponin I 0.055 NT-Pro-B Natriuret Pep 5260 H Assessment and Plan - Diagnosis (1) Acute exacerbation of CHF (congestive heart failure) Qualifiers: Heart failure type: diastolic Qualified Code(s): I50.33 - Acute on chronic diastolic (congestive) heart failure Is this a current diagnosis for this admission?: Yes Plan: 08/19/2018-this elderly female is going to be admitted for acute exacerbation of diastolic heart failure. Given her Lasix IV in the emergency room plan to give continue IV Lasix 40 mg every 12 hours restart her home medications GI prophylaxis DVT prophylaxis initiated. Strict input output is good to be requested. Latest echocardiogram few months ago indicates EF of 60%. (2) CKD (chronic kidney disease) Qualifiers: Chronic kidney disease stage: unspecified stage Qualified Code(s): N18.9 - Chronic kidney disease, unspecified Is this a current diagnosis for this admission?: Yes Plan: 08/19/2018-patient's baseline creatinine is 1.8 today admission creatinine is 2.16. Acute kidney injury most likely may be prerenal causes. Plan is to closely watch the renal function on daily basis. (3) Dementia Qualifiers: Dementia type: unspecified type Dementia behavioral disturbance: without behavioral disturbance Qualified Code(s): F03.90 - Unspecified dementia without behavioral disturbance Is this a current diagnosis for this admission?: No Plan: 08/19/2018-patient has history of advanced dementia to restart intermediate medications while she was here. - Time Time Spent with patient: 25-34 minutes Medications reviewed and adjusted accordingly: Yes Anticipated discharge: SNF
[2018-08-19] MEDS ORDERED: (PENDING PHARMACY ID) (Hydralazine Hcl [Hydralazine Hcl] 100 MG) PO SCH (14:00)
--- NOTE | 2018-08-19 15:01 | RADIOLOGY REPORT (SQ) ---
EXAM DESCRIPTION: CHEST SINGLE VIEW COMPLETED DATE/TIME: 08/19/2018 2:38 pm REASON FOR STUDY: SOB COMPARISON: None. EXAM PARAMETERS: NUMBER OF VIEWS: One view. TECHNIQUE: Single frontal radiographic view of the chest acquired. RADIATION DOSE: NA LIMITATIONS: None. FINDINGS: LUNGS AND PLEURA: No opacities, masses or pneumothorax. No pleural effusion. MEDIASTINUM AND HILAR STRUCTURES: No masses. Contour normal. HEART AND VASCULAR STRUCTURES: Cardiomegaly. BONES: No acute findings. HARDWARE: Pacemaker/defibrillator. OTHER: No other significant finding. IMPRESSION: Cardiomegaly without pulmonary edema. TECHNICAL DOCUMENTATION: JOB ID: [id number] [employer]- All Rights Reserved Reading location - IP/workstation name: [email or web address]
[2018-08-19] MEDS: LEVALBUTEROL HCL NEB 0.63 MG/3 ML AMPUL NEB SCH ×2 (15:44→19:51)
[2018-08-19] MEDS ORDERED: IPRATROPIUM/ALBUTEROL 0.5-2.5 MG/3 ML AMPUL NEB SCH (16:00)
[2018-08-19] MEDS: ISOSORBIDE MONONITRATE 30 MG TAB.ER.24H PO SCH (16:02)
[2018-08-19] MEDS: CITALOPRAM HYDROBROMIDE 20 MG TABLET PO SCH (16:02)
[2018-08-19] MEDS: AMLODIPINE BESYLATE 10 MG TABLET PO SCH (16:02)
[2018-08-19] MEDS: METOLAZONE 2.5 MG TABLET PO SCH (16:02)
--- NOTE | 2018-08-19 16:12 | EKG REPORT ---
SEVERITY:- ABNORMAL ECG - ATRIAL-PACED COMPLEXES CONSIDER LEFT VENTRICULAR HYPERTROPHY ABNORMAL T, CONSIDER ISCHEMIA, LATERAL LEADS : Confirmed by: Jada Marie MD 19-Aug-2018 16:10:49
[2018-08-19] MEDS ORDERED: (PENDING PHARMACY ID) (Risperidone [Risperdal] 0.5 MG) PO SCH (18:00)
[2018-08-19] MEDS: MEMANTINE HCL 10 MG TABLET PO SCH (19:04)
[2018-08-19] MEDS: RISPERIDONE 0.25 MG TABLET PO SCH (19:04)
[2018-08-19] MEDS ORDERED: (PENDING PHARMACY ID) (Donepezil Hcl [Aricept] 10 MG) PO SCH (22:00)
[2018-08-19] MEDS: HYDRALAZINE HCL 50 MG TABLET PO SCH (22:03)
[2018-08-19] MEDS: METOPROLOL SUCCINATE 50 MG TAB.SR.24H PO SCH (22:04)
[2018-08-19] MEDS: DONEPEZIL HCL 5 MG TABLET PO SCH (22:08)
[2018-08-19] MEDS: FAMOTIDINE 20 MG TABLET PO SCH (22:08)
[2018-08-20] MEDS: LEVALBUTEROL HCL NEB 0.63 MG/3 ML AMPUL NEB SCH ×6 (00:07→19:50)
[2018-08-20] MEDS: HYDRALAZINE HCL 50 MG TABLET PO SCH ×3 (05:44→22:20)
[2018-08-20] MEDS: LEVOTHYROXINE SODIUM 0.088 MG TABLET PO SCH (05:44)
[2018-08-20 07:12] LABS: ABSOLUTE LYMPHOCYTES (AUTO) 1.7 10^3/uL (0.5-4.7); ABSOLUTE NEUT (AUTO) 7.6 10^3/uL (1.7-8.2); BASOPHILS % (AUTO) 0.4 % (0-2); EOSINOPHILS % (AUTO) 0.2 % (0-6); HEMATOCRIT 28.2 % (36.0-47.0); HEMOGLOBIN 9.5 g/dL (12.0-15.5); LYMPHOCYTES % (AUTO) 16.7 % (13-45); MEAN CORPUSCULAR HEMOGLOBIN 27.8 pg (27.0-33.4); MEAN CORPUSCULAR HGB CONC 33.5 g/dL (32.0-36.0); MEAN CORPUSCULAR VOLUME 83 fl (80-97); PLATELET COUNT 208 10^3/uL (150-450); RED CELL DISTRIBUTION WIDTH 15.4 % (11.5-14.0); SEGMENTED NEUTROPHILS % (AUTO) 72.7 % (42-78); TOTAL CELLS COUNTED % (AUTO) 100 %; WHITE BLOOD COUNT 10.5 10^3/uL (4.0-10.5)
[2018-08-20 07:31] LABS: ALANINE AMINOTRANSFERASE 18 U/L (9-52); ALBUMIN 3.6 g/dL (3.5-5.0); ALKALINE PHOSPHATASE 76 U/L (38-126); ANION GAP 12 (5-19); ASPARTATE AMINO TRANSFERASE 25 U/L (14-36); BILIRUBIN,DIRECT 0.4 mg/dL (0.0-0.4); BILIRUBIN,TOTAL 0.4 mg/dL (0.2-1.3); BLOOD UREA NITROGEN 42 mg/dL (7-20); CALCIUM 9.1 mg/dL (8.4-10.2); CARBON DIOXIDE 31 mmol/L (22-30); CHLORIDE 99 mmol/L (98-107); GLUCOSE 121 mg/dL (75-110); POTASSIUM 4.2 mmol/L (3.6-5.0); SODIUM 142.2 mmol/L (137-145); TOTAL PROTEIN 8.4 g/dL (6.3-8.2); TRIGLYCERIDES 146 mg/dL (<150)
[2018-08-20 07:42] LABS: DIRECT LDL 73 mg/dL (<100)
[2018-08-20] MEDS: MEMANTINE HCL 10 MG TABLET PO SCH ×2 (09:14→18:27)
[2018-08-20] MEDS: AMLODIPINE BESYLATE 10 MG TABLET PO SCH (09:14)
[2018-08-20] MEDS: DOCUSATE SODIUM 100 MG CAPSULE PO SCH (09:14)
[2018-08-20] MEDS: ISOSORBIDE MONONITRATE 30 MG TAB.ER.24H PO SCH (09:16)
[2018-08-20] MEDS: METOPROLOL SUCCINATE 50 MG TAB.SR.24H PO SCH ×2 (09:16→22:21)
[2018-08-20] MEDS: CITALOPRAM HYDROBROMIDE 20 MG TABLET PO SCH (09:17)
[2018-08-20] MEDS: POTASSIUM CHLORIDE 10 MEQ CAPSULE.ER PO SCH (09:18)
[2018-08-20] MEDS: ENOXAPARIN SODIUM INJ 30 MG/0.3 ML DISP.SYRIN SUBCUT SCH (09:18)
[2018-08-20] MEDS: POLYETHYLENE GLYCOL 3350 POWDER 17 GM/1 PACKET PO SCH (09:19)
[2018-08-20] MEDS: RISPERIDONE 0.25 MG TABLET PO SCH ×2 (09:36→18:30)
[2018-08-20] MEDS: METOLAZONE 2.5 MG TABLET PO SCH (09:36)
[2018-08-20] MEDS ORDERED: ENOXAPARIN SODIUM INJ 40 MG/0.4 ML DISP.SYRIN SUBCUT SCH (10:00)
[2018-08-20] MEDS ORDERED: FUROSEMIDE 80 MG TABLET PO SCH (10:00)
--- NOTE | 2018-08-20 14:34 | PDOC PROGRESS REPORT ---
Subjective Progress Note for:: 08/20/18 Subjective:: 88 year old female with history of dementia, congestive heart failure, atrial fibrillation, hyperlipidemia, hypertension [facility] brought to the emergency room with increased shortness of breath and sleepiness for the last few days. Also noticed to have urinary symptoms. 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 Pulse oxes in the emergency room are stable BNP is a 5300 on physical examination as per the ER physician crackles at the bases. Medical consult was called for admission for CHF exacerbation found to have elevated creatinine and for CATHIE. 08/20/[id number]-vvxu-old female [facility] from the [facility] with complaints of increasing shortness of breath and change in mental status/sleepiness. She has history of dementia, congestive heart failure, atrial fibrillation and hyperlipidemia. No acute events in the hospital. Initial examinations and investigations suggestive of CATHIE. BNP was elevated to 5300 at the time of admission. Chest x-ray shows cardiomegaly without any edema. Reason For Visit: CHF EXACERBATION Physical Exam Vital Signs: Temp Pulse Resp BP Pulse Ox 98.9 F 70 20 127/54 H 92 08/20/18 04:00 08/20/18 11:49 08/20/18 11:49 08/20/18 04:00 08/20/18 11:49 Intake & Output 08/19/18 08/20/18 08/21/18 06:59 06:59 06:59 Intake Total 125 Output Total 1800 Balance -1675 Weight 96.7 kg General appearance: PRESENT: no acute distress, cooperative, obese, other - Patient might have advanced dementia. Head exam: PRESENT: atraumatic Eye exam: PRESENT: PERRLA Mouth exam: PRESENT: moist, tongue midline Neck exam: ABSENT: carotid bruit, JVD, lymphadenopathy, thyromegaly Respiratory exam: PRESENT: decreased breath sounds Cardiovascular exam: PRESENT: RRR. ABSENT: diastolic murmur, rubs, systolic murmur GI/Abdominal exam: PRESENT: normal bowel sounds, soft. ABSENT: distended, guarding, mass, organolmegaly, rebound, tenderness Rectal exam: PRESENT: deferred Extremities exam: PRESENT: full ROM. ABSENT: calf tenderness, clubbing, pedal edema Neurological exam: PRESENT: alert, awake, CN II-XII grossly intact, other - Patient has advanced dementia. Psychiatric exam: PRESENT: appropriate affect, normal mood. ABSENT: homicidal ideation, suicidal ideation Results Laboratory Results: 08/20/18 06:53 08/20/18 06:53 08/20/18 08/20/18 08/20/18 06:53 06:53 06:53 WBC 10.5 RBC 3.40 L Hgb 9.5 L Hct 28.2 L MCV 83 MCH 27.8 MCHC 33.5 RDW 15.4 H Plt Count 208 Seg Neutrophils % 72.7 Lymphocytes % 16.7 Monocytes % 10.0 Eosinophils % 0.2 Basophils % 0.4 Absolute Neutrophils 7.6 Absolute Lymphocytes 1.7 Absolute Monocytes 1.0 Absolute Eosinophils 0.0 Absolute Basophils 0.0 Sodium 142.2 Potassium 4.2 Chloride 99 Carbon Dioxide 31 H Anion Gap 12 BUN 42 H Creatinine 2.16 H Est GFR ( Amer) 26 L Est GFR (Non-Af Amer) 22 L Glucose 121 H Calcium 9.1 Total Bilirubin 0.4 AST 25 ALT 18 Alkaline Phosphatase 76 Total Protein 8.4 H Albumin 3.6 Triglycerides 146 Cholesterol 165.40 LDL Cholesterol Direct 73 VLDL Cholesterol 29.0 HDL Cholesterol 27 L TSH 4.76 H 08/19/18 08/19/18 08/19/18 11:05 14:21 14:21 Creatine Kinase 68 Troponin I 0.055 0.055 NT-Pro-B Natriuret Pep 5260 H 08/19/18 08/19/18 08/20/18 19:32 19:32 01:20 Creatine Kinase 69 74 Troponin I 0.054 NT-Pro-B Natriuret Pep 08/20/18 08/20/18 01:20 06:53 Creatine Kinase Troponin I 0.051 NT-Pro-B Natriuret Pep 2050 H Impressions: Chest X-Ray 08/19/18 13:01 IMPRESSION: Cardiomegaly without pulmonary edema. Assessment and Plan - Diagnosis (1) Acute exacerbation of CHF (congestive heart failure) Qualifiers: Heart failure type: diastolic Qualified Code(s): I50.33 - Acute on chronic diastolic (congestive) heart failure Is this a current diagnosis for this admission?: Yes Plan: 08/19/2018-this elderly female is going to be admitted for acute exacerbation of diastolic heart failure. Given her Lasix IV in the emergency room plan to give continue IV Lasix 40 mg every 12 hours restart her home medications GI prophylaxis DVT prophylaxis initiated. Strict input output is good to be requested. Latest echocardiogram few months ago indicates EF of 60%. 08/20/[id number]-old for elderly female admitted with acute exacerbation of chronic diastolic heart failure. Presently on IV Lasix 40 mg twice a day. To check BNP tomorrow. And recent echocardiogram suggestive of EF of 60%. Presently on DVT and GI prophylaxis. Patient has a negative fluid balance of 1675 mL in the last 24 hours. (2) CKD (chronic kidney disease) Qualifiers: Chronic kidney disease stage: unspecified stage Qualified Code(s): N18.9 - Chronic kidney disease, unspecified Is this a current diagnosis for this admission?: Yes Plan: 08/19/2018-patient's baseline creatinine is 1.8 today admission creatinine is 2.16. Acute kidney injury most likely may be prerenal causes. Plan is to closely watch the renal function on daily basis. 08/20/2018-patient's baseline creatinine is 1.8 on admission it was 2.19. Today's creatinine is 2.16 slightly improved. CATHIE may be is likely secondary to prerenal causes. (3) Dementia Qualifiers: Dementia type: unspecified type Dementia behavioral disturbance: without behavioral disturbance Qualified Code(s): F03.90 - Unspecified dementia without behavioral disturbance Is this a current diagnosis for this admission?: No Plan: 08/19/2018-patient has history of advanced dementia to restart [facility] medications while she was here. 08/20/2018-patient has advanced dementia on dementia medications donezepil. - Time Time Spent with patient: 25-34 minutes Medications reviewed and adjusted accordingly: Yes Anticipated discharge: SNF
[2018-08-20] MEDS: ACETAMINOPHEN 325 MG TABLET PO PRN (18:30)
[2018-08-20] MEDS: FUROSEMIDE INJ/PF 40 MG/4 ML SDV IV SCH (22:21)
[2018-08-20] MEDS: DONEPEZIL HCL 5 MG TABLET PO SCH (22:24)
[2018-08-20] MEDS: FAMOTIDINE 20 MG TABLET PO SCH (22:24)
[2018-08-21] MEDS: LEVALBUTEROL HCL NEB 0.63 MG/3 ML AMPUL NEB SCH ×6 (00:35→20:49)
[2018-08-21] MEDS: HYDRALAZINE HCL 50 MG TABLET PO SCH ×3 (05:18→23:56)
[2018-08-21] MEDS: LEVOTHYROXINE SODIUM 0.088 MG TABLET PO SCH (05:18)
[2018-08-21 05:29] LABS: ABSOLUTE BASOPHILS # (AUTO) 0.1 10^3/uL (0.0-0.2); ABSOLUTE EOSINOPHILS # (AUTO) 0.2 10^3/uL (0.0-0.6); ABSOLUTE LYMPHOCYTES (AUTO) 2.2 10^3/uL (0.5-4.7); ABSOLUTE MONOCYTES (AUTO) 0.9 10^3/uL (0.1-1.4); ABSOLUTE NEUT (AUTO) 5.3 10^3/uL (1.7-8.2); BASOPHILS % (AUTO) 0.7 % (0-2); EOSINOPHILS % (AUTO) 1.8 % (0-6); HEMOGLOBIN 9.4 g/dL (12.0-15.5); LYMPHOCYTES % (AUTO) 25.7 % (13-45); MEAN CORPUSCULAR HEMOGLOBIN 27.8 pg (27.0-33.4); MEAN CORPUSCULAR HGB CONC 33.4 g/dL (32.0-36.0); MEAN CORPUSCULAR VOLUME 83 fl (80-97); MONOCYTES % (AUTO) 10.2 % (3-13); PLATELET COUNT 196 10^3/uL (150-450); RED BLOOD COUNT 3.37 10^6/uL (3.72-5.28); RED CELL DISTRIBUTION WIDTH 15.5 % (11.5-14.0); SEGMENTED NEUTROPHILS % (AUTO) 61.6 % (42-78); TOTAL CELLS COUNTED % (AUTO) 100 %; WHITE BLOOD COUNT 8.5 10^3/uL (4.0-10.5)
[2018-08-21 05:52] LABS: ALBUMIN 3.3 g/dL (3.5-5.0); BLOOD UREA NITROGEN 47 mg/dL (7-20); CARBON DIOXIDE 30 mmol/L (22-30); GLUCOSE 98 mg/dL (75-110); POTASSIUM 4.1 mmol/L (3.6-5.0); SODIUM 140.5 mmol/L (137-145); TOTAL PROTEIN 8.1 g/dL (6.3-8.2)
[2018-08-21 06:26] LABS: CALCIUM 8.8 mg/dL (8.4-10.2)
[2018-08-21 06:27] LABS: ANION GAP 12 (5-19); CHLORIDE 99 mmol/L (98-107)
[2018-08-21 06:45] LABS: ALANINE AMINOTRANSFERASE 22 U/L (9-52); ALKALINE PHOSPHATASE 77 U/L (38-126); ASPARTATE AMINO TRANSFERASE 24 U/L (14-36); BILIRUBIN,DIRECT 0.4 mg/dL (0.0-0.4); BILIRUBIN,TOTAL 0.5 mg/dL (0.2-1.3)
[2018-08-21] MEDS: CITALOPRAM HYDROBROMIDE 20 MG TABLET PO SCH (10:42)
[2018-08-21] MEDS: DOCUSATE SODIUM 100 MG CAPSULE PO SCH (10:42)
[2018-08-21] MEDS: METOPROLOL SUCCINATE 50 MG TAB.SR.24H PO SCH ×2 (10:42→21:26)
[2018-08-21] MEDS: MEMANTINE HCL 10 MG TABLET PO SCH ×2 (10:42→18:01)
[2018-08-21] MEDS: AMLODIPINE BESYLATE 10 MG TABLET PO SCH (10:42)
[2018-08-21] MEDS: ISOSORBIDE MONONITRATE 30 MG TAB.ER.24H PO SCH (10:43)
[2018-08-21] MEDS: POTASSIUM CHLORIDE 10 MEQ CAPSULE.ER PO SCH (10:43)
[2018-08-21] MEDS: FUROSEMIDE INJ/PF 40 MG/4 ML SDV IV SCH ×2 (10:44→21:25)
[2018-08-21] MEDS: POLYETHYLENE GLYCOL 3350 POWDER 17 GM/1 PACKET PO SCH (10:46)
[2018-08-21] MEDS: ENOXAPARIN SODIUM INJ 30 MG/0.3 ML DISP.SYRIN SUBCUT SCH (10:46)
[2018-08-21] MEDS: RISPERIDONE 0.25 MG TABLET PO SCH ×2 (10:52→18:00)
[2018-08-21] MEDS: METOLAZONE 2.5 MG TABLET PO SCH (10:52)
--- NOTE | 2018-08-21 10:58 | PDOC PROGRESS REPORT ---
Subjective Progress Note for:: 08/21/18 Subjective:: 88 year old female with history of dementia, congestive heart failure, atrial fibrillation, hyperlipidemia, hypertension [facility] brought to the emergency room with increased shortness of breath and sleepiness for the last few days. Also noticed to have urinary symptoms. 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 Pulse oxes in the emergency room are stable BNP is a 5300 on physical examination as per the ER physician crackles at the bases. Medical consult was called for admission for CHF exacerbation found to have elevated creatinine and for CATHIE. 08/20/[id number]-scnq-old female came from the detention with complaints of increasing shortness of breath and change in mental status/sleepiness. She has history of dementia, congestive heart failure, atrial fibrillation and hyperlipidemia. No acute events in the hospital. Initial examinations and investigations suggestive of CATHIE. BNP was elevated to 5300 at the time of admission. Chest x-ray shows cardiomegaly without any edema. 08/21/[id number]-wnxy-old female admitted for increasing shortness of breath and increased sleepiness. She is also history of dementia, chronic congestive heart failure, atrial fibrillation. She is doing much better at since yesterday. Pulse ox is 96% on room air. BNP improved to 1740. Acute events in the last 24 hours. Afebrile. Reason For Visit: CHF EXACERBATION Physical Exam Vital Signs: Temp Pulse Resp BP Pulse Ox 98.1 F 63 17 135/45 H 95 08/21/18 05:33 08/21/18 08:33 08/21/18 08:33 08/21/18 05:33 08/21/18 08:33 Intake & Output 08/20/18 08/21/18 08/22/18 06:59 06:59 06:59 Intake Total 125 825 Output Total 1800 2125 Balance -1675 -1300 Weight 96.7 kg 94.8 kg General appearance: PRESENT: no acute distress, cooperative, obese, other - And is unable to communicate eval because of advanced dementia. Head exam: PRESENT: atraumatic Eye exam: PRESENT: PERRLA Mouth exam: PRESENT: moist, tongue midline Neck exam: ABSENT: carotid bruit, JVD, lymphadenopathy, thyromegaly Respiratory exam: PRESENT: clear to auscultation bimal. ABSENT: rales, rhonchi, wheezes Cardiovascular exam: PRESENT: irregular rhythm, RRR, tachycardia. ABSENT: diastolic murmur, rubs, systolic murmur GI/Abdominal exam: PRESENT: normal bowel sounds, soft. ABSENT: distended, guarding, mass, organolmegaly, rebound, tenderness Rectal exam: PRESENT: deferred Gentrourinary exam: PRESENT: indwelling catheter Extremities exam: PRESENT: +1 edema Neurological exam: PRESENT: alert, awake, CN II-XII grossly intact, other - Patient has advanced dementia. Psychiatric exam: PRESENT: appropriate affect, normal mood. ABSENT: homicidal ideation, suicidal ideation Results Laboratory Results: 08/21/18 05:13 08/21/18 05:13 08/21/18 08/21/18 05:13 05:13 WBC 8.5 RBC 3.37 L Hgb 9.4 L Hct 28.0 L MCV 83 MCH 27.8 MCHC 33.4 RDW 15.5 H Plt Count 196 Seg Neutrophils % 61.6 Lymphocytes % 25.7 Monocytes % 10.2 Eosinophils % 1.8 Basophils % 0.7 Absolute Neutrophils 5.3 Absolute Lymphocytes 2.2 Absolute Monocytes 0.9 Absolute Eosinophils 0.2 Absolute Basophils 0.1 Sodium 140.5 Potassium 4.1 Chloride 99 Carbon Dioxide 30 Anion Gap 12 BUN 47 H Creatinine 2.11 H Est GFR ( Amer) 27 L Est GFR (Non-Af Amer) 22 L Glucose 98 Calcium 8.8 Magnesium 2.5 H Total Bilirubin 0.5 AST 24 ALT 22 Alkaline Phosphatase 77 Total Protein 8.1 Albumin 3.3 L 08/19/18 08/19/18 08/19/18 11:05 14:21 14:21 Creatine Kinase 68 Troponin I 0.055 0.055 NT-Pro-B Natriuret Pep 5260 H 08/19/18 08/19/18 08/20/18 19:32 19:32 01:20 Creatine Kinase 69 74 Troponin I 0.054 NT-Pro-B Natriuret Pep 08/20/18 08/20/18 08/21/18 01:20 06:53 05:13 Creatine Kinase Troponin I 0.051 NT-Pro-B Natriuret Pep 2050 H 1740 H Impressions: Chest X-Ray 08/19/18 13:01 IMPRESSION: Cardiomegaly without pulmonary edema. Assessment and Plan - Diagnosis (1) Acute exacerbation of CHF (congestive heart failure) Qualifiers: Heart failure type: diastolic Qualified Code(s): I50.33 - Acute on chronic diastolic (congestive) heart failure Is this a current diagnosis for this admission?: Yes Plan: 08/19/2018-this elderly female is going to be admitted for acute exacerbation of diastolic heart failure. Given her Lasix IV in the emergency room plan to give continue IV Lasix 40 mg every 12 hours restart her home medications GI prophylaxis DVT prophylaxis initiated. Strict input output is good to be requested. Latest echocardiogram few months ago indicates EF of 60%. 08/20/[id number]-duvl-old for elderly female admitted with acute exacerbation of chronic diastolic heart failure. Presently on IV Lasix 40 mg twice a day. To check BNP tomorrow. And recent echocardiogram suggestive of EF of 60%. Presently on DVT and GI prophylaxis. Patient has a negative fluid balance of 1 675 mL in the last 24 hours. 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 Presently on IV Lasix 40 mg every 12 hours BNP improved to 1940. Echocardiogram shows EF of 60%. Slight pedal edema present. She is not in respiratory distress. Pulse ox is 98% on room air. (2) CKD (chronic kidney disease) Qualifiers: Chronic kidney disease stage: unspecified stage Qualified Code(s): N18.9 - Chronic kidney disease, unspecified Is this a current diagnosis for this admission?: Yes Plan: 08/19/2018-patient's baseline creatinine is 1.8 today admission creatinine is 2.16. Acute kidney injury most likely may be prerenal causes. Plan is to closely watch the renal function on daily basis. 08/20/2018-patient's baseline creatinine is 1.8 on admission it was 2.19. Today's creatinine is 2.16 slightly improved. CATHIE may be is likely secondary to prerenal causes. 08/21/2018-patient's latest creatinine is 2.11 slightly improved compared to yesterday. Baseline creatinine is around 1.8. Plan is to continue the present management. (3) Dementia Qualifiers: Dementia type: unspecified type Dementia behavioral disturbance: without behavioral disturbance Qualified Code(s): F03.90 - Unspecified dementia without behavioral disturbance Is this a current diagnosis for this admission?: No - Time Time Spent with patient: 15-24 minutes Medications reviewed and adjusted accordingly: Yes Anticipated discharge: SNF
[2018-08-21] MEDS: FAMOTIDINE 20 MG TABLET PO SCH (21:26)
[2018-08-21] MEDS: DONEPEZIL HCL 5 MG TABLET PO SCH (21:26)
[2018-08-22] MEDS: LEVALBUTEROL HCL NEB 0.63 MG/3 ML AMPUL NEB SCH ×3 (00:36→08:25)
[2018-08-22] MEDS: LEVOTHYROXINE SODIUM 0.088 MG TABLET PO SCH (05:03)
[2018-08-22] MEDS: HYDRALAZINE HCL 50 MG TABLET PO SCH ×3 (05:03→21:07)
[2018-08-22 05:59] LABS: ABSOLUTE BASOPHILS # (AUTO) 0.1 10^3/uL (0.0-0.2); ABSOLUTE EOSINOPHILS # (AUTO) 0.2 10^3/uL (0.0-0.6); ABSOLUTE LYMPHOCYTES (AUTO) 2.5 10^3/uL (0.5-4.7); ABSOLUTE MONOCYTES (AUTO) 0.7 10^3/uL (0.1-1.4); ABSOLUTE NEUT (AUTO) 7.1 10^3/uL (1.7-8.2); BASOPHILS % (AUTO) 0.6 % (0-2); EOSINOPHILS % (AUTO) 1.7 % (0-6); HEMATOCRIT 29.9 % (36.0-47.0); HEMOGLOBIN 9.9 g/dL (12.0-15.5); LYMPHOCYTES % (AUTO) 23.5 % (13-45); MEAN CORPUSCULAR HEMOGLOBIN 27.6 pg (27.0-33.4); MEAN CORPUSCULAR HGB CONC 33.2 g/dL (32.0-36.0); MEAN CORPUSCULAR VOLUME 83 fl (80-97); MONOCYTES % (AUTO) 6.7 % (3-13); PLATELET COUNT 220 10^3/uL (150-450); RED BLOOD COUNT 3.59 10^6/uL (3.72-5.28); RED CELL DISTRIBUTION WIDTH 15.2 % (11.5-14.0); SEGMENTED NEUTROPHILS % (AUTO) 67.5 % (42-78); TOTAL CELLS COUNTED % (AUTO) 100 %; WHITE BLOOD COUNT 10.6 10^3/uL (4.0-10.5)
[2018-08-22 06:31] LABS: ALANINE AMINOTRANSFERASE 17 U/L (9-52); ALBUMIN 3.7 g/dL (3.5-5.0); ALKALINE PHOSPHATASE 87 U/L (38-126); ANION GAP 14 (5-19); ASPARTATE AMINO TRANSFERASE 26 U/L (14-36); BILIRUBIN,DIRECT 0.4 mg/dL (0.0-0.4); BILIRUBIN,TOTAL 0.6 mg/dL (0.2-1.3); BLOOD UREA NITROGEN 48 mg/dL (7-20); CALCIUM 8.9 mg/dL (8.4-10.2); CARBON DIOXIDE 30 mmol/L (22-30); CHLORIDE 96 mmol/L (98-107); GLUCOSE 98 mg/dL (75-110); POTASSIUM 4.2 mmol/L (3.6-5.0); SODIUM 139.5 mmol/L (137-145); TOTAL PROTEIN 8.9 g/dL (6.3-8.2)
[2018-08-22] MEDS ORDERED: LEVALBUTEROL HCL NEB 0.63 MG/3 ML AMPUL NEB PRN (08:30)
[2018-08-22] MEDS: DOCUSATE SODIUM 100 MG CAPSULE PO SCH (10:15)
[2018-08-22] MEDS: FUROSEMIDE 20 MG TABLET PO SCH ×2 (10:15→17:25)
[2018-08-22] MEDS: RISPERIDONE 0.25 MG TABLET PO SCH ×2 (10:15→17:25)
[2018-08-22] MEDS: METOLAZONE 2.5 MG TABLET PO SCH (10:15)
[2018-08-22] MEDS: MEMANTINE HCL 10 MG TABLET PO SCH ×2 (10:16→17:25)
[2018-08-22] MEDS: METOPROLOL SUCCINATE 50 MG TAB.SR.24H PO SCH ×2 (10:16→21:08)
[2018-08-22] MEDS: CITALOPRAM HYDROBROMIDE 20 MG TABLET PO SCH (10:16)
[2018-08-22] MEDS: POLYETHYLENE GLYCOL 3350 POWDER 17 GM/1 PACKET PO SCH (10:16)
[2018-08-22] MEDS: ENOXAPARIN SODIUM INJ 30 MG/0.3 ML DISP.SYRIN SUBCUT SCH (10:16)
[2018-08-22] MEDS: AMLODIPINE BESYLATE 10 MG TABLET PO SCH (10:16)
[2018-08-22] MEDS: POTASSIUM CHLORIDE 10 MEQ CAPSULE.ER PO SCH (10:16)
[2018-08-22] MEDS: ISOSORBIDE MONONITRATE 30 MG TAB.ER.24H PO SCH (10:16)
--- NOTE | 2018-08-22 12:17 | PDOC PROGRESS REPORT ---
Subjective Progress Note for:: 08/22/18 Subjective:: 88 year old female with history of dementia, congestive heart failure, atrial fibrillation, hyperlipidemia, hypertension [facility] brought to the emergency room with increased shortness of breath and sleepiness for the last few days. Also noticed to have urinary symptoms. 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 Pulse oxes in the emergency room are stable BNP is a 5300 on physical examination as per the ER physician crackles at the bases. Medical consult was called for admission for CHF exacerbation found to have elevated creatinine and for CATHIE. 08/20/[id number]-afsa-old female [facility] with complaints of increasing shortness of breath and change in mental status/sleepiness. She has history of dementia, congestive heart failure, atrial fibrillation and hyperlipidemia. No acute events in the hospital. Initial examinations and investigations suggestive of CATHIE. BNP was elevated to 5300 at the time of admission. Chest x-ray shows cardiomegaly without any edema. 08/21/[id number]-bthb-old female admitted for increasing shortness of breath and increased sleepiness. She is also history of dementia, chronic congestive heart failure, atrial fibrillation. She is doing much better at since yesterday. Pulse ox is 96% on room air. BNP improved to 1740. Acute events in the last 24 hours. Afebrile. 08/22/2018-this elderly female from the [facility] admitted for CHF exacerbation. BNP improved to 945. Presently on IV Lasix 40 mg twice a day plan is to change the Lasix to 20 twice daily. She can also came in with acute on chronic kidney injury creatinine was improved to 1.99 today. Her baseline is around 1.8. No acute events in the last 24 hours and afebrile. If everything is okay patient may be discharged back to [facility]. Reason For Visit: CHF EXACERBATION Physical Exam Vital Signs: Temp Pulse Resp BP Pulse Ox 98.3 F 85 16 132/57 H 95 08/22/18 07:48 08/22/18 08:00 08/22/18 08:00 08/22/18 07:48 08/22/18 08:00 Intake & Output 08/21/18 08/22/18 08/23/18 06:59 06:59 06:59 Intake Total 825 963 Output Total 2125 1700 Balance -1300 -737 Weight 94.8 kg 95.7 kg General appearance: PRESENT: obese, other - Comfortably sleeping in the bed. F amily members at bedside they do not have any concerns. Head exam: PRESENT: atraumatic Eye exam: PRESENT: PERRLA Mouth exam: PRESENT: moist, tongue midline Teeth exam: PRESENT: dental tenderness Neck exam: ABSENT: carotid bruit, JVD, lymphadenopathy, thyromegaly Respiratory exam: PRESENT: clear to auscultation bimal. ABSENT: rales, rhonchi, wheezes Cardiovascular exam: PRESENT: RRR. ABSENT: diastolic murmur, rubs, systolic murmur GI/Abdominal exam: PRESENT: normal bowel sounds, soft. ABSENT: distended, guarding, mass, organolmegaly, rebound, tenderness Rectal exam: PRESENT: deferred Extremities exam: PRESENT: full ROM, +1 edema. ABSENT: calf tenderness, clubbing, pedal edema Neurological exam: PRESENT: alert, awake, oriented to person, oriented to place, oriented to time, oriented to situation, CN II-XII grossly intact. ABSENT: motor sensory deficit Psychiatric exam: PRESENT: appropriate affect, normal mood. ABSENT: homicidal ideation, suicidal ideation Skin exam: PRESENT: dry, intact, warm. ABSENT: cyanosis, rash Results Laboratory Results: 08/22/18 05:38 08/22/18 05:38 08/22/18 08/22/18 05:38 05:38 WBC 10.6 H RBC 3.59 L Hgb 9.9 L Hct 29.9 L MCV 83 MCH 27.6 MCHC 33.2 RDW 15.2 H Plt Count 220 Seg Neutrophils % 67.5 Lymphocytes % 23.5 Monocytes % 6.7 Eosinophils % 1.7 Basophils % 0.6 Absolute Neutrophils 7.1 Absolute Lymphocytes 2.5 Absolute Monocytes 0.7 Absolute Eosinophils 0.2 Absolute Basophils 0.1 Sodium 139.5 Potassium 4.2 Chloride 96 L Carbon Dioxide 30 Anion Gap 14 BUN 48 H Creatinine 1.99 H Est GFR ( Amer) 29 L Est GFR (Non-Af Amer) 24 L Glucose 98 Calcium 8.9 Magnesium 2.4 H Total Bilirubin 0.6 AST 26 ALT 17 Alkaline Phosphatase 87 Total Protein 8.9 H Albumin 3.7 08/19/18 11:26 Catheterized Urine Urine Culture - Final NO GROWTH 2 DAYS 08/19/18 08/19/18 08/19/18 11:05 14:21 14:21 Creatine Kinase 68 Troponin I 0.055 0.055 NT-Pro-B Natriuret Pep 5260 H 08/19/18 08/19/18 08/20/18 19:32 19:32 01:20 Creatine Kinase 69 74 Troponin I 0.054 NT-Pro-B Natriuret Pep 08/20/18 08/20/18 08/21/18 01:20 06:53 05:13 Creatine Kinase Troponin I 0.051 NT-Pro-B Natriuret Pep 2050 H 1740 H 08/22/18 05:38 Creatine Kinase Troponin I NT-Pro-B Natriuret Pep 945 H Impressions: Chest X-Ray 08/19/18 13:01 IMPRESSION: Cardiomegaly without pulmonary edema. Assessment and Plan - Diagnosis (1) Acute exacerbation of CHF (congestive heart failure) Qualifiers: Heart failure type: diastolic Qualified Code(s): I50.33 - Acute on chronic diastolic (congestive) heart failure Is this a current diagnosis for this admission?: Yes Plan: 08/19/2018-this elderly female is going to be admitted for acute exacerbation of diastolic heart failure. Given her Lasix IV in the emergency room plan to give continue IV Lasix 40 mg every 12 hours restart her home medications GI prophylaxis DVT prophylaxis initiated. Strict input output is good to be requested. Latest echocardiogram few months ago indicates EF of 60%. 08/20/[id number]-dytj-old for elderly female admitted with acute exacerbation of chronic diastolic heart failure. Presently on IV Lasix 40 mg twice a day. To check BNP tomorrow. And recent echocardiogram suggestive of EF of 60%. Presently on DVT and GI prophylaxis. Patient has a negative fluid balance of 1675 mL in the last 24 hours. 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 Presently on IV Lasix 40 mg every 12 hours BNP improved to 1940. Echocardiogram shows EF of 60%. Slight pedal edema present. She is not in respiratory distress. Pulse ox is 98% on room air. 08/22/[id number]-vcjm-old female [facility] resident admitted with increasing shortness of breath secondary to acute exacerbation of chronic diastolic heart failure. Presently on IV Lasix 40 mg twice a day BNP improved to 945. Recent echocardiogram indicates EF of 60%. (2) CKD (chronic kidney disease) Qualifiers: Chronic kidney disease stage: unspecified stage Qualified Code(s): N18.9 - Chronic kidney disease, unspecified Is this a current diagnosis for this admission?: Yes Plan: 08/19/2018-patient's baseline creatinine is 1.8 today admission creatinine is 2.16. Acute kidney injury most likely may be prerenal causes. Plan is to closely watch the renal function on daily basis. 08/20/2018-patient's baseline creatinine is 1.8 on admission it was 2.19. Today's creatinine is 2.16 slightly improved. CATHIE may be is likely secondary to prerenal causes. 08/21/2018-patient's latest creatinine is 2.11 slightly improved compared to yesterday. Baseline creatinine is around 1.8. Plan is to continue the present management. 08/22/2018-latest creatinine is 1.99 improving baseline creatinine is around 1.8. Plan is to recheck labs tomorrow. (3) Dementia Qualifiers: Dementia type: unspecified type Dementia behavioral disturbance: without behavioral disturbance Qualified Code(s): F03.90 - Unspecified dementia with out behavioral disturbance Is this a current diagnosis for this admission?: No - Time Time Spent with patient: 15-24 minutes Medications reviewed and adjusted accordingly: Yes Anticipated discharge: SNF
[2018-08-22] MEDS: FAMOTIDINE 20 MG TABLET PO SCH (21:08)
[2018-08-22] MEDS: DONEPEZIL HCL 5 MG TABLET PO SCH (21:08)
[2018-08-23] MEDS: HYDRALAZINE HCL 50 MG TABLET PO SCH ×2 (05:30→13:18)
[2018-08-23] MEDS: LEVOTHYROXINE SODIUM 0.088 MG TABLET PO SCH (05:30)
[2018-08-23 06:37] LABS: ABSOLUTE BASOPHILS # (AUTO) 0.1 10^3/uL (0.0-0.2); ABSOLUTE EOSINOPHILS # (AUTO) 0.2 10^3/uL (0.0-0.6); ABSOLUTE LYMPHOCYTES (AUTO) 2.5 10^3/uL (0.5-4.7); ABSOLUTE MONOCYTES (AUTO) 0.6 10^3/uL (0.1-1.4); ABSOLUTE NEUT (AUTO) 5.9 10^3/uL (1.7-8.2); BASOPHILS % (AUTO) 0.7 % (0-2); EOSINOPHILS % (AUTO) 2.3 % (0-6); HEMATOCRIT 30.8 % (36.0-47.0); HEMOGLOBIN 10.2 g/dL (12.0-15.5); LYMPHOCYTES % (AUTO) 27.3 % (13-45); MEAN CORPUSCULAR HEMOGLOBIN 27.6 pg (27.0-33.4); MEAN CORPUSCULAR VOLUME 84 fl (80-97); PLATELET COUNT 226 10^3/uL (150-450); RED BLOOD COUNT 3.68 10^6/uL (3.72-5.28); RED CELL DISTRIBUTION WIDTH 14.8 % (11.5-14.0); SEGMENTED NEUTROPHILS % (AUTO) 63.7 % (42-78); TOTAL CELLS COUNTED % (AUTO) 100 %; WHITE BLOOD COUNT 9.2 10^3/uL (4.0-10.5)
[2018-08-23 06:59] LABS: ALANINE AMINOTRANSFERASE 12 U/L (9-52); ALBUMIN 3.6 g/dL (3.5-5.0); ALKALINE PHOSPHATASE 82 U/L (38-126); ANION GAP 13 (5-19); ASPARTATE AMINO TRANSFERASE 21 U/L (14-36); BILIRUBIN,DIRECT 0.4 mg/dL (0.0-0.4); BILIRUBIN,TOTAL 0.5 mg/dL (0.2-1.3); BLOOD UREA NITROGEN 56 mg/dL (7-20); CALCIUM 8.9 mg/dL (8.4-10.2); CARBON DIOXIDE 28 mmol/L (22-30); CHLORIDE 98 mmol/L (98-107); GLUCOSE 100 mg/dL (75-110); POTASSIUM 4.4 mmol/L (3.6-5.0); SODIUM 139.3 mmol/L (137-145); TOTAL PROTEIN 8.8 g/dL (6.3-8.2)
[2018-08-23] MEDS: ACETAMINOPHEN 325 MG TABLET PO PRN (07:40)
[2018-08-23] MEDS: MEMANTINE HCL 10 MG TABLET PO SCH (10:11)
[2018-08-23] MEDS: ISOSORBIDE MONONITRATE 30 MG TAB.ER.24H PO SCH (10:11)
[2018-08-23] MEDS: FUROSEMIDE 20 MG TABLET PO SCH (10:11)
[2018-08-23] MEDS: DOCUSATE SODIUM 100 MG CAPSULE PO SCH (10:11)
[2018-08-23] MEDS: ENOXAPARIN SODIUM INJ 30 MG/0.3 ML DISP.SYRIN SUBCUT SCH (10:11)
[2018-08-23] MEDS: METOPROLOL SUCCINATE 50 MG TAB.SR.24H PO SCH (10:11)
[2018-08-23] MEDS: POLYETHYLENE GLYCOL 3350 POWDER 17 GM/1 PACKET PO SCH (10:11)
[2018-08-23] MEDS: AMLODIPINE BESYLATE 10 MG TABLET PO SCH (10:11)
[2018-08-23] MEDS: CITALOPRAM HYDROBROMIDE 20 MG TABLET PO SCH (10:11)
[2018-08-23] MEDS: POTASSIUM CHLORIDE 10 MEQ CAPSULE.ER PO SCH (10:11)
[2018-08-23] MEDS: RISPERIDONE 0.25 MG TABLET PO SCH (10:13)
--- NOTE | 2018-08-23 11:16 | PDOC TRANSFER SUMMARY ---
General - Admit/Disc Date/PCP Admission Date/Primary Care Provider: 08/19/18 12:47 JEFF TIJERINA MD Discharge Date: 08/23/18 - Discharge Diagnosis (1) Acute exacerbation of CHF (congestive heart failure) Is this a current diagnosis for this admission?: Yes Summary: 08/19/2018-this elderly female is going to be admitted for acute exacerbation of diastolic heart failure. Given her Lasix IV in the emergency room plan to give continue IV Lasix 40 mg every 12 hours restart her home medications GI prophylaxis DVT prophylaxis initiated. Strict input output is good to be requested. Latest echocardiogram few months ago indicates EF of 60%. 08/20/[id number]-kfld-old for elderly female admitted with acute exacerbation of chronic diastolic heart failure. Presently on IV Lasix 40 mg twice a day. To check BNP tomorrow. And recent echocardiogram suggestive of EF of 60%. Presently on DVT and GI prophylaxis. Patient has a negative fluid balance of 1675 mL in the last 24 hours. 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 Presently on IV Lasix 40 mg every 12 hours BNP improved to 1940. Echocardiogram shows EF of 60%. Slight pedal edema present. She is not in respiratory distress. Pulse ox is 98% on room air. 08/22/[id number]-dtxn-old female [facility] resident admitted with increasing shortness of breath secondary to acute exacerbation of chronic diastolic heart failure. Presently on IV Lasix 40 mg twice a day BNP improved to 945. Recent echocardiogram indicates EF of 60%. 08/23/20181305-93-htvn-old female admitted for acute exacerbation of her diastolic heart failure. Initially BNP was elevated improved to 840 today. Treated with IV Lasix 40 mg every 12 hours and p.o. metolazone presently on Lasix 20 mg p.o. twice daily. Plan is to stop metalazone and continue Lasix 20 mg p.o. twice daily (2) CKD (chronic kidney disease) Is this a current diagnosis for this admission?: Yes Summary: 08/19/2018-patient's baseline creatinine is 1.8 today admission creatinine is 2.16. Acute kidney injury most likely may be prerenal causes. Plan is to closely watch the renal function on daily basis. 08/20/2018-patient's baseline creatinine is 1.8 on admission it was 2.19. Today's creatinine is 2.16 slightly improved. CATHIE may be is likely secondary to prerenal causes. 08/21/2018-patient's latest creatinine is 2.11 slightly improved compared to yesterday. Baseline creatinine is around 1.8. Plan is to continue the present management. 08/22/2018-latest creatinine is 1.99 improving baseline creatinine is around 1.8. Plan is to recheck labs tomorrow. 08/23/2018-creatinine today is 2.35. Most likely prerenal secondary to poor oral intake. Presently on Lasix 20 mg p.o. twice daily and metolazone was discontinued. Lab work need to be done in 3 to 5 days in the [facility]. Patient is going back to long-term care facility today. (3) Dementia Is this a current diagnosis for this admission?: No - Additional Information Resuscitation Status: Full Code Discharge Diet: Cardiac Discharge Activity: Activity As Tolerated, Weigh Daily Home Medications: Amlodipine Besylate [Norvasc 10 mg Tablet] 10 mg PO DAILY 12/13/17 Citalopram Hydrobromide [Celexa 20 mg Tablet] 20 mg PO DAILY 12/13/17 Clonidine HCl [Catapres 0.1 mg Tablet] 0.1 mg PO Q12 12/13/17 Donepezil HCl [Aricept] 10 mg PO QHS 12/13/17 Hydralazine HCl 100 mg PO Q8 12/13/17 Levothyroxine Sodium [Synthroid 0.088 mg Tablet] 0.088 mg PO Q6AM 12/13/17 Memantine HCl [Namenda 10 mg Tablet] 10 mg PO Q12 12/13/17 Metoprolol Succinate [Toprol XL 100 mg Tablet] 100 mg PO Q12 12/13/17 Polyethylene Glycol 3350 [Miralax Powder 17 gm/Packet] 17 gm PO DAILY 12/13/17 Risperidone [Risperdal] 0.5 mg PO BID 12/13/17 Isosorbide Mononitrate [Imdur 30 mg Tablet.er] 30 mg PO DAILY tab.er.24h 12/18/17 Potassium Chloride 30 meq PO DAILY 03/30/18 Acetaminophen [Tylenol 325 mg Tablet] 650 mg PO Q4HP PRN 08/19/18 Ipratropium/Albuterol Sulfate [Duoneb 3 ml Ampul] 3 ml NEB RTQ6 08/19/18 Furosemide [Lasix 20 mg Tablet] 20 mg PO BID tablet 08/23/18 History of Present Illness Admission Date/PCP: 08/19/18 12:47 JEFF TIJERINA MD History of Present Illness: BELKIS EUCEDA is a 88 year old female with history of dementia, congestive heart failure, atrial fibrillation, hyperlipidemia, hypertension [facility] brought to the emergency room with increased shortness of breath and sleepiness for the last few days. Also noticed to have urinary symptoms. 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 Pulse oxes in the emergency room are stable BNP is a 5300 on physical examination as per the ER physician crackles at the bases. Medical consult was called for admission for CHF exacerbation found to have elevated creatinine and for CATHIE. Hospital Course Hospital Course: 09/02/[id number]-pqyz-old female admitted from the [facility] facility with compla ints of increasing shortness of breath. 80 time of examination BNP was elevated and she was treated with IV Lasix 40 mg every 12 hours BNP was improved patient's breathing was improved I think it was back to baseline. No acute events during the hospital stay. Patient is going back to long-term care facility today. Physical Exam Vital Signs: Temp Pulse Resp BP Pulse Ox 98.1 F 73 16 124/55 L 95 08/23/18 00:00 08/23/18 09:08 08/23/18 09:08 08/23/18 00:00 08/23/18 09:08 Intake & Output 08/22/18 08/23/18 08/24/18 06:59 06:59 06:59 Intake Total 963 520 Output Total 1700 1025 Balance -737 -505 Weight 95.7 kg 94.9 kg General appearance: PRESENT: no acute distress, cooperative, obese Head exam: PRESENT: atraumatic Eye exam: PRESENT: PERRLA Mouth exam: PRESENT: moist, tongue midline Neck exam: ABSENT: carotid bruit, JVD, lymphadenopathy, thyromegaly Respiratory exam: PRESENT: decreased breath sounds Cardiovascular exam: PRESENT: RRR. ABSENT: diastolic murmur, rubs, systolic murmur GI/Abdominal exam: PRESENT: normal bowel sounds, soft. ABSENT: distended, guarding, mass, organolmegaly, rebound, tenderness Rectal exam: PRESENT: deferred Extremities exam: PRESENT: +1 edema, other - Chronic skin changes Neurological exam: PRESENT: alert, awake, CN II-XII grossly intact, other - Patient has advanced dementia Psychiatric exam: PRESENT: appropriate affect, normal mood. ABSENT: homicidal ideation, suicidal ideation Results Laboratory Results: 08/23/18 05:50 08/23/18 05:50 08/23/18 08/23/18 05:50 05:50 WBC 9.2 RBC 3.68 L Hgb 10.2 L Hct 30.8 L MCV 84 MCH 27.6 MCHC 33.0 RDW 14.8 H Plt Count 226 Seg Neutrophils % 63.7 Lymphocytes % 27.3 Monocytes % 6.0 Eosinophils % 2.3 Basophils % 0.7 Absolute Neutrophils 5.9 Absolute Lymphocytes 2.5 Absolute Monocytes 0.6 Absolute Eosinophils 0.2 Absolute Basophils 0.1 Sodium 139.3 Potassium 4.4 Chloride 98 Carbon Dioxide 28 Anion Gap 13 BUN 56 H Creatinine 2.35 H Est GFR ( Amer) 24 L Est GFR (Non-Af Amer) 20 L Glucose 100 Calcium 8.9 Magnesium 2.7 H Total Bilirubin 0.5 AST 21 ALT 12 Alkaline Phosphatase 82 Total Protein 8.8 H Albumin 3.6 08/19/18 08/19/18 08/19/18 11:05 14:21 14:21 Creatine Kinase 68 Troponin I 0.055 0.055 NT-Pro-B Natriuret Pep 5260 H 08/19/18 08/19/18 08/20/18 19:32 19:32 01:20 Creatine Kinase 69 74 Troponin I 0.054 NT-Pro-B Natriuret Pep 08/20/18 08/20/18 08/21/18 01:20 06:53 05:13 Creatine Kinase Troponin I 0.051 NT-Pro-B Natriuret Pep 2050 H 1740 H 08/22/18 08/23/18 05:38 05:50 Creatine Kinase Troponin I NT-Pro-B Natriuret Pep 945 H 894 H Impressions: Chest X-Ray 08/19/18 13:01 IMPRESSION: Cardiomegaly without pulmonary edema. Qualifiers - * PATIENT BEING DISCHARGED WITH ANY OF THE FOLLOWING DIAGNOSIS: No VTE patient discharged on overlapping Therapy?: No Acute Heart Failure Is this a Heart Failure Patient?: No Plan Time Spent: Greater than 30 Minutes
[2018-08-23 14:28] VITALS: BP 114/42
== END 2018-08-23 16:30 | DRG 291 ==
LOC: ER 10:21 → EH 12:47 → 4S 15:25
PROVIDERS: ADMIT Internal Medicine; ATTEND Internal Medicine
DX: I13.0 Hypertensive heart and chronic kidney disease with heart failure and stage 1 through stage 4 chronic kidney disease, or unspecified chronic kidney disease (principal); I50.33 Acute on chronic diastolic (congestive) heart failure; N17.9 Acute kidney failure, unspecified; N18.4 Chronic kidney disease, stage 4 (severe); F03.90 Unspecified dementia, unspecified severity, without behavioral disturbance, psychotic disturbance, mood disturbance, and anxiety; I48.91 Unspecified atrial fibrillation; K21.9 Gastro-esophageal reflux disease without esophagitis; M19.90 Unspecified osteoarthritis, unspecified site; F32.9 Major depressive disorder, single episode, unspecified; Z95.0 Presence of cardiac pacemaker; Z88.6 Allergy status to analgesic agent; Z88.8 Allergy status to other drugs, medicaments and biological substances; Z91.013 Allergy to seafood; I25.2 Old myocardial infarction; Z86.73 Personal history of transient ischemic attack (TIA), and cerebral infarction without residual deficits; Z90.49 Acquired absence of other specified parts of digestive tract; Z79.899 Other long term (current) drug therapy
CPT/HCPCS: 36415; 71045; 80053; 80061; 81001; 82550; 83036; 83605; 83735; 83880; 84443; 84484; 85025; 85610; 87040; 87086; 93005; 93010; 96374; 99285; J1650; J1940; J3490; J7614

== ENCOUNTER 2018-09-23 09:50 | Observation (INO) | payer MEDICARE, MEDICAID ==
[2018-09-23] MEDS ORDERED: ASPIRIN 81 MG TABLET, CHEWABLE PO ONE (09:52)
--- NOTE | 2018-09-23 10:11 | ER Document Report ---
ED General - General Stated Complaint: WEAKNESS Time Seen by Provider: 09/23/18 09:59 Primary Care Provider: JEFF TIJERINA MD [Primary Care Provider] - Follow up as needed TRAVEL OUTSIDE OF THE [place] IN LAST 30 DAYS: No - HPI Notes: Patient is a 88-year-old female with history of dementia that presents to the emergency department for chief complaint of chest pain. HPI is provided by EMS. Patient has dementia and is unable to provide any HPI. EMS states that nursing facility staff called them because patient was complaining of chest pain last night. EMS states when they got there she was complaining about "a little bit of everything" but slept the entire time she was in route to the emergency room. They could not elaborate on specific complaints from the patient. Past Medical History: Dementia, CHF Past Surgical History: Reviewed in chart Social History: Lives at [facility] facility. No tobacco use Family History: Reviewed and noncontributory for presenting illness Allergies: Reviewed, see documented allergy list. REVIEW OF SYSTEMS: Unable to obtain because of patient's dementia PHYSICAL EXAMINATION: Vital signs reviewed, nursing noted reviewed. GENERAL: Well-appearing, obese and in no acute distress. HEAD: Atraumatic, normocephalic. EYES: pinpoint pupils reactive bilaterally and symmetric, extraocular movements intact, sclera anicteric, conjunctiva are normal. ENT: nares patent, oropharynx clear without exudates. dry mucous membranes. NECK: Normal range of motion, supple without lymphadenopathy LUNGS: Breath sounds diminished to auscultation bilaterally and equal. No wheezes rales or rhonchi. No tachypnea or accessory muscle use. No chest wall tenderness. HEART: Regular rate and rhythm without murmurs ABDOMEN: Protuberant, soft, nontender, normoactive bowel sounds. No rebound, guarding, or rigidity. No masses appreciated. EXTREMITIES: Nontender, good range of motion, trace pretibial edema bilateral symmetric NEUROLOGICAL: Oriented to person only. Moves all extremities spontaneously Motor and sensory grossly intact on exam. PSYCH: Normal mood, normal affect. SKIN: Warm, Dry, normal turgor, no rashes or lesions noted on exposed skin - Related Data Allergies/Adverse Reactions: codeine [Codeine] Allergy (Verified 12/13/17 01:27) iodine [Iodine] Allergy (Verified 12/13/17 01:27) Shellfish * [Shellfish] Allergy (Verified 12/13/17 01:27) Past Medical History - Social History Smoking Status: Never Smoker Family History: Reviewed & Not Pertinent - Past Medical History Cardiac Medical History: Reports: Hx Atrial Fibrillation, Hx Congestive Heart Failure, Hx Heart Attack - The patient had an elevated troponin, but negative catheterization 03/03/13, Hx Hypercholesterolemia, Hx Hypertension Denies: Hx Coronary Artery Disease Pulmonary Medical History: Denies: Hx Asthma, Hx Bronchitis, Hx COPD, Hx Pneumonia, Hx Tuberculosis Neurological Medical History: Reports: Hx Cerebrovascular Accident, Hx Migraine. Denies: Hx Seizures Endocrine Medical History: Renal/ Medical History: Denies: Hx Peritoneal Dialysis GI Medical History: Reports: Hx Gastroesophageal Reflux Disease Musculoskeletal Medical History: Reports Hx Arthritis - was told patient has a broken back, Denies Hx Systemic Lupus Erythematosus Psychiatric Medical History: Reports: Hx Dementia, Hx Depression Past Surgical History: Reports: Hx Appendectomy, Hx Cardiac Surgery - pacer/defib, Hx Pacemaker. Denies: Hx Hysterectomy - Immunizations Hx Diphtheria, Pertussis, Tetanus Vaccination: No Hx Pneumococcal Vaccination: 09/28/13 Physical Exam - Vital signs Vitals: Resp 10 L 09/23/18 09:57 Course - Re-evaluation Re-evalutation: 09/23/18 10:10 Vitals reviewed. Nursing notes reviewed. Patient presented by EMS from [facility] for vague complaint of chest pain that occurred last night. I do not have any further details regarding her chest pain complaint. She does have a history of congestive heart failure. She will be placed on telemetry monitoring. EKG shows no change from prior. Patient will receive aspirin. 09/23/18 11:10 She was hypothermic at presentation which was confirmed with rectal temperature. Patient placed on bear hugger and is having improvement of her hypothermia. She has no other sirs criteria. Chest x-ray shows no acute pneumonia. Patient does have baseline anemia and renal insufficiency. 09/23/18 11:15 Patient's respiratory rate has decreased. I went to reevaluate her and she was sleeping. Patient will wake to light tactile stimuli but has become more somnolent since arriving in the emergency room. CT brain will be added. Patient did have pinpoint pupils on initial evaluation however she has no opiates listed on her home med list. Because of her bradypnea and pupil exam as well as increasing somnolence Narcan has been ordered. Patient reportedly woke up significantly with straight catheterization for nursing staff which was just a few minutes prior to my evaluation of her. She is protecting her airway and her oxygen saturation is currently 98% 09/23/18 12:34 Patient's lab work shows a baseline renal insufficiency. She has a slight elevation of troponin which is also chronic for this patient. She has no le ukocytosis or bandemia. Urinalysis shows no acute urinary tract infection. Chest x-ray negative for pneumonia or other acute process. CT scan of her brain shows no acute intracranial process but does show sinusitis. patient is still somnolent with shallow respirations but wakes to light tactile stimuli. Patient was given a dose of Rocephin for her sinusitis. I see no other source of infection. She has otherwise remained hemodynamically stable and has a normal WBC count. Patient is still hypothermic and will be admitted to the hospital for further medical management. Laboratory 09/23/18 09/23/18 09/23/18 09:59 09:59 09:59 WBC 6.3 RBC 3.35 L Hgb 9.3 L Hct 28.4 L MCV 85 MCH 27.7 MCHC 32.6 RDW 16.5 H Plt Count 198 Seg Neutrophils % 66.2 Lymphocytes % 22.3 Monocytes % 7.8 Eosinophils % 3.0 Basophils % 0.7 Absolute Neutrophils 4.2 Absolute Lymphocytes 1.4 Absolute Monocytes 0.5 Absolute Eosinophils 0.2 Absolute Basophils 0.0 Sodium 141.8 Potassium 4.8 Chloride 104 Carbon Dioxide 29 Anion Gap 9 BUN 23 H Creatinine 1.41 H Est GFR ( Amer) 43 L Est GFR (Non-Af Amer) 35 L Glucose 89 Calcium 9.2 Total Bilirubin 0.5 Direct Bilirubin 0.3 Neonat Total Bilirubin Not Reportable Neonat Direct Bilirubin Not Reportable Neonat Indirect Bili Not Reportable AST 23 ALT 15 Alkaline Phosphatase 79 Troponin I 0.031 Total Protein 8.8 H Albumin 3.9 Urine Color Urine Appearance Urine pH Ur Specific [place] Urine Protein Urine Glucose (UA) Urine Ketones Urine Blood Urine Nitrite Urine Bilirubin Urine Urobilinogen Ur Leukocyte Esterase Urine WBC (Auto) Urine RBC (Auto) U Hyaline Cast (Auto) Squamous Epi Cells Auto Urine Mucus (Auto) Urine Ascorbic Acid 09/23/18 11:04 WBC RBC Hgb Hct MCV MCH MCHC RDW Plt Count Seg Neutrophils % Lymphocytes % Monocytes % Eosinophils % Basophils % Absolute Neutrophils Absolute Lymphocytes Absolute Monocytes Absolute Eosinophils Absolute Basophils Sodium Potassium Chloride Carbon Dioxide Anion Gap BUN Creatinine Est GFR ( Amer) Est GFR (Non-Af Amer) Glucose Calcium Total Bilirubin Direct Bilirubin Neonat Total Bilirubin Neonat Direct Bilirubin Neonat Indirect Bili AST ALT Alkaline Phosphatase Troponin I Total Protein Albumin Urine Color YELLOW Urine Appearance CLEAR Urine pH 6.0 Ur Specific [place] 1.012 Urine Protein 30 H Urine Glucose (UA) NEGATIVE Urine Ketones NEGATIVE Urine Blood NEGATIVE Urine Nitrite NEGATIVE Urine Bilirubin NEGATIVE Urine Urobilinogen NEGATIVE Ur Leukocyte Esterase NEGATIVE Urine WBC (Auto) 0 Urine RBC (Auto) 1 U Hyaline Cast (Auto) 1 Squamous Epi Cells Auto <1 Urine Mucus (Auto) RARE Urine Ascorbic Acid NEGATIVE Chest X-Ray 09/23/18 09:52 IMPRESSION: NO ACUTE RADIOGRAPHIC FINDING IN THE CHEST. Head CT 09/23/18 11:14 IMPRESSION: Age-appropriate chronic white matter disease. No acute intracranial changes. Opacified left maxillary sinus from sinusitis. EVIDENCE OF ACUTE STROKE: NO. - Vital Signs Vital signs: Temp Pulse Resp BP Pulse Ox 94.4 F L 60 10 L 154/80 H 97 09/23/18 11:08 09/23/18 10:00 09/23/18 12:00 09/23/18 11:02 09/23/18 12:00 - Laboratory Result Diagrams: 09/23/18 09:59 09/23/18 09:59 Laboratory results interpreted by me: 09/23/18 09/23/18 09/23/18 09:59 09:59 11:04 RBC 3.35 L Hgb 9.3 L Hct 28.4 L RDW 16.5 H BUN 23 H Creatinine 1.41 H Est GFR ( Amer) 43 L Est GFR (Non-Af Amer) 35 L Total Protein 8.8 H Urine Protein 30 H - EKG Interpretation by Me Additional EKG results interpreted by me: 09/23/18 10:10 Interpreted by myself [id number]: Atrially paced rhythm, rate 60, no ectopy, no STEMI, unchanged from 08/19/2018 Discharge - Discharge Clinical Impression: Chest pain Qualifiers: Chest pain type: unspecified Qualified Code(s): R07.9 - Chest pain, unspecified Hypothermia Qualifiers: Encounter type: initial encounter Qualified Code(s): T68.XXXA - Hypothermia, initial encounter Sinusitis Qualifiers: Sinusitis location: maxillary Chronicity: acute Recurrence: non-recurrent Qualified Code(s): J01.00 - Acute maxillary sinusitis, unspecified Condition: Stable Disposition: ADMITTED INPATIENT Admitting Provider: Nasreen (Hospitalist) Unit Admitted: Telemetry Referrals: JEFF TIJERINA MD [Primary Care Provider] - Follow up as needed
[2018-09-23 10:17] LABS: ABSOLUTE EOSINOPHILS # (AUTO) 0.2 10^3/uL (0.0-0.6); ABSOLUTE LYMPHOCYTES (AUTO) 1.4 10^3/uL (0.5-4.7); ABSOLUTE MONOCYTES (AUTO) 0.5 10^3/uL (0.1-1.4); ABSOLUTE NEUT (AUTO) 4.2 10^3/uL (1.7-8.2); BASOPHILS % (AUTO) 0.7 % (0-2); HEMATOCRIT 28.4 % (36.0-47.0); HEMOGLOBIN 9.3 g/dL (12.0-15.5); LYMPHOCYTES % (AUTO) 22.3 % (13-45); MEAN CORPUSCULAR HEMOGLOBIN 27.7 pg (27.0-33.4); MEAN CORPUSCULAR HGB CONC 32.6 g/dL (32.0-36.0); MEAN CORPUSCULAR VOLUME 85 fl (80-97); MONOCYTES % (AUTO) 7.8 % (3-13); PLATELET COUNT 198 10^3/uL (150-450); RED BLOOD COUNT 3.35 10^6/uL (3.72-5.28); RED CELL DISTRIBUTION WIDTH 16.5 % (11.5-14.0); SEGMENTED NEUTROPHILS % (AUTO) 66.2 % (42-78); TOTAL CELLS COUNTED % (AUTO) 100 %; WHITE BLOOD COUNT 6.3 10^3/uL (4.0-10.5)
[2018-09-23 10:31] LABS: ALANINE AMINOTRANSFERASE 15 U/L (9-52); ALBUMIN 3.9 g/dL (3.5-5.0); ALKALINE PHOSPHATASE 79 U/L (38-126); ANION GAP 9 (5-19); ASPARTATE AMINO TRANSFERASE 23 U/L (14-36); BILIRUBIN,DIRECT 0.3 mg/dL (0.0-0.4); BILIRUBIN,TOTAL 0.5 mg/dL (0.2-1.3); BLOOD UREA NITROGEN 23 mg/dL (7-20); CALCIUM 9.2 mg/dL (8.4-10.2); CARBON DIOXIDE 29 mmol/L (22-30); CHLORIDE 104 mmol/L (98-107); GLUCOSE 89 mg/dL (75-110); POTASSIUM 4.8 mmol/L (3.6-5.0); SODIUM 141.8 mmol/L (137-145); TOTAL PROTEIN 8.8 g/dL (6.3-8.2)
--- NOTE | 2018-09-23 10:54 | RADIOLOGY REPORT (SQ) ---
EXAM DESCRIPTION: CHEST SINGLE VIEW COMPLETED DATE/TIME: 09/23/2018 10:41 am REASON FOR STUDY: CP COMPARISON: 08/19/2018, 05/30/2018, 03/30/2018 EXAM PARAMETERS: NUMBER OF VIEWS: One view. TECHNIQUE: Single frontal radiographic view of the chest acquired. RADIATION DOSE: NA LIMITATIONS: None. FINDINGS: LUNGS AND PLEURA: No opacities, masses or pneumothorax. No pleural effusion. MEDIASTINUM AND HILAR STRUCTURES: No masses. Contour normal. HEART AND VASCULAR STRUCTURES: Stable moderate to marked cardiomegaly BONES: No acute findings. HARDWARE: Left-sided pacemaker/ defibrillator unchanged. OTHER: No other significant finding. IMPRESSION: NO ACUTE RADIOGRAPHIC FINDING IN THE CHEST. TECHNICAL DOCUMENTATION: JOB ID: [id number] [employer]- All Rights Reserved Reading location - IP/workstation name: [email or web address]
[2018-09-23] MEDS ORDERED: NALOXONE HCL INJ/PF 0.4 MG/1 ML SDV IV ONE (11:14)
[2018-09-23 11:23] LABS: APPEARANCE,URINE CLEAR; BILIRUBIN,URINE NEGATIVE (NEGATIVE); COLOR,URINE YELLOW; GLUCOSE, URINE NEGATIVE (NEGATIVE); KETONES,URINE NEGATIVE (NEGATIVE); LEUKOCYTE ESTERASE,URINE NEGATIVE (NEGATIVE); NITRITE,URINE NEGATIVE (NEGATIVE); PROTEIN,URINE 30 mg/dL (NEGATIVE); URINE SPECIFIC GRAVITY 1.012; UROBILINOGEN,URINE NEGATIVE mg/dL (<2.0)
--- NOTE | 2018-09-23 12:26 | RADIOLOGY REPORT (SQ) ---
EXAM DESCRIPTION: CT HEAD WITHOUT COMPLETED DATE/TIME: 09/23/2018 12:07 pm REASON FOR STUDY: mental status change COMPARISON: CT brain 07/09/2017, 10/07/2013, 09/26/2013 TECHNIQUE: Axial images acquired through the brain without intravenous contrast. Images reviewed wi th bone, brain and subdural windows. Additional sagittal and coronal reconstructions were generated. Images stored on PACS. All CT scanners at this facility use dose modulation, iterative reconstruction, and/or weight based d osing when appropriate to reduce radiation dose to as low as reasonably achievable (ALARA). [facility]: Dose Right [facility]: CareDose [facility]: Dose Right [facility]: Teradose 4D [facility]: [email or web address] RADIATION DOSE: CT Rad equipment meets quality standard of care and radiation dose reduction techniq ues were employed. CTDIvol: 53.2 mGy. DLP: 1150 mGy-cm. mGy. LIMITATIONS: None. FINDINGS: VENTRICLES: Normal size and contour for age. CEREBRUM: No CT evidence of acute large territory ischemic change, acute intracranial hemorrhage, mas s effect, or midline shift. There is extensive low attenuation in the deep periventricular white mat ter from chronic small vessel ischemic change, similar compared to studies dating back to 2013. CEREBELLUM: No masses. No hemorrhage. No alteration of density. No evidence for acute infarction. EXTRAAXIAL SPACES: No fluid collections. No masses. ORBITS AND GLOBE: No intra- or extraconal masses. Normal contour of globe without masses. CALVARIUM: No fracture. PARANASAL SINUSES: Complete opacification left maxillary sinus. SOFT TISSUES: No mass or hematoma. OTHER: No other significant finding. IMPRESSION: Age-appropriate chronic white matter disease. No acute intracranial changes. Opacified left maxillary sinus from sinusitis. EVIDENCE OF ACUTE STROKE: NO. COMMENT: Quality ID # [id number]: Final reports with documentation of one or more dose reduction techniques (e.g., Automated exposure control, adjustment of the mA and/or kV according to patient size, use of iterative reconstruction technique) TECHNICAL DOCUMENTATION: JOB ID: [id number] [employer]- All Rights Reserved Reading location - IP/workstation name: [email or web address]
[2018-09-23] MEDS ORDERED: CEFTRIAXONE INJ 1000 MG VIAL IV ONE (12:32)
[2018-09-23] MEDS ORDERED: ACETAMINOPHEN 325 MG TABLET PO PRN (13:26)
[2018-09-23] MEDS ORDERED: OXYCODONE-ACETAMINOPHEN 5-325 MG TABLET PO PRN (13:26)
[2018-09-23] MEDS ORDERED: IPRATROPIUM/ALBUTEROL 0.5-2.5 MG/3 ML AMPUL NEB PRN (13:26)
[2018-09-23] MEDS ORDERED: PROMETHAZINE HCL INJ 25 MG/1 ML VIAL IV PRN (13:26)
[2018-09-23] MEDS ORDERED: ONDANSETRON HCL INJ/PF 4 MG/2 ML SDV IV PRN (13:26)
[2018-09-23] MEDS ORDERED: TEMAZEPAM 7.5 MG CAPSULE PO PRN (13:26)
[2018-09-23] MEDS ORDERED: NORMAL SALINE 1000 ML 1,000 ML IV PRN ×2 (13:26→13:32)
--- NOTE | 2018-09-23 13:56 | PDOC H&P ---
History of Present Illness Admission Date/PCP: 09/23/18 12:58 JEFF TIJERINA MD History of Present Illness: BELKIS EUCEDA is a 88 year old female Patient is a 88-year-old female with his tory of dementia that presents to the emergency department for chief complaint of chest pain. HPI is provided by EMS. Patient has dementia and is unable to provide any HPI. EMS states that nursing facility staff called them because patient was complaining of chest pain last night. EMS states when they got there she was complaining about "a little bit of everything" but slept the entire time she was in route to the emergency room. They could not elaborate on specific complaints from the patient. Past Medical History Cardiac Medical History: Reports: Atrial Fibrillation, Congestive Heart Failure, Myocardial Infarction - The patient had an elevated troponin, but negative catheterization 03/03/13, Hyperlipidema, Hypertension Denies: Coronary Artery Disease Pulmonary Medical History: Denies: Asthma, Bronchitis, Chronic Obstructive Pulmonary Disease (COPD), Pneumonia, Tuberculosis Neurological Medical History: Reports: Migraine Denies: Seizures Endocrine Medical History: GI Medical History: Reports: Gastroesophageal Reflux Disease Musculoskeltal Medical History: Reports: Arthritis - was told patient has a broken back Psychiatric Medical History: Reports: Dementia, Depression Hematology: Reports: Anemia Past Surgical History Past Surgical History: Reports: Appendectomy, Pacemaker Denies: Hysterectomy Social History Smoking Status: Never Smoker Frequency of Alcohol Use: None Hx Recreational Drug Use: No Drugs: None Hx Prescription Drug Abuse: No Family History Family History: Reviewed & Not Pertinent Parental Family History Reviewed: Yes Children Family History Reviewed: Yes Sibling(s) Family History Reviewed.: Yes Medication/Allergy Allergies/Adverse Reactions: codeine [Codeine] Allergy (Verified 12/13/17 01:27) iodine [Iodine] Allergy (Verified 12/13/17 01:27) Shellfish * [Shellfish] Allergy (Verified 12/13/17 01:27) Physical Exam Vital Signs: Temp Pulse Resp BP Pulse Ox 94.4 F L 60 9 L 159/79 H 89 L 09/23/18 11:08 09/23/18 10:00 09/23/18 13:02 09/23/18 13:02 09/23/18 13:02 Intake & Output 09/22/18 09/23/18 09/24/18 06:59 06:59 06:59 Weight 95 kg Results Laboratory Results: 09/23/18 09:59 09/23/18 09:59 09/23/18 09/23/18 09/23/18 09:59 09:59 11:04 WBC 6.3 RBC 3.35 L Hgb 9.3 L Hct 28.4 L MCV 85 MCH 27.7 MCHC 32.6 RDW 16.5 H Plt Count 198 Seg Neutrophils % 66.2 Lymphocytes % 22.3 Monocytes % 7.8 Eosinophils % 3.0 Basophils % 0.7 Absolute Neutrophils 4.2 Absolute Lymphocytes 1.4 Absolute Monocytes 0.5 Absolute Eosinophils 0.2 Absolute Basophils 0.0 Sodium 141.8 Potassium 4.8 Chloride 104 Carbon Dioxide 29 Anion Gap 9 BUN 23 H Creatinine 1.41 H Est GFR ( Amer) 43 L Est GFR (Non-Af Amer) 35 L Glucose 89 Calcium 9.2 Total Bilirubin 0.5 AST 23 ALT 15 Alkaline Phosphatase 79 Total Protein 8.8 H Albumin 3.9 Urine Color YELLOW Urine Appearance CLEAR Urine pH 6.0 Ur Specific [place] 1.012 Urine Protein 30 H Urine Glucose (UA) NEGATIVE Urine Ketones NEGATIVE Urine Blood NEGATIVE Urine Nitrite NEGATIVE Ur Leukocyte Esterase NEGATIVE Urine WBC (Auto) 0 Urine RBC (Auto) 1 09/23/18 09:59 Troponin I 0.031 Impressions: Chest X-Ray 09/23/18 09:52 IMPRESSION: NO ACUTE RADIOGRAPHIC FINDING IN THE CHEST. Head CT 09/23/18 11:14 IMPRESSION: Age-appropriate chronic white matter disease. No acute intracranial changes. Opacified left maxillary sinus from sinusitis. EVIDENCE OF ACUTE STROKE: NO.
[2018-09-23] MEDS: HEPARIN SOD (PORCINE) 5,000 UNIT/ML 1 ML SYRINGE SUBCUT SCH ×2 (14:03→22:16)
[2018-09-23 14:15] LABS: FREE T3 2.94 pg/mL (2.77-5.27); FREE T4 (FREE THYROXINE) 1.43 ng/dL (0.78-2.19)
[2018-09-23 14:29] LABS: THYROID STIMULATING HORMONE 5.68 uIU/mL (0.47-4.68)
[2018-09-23] MEDS ORDERED: NITROGLYCERIN 0.4 MG/TAB 25 TAB/BOTTLE SL PRN (15:19)
--- NOTE | 2018-09-23 15:19 | PDOC H&P ---
History of Present Illness Admission Date/PCP: 09/23/18 12:58 JEFF TIJERINA MD History of Present Illness: Past medical history of hypertension, dyslipidemia, CKD, A. fib, hypothyroidism, CHF, dementia, encephalopathy, resident of [facility]. Last hospitalization 08/19/2018 - 08/23/2018 at [facility] for CHF exacerbation. Patient brought to ED by EMS chest pain. As per EMS report patient was complaining of chest pain last night, this morning they were called in, as per the report patient was complaining of "a little bit of everything" however slept the entire time when she was in route to the ED. On my encounter patient laying in bed, only arousable to painful stimuli, does not open her eyes, does not follow any commands. In ED she was found to be hypothermic otherwise CT head negative for any acute stroke, CBC unremarkable except for chronic anemia, CMP unremarkable except for chronic CKD, troponin 0 0.031, TSH 5.68, T4 1.43, T3 2.94, random cortisol 15.2. Past Medical History Cardiac Medical History: Reports: Atrial Fibrillation, Congestive Heart Failure, Myocardial Infarction - The patient had an elevated troponin, but negative catheterization 03/03/13, Hyperlipidema, Hypertension Denies: Coronary Artery Disease Pulmonary Medical History: Denies: Asthma, Bronchitis, Chronic Obstructive Pulmonary Disease (COPD), Pneumonia, Tuberculosis Neurological Medical History: Reports: Migraine Denies: Seizures Endocrine Medical History: GI Medical History: Reports: Gastroesophageal Reflux Disease Musculoskeltal Medical History: Reports: Arthritis - was told patient has a broken back Psychiatric Medical History: Reports: Dementia, Depression Hematology: Reports: Anemia Past Surgical History Past Surgical History: Reports: Appendectomy, Pacemaker Denies: Hysterectomy Social History Smoking Status: Never Smoker Frequency of Alcohol Use: None Hx Recreational Drug Use: No Drugs: None Hx Prescription Drug Abuse: No Family History Family History: Reviewed & Not Pertinent Parental Family History Reviewed: Yes Children Family History Reviewed: Yes Sibling(s) Family History Reviewed.: Yes Medication/Allergy Home Medications: Acetaminophen [Tylenol 325 mg Tablet] 650 mg PO Q4HP PRN 09/23/18 Amlodipine Besylate [Norvasc 10 mg Tablet] 10 mg PO DAILY 09/23/18 Bisacodyl [Dulcolax 5 Mg Tablet] 10 mg PO HSP PRN 09/23/18 Bismuth Subsalicylate [Pepto-Bismol] 30 ml PO Q4HP PRN 09/23/18 Citalopram Hydrobromide [Celexa 20 mg Tablet] 20 mg PO DAILY 09/23/18 Clonidine HCl [Catapres 0.1 mg Tablet] 0.1 mg PO Q12 09/23/18 Donepezil HCl [Aricept] 10 mg PO QHS 09/23/18 Furosemide [Lasix 20 mg Tablet] 20 mg PO Q12 09/23/18 Hydralazine HCl 100 mg PO Q8 09/23/18 Ipratropium/Albuterol Sulfate [Duoneb 3 ml Ampul] 3 ml NEB RTQ6HP PRN 09/23/18 Isosorbide Mononitrate [Imdur 30 mg Tablet.er] 30 mg PO DAILY 09/23/18 Levothyroxine Sodium 88 mcg PO Q6AM 09/23/18 Magnesium Hydroxide [Milk of Magnesia 30 ml Udcup] 30 ml PO BIDP PRN 09/23/18 Memantine HCl [Namenda 10 mg Tablet] 10 mg PO Q12 09/23/18 Metoprolol Succinate [Toprol XL 100 mg Tablet] 100 mg PO Q12 09/23/18 Nitroglycerin [Nitrostat 0.4 mg (1/150 Gr) Tabs 25/Bottle] 1 tab SL Q5MP PRN 09/23/18 Polyethylene Glycol 3350 [Miralax Powder 17 gm/Packet] 1 packet PO DAILY 07/09 Potassium Chloride [Klor-Con 10 Meq Capsule ER] 30 meq PO DAILY 09/23/18 Risperidone [Risperdal] 0.5 mg PO Q12 09/23/18 Allergies/Adverse Reactions: codeine [Codeine] Allergy (Verified 12/13/17 01:27) iodine [Iodine] Allergy (Verified 12/13/17 01:27) Shellfish * [Shellfish] Allergy (Verified 12/13/17 01:27) Review of Systems ROS unobtainable: Due to mental status Physical Exam Vital Signs: Temp Pulse Resp BP Pulse Ox 94.4 F L 60 8 L 146/75 H 96 09/23/18 11:08 09/23/18 10:00 09/23/18 14:02 09/23/18 14:02 09/23/18 14:02 Intake & Output 09/22/18 09/23/18 09/24/18 06:59 06:59 06:59 Weight 95 kg General appearance: PRESENT: no acute distress, obese, well-developed, well- nourished Head exam: PRESENT: atraumatic, normocephalic Neck exam: ABSENT: carotid bruit, JVD, lymphadenopathy, thyromegaly Respiratory exam: PRESENT: clear to auscultation bimal. ABSENT: rales, rhonchi, wheezes GI/Abdominal exam: PRESENT: normal bowel sounds, soft. ABSENT: distended, guarding, mass, organolmegaly, rebound, tenderness Extremities exam: PRESENT: full ROM. ABSENT: calf tenderness, clubbing, pedal edema Neurological exam: PRESENT: altered Skin exam: PRESENT: dry, intact, warm. ABSENT: cyanosis, rash Results Laboratory Results: 09/23/18 09:59 09/23/18 09:59 09/23/18 09/23/18 09/23/18 09:59 09:59 09:59 WBC 6.3 RBC 3.35 L Hgb 9.3 L Hct 28.4 L MCV 85 MCH 27.7 MCHC 32.6 RDW 16.5 H Plt Count 198 Seg Neutrophils % 66.2 Lymphocytes % 22.3 Monocytes % 7.8 Eosinophils % 3.0 Basophils % 0.7 Absolute Neutrophils 4.2 Absolute Lymphocytes 1.4 Absolute Monocytes 0.5 Absolute Eosinophils 0.2 Absolute Basophils 0.0 Sodium 141.8 Potassium 4.8 Chloride 104 Carbon Dioxide 29 Anion Gap 9 BUN 23 H Creatinine 1.41 H Est GFR ( Amer) 43 L Est GFR (Non-Af Amer) 35 L Glucose 89 Calcium 9.2 Total Bilirubin 0.5 AST 23 ALT 15 Alkaline Phosphatase 79 Total Protein 8.8 H Albumin 3.9 TSH 5.68 H Free T4 1.43 Free T3 pg/mL 2.94 Urine Color Urine Appearance Urine pH Ur Specific [place] Urine Protein Urine Glucose (UA) Urine Ketones Urine Blood Urine Nitrite Ur Leukocyte Esterase Urine WBC (Auto) Urine RBC (Auto) 09/23/18 11:04 WBC RBC Hgb Hct MCV MCH MCHC RDW Plt Count Seg Neutrophils % Lymphocytes % Monocytes % Eosinophils % Basophils % Absolute Neutrophils Absolute Lymphocytes Absolute Monocytes Absolute Eosinophils Absolute Basophils Sodium Potassium Chloride Carbon Dioxide Anion Gap BUN Creatinine Est GFR ( Amer) Est GFR (Non-Af Amer) Glucose Calcium Total Bilirubin AST ALT Alkaline Phosphatase Total Protein Albumin TSH Free T4 Free T3 pg/mL Urine Color YELLOW Urine Appearance CLEAR Urine pH 6.0 Ur Specific [place] 1.012 Urine Protein 30 H Urine Glucose (UA) NEGATIVE Urine Ketones NEGATIVE Urine Blood NEGATIVE Urine Nitrite NEGATIVE Ur Leukocyte Esterase NEGATIVE Urine WBC (Auto) 0 Urine RBC (Auto) 1 09/23/18 09:59 Troponin I 0.031 Impressions: Chest X-Ray 09/23/18 09:52 IMPRESSION: NO ACUTE RADIOGRAPHIC FINDING IN THE CHEST. Head CT 09/23/18 11:14 IMPRESSION: Age-appropriate chronic white matter disease. No acute intracranial changes. Opacified left maxillary sinus from sinusitis. EVIDENCE OF ACUTE STROKE: NO. Assessment and Plan - Diagnosis (1) Hypothermia Qualifiers: Encounter type: initial encounter Qualified Code(s): T68.XXXA - Hypothermia, initial encounter Is this a current diagnosis for this admission?: Yes Plan: History of hypothyroidism however TSH, T3, T4 WNL. Continue external rewarming measures. Admit to IMCU. Monitor vitals. (2) Acute alteration in mental status Is this a current diagnosis for this admission?: Yes Plan: Acute metabolic encephalopathy. CBC, CMP unremarkable except for chronic anemia and CKD. Stage, T3, T4, random cortisol WNL. Continue aspiration, seizure, fall precautions. Supportive measures. (3) Chronic kidney disease, stage 3 Is this a current diagnosis for this admission?: Yes Plan: Creatinine at baseline. Monitor volume status, avoid nephrotoxic meds, renal diet. Outpatient nephrology follow-up. (4) Congestive heart failure (CHF) Qualifiers: Heart failure type: diastolic Heart failure chronicity: acute Qualified Code(s): I50.31 - Acute diastolic (congestive) heart failure Is this a current diagnosis for this admission?: Yes Plan: Compensated. Cardiac diet, fluid restriction, diuretics, beta-blockers, CALLIE. Outpatient PCP follow-up. Monitor vitals. (5) Sinusitis Qualifiers: Sinusitis location: maxillary Chronicity: acute Recurrence: non-recurrent Qualified Code(s): J01.00 - Acute maxillary sinusitis, unspecified Is this a current diagnosis for this admission?: Yes Plan: Dental finding on CT of the head. Unsure if symptomatic as patient is altered. Continue empiric antibiotics. (6) Chest pain Qualifiers: Chest pain type: unspecified Qualified Code(s): R07.9 - Chest pain, unspecified Is this a current diagnosis for this admission?: Yes Plan: Mildly elevated troponin, likely due to chronic CKD and CHF. This is unlikely NSTEMI. And baseline troponin 0.0320.16 Troponin 0.031. EKG no acute changes. Admit to telemetry, antiplatelets, statins, beta-blockers, CALLIE. Trend troponins.
[2018-09-23] MEDS ORDERED: HYDRALAZINE HCL INJ/PF 20 MG/1 ML SDV IV PRN (15:27)
[2018-09-23] MEDS: DOCUSATE SODIUM 100 MG CAPSULE PO SCH (17:39)
--- NOTE | 2018-09-23 18:32 | EKG REPORT ---
SEVERITY:- ABNORMAL ECG - ATRIAL-PACED RHYTHM ABNORMAL T, CONSIDER ISCHEMIA, LATERAL LEADS : Confirmed by: Ok Nash 23-Sep-2018 18:31:59
[2018-09-23 20:07] LABS: URINE AMPHETAMINES SCREEN NEGATIVE; URINE BARBITURATES SCREEN NEGATIVE; URINE BENZODIAZEPINES SCREEN NEGATIVE; URINE COCAINE SCREEN NEGATIVE; URINE MARIJUANA (THC) SCREEN NEGATIVE; URINE METHADONE SCREEN NEGATIVE; URINE PHENCYCLIDINE SCREEN NEGATIVE
[2018-09-23] MEDS ORDERED: (PENDING PHARMACY ID) (Donepezil Hcl [Aricept] 10 MG) PO SCH (22:00)
[2018-09-23] MEDS ORDERED: (PENDING PHARMACY ID) (Risperidone [Risperdal] 0.5 MG) PO SCH (22:00)
[2018-09-23] MEDS: DONEPEZIL HCL 5 MG TABLET PO SCH (22:14)
[2018-09-23] MEDS: METOPROLOL SUCCINATE 50 MG TAB.SR.24H PO SCH (22:16)
[2018-09-23] MEDS: RISPERIDONE 0.25 MG TABLET PO SCH (22:17)
[2018-09-23] MEDS: CLONIDINE HCL 0.1 MG TABLET PO SCH (22:17)
[2018-09-23] MEDS: FUROSEMIDE 20 MG TABLET PO SCH (22:17)
[2018-09-23] MEDS: MEMANTINE HCL 10 MG TABLET PO SCH (22:18)
[2018-09-23] MEDS: FAMOTIDINE 20 MG TABLET PO SCH (22:18)
[2018-09-24 05:39] LABS: ABSOLUTE BASOPHILS # (AUTO) 0.1 10^3/uL (0.0-0.2); ABSOLUTE EOSINOPHILS # (AUTO) 0.1 10^3/uL (0.0-0.6); ABSOLUTE LYMPHOCYTES (AUTO) 1.9 10^3/uL (0.5-4.7); ABSOLUTE MONOCYTES (AUTO) 0.5 10^3/uL (0.1-1.4); ABSOLUTE NEUT (AUTO) 4.5 10^3/uL (1.7-8.2); BASOPHILS % (AUTO) 0.8 % (0-2); EOSINOPHILS % (AUTO) 1.6 % (0-6); HEMATOCRIT 26.4 % (36.0-47.0); HEMOGLOBIN 8.7 g/dL (12.0-15.5); LYMPHOCYTES % (AUTO) 26.4 % (13-45); MEAN CORPUSCULAR HGB CONC 32.8 g/dL (32.0-36.0); MEAN CORPUSCULAR VOLUME 85 fl (80-97); MONOCYTES % (AUTO) 7.7 % (3-13); PLATELET COUNT 181 10^3/uL (150-450); RED BLOOD COUNT 3.09 10^6/uL (3.72-5.28); SEGMENTED NEUTROPHILS % (AUTO) 63.5 % (42-78); TOTAL CELLS COUNTED % (AUTO) 100 %; WHITE BLOOD COUNT 7.1 10^3/uL (4.0-10.5)
[2018-09-24 05:54] LABS: ANION GAP 8 (5-19); BLOOD UREA NITROGEN 28 mg/dL (7-20); CALCIUM 8.9 mg/dL (8.4-10.2); CARBON DIOXIDE 26 mmol/L (22-30); CHLORIDE 105 mmol/L (98-107); GLUCOSE 97 mg/dL (75-110); POTASSIUM 4.5 mmol/L (3.6-5.0); SODIUM 139.4 mmol/L (137-145)
[2018-09-24] MEDS ORDERED: LEVOTHYROXINE SODIUM 0.088 MG TABLET ONE (06:44)
[2018-09-24] MEDS: LEVOTHYROXINE SODIUM 0.088 MG TABLET PO SCH (06:48)
[2018-09-24] MEDS: HEPARIN SOD (PORCINE) 5,000 UNIT/ML 1 ML SYRINGE SUBCUT SCH ×3 (06:48→21:20)
[2018-09-24] MEDS: METOPROLOL SUCCINATE 50 MG TAB.SR.24H PO SCH ×2 (10:39→21:19)
[2018-09-24] MEDS: AMLODIPINE BESYLATE 10 MG TABLET PO SCH (10:39)
[2018-09-24] MEDS: RISPERIDONE 0.25 MG TABLET PO SCH ×2 (10:40→21:20)
[2018-09-24] MEDS: DOCUSATE SODIUM 100 MG CAPSULE PO SCH ×2 (10:42→18:02)
[2018-09-24] MEDS: MEMANTINE HCL 10 MG TABLET PO SCH ×2 (10:42→21:20)
[2018-09-24] MEDS: CITALOPRAM HYDROBROMIDE 20 MG TABLET PO SCH (10:42)
[2018-09-24] MEDS: FAMOTIDINE 20 MG TABLET PO SCH ×2 (10:42→21:20)
[2018-09-24] MEDS: ISOSORBIDE MONONITRATE 30 MG TAB.ER.24H PO SCH (10:43)
[2018-09-24] MEDS: FUROSEMIDE 20 MG TABLET PO SCH ×2 (10:43→21:20)
[2018-09-24] MEDS: CLONIDINE HCL 0.1 MG TABLET PO SCH ×2 (10:46→21:20)
--- NOTE | 2018-09-24 12:02 | PDOC PROGRESS REPORT ---
Subjective Progress Note for:: 09/24/18 Subjective:: Saw patient at bedside along with nursing. Patient is very hard of hearing but very pleasantly confused. She is smiling as she is talking to me. She is laying on her bed sideways. She is unable to tell me her full name or her date of or where she is and her current status. She does however complain of back pain. She denies chest pain, shortness of breath, abdominal pain, nausea or vomiting. Reason For Visit: HYPOTHERMIA,AMS,CP Physical Exam Vital Signs: Temp Pulse Resp BP Pulse Ox 98.4 F 60 14 178/78 H 98 09/24/18 07:48 09/24/18 09:12 09/24/18 09:12 09/24/18 07:48 09/24/18 09:12 Intake & Output 09/23/18 09/24/18 09/25/18 06:59 06:59 06:59 Intake Total 400 Output Total 1250 Balance -850 Weight 210 lb 1.608 oz General appearance: PRESENT: no acute distress, hard of hearing, obese Head exam: PRESENT: atraumatic, normocephalic Eye exam: PRESENT: EOMI. ABSENT: scleral icterus Ear exam: PRESENT: normal external ear exam Mouth exam: PRESENT: moist Respiratory exam: PRESENT: clear to auscultation bimal, symmetrical Cardiovascular exam: PRESENT: +S1, +S2 Pulses: PRESENT: +2 pedal pulses bilateral GI/Abdominal exam: PRESENT: normal bowel sounds, soft. ABSENT: tenderness Musculoskeletal exam: PRESENT: tenderness - Bilateral paraspinal lumbar tenderness to palpation Neurological exam: PRESENT: alert, awake, CN II-XII grossly intact, other - Does not really follow commands very well so it is difficult to assess cranial nerves . ABSENT: oriented to person, oriented to place, oriented to time, oriented to situation Skin exam: PRESENT: dry, warm Results Laboratory Results: 09/24/18 05:13 09/24/18 05:13 09/23/18 09/24/18 09/24/18 09:59 05:13 05:13 WBC 7.1 RBC 3.09 L Hgb 8.7 L Hct 26.4 L MCV 85 MCH 28.0 MCHC 32.8 RDW 16.0 H Plt Count 181 Seg Neutrophils % 63.5 Lymphocytes % 26.4 Monocytes % 7.7 Eosinophils % 1.6 Basophils % 0.8 Absolute Neutrophils 4.5 Absolute Lymphocytes 1.9 Absolute Monocytes 0.5 Absolute Eosinophils 0.1 Absolute Basophils 0.1 Sodium 139.4 Potassium 4.5 Chloride 105 Carbon Dioxide 26 Anion Gap 8 BUN 28 H Creatinine 1.57 H Est GFR ( Amer) 38 L Est GFR (Non-Af Amer) 31 L Glucose 97 Calcium 8.9 TSH 5.68 H Free T4 1.43 Free T3 pg/mL 2.94 09/23/18 09/23/18 09/23/18 09:59 16:14 20:10 Troponin I 0.031 0.024 0.023 Impressions: Chest X-Ray 09/23/18 09:52 IMPRESSION: NO ACUTE RADIOGRAPHIC FINDING IN THE CHEST. Head CT 09/23/18 11:14 IMPRESSION: Age-appropriate chronic white matter disease. No acute intracranial changes. Opacified left maxillary sinus from sinusitis. EVIDENCE OF ACUTE STROKE: NO. Assessment and Plan - Diagnosis (1) CAD (coronary artery disease) Qualifiers: Coronary Disease-Associated Artery/Lesion type: [place] artery [place] vs. transplanted heart: [place] heart Associated angina: without angina Qualified Code(s): I25.10 - Atherosclerotic heart disease of [place] coronary artery without angina pectoris Is this a current diagnosis for this admission?: Yes (2) HTN (hypertension) Qualifiers: Hypertension type: essential hypertension Qualified Code(s): I10 - Essent ial (primary) hypertension Is this a current diagnosis for this admission?: Yes (3) Dementia Qualifiers: Dementia type: unspecified type Dementia behavioral disturbance: without behavioral disturbance Qualified Code(s): F03.90 - Unspecified dementia without behavioral disturbance Is this a current diagnosis for this admission?: Yes (4) CKD (chronic kidney disease) Qualifiers: Chronic kidney disease stage: stage 3 (moderate) Qualified Code(s): N18.3 - Chronic kidney disease, stage 3 (moderate) Is this a current diagnosis for this admission?: Yes (5) Acute metabolic encephalopathy Is this a current diagnosis for this admission?: Yes (6) Chest pain Qualifiers: Chest pain type: unspecified Qualified Code(s): R07.9 - Chest pain, unspecified Is this a current diagnosis for this admission?: Yes (7) Hypothyroidism Is this a current diagnosis for this admission?: Yes - Plan Summary Plan Summary: Chest pain-sim[facility] complaining of chest pain but at this time she is not complaining of anything but back pain. Troponin was slightly on the higher normal but trended down quickly. Acute metabolic encephalopathy-unclear etiology-dehydration versus dementia. I do not know her baseline status and hence is difficult to assess her mentation at this time. She does not seem to be in any acute pain. This may be more likely dehydration and dementia less likely any other cause. CAD and hypertension-continue with Imdur, metoprolol, Norvasc and clonidine.- Blood pressure still on a little bit on the high side we will continue use as needed antihypertensives Hypothyroidism-continue with Synthroid-TSH is slightly elevated at 5.68 with normal T4. Hypothermia-as reported by nursing facility but at this time her temperature remains normal. Possibly from above cause. Will monitor for now and if she becomes more hypothermic we will consider increasing her Synthroid dose.
[2018-09-24] MEDS: DONEPEZIL HCL 5 MG TABLET PO SCH (21:20)
[2018-09-25] MEDS: HEPARIN SOD (PORCINE) 5,000 UNIT/ML 1 ML SYRINGE SUBCUT SCH ×3 (05:25→21:38)
[2018-09-25] MEDS: LEVOTHYROXINE SODIUM 0.088 MG TABLET PO SCH (05:25)
[2018-09-25 06:03] LABS: ABSOLUTE BASOPHILS # (AUTO) 0.1 10^3/uL (0.0-0.2); ABSOLUTE EOSINOPHILS # (AUTO) 0.2 10^3/uL (0.0-0.6); ABSOLUTE LYMPHOCYTES (AUTO) 2.1 10^3/uL (0.5-4.7); ABSOLUTE MONOCYTES (AUTO) 0.7 10^3/uL (0.1-1.4); ABSOLUTE NEUT (AUTO) 4.1 10^3/uL (1.7-8.2); BASOPHILS % (AUTO) 1.1 % (0-2); EOSINOPHILS % (AUTO) 2.6 % (0-6); HEMATOCRIT 25.8 % (36.0-47.0); HEMOGLOBIN 8.4 g/dL (12.0-15.5); LYMPHOCYTES % (AUTO) 29.2 % (13-45); MEAN CORPUSCULAR HGB CONC 32.8 g/dL (32.0-36.0); MEAN CORPUSCULAR VOLUME 85 fl (80-97); MONOCYTES % (AUTO) 9.2 % (3-13); PLATELET COUNT 186 10^3/uL (150-450); RED BLOOD COUNT 3.01 10^6/uL (3.72-5.28); RED CELL DISTRIBUTION WIDTH 16.2 % (11.5-14.0); SEGMENTED NEUTROPHILS % (AUTO) 57.9 % (42-78); TOTAL CELLS COUNTED % (AUTO) 100 %; WHITE BLOOD COUNT 7.1 10^3/uL (4.0-10.5)
[2018-09-25 06:16] LABS: ANION GAP 9 (5-19); BLOOD UREA NITROGEN 25 mg/dL (7-20); CALCIUM 8.9 mg/dL (8.4-10.2); CARBON DIOXIDE 25 mmol/L (22-30); CHLORIDE 106 mmol/L (98-107); GLUCOSE 87 mg/dL (75-110); POTASSIUM 4.3 mmol/L (3.6-5.0); SODIUM 140.4 mmol/L (137-145)
--- NOTE | 2018-09-25 10:32 | RADIOLOGY REPORT (SQ) ---
EXAM DESCRIPTION: KUB/ABDOMEN (SINGLE VIEW) COMPLETED DATE/TIME: 09/25/2018 9:47 am REASON FOR STUDY: abdominal distension COMPARISON: CT abdomen pelvis 04/09/2018 KUB 08/28/2013 NUMBER OF VIEWS: One view. TECHNIQUE: Supine radiographic image of the abdomen acquired. LIMITATIONS: None. FINDINGS: BOWEL GAS PATTERN: Large amount of stool throughout the colon. Otherwise unremarkable bow el gas pattern CALCIFICATIONS: Calcified pelvic phleboliths. SOFT TISSUES: No gross mass or suggestion of organomegaly. HARDWARE: Amezquita catheter in the bladder. Clips right upper quadrant post cholecystectomy. BONES: No acute fracture. No worrisome bone lesions. OTHER: No other significant finding. IMPRESSION: Constipation TECHNICAL DOCUMENTATION: JOB ID: [id number] [employer] ([place])- All Rights Reserved Reading location - IP/workstation name: [email or web address]
[2018-09-25] MEDS: METOPROLOL SUCCINATE 50 MG TAB.SR.24H PO SCH ×2 (10:47→21:37)
[2018-09-25] MEDS: FAMOTIDINE 20 MG TABLET PO SCH ×2 (10:48→21:37)
[2018-09-25] MEDS: CITALOPRAM HYDROBROMIDE 20 MG TABLET PO SCH (10:48)
[2018-09-25] MEDS: MEMANTINE HCL 10 MG TABLET PO SCH ×2 (10:48→21:37)
[2018-09-25] MEDS: CLONIDINE HCL 0.1 MG TABLET PO SCH ×2 (10:48→21:38)
[2018-09-25] MEDS: FUROSEMIDE 20 MG TABLET PO SCH ×2 (10:48→21:37)
[2018-09-25] MEDS: ISOSORBIDE MONONITRATE 30 MG TAB.ER.24H PO SCH (10:48)
[2018-09-25] MEDS: AMLODIPINE BESYLATE 10 MG TABLET PO SCH (10:48)
[2018-09-25] MEDS: RISPERIDONE 0.25 MG TABLET PO SCH ×2 (10:48→21:37)
[2018-09-25] MEDS: DOCUSATE SODIUM 100 MG CAPSULE PO SCH ×2 (10:49→17:52)
[2018-09-25] MEDS ORDERED: BISACODYL 10 MG SUPP.RECT PR PRN (12:41)
--- NOTE | 2018-09-25 12:54 | PDOC PROGRESS REPORT ---
Subjective Progress Note for:: 09/25/18 Subjective:: Saw patient at bedside along with her nurse. Patient remains pleasantly confused. She only can tell me her name but not sure why the house. She is hard of hearing but denies any pain. Given her history of dementia it is difficult to evaluate how accurate this is. Reason For Visit: HYPOTHERMIA,AMS,CP Physical Exam Vital Signs: Temp Pulse Resp BP Pulse Ox 97.4 F 59 L 16 167/92 H 100 09/25/18 11:08 09/25/18 11:08 09/25/18 11:08 09/25/18 11:08 09/25/18 11:08 Intake & Output 09/24/18 09/25/18 09/26/18 06:59 06:59 06:59 Intake Total 400 1317 360 Output Total 1250 2065 450 Balance -850 -748 -90 Weight 210 lb 1.608 oz 171 lb 15.369 oz General appearance: PRESENT: no acute distress, hard of hearing Head exam: PRESENT: atraumatic, normocephalic Eye exam: PRESENT: EOMI. ABSENT: scleral icterus Ear exam: PRESENT: normal external ear exam Mouth exam: PRESENT: moist, tongue midline Respiratory exam: PRESENT: clear to auscultation bimal, symmetrical Cardiovascular exam: PRESENT: +S1, +S2 GI/Abdominal exam: PRESENT: normal bowel sounds, soft, tenderness - Diffuse tenderness in all quadrants Extremities exam: ABSENT: pedal edema Neurological exam: PRESENT: alert, altered, awake, oriented to person, CN II-XII grossly intact. ABSENT: oriented to place, oriented to time, oriented to situation Results Laboratory Results: 09/25/18 05:42 09/25/18 05:42 09/25/18 09/25/18 05:42 05:42 WBC 7.1 RBC 3.01 L Hgb 8.4 L Hct 25.8 L MCV 85 MCH 28.0 MCHC 32.8 RDW 16.2 H Plt Count 186 Seg Neutrophils % 57.9 Lymphocytes % 29.2 Monocytes % 9.2 Eosinophils % 2.6 Basophils % 1.1 Absolute Neutrophils 4.1 Absolute Lymphocytes 2.1 Absolute Monocytes 0.7 Absolute Eosinophils 0.2 Absolute Basophils 0.1 Sodium 140.4 Potassium 4.3 Chloride 106 Carbon Dioxide 25 Anion Gap 9 BUN 25 H Creatinine 1.48 H Est GFR ( Amer) 40 L Est GFR (Non-Af Amer) 33 L Glucose 87 Calcium 8.9 09/23/18 09/23/18 09/23/18 09:59 16:14 20:10 Troponin I 0.031 0.024 0.023 Impressions: Chest X-Ray 09/23/18 09:52 IMPRESSION: NO ACUTE RADIOGRAPHIC FINDING IN THE CHEST. Head CT 09/23/18 11:14 IMPRESSION: Age-appropriate chronic white matter disease. No acute intracranial changes. Opacified left maxillary sinus from sinusitis. EVIDENCE OF ACUTE STROKE: NO. KUB X-Ray 09/25/18 09:18 IMPRESSION: Constipation Assessment and Plan - Diagnosis (1) CAD (coronary artery disease) Qualifiers: Coronary Disease-Associated Artery/Lesion type: [place] artery [place] vs. transplanted heart: [place] heart Associated angina: without angina Qualified Code(s): I25.10 - Atherosclerotic heart disease of [place] coronary artery without angina pectoris Is this a current diagnosis for this admission?: Yes (2) HTN (hypertension) Qualifiers: Hypertension type: essential hypertension Qualified Code(s): I10 - Essential (primary) hypertension Is this a current diagnosis for this admission?: Yes (3) Dementia Qualifiers: Dementia type: unspecified type Dementia behavioral disturbance: without behavioral disturbance Qualified Code(s): F03.90 - Unspecified dementia without behavioral disturbance Is this a current diagnosis for this admission?: Yes (4) CKD (chronic kidney disease) Qualifiers: Chronic kidney disease stage: stage 3 (moderate) Qualified Code(s): N18.3 - Chronic kidney disease, stage 3 (moderate) Is this a current diagnosis for this admission?: Yes (5) Acute metabolic encephalopathy Is this a current diagnosis for this admission?: Yes (6) Chest pain Qualifiers: Chest pain type: unspecified Qualified Code(s): R07.9 - Chest pain, unspecified Is this a current diagnosis for this admission?: Yes (7) Hypothyroidism Is this a current diagnosis for this admission?: Yes - Plan Summary Plan Summary: Chest pain- brought in from skilled nursing complaining of chest pain but at this time she is not complaining of anything but back pain. Troponin was slightly on the higher normal but trended down quickly. Acute metabolic encephalopathy-unclear etiology-dehydration versus dementia. I think this is her baseline dementia and this is where she lives. Constipation-abdominal pain felt on exam-got a abdominal x-ray and it shows diffuse constipation. Will add MiraLAX and Dulcolax suppository to her Colace regimen. CAD and hypertension-continue with Imdur, metoprolol, Norvasc and clonidine.- Blood pressure still on a little bit on the high side -I will restart her hydralazine home dose of 100 mg 3 times daily. Hypothyroidism-continue with Synthroid-TSH is slightly elevated at 5.68 with normal T4. Hypothermia-as reported by nursing facility but at this time her temperature remains normal. Unclear etiology. Will monitor for now and if she becomes more hypothermic we will consider increasing her Synthroid dose.
[2018-09-25] MEDS ORDERED: (PENDING PHARMACY ID) (Hydralazine Hcl [Hydralazine Hcl] 100 MG) PO SCH (14:00)
[2018-09-25] MEDS: POLYETHYLENE GLYCOL 3350 POWDER 17 GM/1 PACKET PO SCH (14:14)
[2018-09-25] MEDS: HYDRALAZINE HCL 50 MG TABLET PO SCH ×2 (14:15→21:37)
[2018-09-25] MEDS: DONEPEZIL HCL 5 MG TABLET PO SCH (21:37)
[2018-09-26] MEDS: HYDRALAZINE HCL 50 MG TABLET PO SCH ×2 (05:13→14:37)
[2018-09-26] MEDS: LEVOTHYROXINE SODIUM 0.088 MG TABLET PO SCH (05:13)
[2018-09-26] MEDS: HEPARIN SOD (PORCINE) 5,000 UNIT/ML 1 ML SYRINGE SUBCUT SCH ×2 (05:13→14:37)
[2018-09-26 05:46] LABS: ABSOLUTE BASOPHILS # (AUTO) 0.1 10^3/uL (0.0-0.2); ABSOLUTE EOSINOPHILS # (AUTO) 0.2 10^3/uL (0.0-0.6); ABSOLUTE MONOCYTES (AUTO) 0.6 10^3/uL (0.1-1.4); ABSOLUTE NEUT (AUTO) 4.5 10^3/uL (1.7-8.2); BASOPHILS % (AUTO) 0.8 % (0-2); EOSINOPHILS % (AUTO) 3.1 % (0-6); HEMATOCRIT 26.1 % (36.0-47.0); HEMOGLOBIN 8.5 g/dL (12.0-15.5); LYMPHOCYTES % (AUTO) 27.4 % (13-45); MEAN CORPUSCULAR HEMOGLOBIN 27.9 pg (27.0-33.4); MEAN CORPUSCULAR HGB CONC 32.6 g/dL (32.0-36.0); MEAN CORPUSCULAR VOLUME 86 fl (80-97); MONOCYTES % (AUTO) 7.9 % (3-13); PLATELET COUNT 184 10^3/uL (150-450); RED BLOOD COUNT 3.05 10^6/uL (3.72-5.28); SEGMENTED NEUTROPHILS % (AUTO) 60.8 % (42-78); TOTAL CELLS COUNTED % (AUTO) 100 %; WHITE BLOOD COUNT 7.3 10^3/uL (4.0-10.5)
[2018-09-26 06:06] LABS: ANION GAP 8 (5-19); BLOOD UREA NITROGEN 27 mg/dL (7-20); CALCIUM 8.8 mg/dL (8.4-10.2); CARBON DIOXIDE 27 mmol/L (22-30); CHLORIDE 104 mmol/L (98-107); GLUCOSE 101 mg/dL (75-110); POTASSIUM 4.7 mmol/L (3.6-5.0); SODIUM 139.2 mmol/L (137-145)
[2018-09-26] MEDS: RISPERIDONE 0.25 MG TABLET PO SCH (10:40)
[2018-09-26] MEDS: MEMANTINE HCL 10 MG TABLET PO SCH (10:41)
[2018-09-26] MEDS: POLYETHYLENE GLYCOL 3350 POWDER 17 GM/1 PACKET PO SCH (10:41)
[2018-09-26] MEDS: DOCUSATE SODIUM 100 MG CAPSULE PO SCH (10:41)
[2018-09-26] MEDS: FUROSEMIDE 20 MG TABLET PO SCH (10:41)
[2018-09-26] MEDS: ISOSORBIDE MONONITRATE 30 MG TAB.ER.24H PO SCH (10:41)
[2018-09-26] MEDS: FAMOTIDINE 20 MG TABLET PO SCH (10:41)
[2018-09-26] MEDS: CITALOPRAM HYDROBROMIDE 20 MG TABLET PO SCH (10:41)
[2018-09-26] MEDS: CLONIDINE HCL 0.1 MG TABLET PO SCH (10:43)
[2018-09-26] MEDS: METOPROLOL SUCCINATE 50 MG TAB.SR.24H PO SCH (10:43)
[2018-09-26] MEDS: AMLODIPINE BESYLATE 10 MG TABLET PO SCH (10:43)
[2018-09-26 11:26] VITALS: BP 133/69
--- NOTE | 2018-09-26 11:48 | PDOC DISCHARGE SUMMARY ---
General - Admit/Disc Date/PCP Admission Date/Primary Care Provider: 09/23/18 12:58 JEFF TIJERINA MD Discharge Date: 09/26/18 - Discharge Diagnosis (1) CAD (coronary artery disease) Is this a current diagnosis for this admission?: Yes (2) HTN (hypertension) Is this a current diagnosis for this admission?: Yes (3) Dementia Is this a current diagnosis for this admission?: Yes (4) CKD (chronic kidney disease) Is this a current diagnosis for this admission?: Yes (5) Acute metabolic encephalopathy Is this a current diagnosis for this admission?: Yes (6) Chest pain Is this a current diagnosis for this admission?: Yes (7) Hypothyroidism Is this a current diagnosis for this admission?: Yes - Additional Information Discharge Diet: As Tolerated Discharge Activity: Activity As Tolerated Home Medications: Acetaminophen [Tylenol 325 mg Tablet] 650 mg PO Q4HP PRN 09/23/18 Amlodipine Besylate [Norvasc 10 mg Tablet] 10 mg PO DAILY 09/23/18 Bisacodyl [Dulcolax 5 mg Tablet] 10 mg PO HSP PRN 09/23/18 Bismuth Subsalicylate [Pepto-Bismol] 30 ml PO Q4HP PRN 09/23/18 Citalopram Hydrobromide [Celexa 20 mg Tablet] 20 mg PO DAILY 09/23/18 Clonidine HCl [Catapres 0.1 mg Tablet] 0.1 mg PO Q12 09/23/18 Donepezil HCl [Aricept] 10 mg PO QHS 09/23/18 Furosemide [Lasix 20 mg Tablet] 20 mg PO Q12 09/23/18 Hydralazine HCl 100 mg PO Q8 09/23/18 Ipratropium/Albuterol Sulfate [Duoneb 3 ml Ampul] 3 ml NEB RTQ6HP PRN 09/23/18 Isosorbide Mononitrate [Imdur 30 mg Tablet.er] 30 mg PO DAILY 09/23/18 Levothyroxine Sodium 88 mcg PO Q6AM 09/23/18 Magnesium Hydroxide [Milk of Magnesia 30 ml Udcup] 30 ml PO BIDP PRN 09/23/18 Memantine HCl [Namenda 10 mg Tablet] 10 mg PO Q12 09/23/18 Metoprolol Succinate [Toprol XL 100 mg Tablet] 100 mg PO Q12 09/23/18 Nitroglycerin [Nitrostat 0.4 mg (1/150 Gr) Tabs 25/Bottle] 1 tab SL Q5MP PRN 09/23/18 Polyethylene Glycol 3350 [Miralax Powder 17 gm/Packet] 1 packet PO DAILY 09/23/18 Potassium Chloride [Klor-Con 10 Meq Capsule ER] 30 meq PO DAILY 09/23/18 Risperidone [Risperdal] 0.5 mg PO Q12 09/23/18 History of Present Illness History of Present Illness: BELKIS EUCEDA is a 88 year old female admitted for acute encephalopathy and chest pain. H&P per admitting doctor: BELKIS EUCEDA is a 88 year old female Patient is a 88-year-old female with history of dementia that presents to the emergency department for chief complaint of chest pain. HPI is provided by EMS. Patient has dementia and is unable to provide any HPI. EMS states that nursing facility staff called them because patient was complaining of chest pain last night. EMS states when they got there she was complaining about "a little bit of everything" but slept the entire time she was in route to the emergency room. They could not elaborate on specific complaints from the patient. Hospital Course Hospital Course: After admission to the hospital she was placed on telemetry and she had no further chest pains. Troponins remain negative. There was no further findings on telemetry or EKG. She did not complain of any further chest pains. Yesterday she did complain of some abdominal pain and an x-ray showed constipation and she did have a bowel movement today. I saw this morning and should not any complaints to me. Her acute encephalopathy was most likely an exacerbation of her underlying dementia probably secondary to dehydration and she received some IV fluids on admission. Her creatinine was at baseline from what I can tell. I did talk with case management/sr. merchandise planner about going back to assisted living. Her other blood work remained okay. I do recommend that she follows up with her PCP within 1 week and discuss about all her medications and constipation. There may be a factor of polypharmacy here that needs to be reassessed. He continues to remain confused and I believe this is her baseline status. Physical Exam Vital Signs: Temp Pulse Resp BP Pulse Ox 97.1 F 59 L 14 133/69 H 100 09/26/18 10:43 09/26/18 10:43 09/26/18 10:43 09/26/18 10:43 09/26/18 10:43 Intake & Output 09/25/18 09/26/18 09/27/18 06:59 06:59 06:59 Intake Total 1317 720 Output Total 7007 1500 Balance -748 -780 Weight 171 lb 15.369 oz 207 lb 7.28 oz General appearance: PRESENT: no acute distress Head exam: PRESENT: atraumatic, normocephalic Eye exam: PRESENT: EOMI. ABSENT: scleral icterus Ear exam: PRESENT: normal external ear exam Mouth exam: PRESENT: moist, tongue midline Respiratory exam: PRESENT: clear to auscultation bimal, symmetrical Cardiovascular exam: PRESENT: +S1, +S2 GI/Abdominal exam: PRESENT: normal bowel sounds, soft. ABSENT: tenderness Extremities exam: ABSENT: pedal edema Neurological exam: PRESENT: alert, awake, oriented to person, CN II-XII grossly intact. ABSENT: oriented to place, oriented to time, oriented to situation Skin exam: PRESENT: dry, warm Results Laboratory Results: 09/26/18 04:55 09/26/18 04:55 09/26/18 09/26/18 04:55 04:55 WBC 7.3 RBC 3.05 L Hgb 8.5 L Hct 26.1 L MCV 86 MCH 27.9 MCHC 32.6 RDW 16.0 H Plt Count 184 Seg Neutrophils % 60.8 Lymphocytes % 27.4 Monocytes % 7.9 Eosinophils % 3.1 Basophils % 0.8 Absolute Neutrophils 4.5 Absolute Lymphocytes 2.0 Absolute Monocytes 0.6 Absolute Eosinophils 0.2 Absolute Basophils 0.1 Sodium 139.2 Potassium 4.7 Chloride 104 Carbon Dioxide 27 Anion Gap 8 BUN 27 H Creatinine 1.45 H Est GFR ( Amer) 41 L Est GFR (Non-Af Amer) 34 L Glucose 101 Calcium 8.8 09/23/18 11:04 Catheterized Urine Urine Culture - Final Lactobacillus (Vaginal Emma) 09/23/18 09/23/18 09/23/18 09:59 16:14 20:10 Troponin I 0.031 0.024 0.023 Impressions: Chest X-Ray 09/23/18 09:52 IMPRESSION: NO ACUTE RADIOGRAPHIC FINDING IN THE CHEST. Head CT 07/04/19 11:14 IMPRESSION: Age-appropriate chronic white matter disease. No acute intracranial changes. Opacified left maxillary sinus from sinusitis. EVIDENCE OF ACUTE STROKE: NO. KUB X-Ray 09/25/18 09:18 IMPRESSION: Constipation Qualifiers - * PATIENT BEING DISCHARGED WITH ANY OF THE FOLLOWING DIAGNOSIS: No Acute Heart Failure - Is this a Heart Failure Patient?: No Plan Time Spent: Greater than 30 Minutes
== END 2018-09-26 15:38 ==
LOC: ER 09:50 → INTOOBSV 12:58 → EH 12:58 → 3W 18:36
PROVIDERS: ADMIT Internal Medicine; ATTEND Internal Medicine
DX: R07.9 Chest pain, unspecified (principal); I25.10 Atherosclerotic heart disease of native coronary artery without angina pectoris; G93.41 Metabolic encephalopathy; F03.90 Unspecified dementia, unspecified severity, without behavioral disturbance, psychotic disturbance, mood disturbance, and anxiety; I13.0 Hypertensive heart and chronic kidney disease with heart failure and stage 1 through stage 4 chronic kidney disease, or unspecified chronic kidney disease; N18.3 Chronic kidney disease, stage 3 (moderate); I50.31 Acute diastolic (congestive) heart failure; E03.9 Hypothyroidism, unspecified; R10.9 Unspecified abdominal pain; K59.00 Constipation, unspecified; E66.9 Obesity, unspecified; T68.XXXA Hypothermia, initial encounter; X58.XXXA Exposure to other specified factors, initial encounter; J01.00 Acute maxillary sinusitis, unspecified; M54.9 Dorsalgia, unspecified; H91.90 Unspecified hearing loss, unspecified ear; D64.89 Other specified anemias; M62.81 Muscle weakness (generalized); R26.2 Difficulty in walking, not elsewhere classified; I25.2 Old myocardial infarction; Z79.899 Other long term (current) drug therapy; Z90.49 Acquired absence of other specified parts of digestive tract; Z95.0 Presence of cardiac pacemaker; M19.90 Unspecified osteoarthritis, unspecified site
CPT/HCPCS: 93005; 99285; 96374; 36415 ×4; 87040; 87086; 84439; 82962; 84443; 85025 ×4; 80048 ×3; 80053; 81001; 84484; 80307; 84481; 82533; 71045; 74018; 70450; 93010; 97530; 97162; 97166; G0378 ×5; A9270 ×45; J1644 ×4; J3490 ×2; J0360; J2310; J0696; J7030

== ENCOUNTER 2018-11-14 09:26 | Observation (INO) | payer MEDICARE, MEDICAID ==
[2018-11-14 11:36] LABS: ABSOLUTE EOSINOPHILS # (AUTO) 0.1 10^3/uL (0.0-0.6); ABSOLUTE LYMPHOCYTES (AUTO) 1.3 10^3/uL (0.5-4.7); ABSOLUTE MONOCYTES (AUTO) 0.6 10^3/uL (0.1-1.4); ABSOLUTE NEUT (AUTO) 3.7 10^3/uL (1.7-8.2); BASOPHILS % (AUTO) 0.6 % (0-2); EOSINOPHILS % (AUTO) 1.2 % (0-6); HEMATOCRIT 24.6 % (36.0-47.0); LYMPHOCYTES % (AUTO) 22.3 % (13-45); MEAN CORPUSCULAR HEMOGLOBIN 27.1 pg (27.0-33.4); MEAN CORPUSCULAR HGB CONC 31.9 g/dL (32.0-36.0); MEAN CORPUSCULAR VOLUME 85 fl (80-97); MONOCYTES % (AUTO) 10.4 % (3-13); PLATELET COUNT 131 10^3/uL (150-450); RED CELL DISTRIBUTION WIDTH 15.7 % (11.5-14.0); SEGMENTED NEUTROPHILS % (AUTO) 65.5 % (42-78); TOTAL CELLS COUNTED % (AUTO) 100 %; WHITE BLOOD COUNT 5.7 10^3/uL (4.0-10.5)
[2018-11-14 11:38] LABS: HEMOGLOBIN 7.9 g/dL (12.0-15.5)
[2018-11-14 11:43] LABS: ALBUMIN 3.5 g/dL (3.5-5.0); ALKALINE PHOSPHATASE 83 U/L (38-126); ANION GAP 8 (5-19); ASPARTATE AMINO TRANSFERASE 22 U/L (14-36); BILIRUBIN,DIRECT 0.2 mg/dL (0.0-0.4); BILIRUBIN,TOTAL 0.6 mg/dL (0.2-1.3); BLOOD UREA NITROGEN 35 mg/dL (7-20); CALCIUM 9.1 mg/dL (8.4-10.2); CARBON DIOXIDE 29 mmol/L (22-30); CHLORIDE 106 mmol/L (98-107); CREATINE KINASE 66 U/L (30-135); GLUCOSE 79 mg/dL (75-110); POTASSIUM 4.6 mmol/L (3.6-5.0)
[2018-11-14 11:44] LABS: APPEARANCE,URINE CLEAR; BILIRUBIN,URINE NEGATIVE (NEGATIVE); COLOR,URINE YELLOW; GLUCOSE, URINE NEGATIVE (NEGATIVE); KETONES,URINE NEGATIVE (NEGATIVE); LEUKOCYTE ESTERASE,URINE NEGATIVE (NEGATIVE); NITRITE,URINE NEGATIVE (NEGATIVE); PROTEIN,URINE NEGATIVE (NEGATIVE); URINE SPECIFIC GRAVITY 1.009; UROBILINOGEN,URINE NEGATIVE mg/dL (<2.0)
--- NOTE | 2018-11-14 12:04 | ER Document Report ---
ED General - General Chief Complaint: Medical Complaint Stated Complaint: WEAKNESS Time Seen by Provider: 11/14/18 10:23 Primary Care Provider: JEFF TIJERINA MD [Primary Care Provider] - Follow up as needed Mode of Arrival: Medic Information source: Emergency Med Personnel, [facility] Records Cannot obtain history due to: Dementia Notes: This 88-year-old female patient is sent from the [facility] for being sleepy after receiving Risperdal today. He was sent here for the same problem on 10/25/2018. The patient is sleeping, she can be aroused, she resists examination of her eyes. She does not speak, and does seem quite demented. TRAVEL OUTSIDE OF THE [place] IN LAST 30 DAYS: No - Related Data Allergies/Adverse Reactions: codeine [Codeine] Allergy (Verified 11/14/18 09:39) iodine [Iodine] Allergy (Verified 11/14/18 09:39) Shellfish * [Shellfish] Allergy (Verified 11/14/18 09:39) Past Medical History - General Information source: Emergency Med Personnel, [facility] Records Cannot obtain history due to: Dementia - Social History Smoking Status: Unknown if Ever Smoked Cigarette use (# per day): No Chew tobacco use (# tins/day): No Smoking Education Provided: No Frequency of alcohol use: None Drug Abuse: None Lives with: Other - Assisted living facility Family History: Reviewed & Not Pertinent - Past Medical History Cardiac Medical History: Reports: Hx Atrial Fibrillation, Hx Congestive Heart Failure, Hx Heart Attack - The patient had an elevated troponin, but negative catheterization 03/03/13, Hx Hypercholesterolemia, Hx Hypertension Neurological Medical History: Reports: Hx Cerebrovascular Accident, Hx Migraine Endocrine Medical History: GI Medical History: Reports: Hx Gastroesophageal Reflux Disease Musculoskeletal Medical History: Reports Hx Arthritis - was told patient has a broken back Psychiatric Medical History: Reports: Hx Dementia, Hx Depression Past Surgical History: Reports: Hx Appendectomy, Hx Cardiac Catheterization, Hx Pacemaker - Pacemaker/defibrillator - Immunizations Hx Diphtheria, Pertussis, Tetanus Vaccination: No Hx Pneumococcal Vaccination: 09/28/13 Review of Systems - Review of Systems -: Yes ROS unobtainable due to patient's medical condition Physical Exam - Vital signs Interpretation: Normal - General General appearance: Other - Sleeping, is arousable, resists examination trying to prevent me from opening her eyes. In distress: None - HEENT Head: Normocephalic, Atraumatic Eyes: Normal Pupils: PERRL - Respiratory Respiratory status: No respiratory distress - Cardiovascular Rhythm: Regular Heart sounds: Normal auscultation Murmur: No - Abdominal Inspection: Obese Bowel sounds: Normal Tenderness: Nontender - Back Back: Normal - Extremities General upper extremity: Normal inspection General lower extremity: Normal inspection - Neurological Neuro grossly intact: Yes - She does move all extremities when properly stimulated - Psychological Associated symptoms: Other - Somnolent, arousable, seems quite demented and is nonverbal - Skin Skin Temperature: Warm Skin Moisture: Dry Skin Color: Normal Course - Re-evaluation Re-evalutation: 11/14/18 12:08 His hemoglobin today is 7.9, on 10/25/2018 it was 8.3, it has been progressively f alling over the last few months. We will get a Hemoccult of the stool to check for reasons for this blood loss. 11/14/18 13:10 Stool Hemoccult is positive. - Laboratory Result Diagrams: 11/14/18 11:10 11/14/18 11:10 Laboratory results interpreted by me: 11/14/18 11/14/18 11:10 11:10 RBC 2.90 L Hgb 7.9 L Hct 24.6 L MCHC 31.9 L RDW 15.7 H Plt Count 131 L BUN 35 H Creatinine 1.72 H Est GFR ( Amer) 34 L Est GFR (MDRD) Non-Af 28 L - EKG Interpretation by Ma EKG shows normal: [place], Intervals, QRS Complexes. abnormal: ST-T Waves - Nonspecific lateral T abnormalities Rate: Normal - 63 Rhythm: Other - Atrial paced complexes - Consults JUAN Galo Time consulted: 14:00 Consulted provider: will come to ER Discharge - Discharge Clinical Impression: Acute alteration in mental status, Chronic kidney disease, stage 3 Anemia Qualifiers: Anemia type: iron deficiency Iron deficiency anemia type: chronic blood loss Qualified Code(s): D50.0 - Iron deficiency anemia secondary to blood loss (chronic) Gastrointestinal bleeding Qualifiers: GI bleed type/associated pathology: melena Qualified Code(s): K92.1 - Melena Condition: Stable Disposition: ADMITTED INPATIENT Admitting Provider: Trey (Hospitalist) Unit Admitted: Medical Floor Referrals: LILLIANA,JEFF, MD [Primary Care Provider] - Follow up as needed
[2018-11-14] MEDS ORDERED: GLUCAGON,HUMAN RECOMB 1 MG INJ SUBCUT PRN (14:47)
[2018-11-14] MEDS ORDERED: DEXTROSE 40% GEL 15 GM TUBE PO PRN ×2 (14:47)
[2018-11-14] MEDS ORDERED: ACETAMINOPHEN 325 MG TABLET PO PRN (14:47)
[2018-11-14] MEDS ORDERED: NORMAL SALINE 1000 ML 1,000 ML IV PRN (14:47)
[2018-11-14] MEDS ORDERED: MAGNESIUM HYDROXIDE SUSP 30 ML UDCUP PO PRN (14:47)
[2018-11-14] MEDS ORDERED: DEXTROSE 50%-WATER 25 GM/50 ML DISP.SYRIN IV PRN ×2 (14:47)
[2018-11-14] MEDS ORDERED: ONDANSETRON HCL INJ/PF 4 MG/2 ML SDV IV PRN (14:47)
[2018-11-14 15:21] LABS: INTERNATIONAL RATION (INR) 1.32; PROTHROMBIN TIME 16.5 SEC (11.4-15.4)
--- NOTE | 2018-11-14 16:50 | PDOC H&P ---
History of Present Illness Admission Date/PCP: 11/14/18 14:16 JEFF TIJERINA MD Patient is admitted to the hospital on 11/14/2018 for cad specialist heme positive stools History of Present Illness: BELKIS EUCEDA is a 88 year old female who was sent to the emergency room by [facility] for lethargy. This is evidently a common complaint and in fact she was just here in the emergency room about 20 days ago the same problem. She was nonverbal at that time as well and drowsy, however [facility]. She has dementia and on 10/25/2018 when she was here her hemo globin was 8.3 hematocrit 25.6. Today her hemoglobin is 7.9 and 24.6 almost identical. In the emergency room her stools were checked for guaiac and they were positive. Patient is a very poor historian and unable to give any history. Patient is on a [facility] deal of medicines at the [facility]. At this point my plan is to put patient in the hospital for observation , just follow serial H&H's, vital signs, and probably send the patient back to the [facility] to be followed up as an outpatient Past Medical History Past Medical History: Patient is unable to give history due to dementia Cardiac Medical History: Reports: Atrial Fibrillation, Congestive Heart Failure, Myocardial Infarction - The patient had an elevated troponin, but negative catheterization 03/03/13, Hyperlipidema, Hypertension Denies: Coronary Artery Disease Pulmonary Medical History: Denies: Asthma, Bronchitis, Chronic Obstructive Pulmonary Disease (COPD), Pneumonia, Tuberculosis Neurological Medical History: Reports: Migraine Denies: Seizures Endocrine Medical History: GI Medical History: Reports: Gastroesophageal Reflux Disease Musculoskeltal Medical History: Reports: Arthritis - was told patient has a broken back Psychiatric Medical History: Reports: Dementia, Depression Hematology: Reports: Anemia Past Surgical History Past Surgical History: Reports: Appendectomy, Cardiac Catheterization, Pacemaker - Pacemaker/defibrillator Denies: Hysterectomy Social History Lives with: Other - Assisted living facility Smoking Status: Unknown if Ever Smoked Frequency of Alcohol Use: None Hx Recreational Drug Use: No Drugs: None Hx Prescription Drug Abuse: No - Advance Directive Resuscitation Status: According to [facility] patient is a full code Family History Family History: Reviewed & Not Pertinent Parental Family History Reviewed: No Children Family History Reviewed: No Sibling(s) Family History Reviewed.: No Medication/Allergy Home Medications: Acetaminophen [Tylenol 325 mg Tablet] 650 mg PO Q4HP PRN 09/23/18 Amlodipine Besylate [Norvasc 10 mg Tablet] 10 mg PO DAILY 09/23/18 Bisacodyl [Dulcolax 5 mg Tablet] 10 mg PO HSP PRN 09/23/18 Bismuth Subsalicylate [Pepto-Bismol] 30 ml PO Q4HP PRN 09/23/18 Citalopram Hydrobromide [Celexa 20 mg Tablet] 20 mg PO DAILY 09/23/18 Clonidine HCl [Catapres 0.1 mg Tablet] 0.1 mg PO Q12 09/23/18 Donepezil HCl [Aricept] 10 mg PO QHS 09/23/18 Furosemide [Lasix 20 mg Tablet] 20 mg PO Q12 09/23/18 Hydralazine HCl 100 mg PO Q8 09/23/18 Ipratropium/Albuterol Sulfate [Duoneb 3 ml Ampul] 3 ml NEB RTQ6HP PRN 09/23/18 Isosorbide Mononitrate [Imdur 30 mg Tablet.er] 30 mg PO DAILY 09/23/18 Levothyroxine Sodium 88 mcg PO Q6AM 09/23/18 Magnesium Hydroxide [Milk of Magnesia 30 ml Udcup] 30 ml PO BIDP PRN 09/23/18 Memantine HCl [Namenda 10 mg Tablet] 10 mg PO Q12 09/23/18 Metoprolol Succinate [Toprol XL 100 mg Tablet] 100 mg PO Q12 09/23/18 Nitroglycerin [Nitrostat 0.4 mg (1/150 Gr) Tabs 25/Bottle] 1 tab SL Q5MP PRN 09/23/18 Polyethylene Glycol 3350 [Miralax Powder 17 gm/Packet] 1 packet PO DAILY 09/23/18 Potassium Chloride [Klor-Con 10 Meq Capsule ER] 30 meq PO DAILY 09/23/18 Risperidone [Risperdal] 0.5 mg PO Q12 09/23/18 Allergies/Adverse Reactions: codeine [Codeine] Allergy (Verified 11/14/18 09:39) iodine [Iodine] Allergy (Verified 11/14/18 09:39) Shellfish * [Shellfish] Allergy (Verified 11/14/18 09:39) Review of Systems Constitutional: ABSENT: chills, fever(s), headache(s), weight gain, weight loss Respiratory: ABSENT: cough, hemoptysis Gastrointestinal: ABSENT: abdominal pain, constipation, diarrhea, hematemesis, hematochezia, nausea, vomiting Neurological: ABSENT: abnormal gait, abnormal speech, confusion, dizziness, focal weakness, syncope Psychiatric: ABSENT: anxiety, depression, homidical ideation, suicidal ideation Physical Exam Vital Signs: Temp Pulse Resp BP Pulse Ox 97.6 F 68 16 128/72 H 98 11/14/18 13:00 11/14/18 13:00 11/14/18 13:00 11/14/18 13:00 11/14/18 13:00 Intake & Output 11/13/18 11/14/18 11/15/18 06:59 06:59 06:59 Weight 99.3 kg General appearance: PRESENT: no acute distress, obese, other - Patient is in a hallway bed has a diaper on, and unable to give any history. Patient groans and moans when palpated anywhere on the body. Respiratory exam: PRESENT: clear to auscultation bimal. ABSENT: rales, rhonchi, wheezes Cardiovascular exam: PRESENT: RRR. ABSENT: diastolic murmur, rubs, systolic murmur GI/Abdominal exam: PRESENT: normal bowel sounds, soft. ABSENT: distended, guarding, mass, organolmegaly, rebound, tenderness Neurological exam: PRESENT: altered, aphasic, other - Review of chart shows previous non-verbal this Results Laboratory Results: 11/14/18 11:10 11/14/18 11:10 11/14/18 11/14/18 11/14/18 11:10 11:10 11:10 WBC 5.7 RBC 2.90 L Hgb 7.9 L Hct 24.6 L MCV 85 MCH 27.1 MCHC 31.9 L RDW 15.7 H Plt Count 131 L Seg Neutrophils % 65.5 Sodium 142.9 Potassium 4.6 Chloride 106 Carbon Dioxide 29 Anion Gap 8 BUN 35 H Creatinine 1.72 H Est GFR ( Amer) 34 L Glucose 79 Calcium 9.1 Total Bilirubin 0.6 AST 22 Alkaline Phosphatase 83 Total Protein 8.0 Albumin 3.5 TSH 5.91 H Urine Color Urine Appearance Urine pH Ur Specific [place] Urine Protein Urine Glucose (UA) Urine Ketones Urine Blood Urine Nitrite Ur Leukocyte Esterase Urine WBC (Auto) Urine RBC (Auto) Blood Type Antibody Screen 11/14/18 11/14/18 11:25 14:27 WBC RBC Hgb Hct MCV MCH MCHC RDW Plt Count Seg Neutrophils % Sodium Potassium Chloride Carbon Dioxide Anion Gap BUN Creatinine Est GFR ( Amer) Glucose Calcium Total Bilirubin AST Alkaline Phosphatase Total Protein Albumin TSH Urine Color YELLOW Urine Appearance CLEAR Urine pH 6.0 Ur Specific [place] 1.009 Urine Protein NEGATIVE Urine Glucose (UA) NEGATIVE Urine Ketones NEGATIVE Urine Blood NEGATIVE Urine Nitrite NEGATIVE Ur Leukocyte Esterase NEGATIVE Urine WBC (Auto) 0 Urine RBC (Auto) 0 Blood Type O POSITIVE Antibody Screen NEGATIVE 11/14/18 11/14/18 11:10 11:10 Creatine Kinase 66 Troponin I 0.034 Assessment and Plan - Diagnosis (2) Gastrointestinal bleeding Qualifiers: GI bleed type/associated pathology: melena Qualified Code(s): K92.1 - Melena Is this a current diagnosis for this admission?: Yes Plan: I am not convinced this is an acute GI bleed. I also do not think that the patient is a good surgical candidate, or even a good candidate for upper endoscopy or colonoscopy. I am going to check H&H's again in the morning, treat patient with Protonix. I will also asked the nurses to repeat guaiac of her stools tomorrow. Patient is medically stable (3) Dementia Qualifiers: Dementia type: unspecified type Dementia behavioral disturbance: without behavioral disturbance Qualified Code(s): F03.90 - Unspecified dementia without behavioral disturbance Is this a current diagnosis for this admission?: Yes Plan: Patient has a long-standing history of dementia and is on medication for this. There is no acute change (4) Hypothyroidism Is this a current diagnosis for this admission?: Yes Plan: Patient takes levothyroxine for her hypothyroidism and I will check a thyroid panel - Time Time Spent with patient: 25-34 minutes - If patient should change and drop her hemoglobin, and/or become symptomatic, then I will consult general surgery. Otherwise I will simply treat with proton pump inhibitors follow serial lab work
[2018-11-14] MEDS ORDERED: NITROGLYCERIN 0.4 MG/TAB 25 TAB/BOTTLE SL PRN (16:54)
[2018-11-14] MEDS ORDERED: RISPERIDONE 1 MG TABLET ONE (21:33)
[2018-11-14] MEDS: PANTOPRAZOLE SODIUM 40 MG VIAL IV SCH (21:45)
[2018-11-14] MEDS: MEMANTINE HCL 10 MG TABLET PO SCH (21:45)
[2018-11-14] MEDS: METOPROLOL SUCCINATE 50 MG TAB.SR.24H PO SCH (21:46)
[2018-11-14] MEDS: HYDRALAZINE HCL 50 MG TABLET PO SCH (21:46)
[2018-11-14] MEDS: RISPERIDONE 1 MG TABLET PO SCH (21:47)
[2018-11-14] MEDS: FUROSEMIDE 20 MG TABLET PO SCH (21:47)
[2018-11-14] MEDS: CLONIDINE HCL 0.1 MG TABLET PO SCH (21:47)
[2018-11-14] MEDS ORDERED: DONEPEZIL HCL 5 MG TABLET PO SCH (22:00)
--- NOTE | 2018-11-15 00:14 | EKG REPORT ---
SEVERITY:- ABNORMAL ECG - ATRIAL-PACED COMPLEXES NONSPECIFIC T ABNORMALITIES, LATERAL LEADS : Confirmed by: Jada Marie MD 15-Nov-2018 00:13:38
[2018-11-15 04:36] LABS: ABSOLUTE MONOCYTES (AUTO) 0.4 10^3/uL (0.1-1.4); BASOPHILS % (AUTO) 0.7 % (0-2); EOSINOPHILS % (AUTO) 0.6 % (0-6); HEMATOCRIT 27.7 % (36.0-47.0); HEMOGLOBIN 8.9 g/dL (12.0-15.5); MEAN CORPUSCULAR HEMOGLOBIN 27.1 pg (27.0-33.4); MEAN CORPUSCULAR HGB CONC 32.2 g/dL (32.0-36.0); MEAN CORPUSCULAR VOLUME 84 fl (80-97); MONOCYTES % (AUTO) 7.1 % (3-13); PLATELET COUNT 145 10^3/uL (150-450); RED CELL DISTRIBUTION WIDTH 15.4 % (11.5-14.0); SEGMENTED NEUTROPHILS % (AUTO) 73.6 % (42-78); TOTAL CELLS COUNTED % (AUTO) 100 %; WHITE BLOOD COUNT 5.4 10^3/uL (4.0-10.5)
[2018-11-15 04:48] LABS: ANION GAP 13 (5-19); BLOOD UREA NITROGEN 36 mg/dL (7-20); CALCIUM 9.3 mg/dL (8.4-10.2); CARBON DIOXIDE 24 mmol/L (22-30); CHLORIDE 107 mmol/L (98-107); GLUCOSE 85 mg/dL (75-110); POTASSIUM 4.8 mmol/L (3.6-5.0)
[2018-11-15] MEDS ORDERED: LEVOTHYROXINE SODIUM 0.088 MG TABLET PO SCH (06:00)
[2018-11-15] MEDS: HYDRALAZINE HCL 50 MG TABLET PO SCH (06:03)
[2018-11-15] MEDS: RISPERIDONE 1 MG TABLET PO SCH (09:48)
[2018-11-15] MEDS: PANTOPRAZOLE SODIUM 40 MG VIAL IV SCH (09:48)
[2018-11-15] MEDS: FUROSEMIDE 20 MG TABLET PO SCH (09:50)
[2018-11-15] MEDS: MEMANTINE HCL 10 MG TABLET PO SCH (09:50)
[2018-11-15] MEDS: METOPROLOL SUCCINATE 50 MG TAB.SR.24H PO SCH (09:50)
[2018-11-15] MEDS: CLONIDINE HCL 0.1 MG TABLET PO SCH (09:50)
[2018-11-15] MEDS ORDERED: ISOSORBIDE MONONITRATE 30 MG TAB.ER.24H PO SCH (10:00)
[2018-11-15] MEDS ORDERED: CITALOPRAM HYDROBROMIDE 20 MG TABLET PO SCH (10:00)
[2018-11-15] MEDS ORDERED: POTASSIUM CHLORIDE 10 MEQ CAPSULE.ER PO SCH (10:00)
[2018-11-15] MEDS ORDERED: AMLODIPINE BESYLATE 10 MG TABLET PO SCH (10:00)
[2018-11-15] MEDS ORDERED: DOCUSATE SODIUM 100 MG CAPSULE PO SCH (10:00)
[2018-11-15 12:20] VITALS: BP 128/72
--- NOTE | 2018-11-15 12:40 | PDOC TRANSFER SUMMARY ---
General - Admit/Disc Date/PCP Admission Date/Primary Care Provider: 11/14/18 14:16 JEFF TIJERINA MD Patient was admitted yesterday on 11/14/2018 Discharge Date: 11/15/18 - Discharge Diagnosis (1) Chronic kidney disease, stage 3 Is this a current diagnosis for this admission?: Yes Summary: Patient is kidney disease is stable yesterday her BUN was 35 creatinine 1.72. Today her BUN is 36 her creatinine is down to 1.59 (2) Gastrointestinal bleeding Is this a current diagnosis for this admission?: Yes Summary: Patient has no clinical evidence of GI bleeding was admitted solely on the reason of her hemoglobin being lower than previously demented and yesterday hemoglobin 7.9 and crit 24.6. Today her hemoglobin is 8.9 and hematocrit is 27.7 ,patient did not receive any blood products. Patient is also hemod ynamically stable. Patient will be sent out on Protonix 40 mg daily (3) Dementia Is this a current diagnosis for this admission?: Yes Summary: Dementia is unchanged dementia is chronic in nature (4) Hypothyroidism Is this a current diagnosis for this admission?: Yes Summary: Patient is currently on Synthroid. TSH is just slightly high at 5.91 - Additional Information Resuscitation Status: According to [facility] patient is a full code Discharge Diet: As Tolerated Discharge Activity: Balance Activity w/Rest Prescriptions: Pantoprazole Sodium [Protonix IV Inj 40 mg Vial] 40 mg IV DAILY #30 vial Home Medications: Acetaminophen [Tylenol 325 mg Tablet] 650 mg PO Q4HP PRN 09/23/18 Amlodipine Besylate [Norvasc 10 mg Tablet] 10 mg PO DAILY 09/23/18 Bisacodyl [Dulcolax 5 mg Tablet] 10 mg PO HSP PRN 09/23/18 Bismuth Subsalicylate [Pepto-Bismol] 30 ml PO Q4HP PRN 09/23/18 Citalopram Hydrobromide [Celexa 20 mg Tablet] 20 mg PO DAILY 09/23/18 Clonidine HCl [Catapres 0.1 mg Tablet] 0.1 mg PO Q12 09/23/18 Donepezil HCl [Aricept] 10 mg PO QHS 09/23/18 Furosemide [Lasix 20 mg Tablet] 20 mg PO Q12 09/23/18 Ipratropium/Albuterol Sulfate [Duoneb 3 ml Ampul] 3 ml NEB RTQ6HP PRN 09/23/18 Magnesium Hydroxide [Milk of Magnesia 30 ml Udcup] 30 ml PO BIDP PRN 09/23/18 Nitroglycerin [Nitrostat 0.4 mg (1/150 Gr) Tabs 25/Bottle] 1 tab SL Q5MP PRN 09/23/18 Polyethylene Glycol 3350 [Miralax Powder 17 gm/Packet] 1 packet PO DAILY 09/23/18 Potassium Chloride [Klor-Con 10 Meq Capsule ER] 30 meq PO DAILY 09/23/18 Acetaminophen [Tylenol 325 mg Tablet] 650 mg PO Q4HP PRN tablet 11/15/18 Clonidine HCl [Catapres 0.1 mg Tablet] 0.1 mg PO Q12 tablet 11/15/18 Donepezil HCl [Aricept 5 mg Tablet] 10 mg PO QHS tablet 11/15/18 Furosemide [Lasix 20 mg Tablet] 20 mg PO Q12 tablet 11/15/18 Hydralazine HCl [Apresoline 50 mg Tablet] 100 mg PO Q8 tablet 11/15/18 Isosorbide Mononitrate [Imdur 30 mg Tablet.er] 30 mg PO DAILY tab.er.24h 11/15/18 Levothyroxine Sodium [Synthroid 0.088 mg Tablet] 0.088 mg PO Q6AM tablet 11/15/18 Magnesium Hydroxide [Milk of Magnesia 30 ml Udcup] 30 ml PO HSP PRN udc 9 Memantine HCl [Namenda 10 mg Tablet] 10 mg PO Q12 tablet 11/15/18 Metoprolol Succinate [Toprol Xl 50 mg Tab.sr] 100 mg PO Q12 tab.sr.24h 11/15/18 Pantoprazole Sodium [Protonix IV Inj 40 mg Vial] 40 mg IV DAILY #30 vial 11/15/18 Risperidone [Risperdal 1 mg Tablet] 0.5 mg PO Q12 tablet 11/15/18 History of Present Illness Admission Date/PCP: 11/14/18 14:16 JEFF TIJERINA MD History of Present Illness: BELKIS EUCEDA is a 88 year old female who was sent to the emergency room by [facility] for lethargy. This is evidently a common complaint and in fact she was just here in the emergency room about 20 days ago the same problem. She was nonverbal at that time as well and drowsy, however she was sent back to the [facility]. She has dementia and on 10/25/2018 when she was here her hemoglobin was 8.3 hematocrit 25.6. Today her hemoglobin is 7.9 and 24.6 almost identical. In the emergency room her stools were checked for guaiac and they were positive. Patient is a very poor historian and unable to give any history. Patient is on a great deal of medicines at the [facility]. At this point my plan is to put patient in the hospital for observation , just follow serial H&H's, vital signs, and probably send the patient back to the [facility] to be followed up as an outpatient . 11/15/2018 hemoglobin today is 8.9 hematocrit is 27.7. PT 16.5 but INR is 1.32 PTT 37.2 patient is hemodynamically stable. Patient is not a good candidate for upper or lower GI studies. Patient will be maintained on Protonix or other proton pump inhibitor Hospital Course Hospital Course: Patient remained stable vital signs today temperature 97.2 pulse is 60 blood pressure 176/91, O2 sat 97% on room air Physical Exam Vital Signs: Temp Pulse Resp BP Pulse Ox 97.2 F 60 18 128/72 H 97 11/15/18 12:19 11/15/18 12:19 11/15/18 12:19 11/15/18 12:19 11/15/18 12:19 Intake & Output 11/14/18 11/15/18 11/16/18 06:59 06:59 06:59 Intake Total 1000 Balance 1000 Weight 99.3 kg General appearance: PRESENT: no acute distress Respiratory exam: PRESENT: clear to auscultation bimal. ABSENT: rales, rhonchi, wheezes Cardiovascular exam: PRESENT: RRR. ABSENT: diastolic murmur, rubs, systolic murmur GI/Abdominal exam: PRESENT: normal bowel sounds, soft. ABSENT: distended, guarding, mass, organolmegaly, rebound, tenderness Neurological exam: PRESENT: altered, other - Patient has severe dementia Results Laboratory Results: 11/15/18 03:57 11/15/18 03:57 11/14/18 11/14/18 11/15/18 11:10 14:27 03:57 WBC 5.4 RBC 3.30 L Hgb 8.9 L Hct 27.7 L MCV 84 MCH 27.1 MCHC 32.2 RDW 15.4 H Plt Count 145 L Seg Neutrophils % 73.6 Sodium Potassium Chloride Carbon Dioxide Anion Gap BUN Creatinine Est GFR ( Amer) Glucose Calcium Magnesium TSH 5.91 H Blood Type O POSITIVE Antibody Screen NEGATIVE 11/15/18 03:57 WBC RBC Hgb Hct MCV MCH MCHC RDW Plt Count Seg Neutrophils % Sodium 143.9 Potassium 4.8 Chloride 107 Carbon Dioxide 24 Anion Gap 13 BUN 36 H Creatinine 1.59 H Est GFR ( Amer) 37 L Glucose 85 Calcium 9.3 Magnesium 2.2 TSH Blood Type Antibody Screen 11/14/18 11/14/18 11:10 11:10 Creatine Kinase 66 Troponin I 0.034 Transfer Plan - Disposition Transfer Plan: Patient will be maintained on her medicines as prior to admission plus Protonix 40 mg daily - Time Spent with Patient Time spent with patient: Greater than 30 Minutes Qualifiers - * PATIENT BEING DISCHARGED WITH ANY OF THE FOLLOWING DIAGNOSIS: No Acute Heart Failure - Is this a Heart Failure Patient?: No Plan Time Spent: Greater than 30 Minutes - Patient's PCP needs to follow her TSH and possibly adjust her dosage of Synthroid, patient needs to remain on a proton pump inhibitor of his or her choice. Patient needs to have an H&H and follow-up in the next 7 to 10 days
== END 2018-11-15 13:25 ==
LOC: ER 09:26 → INTOOBSV 14:16 → EH 14:16 → 5 16:30
PROVIDERS: ADMIT Internal Medicine; ATTEND Internal Medicine
DX: K92.1 Melena (principal); I13.0 Hypertensive heart and chronic kidney disease with heart failure and stage 1 through stage 4 chronic kidney disease, or unspecified chronic kidney disease; I50.9 Heart failure, unspecified; N18.3 Chronic kidney disease, stage 3 (moderate); F03.90 Unspecified dementia, unspecified severity, without behavioral disturbance, psychotic disturbance, mood disturbance, and anxiety; E03.9 Hypothyroidism, unspecified; R53.83 Other fatigue; I48.91 Unspecified atrial fibrillation; R47.01 Aphasia; D50.0 Iron deficiency anemia secondary to blood loss (chronic); R13.19 Other dysphagia; R29.6 Repeated falls; Z91.81 History of falling; I25.2 Old myocardial infarction; Z79.899 Other long term (current) drug therapy; Z90.49 Acquired absence of other specified parts of digestive tract; Z95.810 Presence of automatic (implantable) cardiac defibrillator
CPT/HCPCS: 93005; 99285; 51701; 86900; 86901; 36415 ×2; 86850; 82550; 83735; 84443; 85025 ×2; 85610; 85730; 80048; 80053; 81001; 84484; 83036; 93010; 92610; G0378 ×3; A9270 ×16; C9113 ×2; J7030; S0164

== ENCOUNTER 2018-11-23 17:26 | Inpatient (IN) | payer MEDICARE, MEDICAID ==
[2018-11-23] MEDS ORDERED: NORMAL SALINE 1000 ML 500 ML IV ONE ×2 (17:30→18:05)
[2018-11-23] MEDS ORDERED: DEXTROSE 50%-WATER 25 GM/50 ML DISP.SYRIN IV ONE ×2 (17:48→19:35)
[2018-11-23 18:19] LABS: HEMATOCRIT 27.1 % (36.0-47.0); HEMOGLOBIN 8.4 g/dL (12.0-15.5); MEAN CORPUSCULAR HEMOGLOBIN 26.6 pg (27.0-33.4); MEAN CORPUSCULAR HGB CONC 31.1 g/dL (32.0-36.0); MEAN CORPUSCULAR VOLUME 86 fl (80-97); RED BLOOD COUNT 3.16 10^6/uL (3.72-5.28); RED CELL DISTRIBUTION WIDTH 16.6 % (11.5-14.0)
[2018-11-23 18:21] LABS: INTERNATIONAL RATION (INR) 1.91; PLATELET COUNT 95 10^3/uL (150-450); PROTHROMBIN TIME 22.1 SEC (11.4-15.4)
--- NOTE | 2018-11-23 18:30 | RADIOLOGY REPORT (SQ) ---
EXAM DESCRIPTION: CHEST SINGLE VIEW COMPLETED DATE/TIME: 11/23/2018 6:22 pm REASON FOR STUDY: ams/cough COMPARISON: 09/23/2018 EXAM PARAMETERS: NUMBER OF VIEWS: One view. TECHNIQUE: Single frontal radiographic view of the chest acquired. RADIATION DOSE: NA LIMITATIONS: None. FINDINGS: LUNGS AND PLEURA: Pulmonary edema. Bilateral pleural effusions. MEDIASTINUM AND HILAR STRUCTURES: No masses. Contour normal. HEART AND VASCULAR STRUCTURES: Cardiomegaly. BONES: No acute findings. HARDWARE: Pacemaker/defibrillator. OTHER: No other significant finding. IMPRESSION: Cardiomegaly with pulmonary edema and bilateral pleural effusions. TECHNICAL DOCUMENTATION: JOB ID: [id number] [employer]- All Rights Reserved Reading location - IP/workstation name: [email or web address]
[2018-11-23 18:44] LABS: ABSOLUTE LYMPHOCYTES# (MANUAL) 0.3 10^3/uL (0.5-4.7); ANISOCYTOSIS 1+; BASOPHILS % (MANUAL) 0 % (0-2); EOSINOPHILS % (MANUAL) 0 % (0-6); HYPOCHROMASIA SLIGHT; LYMPHOCYTES % (MANUAL) 5 % (13-45); MONOCYTES % (MANUAL) 0 % (3-13); NUCLEATED RED BLOOD CELLS 1 /100 WBC (0); PLATELET COMMENT DECREASED; PLATELET GIANT PRESENT; PLATELET LARGE PRESENT; SEGMENTED NEUTROPHILS % (MAN) 95 % (42-78); TOTAL CELLS COUNTED 100; TOXIC VACUOLATION PRESENT
[2018-11-23 19:04] LABS: ARTERIAL BLOOD BASE EXCESS -9.1 mmol/L; ARTERIAL BLOOD FIO2 6L; ARTERIAL BLOOD H2CO3 1.87 mmol/L (1.05-1.35); ARTERIAL BLOOD HCO3 20.8 mmol/L (20-24); ARTERIAL BLOOD O2 SATURATION 92.3 % (94-98); ARTERIAL BLOOD PCO2 62.1 mmHg (35-45); ARTERIAL BLOOD PO2 82.1 mmHg (80-100); ARTERIAL BLOOD TOTAL CO2 22.7 mmol/L (21-25)
[2018-11-23 19:06] LABS: ARTERIAL BLOOD PH 7.14 (7.35-7.45)
[2018-11-23] MEDS ORDERED: NORMAL SALINE 500 ML IV PRN ×2 (19:35→21:23)
[2018-11-23] MEDS ORDERED: PIPERACILLIN/TAZOBACTAM 4.5 GM VIAL IV ONE (19:36)
[2018-11-23] MEDS ORDERED: DEXTROSE 5%-WATER 250 ML with NOREPINEPHRINE BITARTRATE 4 MG IV PRN ×4 (19:36→20:50)
[2018-11-23] MEDS ORDERED: VANCOMYCIN HCL INJ 1000 MG VIAL IV ONE (19:36)
[2018-11-23 19:41] LABS: ALBUMIN 3.3 g/dL (3.5-5.0); ALKALINE PHOSPHATASE 79 U/L (38-126); ANION GAP 13 (5-19); ASPARTATE AMINO TRANSFERASE 57 U/L (14-36); BILIRUBIN,DIRECT 0.5 mg/dL (0.0-0.4); BILIRUBIN,TOTAL 0.7 mg/dL (0.2-1.3); BLOOD UREA NITROGEN 59 mg/dL (7-20); CALCIUM 8.6 mg/dL (8.4-10.2); CARBON DIOXIDE 20 mmol/L (22-30); CHLORIDE 111 mmol/L (98-107); GLUCOSE 89 mg/dL (75-110); POTASSIUM 5.1 mmol/L (3.6-5.0); TOTAL PROTEIN 7.7 g/dL (6.3-8.2)
[2018-11-23] MEDS ORDERED: NOREPINEPHRINE BITARTRATE INJ/PF 4 MG/4 ML SDV IV ONE (19:53)
[2018-11-23] MEDS ORDERED: RINGERS SOLUTION,LACTATED 1,000 ML IV PRN (20:43)
[2018-11-23] MEDS ORDERED: ACETAMINOPHEN 650 MG SUPP.RECT PR PRN (20:43)
[2018-11-23] MEDS ORDERED: VANCOMYCIN HCL 0 MG in DEXTROSE 5%-WATER 250 ML IV NR (20:45)
--- NOTE | 2018-11-23 21:13 | ER Document Report ---
ED General - General Chief Complaint: Altered Mental Status Stated Complaint: ALTERED MENTAL STATUS Time Seen by Provider: 11/23/18 17:47 Primary Care Provider: JEFF TIJERINA MD [Primary Care Provider] - Follow up as needed Mode of Arrival: Medic Information source: Relative, Emergency Med Personnel TRAVEL OUTSIDE OF THE [place] IN LAST 30 DAYS: No - HPI Notes: Patient brought in by medics for altered mental status. Patient is not coherent and unable to give any history. Medics state that they were called by the [facility] facility due to patient's altered mental status. They state that patient normally is confused with dementia. However today patient is less responsive. No known fevers. No known vomiting or diarrhea. No known trauma. Patient has had shallow respirations. But no cough. Patient's symptoms have been severe. Nothing appears to make them better or worse. There is no known radiation symptoms. Patient is not coherent cannot characterize the symptoms. - Related Data Allergies/Adverse Reactions: codeine [Codeine] Allergy (Verified 11/14/18 09:39) iodine [Iodine] Allergy (Verified 11/14/18 09:39) Shellfish * [Shellfish] Allergy (Verified 11/14/18 09:39) Past Medical History - General Information source: Emergency Med Personnel - Social History Smoking Status: Never Smoker Chew tobacco use (# tins/day): No Frequency of alcohol use: None Drug Abuse: None Family History: Reviewed & Not Pertinent Patient has suicidal ideation: No Patient has homicidal ideation: No - Past Medical History Cardiac Medical History: Reports: Hx Atrial Fibrillation, Hx Congestive Heart Failure, Hx Heart Attack - The patient had an elevated troponin, but negative catheterization 03/03/13, Hx Hypercholesterolemia, Hx Hypertension Denies: Hx Coronary Artery Disease Pulmonary Medical History: Denies: Hx Asthma, Hx Bronchitis, Hx COPD, Hx Pneumonia, Hx Tuberculosis Neurological Medical History: Reports: Hx Cerebrovascular Accident, Hx Migraine. Denies: Hx Seizures Endocrine Medical History: Renal/ Medical History: Reports: Hx End Stage Renal Disease. Denies: Hx Peritoneal Dialysis GI Medical History: Reports: Hx Gastroesophageal Reflux Disease Musculoskeletal Medical History: Reports Hx Arthritis - was told patient has a broken back, Denies Hx Systemic Lupus Erythematosus Psychiatric Medical History: Reports: Hx Dementia, Hx Depression Past Surgical History: Reports: Hx Appendectomy, Hx Cardiac Catheterization, Hx Cardiac Surgery - pacer/defib, Hx Pacemaker - Pacemaker/defibrillator. Denies: Hx Hysterectomy - Immunizations Hx Diphtheria, Pertussis, Tetanus Vaccination: No Hx Pneumococcal Vaccination: 09/28/13 Review of Systems - Review of Systems -: Yes ROS unobtainable due to patient's medical condition - Patient is incoherent and lethargic Physical Exam - Vital signs Vitals: Temp 86.8 F L 11/23/18 17:26 Interpretation: Hypotensive - General General appearance: Lethargic In distress: Mild - HEENT Head: Normocephalic, Atraumatic Eyes: Normal Pupils: PERRL Nasal: Normal Mouth/Lips: Normal Mucous membranes: Dry Pharynx: Normal Neck: Normal - Respiratory Respiratory status: No respiratory distress Chest status: Nontender Breath sounds: Decreased air movement Chest palpation: Normal - Cardiovascular Rhythm: Regular Heart sounds: Normal auscultation Murmur: No - Abdominal Inspection: Normal Distension: No distension Bowel sounds: Normal Tenderness: Nontender Organomegaly: No organomegaly - Back Back: Normal, Nontender - Extremities General upper extremity: Normal inspection, Nontender, Normal color, Normal temperature General lower extremity: Edema - 2+ bilaterally, Normal color, Normal temperature - Neurological Cognition: Confused Orientation: Disoriented to person, Disoriented to place, Disoriented to time Skipwith Coma Scale Eye Opening: To Pain Kaleb Coma Scale Verbal: Confused Skip[place] Coma Scale Motor: Localizes to Pain Kaleb Coma Scale Total: 11 Speech: Dysarthria Additional motor exam normals: Weakness - Psychological Associated symptoms: Confused, Other - Lethargic - Skin Skin Temperature: Warm Skin Moisture: Dry Skin Color: Normal Course - Re-evaluation Re-evalutation: 11/23/18 21:13 Patient arrived with decreased responsiveness and hypotension. She also had hypoglycemia with a blood sugar at the scene of 27 per paramedics. I immediately placed an EJ in the right external jugular. An amp of D50 was given. Fluids were started. Blood pressure did come up to approximately 95 systolic. Patient was slightly more arousable. Blood sugar once again dropped to 70 and another amp of D50 was given. Another 1.5 L of fluid was also given due to the hypotension. Patient's pressure was 70 systolic after 1.5 L of fluid so Levophed was started and another 500 of fluid was given. At this time patient's blood pressures approximately 110- 120 systolic. Blood sugar has been above 70 the whole time. Patient had a Amezquita placed with less than 10 cc of urine return over the last 2 hours. We will continue to give fluids. Patient's pH was 7.1 and appeared to be due to both metabolic and respiratory acidosis. Patient has been placed on BiPAP. Patient's oxygen saturations have been 95 to 100% on 2 L. However it does appear that ventilation has been an issue so BiPAP was initiated. Tidal volumes been approximately 350. Patient now with the increased blood pressure is significantly more arousable with a GCS of 11-12. I did discuss the care of the patient with the patient's daughter. Daughter states that she would like the patient to be full code. The patient is a sharp of the [facility] and the patient's social worker palliative care was contacted- patient's social worker palliative care states that the patient is a full code. At this time, given the patient's GCS and vital signs the most prudent course is to continue with BiPAP and not intubation at this time. 11/23/18 21:18 It also appears the patient's acidosis may have been due to dehydration which is why fluids were given. In addition sepsis may be present although a site of infection at this time is not been found. Antibiotics have been given prophylactically. - Vital Signs Vital signs: Temp Pulse Resp BP Pulse Ox 90.4 F L 26 H 112/60 100 11/23/18 21:00 11/23/18 21:00 11/23/18 20:56 11/23/18 21:00 - Laboratory Result Diagrams: 11/23/18 17:50 11/23/18 18:50 Laboratory results interpreted by me: 11/23/18 11/23/18 11/23/18 17:40 17:50 17:50 RBC 3.16 L Hgb 8.4 L Hct 27.1 L MCH 26.6 L MCHC 31.1 L RDW 16.6 H Plt Count 95 L Seg Neuts % (Manual) 95 H Lymphocytes % (Manual) 5 L Monocytes % (Manual) 0 L Abs Lymphs (Manual) 0.3 L Abs Monocytes (Manual) 0.0 L PT 22.1 H Carbonic Acid 1.87 H ABG pH 7.14 L* ABG pCO2 62.1 H ABG O2 Saturation 92.3 L Potassium Chloride Carbon Dioxide BUN Creatinine Est GFR ( Amer) Est GFR (MDRD) Non-Af Lactic Acid Direct Bilirubin AST Albumin 11/23/18 11/23/18 18:50 18:50 RBC Hgb Hct MCH MCHC RDW Plt Count Seg Neuts % (Manual) Lymphocytes % (Manual) Monocytes % (Manual) Abs Lymphs (Manual) Abs Monocytes (Manual) PT Carbonic Acid ABG pH ABG pCO2 ABG O2 Saturation Potassium 5.1 H Chloride 111 H Carbon Dioxide 20 L BUN 59 H Creatinine 2.90 H Est GFR ( Amer) 19 L Est GFR (MDRD) Non-Af 15 L Lactic Acid 5.9 H Direct Bilirubin 0.5 H AST 57 H Albumin 3.3 L - Diagnostic Test Radiology reviewed: Image reviewed, Reports reviewed - EKG Interpretation by Me Rate: Normal - 60 Rhythm: Other - paced [place]/QRS: IVCD Critical Care Note - Critical Care Note Total time excluding time spent on procedures (mins): 55 Comments: 55 minutes of critical care time were spent on the patient. This included multiple reassessments. It included discussions with family. And included researching old records. It included reviewing imaging and laboratories. Discharge - Discharge Clinical Impression: Dehydration, Metabolic acidosis, Pedal edema, Hypoglycemia, Hypothermia Respiratory failure Qualifiers: Chronicity: acute Respiratory failure complication: hypercapnia Qualified Cod e(s): J96.02 - Acute respiratory failure with hypercapnia Altered mental status Qualifiers: Altered mental status type: somnolence Qualified Code(s): R40.0 - Somnolence Pulmonary edema Qualifiers: Chronicity: chronic Qualified Code(s): J81.1 - Chronic pulmonary edema Condition: Critical Disposition: ADMITTED INPATIENT Admitting Provider: Damir (Hospitalist) Unit Admitted: ICU Referrals: JEFF TIJERINA MD [Primary Care Provider] - Follow up as needed
[2018-11-23] MEDS: PANTOPRAZOLE SODIUM 40 MG VIAL IV SCH (21:38)
--- NOTE | 2018-11-23 23:07 | EKG REPORT ---
SEVERITY:- ABNORMAL ECG - A-V DUAL-PACED RHYTHM WITH SOME INHIBITION : Confirmed by: Ok Nash 23-Nov-2018 23:06:54
[2018-11-24] MEDS ORDERED: PIPERACILLIN SODIUM/TAZOBACTAM 4.5 GM in NORMAL SALINE 100 ML IV SCH ×2
[2018-11-24] MEDS: PIPERACILLIN SODIUM/TAZOBACTAM 2.25 GM in NORMAL SALINE 50 ML IV SCH ×5 (00:15→23:19)
--- NOTE | 2018-11-24 02:19 | PDOC H&P ---
History of Present Illness Admission Date/PCP: 11/23/2018 20:49 JEFF TIJERINA MD Patient complains of: Altered mental status History of Present Illness: BLEKIS EUCEDA is a 88 year old female who presented via EMS from a long-term with acute decreased responsiveness. Patient has severe dementia and confusion and is unable to contribute to her history. EMS relate that the patient was acutely noted to not be responsive to verbal stimuli and tactile stimuli at the long-term earlier today, resulting their call-out and her ER presentation. No associated or accompanying signs or symptoms had been noted by the long-term staff. Initially the patient had a blood sugar of 27, which was treated in route by EMS with only moderate success. In the ER the patient was found to have a core temperature of 86.8 F, severe hypotension and a combined metabolic and respiratory acidosis. The patient required a lengthy acute resuscitation in the emergency room. She was subsequently admitted to the ICU for further evaluation and treatment. Past Medical History Past Medical History: Due to the patient's severe dementia she is unable to provide information relative to her past medical history, past surgical history, social history or family medical history. Best available sources have been used to obtain the i nformation in this document. Cardiac Medical History: Reports: Atrial Fibrillation, Congestive Heart Failure, Myocardial Infarction - The patient had an elevated troponin, but negative catheterization 03/03/13, Hyperlipidema, Hypertension Denies: Coronary Artery Disease Pulmonary Medical History: Denies: Asthma, Bronchitis, Chronic Obstructive Pulmonary Disease (COPD), Pneumonia, Tuberculosis Neurological Medical History: Reports: Migraine Denies: Seizures Endocrine Medical History: Denies: Diabetes Mellitus Type 1, Diabetes Mellitus Type 2 Renal/ Medical History: Reports: Chronic Kidney Disease Denies: End Stage Renal Disease Malignancy Medical History: Reports: None GI Medical History: Reports: Gastroesophageal Reflux Disease Denies: Cirrhosis, Hepatitis Musculoskeltal Medical History: Reports: Arthritis Denies: Gout Skin Medical History: Denies: Eczema, Psoriasis Psychiatric Medical History: Reports: Dementia, Depression Traumatic Medical History: Reports: None Hematology: Reports: Anemia Denies: Bleeding Tendencies Infectious Medical History: Reports: None Past Surgical History Past Surgical History: Reports: Appendectomy, Cardiac Catheterization, Pacemaker - Pacemaker/defibrillator Social History Information Source: Emergency Med Personnel, [facility] Records Lives with: [facility] Smoking Status: Never Smoker Frequency of Alcohol Use: None Hx Recreational Drug Use: No Drugs: None Hx Prescription Drug Abuse: No - Advance Directive Resuscitation Status: Full Code Surrogate healthcare decision maker:: [facility] Family History Family History: Could not be obtained due to patient's dementia and no family medical history present and reviewable records. Parental Family History Reviewed: No Children Family History Reviewed: No Sibling(s) Family History Reviewed.: No Medication/Allergy Home Medications: Acetaminophen [Tylenol 325 mg Tablet] 650 mg PO Q4HP PRN 09/23/18 Amlodipine Besylate [Norvasc 10 mg Tablet] 10 mg PO DAILY 09/23/18 Bisacodyl [Dulcolax 5 mg Tablet] 10 mg PO HSP PRN 09/23/18 Bismuth Subsalicylate [Pepto-Bismol] 30 ml PO Q4HP PRN 09/23/18 Citalopram Hydrobromide [Celexa 20 mg Tablet] 20 mg PO DAILY 09/23/18 Clonidine HCl [Catapres 0.1 mg Tablet] 0.1 mg PO Q12 09/23/18 Donepezil HCl [Aricept] 10 mg PO QHS 09/23/18 Furosemide [Lasix 20 mg Tablet] 20 mg PO Q12 09/23/18 Ipratropium/Albuterol Sulfate [Duoneb 3 ml Ampul] 3 ml NEB RTQ6HP PRN 09/23/18 Magnesium Hydroxide [Milk of Magnesia 30 ml Udcup] 30 ml PO BIDP PRN 09/23/18 Nitroglycerin [Nitrostat 0.4 mg (1/150 Gr) Tabs 25/Bottle] 1 tab SL Q5MP PRN 09/23/18 Polyethylene Glycol 3350 [Miralax Powder 17 gm/Packet] 1 packet PO DAILY 09/23/18 Potassium Chloride [Klor-Con 10 Meq Capsule ER] 30 meq PO DAILY 09/23/18 Acetaminophen [Tylenol 325 mg Tablet] 650 mg PO Q4HP PRN tablet 11/15/18 Clonidine HCl [Catapres 0.1 mg Tablet] 0.1 mg PO Q12 tablet 11/15/18 Donepezil HCl [Aricept 5 mg Tablet] 10 mg PO QHS tablet 11/15/18 Furosemide [Lasix 20 mg Tablet] 20 mg PO Q12 tablet 11/15/18 Hydralazine HCl [Apresoline 50 mg Tablet] 100 mg PO Q8 tablet 11/15/18 Isosorbide Mononitrate [Imdur 30 mg Tablet.er] 30 mg PO DAILY tab.er.24h 11/15/18 Levothyroxine Sodium [Synthroid 0.088 mg Tablet] 0.088 mg PO Q6AM tablet 11/15/18 Magnesium Hydroxide [Milk of Magnesia 30 ml Udcup] 30 ml PO HSP PRN udc 11/15/18 Memantine HCl [Namenda 10 mg Tablet] 10 mg PO Q12 tablet 11/15/18 Metoprolol Succinate [Toprol Xl 50 mg Tab.sr] 100 mg PO Q12 tab.sr.24h 11/15/18 Pantoprazole Sodium [Protonix IV Inj 40 mg Vial] 40 mg IV DAILY #30 vial 11/15/18 Risperidone [Risperdal 1 mg Tablet] 0.5 mg PO Q12 tablet 11/15/18 Allergies/Adverse Reactions: codeine [Codeine] Allergy (Verified 11/14/18 09:39) iodine [Iodine] Allergy (Verified 11/14/18 09:39) Shellfish * [Shellfish] Allergy (Verified 11/14/18 09:39) Review of Systems ROS unobtainable: Due to mental status Physical Exam Vital Signs: Temp Pulse Resp BP Pulse Ox 90.9 F L 13 108/57 L 100 11/23/18 21:26 11/23/18 21:25 11/23/18 21:26 11/23/18 21:26 Intake & Output 11/21/18 11/22/18 11/23/18 23:59 23:59 23:59 Intake Total 1500 Balance 1500 Weight 105.6 kg General appearance: PRESENT: no acute distress, morbidly obese, other - Minimally responsive Head exam: PRESENT: atraumatic, normocephalic Eye exam: PRESENT: conjunctiva pink. ABSENT: conjunctival injection, scleral icterus Ear exam: PRESENT: normal external ear exam. ABSENT: bleeding, drainage Mouth exam: PRESENT: dry mucosa, neck supple Neck exam: ABSENT: JVD, thyromegaly, tracheal deviation Respiratory exam: PRESENT: rales - Fine bilateral basilar rales, symmetrical, other - On BiPAP Cardiovascular exam: PRESENT: RRR, other - Paced rhythm at 60. ABSENT: clicks, gallop, rubs Pulses: PRESENT: normal carotid pulses, normal radial pulses Vascular exam: PRESENT: normal capillary refill - Sluggish capillary refill greater than 3 seconds. ABSENT: pallor GI/Abdominal exam: PRESENT: hypoactive bowel sounds, soft Rectal exam: PRESENT: deferred Extremities exam: PRESENT: pedal edema - Bilateral. ABSENT: joint swelling Musculoskeletal exam: ABSENT: deformity, dislocation Neurological exam: PRESENT: altered - Nonresponsive to verbal and mild tactile stimuli, combative when responding to painful stimuli. ABSENT: oriented to person, oriented to place, oriented to time, oriented to situation Psychiatric exam: PRESENT: other - Unable to assess Skin exam: PRESENT: dry, intact, warm. ABSENT: jaundice, rash, urticaria Results Laboratory Results: 11/23/18 17:50 11/23/18 18:50 11/23/18 11/23/18 11/23/18 17:40 17:50 17:50 WBC 6.0 RBC 3.16 L Hgb 8.4 L Hct 27.1 L MCV 86 MCH 26.6 L MCHC 31.1 L RDW 16.6 H Plt Count 95 L Seg Neutrophils % Not Reportable Carbonic Acid 1.87 H HCO3/H2CO3 Ratio 11:1 ABG pH 7.14 L* ABG pCO2 62.1 H ABG pO2 82.1 ABG HCO3 20.8 ABG O2 Saturation 92.3 L ABG Base Excess -9.1 FiO2 6L Sodium Cancelled Potassium Cancelled Chloride Cancelled Carbon Dioxide Cancelled Anion Gap Cancelled BUN Cancelled Creatinine Cancelled Est GFR ( Amer) Cancelled Est GFR (Non-Af Amer) Cancelled Glucose Cancelled Lactic Acid Calcium Cancelled Total Bilirubin Cancelled AST Cancelled Alkaline Phosphatase Cancelled Total Protein Cancelled Albumin Cancelled 11/23/18 11/23/18 11/23/18 17:50 18:50 18:50 WBC RBC Hgb Hct MCV MCH MCHC RDW Plt Count Seg Neutrophils % Carbonic Acid HCO3/H2CO3 Ratio ABG pH ABG pCO2 ABG pO2 ABG HCO3 ABG O2 Saturation ABG Base Excess FiO2 Sodium 144.1 Potassium 5.1 H Chloride 111 H Carbon Dioxide 20 L Anion Gap 13 BUN 59 H Creatinine 2.90 H Est GFR ( Amer) 19 L Est GFR (Non-Af Amer) Glucose 89 Lactic Acid Cancelled 5.9 H Calcium 8.6 Total Bilirubin 0.7 AST 57 H Alkaline Phosphatase 79 Total Protein 7.7 Albumin 3.3 L Impressions: Chest X-Ray 11/23/18 17:47 IMPRESSION: Cardiomegaly with pulmonary edema and bilateral pleural effusions. Assessment and Plan - Diagnosis (1) Acute encephalopathy Is this a current diagnosis for this admission?: Yes Plan: Patient be admitted to the ICU on a sepsis protocol. Her neurologic status will be checked on a regular basis throughout her stay. (2) Sepsis Qualifiers: Sepsis type: sepsis due to unspecified organism Sepsis acute organ dysfunction status: with acute organ dysfunction Severe sepsis acute organ dysfunction type: acute respiratory failure Acute respiratory failure type: with hypercapnia Severe sepsis shock status: with septic shock Qualified Code(s): A41.9 - Sepsis, unspecified organism; R65.21 - Severe sepsis with septic shock; J96.02 - Acute respiratory failure with hypercapnia Is this a current diagnosis for this admission?: Yes Plan: Patient is admitted to the ICU and started on a sepsis protocol. She will be monitored closely and will be treated with vancomycin as well as Zosyn empirically with no source of infection noted. Patient's hypertension be treated with a Levophed infusion and IV fluids. Patient's renal function will be followed closely with a Amezquita catheter and frequent urine output evaluations. Patient's respiratory failure will be treated with BiPAP and supplemental oxygen. Hypothermia will be treated with a bear hugger blanket and close monitoring of the patient's core temperature. (3) Acute kidney injury superimposed on chronic kidney disease Is this a current diagnosis for this admission?: Yes Plan: Patient's renal function will be followed closely with a Amezquita catheter and frequent urine output evaluations. Patient will be receiving IV fluids and pressor support to maintain adequate renal perfusion. (4) Acute respiratory failure with hypoxia and hypercapnia Is this a current diagnosis for this admission?: Yes Plan: Patient's respiratory failure will be treated with BiPAP and supplemental oxygen. (5) Hypothermia Qualifiers: Encounter type: initial encounter Qualified Code(s): T68.XXXA - Hypothermia, initial encounter Is this a current diagnosis for this admission?: Yes Plan: Hypothermia will be treated with a bear hugger blanket and close monitoring of the patient's core temperature. - Time Time Spent with patient: 15-24 minutes - Inpatient Certification Based on my medical assessment, after consideration of the patient's comorbidi ties, presenting symptoms, or acuity I expect that the services needed warrant INPATIENT care.: Yes I certify that my determination is in accordance with my understanding of Isaac singh's requirements for reasonable and necessary INPATIENT services [42 CFR 412.3e].: Yes Medical Necessity: Need Close Monitoring Due to Risk of Patient Decompensation, Need For IV Fluids, Need For Continuous Telemetry Monitoring, Need for IV Antibiotics, Risk of Complication if Not Cared For in Hospital
[2018-11-24 05:58] LABS: HEMATOCRIT 25.5 % (36.0-47.0); HEMOGLOBIN 8.1 g/dL (12.0-15.5); MEAN CORPUSCULAR HEMOGLOBIN 27.3 pg (27.0-33.4); MEAN CORPUSCULAR HGB CONC 31.9 g/dL (32.0-36.0); MEAN CORPUSCULAR VOLUME 86 fl (80-97); RED BLOOD COUNT 2.98 10^6/uL (3.72-5.28); RED CELL DISTRIBUTION WIDTH 16.3 % (11.5-14.0); WHITE BLOOD COUNT 9.5 10^3/uL (4.0-10.5)
[2018-11-24 05:59] LABS: PLATELET COUNT 79 10^3/uL (150-450)
[2018-11-24 06:00] LABS: PROTHROMBIN TIME 21.2 SEC (11.4-15.4)
[2018-11-24 06:12] LABS: ALBUMIN 3.2 g/dL (3.5-5.0); ALKALINE PHOSPHATASE 74 U/L (38-126); ANION GAP 16 (5-19); ASPARTATE AMINO TRANSFERASE 91 U/L (14-36); BILIRUBIN,DIRECT 0.5 mg/dL (0.0-0.4); BILIRUBIN,TOTAL 0.7 mg/dL (0.2-1.3); BLOOD UREA NITROGEN 59 mg/dL (7-20); CALCIUM 8.4 mg/dL (8.4-10.2); CARBON DIOXIDE 18 mmol/L (22-30); CHLORIDE 110 mmol/L (98-107); POTASSIUM 5.6 mmol/L (3.6-5.0); TOTAL PROTEIN 7.5 g/dL (6.3-8.2)
[2018-11-24 06:20] LABS: GLUCOSE 38 mg/dL (75-110)
[2018-11-24] MEDS ORDERED: DEXTROSE 50%-WATER 25 GM/50 ML DISP.SYRIN IV ONE (06:21)
[2018-11-24 06:36] LABS: ABSOLUTE LYMPHOCYTES# (MANUAL) 0.5 10^3/uL (0.5-4.7); ABSOLUTE MONOCYTES # (MANUAL) 0.2 10^3/uL (0.1-1.4); BASOPHILS % (MANUAL) 0 % (0-2); EOSINOPHILS % (MANUAL) 1 % (0-6); LYMPHOCYTES % (MANUAL) 5 % (13-45); MONOCYTES % (MANUAL) 2 % (3-13); NUCLEATED RED BLOOD CELLS 5 /100 WBC (0); SEGMENTED NEUTROPHILS % (MAN) 92 % (42-78); TOTAL CELLS COUNTED 100
[2018-11-24] MEDS ORDERED: DEXTROSE 5%-LACTATED RINGERS 1,000 ML IV PRN (06:47)
[2018-11-24 06:56] LABS: ANISOCYTOSIS SLIGHT; BURR CELLS SLIGHT; PLATELET GIANT PRESENT
[2018-11-24 06:57] LABS: PLATELET COMMENT DECREASED
[2018-11-24] MEDS ORDERED: DEXTROSE 50%-WATER SYRINGE 12.5 GM/25 ML DOSE IV PRN (07:00)
[2018-11-24] MEDS ORDERED: DEXTROSE 40% GEL 15 GM TUBE X 2 PO PRN (07:00)
[2018-11-24] MEDS ORDERED: GLUCAGON,HUMAN RECOMB 1 MG INJ IM PRN (07:00)
[2018-11-24] MEDS ORDERED: DEXTROSE 40% GEL 15 GM TUBE PO PRN (07:00)
[2018-11-24] MEDS: PANTOPRAZOLE SODIUM 40 MG VIAL IV SCH ×2 (10:13→23:20)
[2018-11-24] MEDS: DEXTROSE 50%-WATER SYRINGE 25 GM/50 ML DOSE IV PRN ×2 (10:25→12:17)
[2018-11-24 11:16] LABS: ARTERIAL BLOOD BASE EXCESS -7.1 mmol/L; ARTERIAL BLOOD H2CO3 1.15 mmol/L (1.05-1.35); ARTERIAL BLOOD HCO3 18.6 mmol/L (20-24); ARTERIAL BLOOD O2 SATURATION 94.6 % (94-98); ARTERIAL BLOOD PCO2 38.2 mmHg (35-45); ARTERIAL BLOOD PH 7.31 (7.35-7.45); ARTERIAL BLOOD TOTAL CO2 19.8 mmol/L (21-25)
[2018-11-24 11:17] LABS: ARTERIAL BLOOD FIO2 35%
[2018-11-24] MEDS ORDERED: HYDROCORTISONE SOD SUCCINATE INJ/PF 100 MG/2 ML SDV ONE (11:59)
[2018-11-24] MEDS: SODIUM POLYSTYRENE SULFONATE 15 GM/60 ML PO SCH ×2 (12:00→17:36)
[2018-11-24] MEDS ORDERED: DEXTROSE 5%-NORMAL SALINE 1,000 ML IV PRN (12:18)
[2018-11-24] MEDS ORDERED: HYDROCORTISONE SOD SUCCINATE INJ 500 MG/4 M VIAL IV SCH (13:00)
[2018-11-24] MEDS: DEXTROSE 10%-WATER 1,000 ML with SODIUM CHLORIDE 77 MEQ IV PRN ×4 (15:42→23:18)
--- NOTE | 2018-11-24 16:10 | PDOC PROGRESS REPORT ---
Subjective Progress Note for:: 11/24/18 Subjective:: The patient is resting on BiPAP. She is unresponsive to verbal stimulus. She did moan several times. She actively resisted when I try to open her eye. Her son feels that she was aware that he was present. Reason For Visit: SEPSIS Physical Exam Vital Signs: Temp Pulse Resp BP Pulse Ox 97.9 F 60 21 H 118/66 100 11/24/18 14:01 11/24/18 14:00 11/24/18 14:01 11/24/18 14:00 11/24/18 14:01 Intake & Output 11/23/18 11/24/18 11/25/18 06:59 06:59 06:59 Intake Total 3381 937 Output Total 0 5 Balance 3381 932 Weight 104.4 kg General appearance: PRESENT: no acute distress, morbidly obese, well-developed Head exam: PRESENT: atraumatic, normocephalic Eye exam: PRESENT: other - Unable to assess Ear exam: PRESENT: normal external ear exam. ABSENT: bleeding, drainage Mouth exam: PRESENT: other - BiPAP mask in place Respiratory exam: PRESENT: clear to auscultation bimal - Anteriorly, decreased breath sounds - At the bases, symmetrical, unlabored. ABSENT: accessory muscle use, rales, rhonchi, tachypnea, wheezes Cardiovascular exam: PRESENT: RRR, +S1, +S2 GI/Abdominal exam: PRESENT: diminished bowel sounds, soft. ABSENT: distended, guarding, tenderness Rectal exam: PRESENT: deferred Gentrourinary exam: PRESENT: indwelling catheter Extremities exam: ABSENT: joint swelling, pedal edema Musculoskeletal exam: PRESENT: normal inspection Neurological exam: ABSENT: awake Psychiatric exam: ABSENT: agitated Focused psych exam: ABSENT: restlessness Skin exam: PRESENT: dry, normal color, warm Results Laboratory Results: 11/24/18 05:45 11/24/18 05:45 11/23/18 11/23/18 11/23/18 17:40 17:50 17:50 WBC 6.0 RBC 3.16 L Hgb 8.4 L Hct 27.1 L MCV 86 MCH 26.6 L MCHC 31.1 L RDW 16.6 H Plt Count 95 L Seg Neutrophils % Not Reportable Carbonic Acid 1.87 H HCO3/H2CO3 Ratio 11:1 ABG pH 7.14 L* ABG pCO2 62.1 H ABG pO2 82.1 ABG HCO3 20.8 ABG O2 Saturation 92.3 L ABG Base Excess -9.1 FiO2 6L Sodium Cancelled Potassium Cancelled Chloride Cancelled Carbon Dioxide Cancelled Anion Gap Cancelled BUN Cancelled Creatinine Cancelled Est GFR ( Amer) Cancelled Est GFR (Non-Af Amer) Cancelled Glucose Cancelled Lactic Acid Calcium Cancelled Magnesium Total Bilirubin Cancelled AST Cancelled Alkaline Phosphatase Cancelled Total Protein Cancelled Albumin Cancelled 11/23/18 11/23/18 11/23/18 17:50 18:50 18:50 WBC RBC Hgb Hct MCV MCH MCHC RDW Plt Count Seg Neutrophils % Carbonic Acid HCO3/H2CO3 Ratio ABG pH ABG pCO2 ABG pO2 ABG HCO3 ABG O2 Saturation ABG Base Excess FiO2 Sodium 144.1 Potassium 5.1 H Chloride 111 H Carbon Dioxide 20 L Anion Gap 13 BUN 59 H Creatinine 2.90 H Est GFR ( Amer) 19 L Est GFR (Non-Af Amer) Glucose 89 Lactic Acid Cancelled 5.9 H Calcium 8.6 Magnesium Total Bilirubin 0.7 AST 57 H Alkaline Phosphatase 79 Total Protein 7.7 Albumin 3.3 L 11/23/18 11/24/18 11/24/18 22:00 00:42 05:45 WBC RBC Hgb Hct MCV MCH MCHC RDW Plt Count Seg Neutrophils % Carbonic Acid HCO3/H2CO3 Ratio ABG pH ABG pCO2 ABG pO2 ABG HCO3 ABG O2 Saturation ABG Base Excess FiO2 Sodium Potassium Chloride Carbon Dioxide Anion Gap BUN Creatinine Est GFR ( Amer) Est GFR (Non-Af Amer) Glucose Lactic Acid 5.8 H 5.2 H 4.2 H Calcium Magnesium Total Bilirubin AST Alkaline Phosphatase Total Protein Albumin 11/24/18 11/24/18 11/24/18 05:45 05:45 11:05 WBC 9.5 RBC 2.98 L Hgb 8.1 L Hct 25.5 L MCV 86 MCH 27.3 MCHC 31.9 L RDW 16.3 H Plt Count 79 L Seg Neutrophils % Not Reportable Carbonic Acid 1.15 HCO3/H2CO3 Ratio 16:1 ABG pH 7.31 L ABG pCO2 38.2 ABG pO2 79.0 L ABG HCO3 18.6 L ABG O2 Saturation 94.6 ABG Base Excess -7.1 FiO2 35% Sodium 143.7 Potassium 5.6 H Chloride 110 H Carbon Dioxide 18 L Anion Gap 16 BUN 59 H Creatinine 3.19 H Est GFR ( Amer) 17 L Est GFR (Non-Af Amer) Glucose 38 L* Lactic Acid Calcium 8.4 Magnesium 2.1 Total Bilirubin 0.7 AST 91 H Alkaline Phosphatase 74 Total Protein 7.5 Albumin 3.2 L 11/24/18 12:47 WBC RBC Hgb Hct MCV MCH MCHC RDW Plt Count Seg Neutrophils % Carbonic Acid HCO3/H2CO3 Ratio ABG pH ABG pCO2 ABG pO2 ABG HCO3 ABG O2 Saturation ABG Base Excess FiO2 Sodium Potassium Chloride Carbon Dioxide Anion Gap BUN Creatinine Est GFR ( Amer) Est GFR (Non-Af Amer) Glucose Lactic Acid 3.8 H Calcium Magnesium Total Bilirubin AST Alkaline Phosphatase Total Protein Albumin Impressions: Chest X-Ray 11/23/18 17:47 IMPRESSION: Cardiomegaly with pulmonary edema and bilateral pleural effusions. Assessment and Plan - Diagnosis (1) Acute encephalopathy Is this a current diagnosis for this admission?: Yes Plan: Patient be admitted to the ICU on a sepsis protocol. Her neurologic status will be checked on a regular basis throughout her stay. 11/24/2018-patient is unresponsive as noted above. The patient's son is at the bedside and felt that his mother knew that he was there and change her facial expression to suggest that she was aware of his presence. As she was found down the encephalopathy may very well be anoxic versus from sepsis. We will continue to monitor closely. (2) Sepsis Qualifiers: Sepsis type: sepsis due to unspecified organism Sepsis acute organ dysfunction status: with acute organ dysfunction Severe sepsis acute organ dysfunction type: acute respiratory failure Acute respiratory failure type: with hypercapnia Severe sepsis shock status: with septic shock Qualified Code(s): A41.9 - Sepsis, unspecified organism; R65.21 - Severe sepsis with septic shock; J96.02 - Acute respiratory failure with hypercapnia Is this a current diagnosis for this admission?: Yes Plan: Patient is admitted to the ICU and started on a sepsis protocol. She will be monitored closely and will be treated with vancomycin as well as Zosyn empirically with no source of infection noted. Patient's hypertension be treated with a Levophed infusion and IV fluids. Patient's renal function will be followed closely with a Amezquita catheter and frequent urine output evaluations. Patient's respiratory failure will be treated with BiPAP and supplemental o xygen. Hypothermia will be treated with a bear hugger blanket and close monitoring of the patient's core temperature. 11/24/2018-the patient is on dual antibiotic therapy. She has pleural effusions b ut no obvious evidence of pneumonia. As she was coded she certainly could have aspiration pneumonia. Blood cultures are pending as well. We will continue the dual antibiotic therapy at this time. Pulse and blood pressures are improved. We will institute pressor therapy if needed. (3) Hypothermia Qualifiers: Encounter type: initial encounter Qualified Code(s): T68.XXXA - Hypothermia, initial encounter Is this a current diagnosis for this admission?: Yes Plan: 11/24/2018-at the time of admission the patient's core temperature dropped to 85.2. It is unknown how long she was hypothermic. We are utilizing a bear hugger and her temperatures are improving. Core temperatures now are in the 97- 98 range. Continue warming with core temperature monitoring. (4) Acute kidney injury superimposed on chronic kidney disease Is this a current diagnosis for this admission?: Yes Plan: Patient's renal function will be followed closely with a Amezquita catheter and frequent urine output evaluations. Patient will be receiving IV fluids and pressor support to maintain adequate renal perfusion. 11/24/2018-the patient's serum creatinine typically runs around 2.0. She was 2.9 on admission and is up to 3.19 currently. We will continue to monitor renal function as well as intake and output. - Time Time Spent with patient: 25-34 minutes - Plan Summary Plan Summary: It is unknown how long the patient was down before EMS responded. Based on the metabolic acidosis as well as hypothermia and poor responsiveness she may likely have anoxic brain injury. She was not responsive today. She also has worsening kidney failure as well as bilateral pleural effusions. At this point I would say that her prognosis is poor. She is currently full CODE STATUS. It would be appropriate to change this to DO NOT RESUSCITATE. For DNR we would continue all aggressive measures including medications, antibiotics and cardiac meds. The only intervention that would be held would be placing the patient on a ventilator or trying to reverse cardiac arrest. With her pacemaker in place the patient can experience pulseless electrical activity where the pacemaker will continue to stimulate the heart to beat but the patient has minimal systemic blood pressures. This causes anoxic injury to organs. This is likely the mechanism for her kidney failure at this point. We will continue to monitor closely. All aggressive measures at this time. Based on her progress I will speak to appropriate persons regarding CODE STATUS.
[2018-11-24] MEDS: HYDROCORTISONE SOD SUCCINATE INJ/PF 100 MG/2 ML SDV IV SCH (17:42)
[2018-11-24 18:53] LABS: ANION GAP 10 (5-19); BLOOD UREA NITROGEN 67 mg/dL (7-20); CALCIUM 8.4 mg/dL (8.4-10.2); CARBON DIOXIDE 22 mmol/L (22-30); CHLORIDE 110 mmol/L (98-107); GLUCOSE 119 mg/dL (75-110); POTASSIUM 5.1 mmol/L (3.6-5.0)
[2018-11-25] MEDS: SODIUM POLYSTYRENE SULFONATE 15 GM/60 ML PO SCH (01:20)
[2018-11-25] MEDS ORDERED: NALBUPHINE HCL INJ 10 MG/1 ML AMPULE IV PRN (01:35)
[2018-11-25] MEDS ORDERED: CHLORPROMAZINE HCL INJ 25 MG/1 ML AMPULE ONE (04:06)
[2018-11-25] MEDS: DEXTROSE 10%-WATER 1,000 ML with SODIUM CHLORIDE 77 MEQ IV PRN ×4 (05:00→09:31)
[2018-11-25] MEDS: CHLORPROMAZINE HCL INJ 25 MG/1 ML AMPULE IV PRN (05:32)
[2018-11-25] MEDS: PIPERACILLIN SODIUM/TAZOBACTAM 2.25 GM in NORMAL SALINE 50 ML IV SCH ×4 (05:36→23:42)
[2018-11-25 08:13] LABS: ANION GAP 11 (5-19); BLOOD UREA NITROGEN 70 mg/dL (7-20); CALCIUM 8.6 mg/dL (8.4-10.2); CARBON DIOXIDE 20 mmol/L (22-30); CHLORIDE 113 mmol/L (98-107); GLUCOSE 192 mg/dL (75-110)
[2018-11-25] MEDS: HYDROCORTISONE SOD SUCCINATE INJ/PF 100 MG/2 ML SDV IV SCH ×2 (09:31→18:24)
[2018-11-25] MEDS: PANTOPRAZOLE SODIUM 40 MG VIAL IV SCH ×2 (09:31→21:15)
[2018-11-25] MEDS ORDERED: DEXTROSE 5%-1/2 NORMAL SALINE 1,000 ML IV PRN (10:04)
--- NOTE | 2018-11-25 10:23 | PDOC PROGRESS REPORT ---
Subjective Progress Note for:: 11/25/18 Subjective:: The patient's son is at the bedside. She is unresponsive to verbal stimuli. She appears to be breathing comfortably on BiPAP. Reason For Visit: SEPSIS Physical Exam Vital Signs: Temp Pulse Resp BP Pulse Ox 96.8 F L 60 10 L 113/68 100 11/25/18 10:01 11/25/18 09:00 11/25/18 10:01 11/25/18 10:01 11/25/18 10:01 Intake & Output 11/24/18 11/25/18 11/26/18 06:59 06:59 06:59 Intake Total 3381 1037 Output Total 0 35 30 Balance 3381 1002 -30 Weight 104.4 kg 108.3 kg General appearance: PRESENT: no acute distress, morbidly obese Head exam: PRESENT: atraumatic, normocephalic Eye exam: PRESENT: other - Unable to open eyes Ear exam: PRESENT: normal external ear exam. ABSENT: bleeding, drainage Mouth exam: PRESENT: other - On BiPAP Respiratory exam: PRESENT: decreased breath sounds - At bases, rales - Bilaterally, symmetrical, unlabored. ABSENT: accessory muscle use, rhonchi, tac hypnea, wheezes Cardiovascular exam: PRESENT: RRR - Paced rhythm by telemetry, +S1, +S2 GI/Abdominal exam: PRESENT: firm - Across the lower abdomen the tissue feels edematous. There is trace pitting edema., hypoactive bowel sounds, tenderness - The patient definitely winces with deep palpation of the abdomen. Rectal exam: PRESENT: deferred Gentrourinary exam: PRESENT: indwelling catheter Extremities exam: PRESENT: pedal edema, +1 edema Musculoskeletal exam: PRESENT: normal inspection Neurological exam: ABSENT: awake Psychiatric exam: ABSENT: agitated Focused psych exam: ABSENT: restlessness Skin exam: PRESENT: dry, warm - Patient is in a bear hugger. ABSENT: rash Results Laboratory Results: 11/24/18 05:45 11/25/18 07:14 11/24/18 11/24/18 11/24/18 11:05 12:47 18:07 Carbonic Acid 1.15 HCO3/H2CO3 Ratio 16:1 ABG pH 7.31 L ABG pCO2 38.2 ABG pO2 79.0 L ABG HCO3 18.6 L ABG O2 Saturation 94.6 ABG Base Excess -7.1 FiO2 35% Sodium Potassium Chloride Carbon Dioxide Anion Gap BUN Creatinine Est GFR ( Amer) Glucose Lactic Acid 3.8 H 2.4 H Calcium Magnesium 11/24/18 11/25/18 11/25/18 18:07 00:31 07:14 Carbonic Acid HCO3/H2CO3 Ratio ABG pH ABG pCO2 ABG pO2 ABG HCO3 ABG O2 Saturation ABG Base Excess FiO2 Sodium 142.3 Potassium 5.1 H Chloride 110 H Carbon Dioxide 22 Anion Gap 10 BUN 67 H Creatinine 3.97 H Est GFR ( Amer) 13 L Glucose 119 H Lactic Acid 2.2 H Calcium 8.4 Magnesium 2.1 11/25/18 11/25/18 07:14 07:14 Carbonic Acid HCO3/H2CO3 Ratio ABG pH ABG pCO2 ABG pO2 ABG HCO3 ABG O2 Saturation ABG Base Excess FiO2 Sodium 143.5 Potassium 5.0 Chloride 113 H Carbon Dioxide 20 L Anion Gap 11 BUN 70 H Creatinine 4.80 H Est GFR ( Amer) 10 L Glucose 192 H Lactic Acid 1.9 Calcium 8.6 Magnesium Impressions: Chest X-Ray 11/23/18 17:47 IMPRESSION: Cardiomegaly with pulmonary edema and bilateral pleural effusions. Assessment and Plan - Diagnosis (1) Acute encephalopathy Is this a current diagnosis for this admission?: Yes Plan: Patient be admitted to the ICU on a sepsis protocol. Her neurologic status will be checked on a regular basis throughout her stay. 11/24/2018-patient is unresponsive as noted above. The patient's son is at the bedside and felt that his mother knew that he was there and change her facial expression to suggest that she was aware of his presence. As she was found down the encephalopathy may very well be anoxic versus from sepsis. We will continue to monitor closely. 11/25/2018-patient did not respond to verbal stimuli from either myself or her eldest son. Spontaneous moan was observed. She possibly responded to painful stimuli with nailbed pressure on her foot but she definitely responded with deep palpation of the abdomen. Blood cultures are positive for gram-positive cocci. I still believe that the encephalopathy is most likely from anoxic injury first with infection likely secondary. No improvement. (2) Sepsis Qualifiers: Sepsis type: sepsis due to unspecified organism Sepsis acute organ d ysfunction status: with acute organ dysfunction Severe sepsis acute organ dysfunction type: acute respiratory failure Acute respiratory failure type: with hypercapnia Severe sepsis shock status: with septic shock Qualified Code(s): A41.9 - Sepsis, unspecified organism; R65.21 - Severe sepsis with septic shock; J96.02 - Acute respiratory failure with hypercapnia Is this a current diagnosis for this admission?: Yes Plan: Patient is admitted to the ICU and started on a sepsis protocol. She will be monitored closely and will be treated with vancomycin as well as Zosyn empirically with no source of infection noted. Patient's hypertension be treated with a Levophed infusion and IV fluids. Patient's renal function will be followed closely with a Amezquita catheter and frequent urine output evaluations. Patient's respiratory failure will be treated with BiPAP and supplemental oxygen. Hypothermia will be treated with a bear hugger blanket and close monitoring of the patient's core temperature. 11/24/2018-the patient is on dual antibiotic therapy. She has pleural effusions but no obvious evidence of pneumonia. As she was coded she certainly could have aspiration pneumonia. Blood cultures are pending as well. We will continue the dual antibiotic therapy at this time. Pulse and blood pressures are improved. We will institute pressor therapy if needed. 11/25/2018-we will continue the current antibiotics. Blood cultures are positive with gram-positive cocci. If no evidence of gram-negative bacillus then we will discontinue the Zosyn. Blood pressures are better. (3) Hypothermia Qualifiers: Encounter type: initial encounter Qualified Code(s): T68.XXXA - Hypothermia, initial encounter Is this a current diagnosis for this admission?: Yes Plan: 11/24/2018-at the time of admission the patient's core temperature dropped to 85.2. It is unknown how long she was hypothermic. We are utilizing a bear hugger and her temperatures are improving. Core temperatures now are in the 97- 98 range. Continue warming with core temperature monitoring. 11/25/2018-patient continues with bear hugger. Temperatures are better. Continue to monitor. The patient is also getting hydrocortisone twice daily stress dose. (4) Acute kidney injury superimposed on chronic kidney disease Is this a current diagnosis for this admission?: Yes Plan: Patient's renal function will be followed closely with a Amezquita catheter and frequent urine output evaluations. Patient will be receiving IV fluids and pressor support to maintain adequate renal perfusion. 11/24/2018-the patient's serum creatinine typically runs around 2.0. She was 2.9 on admission and is up to 3.19 currently. We will continue to monitor renal function as well as intake and output. 11/25/2018-unfortunately the patient's serum creatinine is up to 4.9. Urine outp ut is minimal. I am going to try a dose of IV Lasix today. If the patient remains an uric the prognosis is grave. I will continue to monitor the renal function. (5) Congestive heart failure (CHF) Qualifiers: Heart failure type: diastolic Heart failure chronicity: acute on chronic Qualified Code(s): I50.33 - Acute on chronic diastolic (congestive) heart failure Is this a current diagnosis for this admission?: Yes Plan: 11/25/2018-the patient has a history of diastolic failure and pulmonary hypertension. Echocardiogram in March of this year reveals ejection fraction of 60% with suggested low diastolic function. As noted above I am going to attempt diuresis now that her blood pressure is better. - Time Time Spent with patient: 25-34 minutes Medications reviewed and adjusted accordingly: Yes - Plan Summary Plan Summary: I reviewed the patient's status with her brother who was at the bedside. I explained that with her history of heart disease and very high likelihood of anoxic injury her prognosis is poor. We also reviewed the worsening renal function. Her urine output is minimal. I am going to try a dose of diuretic b ut explained to him that if the creatinine continues to rise then her prognosis would be grave.
[2018-11-25] MEDS ORDERED: FUROSEMIDE INJ/PF 20 MG/2 ML SDV IV ONE (11:00)
[2018-11-25 12:04] LABS: ARTERIAL BLOOD BASE EXCESS -6.8 mmol/L; ARTERIAL BLOOD HCO3 20.9 mmol/L (20-24); ARTERIAL BLOOD PCO2 53.1 mmHg (35-45); ARTERIAL BLOOD PH 7.21 (7.35-7.45); ARTERIAL BLOOD PO2 98.4 mmHg (80-100); ARTERIAL BLOOD TOTAL CO2 22.5 mmol/L (21-25)
[2018-11-25 12:06] LABS: ARTERIAL BLOOD FIO2 30%
[2018-11-25 15:35] LABS: HEMATOCRIT 24.8 % (36.0-47.0); MEAN CORPUSCULAR HEMOGLOBIN 26.5 pg (27.0-33.4); MEAN CORPUSCULAR HGB CONC 31.2 g/dL (32.0-36.0); MEAN CORPUSCULAR VOLUME 85 fl (80-97); RED BLOOD COUNT 2.91 10^6/uL (3.72-5.28); RED CELL DISTRIBUTION WIDTH 16.8 % (11.5-14.0); WHITE BLOOD COUNT 12.9 10^3/uL (4.0-10.5)
[2018-11-25 15:56] LABS: ALBUMIN 2.9 g/dL (3.5-5.0); ANION GAP 10 (5-19); BLOOD UREA NITROGEN 69 mg/dL (7-20); CALCIUM 8.6 mg/dL (8.4-10.2); CARBON DIOXIDE 22 mmol/L (22-30); CHLORIDE 109 mmol/L (98-107); GLUCOSE 153 mg/dL (75-110); PHOSPHORUS 5.5 mg/dL (2.5-4.5); POTASSIUM 4.9 mmol/L (3.6-5.0)
[2018-11-25 15:58] LABS: PLATELET COUNT 67 10^3/uL (150-450)
[2018-11-25 16:00] LABS: HEMOGLOBIN 7.7 g/dL (12.0-15.5)
[2018-11-25 16:03] LABS: ABSOLUTE LYMPHOCYTES# (MANUAL) 0.5 10^3/uL (0.5-4.7); ABSOLUTE MONOCYTES # (MANUAL) 0.9 10^3/uL (0.1-1.4); BAND NEUTROPHILS % (MANUAL) 2 % (3-5); BASOPHILS % (MANUAL) 0 % (0-2); EOSINOPHILS % (MANUAL) 0 % (0-6); LYMPHOCYTES % (MANUAL) 4 % (13-45); MONOCYTES % (MANUAL) 7 % (3-13); NUCLEATED RED BLOOD CELLS 4 /100 WBC (0); SEGMENTED NEUTROPHILS % (MAN) 87 % (42-78); TOTAL CELLS COUNTED 100
[2018-11-25 16:06] LABS: ANISOCYTOSIS 2+; OVALOCYTES SLIGHT; PLATELET COMMENT DECREASED; PLATELET LARGE PRESENT; POIKILOCYTOSIS SLIGHT
[2018-11-25] MEDS: DEXTROSE 5%-WATER 1000 ML 1,000 ML IV PRN (21:14)
[2018-11-25] MEDS ORDERED: VANCOMYCIN HCL 750 MG in DEXTROSE 5%-WATER 250 ML IV SCH (22:00)
[2018-11-26 03:39] LABS: HEMATOCRIT 25.4 % (36.0-47.0); MEAN CORPUSCULAR HEMOGLOBIN 26.5 pg (27.0-33.4); MEAN CORPUSCULAR HGB CONC 31.6 g/dL (32.0-36.0); MEAN CORPUSCULAR VOLUME 84 fl (80-97); RED BLOOD COUNT 3.03 10^6/uL (3.72-5.28); RED CELL DISTRIBUTION WIDTH 16.1 % (11.5-14.0); WHITE BLOOD COUNT 9.3 10^3/uL (4.0-10.5)
[2018-11-26 03:45] LABS: PLATELET COUNT 66 10^3/uL (150-450)
[2018-11-26 03:48] LABS: ALBUMIN 3.2 g/dL (3.5-5.0); ANION GAP 13 (5-19); BLOOD UREA NITROGEN 74 mg/dL (7-20); CALCIUM 8.6 mg/dL (8.4-10.2); CARBON DIOXIDE 20 mmol/L (22-30); CHLORIDE 109 mmol/L (98-107); GLUCOSE 128 mg/dL (75-110); PHOSPHORUS 6.3 mg/dL (2.5-4.5); POTASSIUM 5.2 mmol/L (3.6-5.0)
[2018-11-26 03:59] LABS: ABSOLUTE LYMPHOCYTES# (MANUAL) 1.2 10^3/uL (0.5-4.7); ABSOLUTE MONOCYTES # (MANUAL) 0.3 10^3/uL (0.1-1.4); BAND NEUTROPHILS % (MANUAL) 3 % (3-5); BASOPHILS % (MANUAL) 0 % (0-2); EOSINOPHILS % (MANUAL) 0 % (0-6); LYMPHOCYTES % (MANUAL) 13 % (13-45); MONOCYTES % (MANUAL) 3 % (3-13); NUCLEATED RED BLOOD CELLS 3 /100 WBC (0); SEGMENTED NEUTROPHILS % (MAN) 81 % (42-78); TOTAL CELLS COUNTED 100
[2018-11-26 04:04] LABS: ANISOCYTOSIS 1+; PLATELET COMMENT DECREASED; TOXIC GRANULATION SLIGHT; TOXIC VACUOLATION PRESENT
[2018-11-26] MEDS: PIPERACILLIN SODIUM/TAZOBACTAM 2.25 GM in NORMAL SALINE 50 ML IV SCH ×3 (05:30→17:17)
[2018-11-26 07:42] LABS: ARTERIAL BLOOD BASE EXCESS -9.5 mmol/L; ARTERIAL BLOOD FIO2 30%; ARTERIAL BLOOD H2CO3 1.22 mmol/L (1.05-1.35); ARTERIAL BLOOD HCO3 17.1 mmol/L (20-24); ARTERIAL BLOOD O2 SATURATION 97.5 % (94-98); ARTERIAL BLOOD PCO2 40.6 mmHg (35-45); ARTERIAL BLOOD PH 7.24 (7.35-7.45); ARTERIAL BLOOD PO2 114.2 mmHg (80-100); ARTERIAL BLOOD TOTAL CO2 18.4 mmol/L (21-25)
[2018-11-26] MEDS: HYDROCORTISONE SOD SUCCINATE INJ/PF 100 MG/2 ML SDV IV SCH ×2 (09:05→17:17)
[2018-11-26] MEDS: PANTOPRAZOLE SODIUM 40 MG VIAL IV SCH ×2 (09:05→22:15)
--- NOTE | 2018-11-26 09:10 | RADIOLOGY REPORT (SQ) ---
EXAM DESCRIPTION: CHEST SINGLE VIEW COMPLETED DATE/TIME: 11/26/2018 8:58 am REASON FOR STUDY: cardiac arrest COMPARISON: 11/23/2018 NUMBER OF VIEWS: One view. TECHNIQUE: Single frontal radiographic view of the chest acquired. LIMITATIONS: None. FINDINGS: LUNGS AND PLEURA: Persistent bilateral pleural effusions and probable atelectasis. MEDIASTINUM AND HILAR STRUCTURES: No masses. Contour normal. HEART AND VASCULAR STRUCTURES: Cardiomegaly with mild vascular congestion improved from prior study. BONES: No acute findings. HARDWARE: Battery pack and leads remain in place. OTHER: No other significant finding. IMPRESSION: Persisting cardiomegaly and vascular congestion with bilateral pleural effusions. Overa ll findings are improved from prior study. TECHNICAL DOCUMENTATION: JOB ID: [id number] [employer]- All Rights Reserved Reading location - IP/workstation name: [email or web address]
[2018-11-26] MEDS ORDERED: NALBUPHINE HCL INJ 10 MG/1 ML AMPULE IV PRN (11:04)
[2018-11-26] MEDS ORDERED: ACETAMINOPHEN 650 MG SUPP.RECT PR PRN (11:07)
--- NOTE | 2018-11-26 15:51 | PDOC PROGRESS REPORT ---
Subjective Progress Note for:: 11/26/18 Subjective:: The patient's serum creatinine continues to climb. She is unresponsive to me and still on BiPAP. Multiple family members present. See discussion below. Reason For Visit: SEPSIS Physical Exam Vital Signs: Temp Pulse Resp BP Pulse Ox 97.0 F 61 5 L 114/69 98 11/26/18 15:02 11/26/18 08:00 11/26/18 15:02 11/26/18 15:02 11/26/18 15:02 Intake & Output 11/25/18 11/26/18 11/27/18 06:59 06:59 06:59 Intake Total 1087 914 50 Output Total 35 437 25 Balance 1052 477 25 Weight 108.3 kg 110.5 kg General appearance: PRESENT: no acute distress, morbidly obese Head exam: PRESENT: atraumatic, normocephalic Ear exam: PRESENT: normal external ear exam. ABSENT: bleeding, drainage Mouth exam: PRESENT: other - BiPAP mask in place Respiratory exam: PRESENT: clear to auscultation bimal - Anteriorly, symmetrical, tachypnea. ABSENT: rales, rhonchi, wheezes Cardiovascular exam: PRESENT: RRR, +S1, +S2 GI/Abdominal exam: PRESENT: diminished bowel sounds, soft. ABSENT: distended - Protuberant abdomen, tenderness Rectal exam: PRESENT: deferred Gentrourinary exam: PRESENT: indwelling catheter Extremities exam: PRESENT: pedal edema Musculoskeletal exam: ABSENT: ambulatory Neurological exam: ABSENT: awake Psychiatric exam: ABSENT: agitated Focused psych exam: ABSENT: restlessness Results Laboratory Results: 11/26/18 03:20 11/26/18 03:20 11/25/18 11/25/18 11/26/18 15:18 15:18 03:20 WBC 12.9 H 9.3 RBC 2.91 L 3.03 L Hgb 7.7 L 8.0 L Hct 24.8 L 25.4 L MCV 85 84 MCH 26.5 L 26.5 L MCHC 31.2 L 31.6 L RDW 16.8 H 16.1 H Plt Count 67 L 66 L Seg Neutrophils % Not Reportable Not Reportable Carbonic Acid HCO3/H2CO3 Ratio ABG pH ABG pCO2 ABG pO2 ABG HCO3 ABG O2 Saturation ABG Base Excess FiO2 Sodium 141.4 Potassium 4.9 Chloride 109 H Carbon Dioxide 22 Anion Gap 10 BUN 69 H Creatinine 5.28 H Est GFR ( Amer) 9 L Glucose 153 H Calcium 8.6 Phosphorus 5.5 H Magnesium 2.1 Albumin 2.9 L 11/26/18 11/26/18 03:20 07:10 WBC RBC Hgb Hct MCV MCH MCHC RDW Plt Count Seg Neutrophils % Carbonic Acid 1.22 HCO3/H2CO3 Ratio 14:1 ABG pH 7.24 L ABG pCO2 40.6 ABG pO2 114.2 H ABG HCO3 17.1 L ABG O2 Saturation 97.5 ABG Base Excess -9.5 FiO2 30% Sodium 141.9 Potassium 5.2 H Chloride 109 H Carbon Dioxide 20 L Anion Gap 13 BUN 74 H Creatinine 5.70 H Est GFR ( Amer) 9 L Glucose 128 H Calcium 8.6 Phosphorus 6.3 H Magnesium 2.2 Albumin 3.2 L 11/26/18 06:30 Troponin I 0.251 Impressions: Chest X-Ray 11/26/18 00:00 IMPRESSION: Persisting cardiomegaly and vascular congestion with bilateral pl eural effusions. Overall findings are improved from prior study. Assessment and Plan - Diagnosis (1) Acute encephalopathy Is this a current diagnosis for this admission?: Yes Plan: Patient be admitted to the ICU on a sepsis protocol. Her neurologic status will be checked on a regular basis throughout her stay. 11/24/2018-patient is unresponsive as noted above. The patient's son is at the bedside and felt that his mother knew that he was there and change her facial expression to suggest that she was aware of his presence. As she was found down the encephalopathy may very well be anoxic versus from sepsis. We will continue to monitor closely. 11/25/2018-patient did not respond to verbal stimuli from either myself or her eldest son. Spontaneous moan was observed. She possibly responded to painful stimuli with nailbed pressure on her foot but she definitely responded with deep palpation of the abdomen. Blood cultures are positive for gram-positive cocci. I still believe that the encephalopathy is most likely from anoxic injury first with infection likely secondary. No improvement. 11/26/2018-the encephalopathy is most likely related to an anoxic injury. She also is experiencing increasing renal failure. This could contribute as well. As she is not responsive to me it is difficult to truly assess. (2) Sepsis Qualifiers: Sepsis type: sepsis due to unspecified organism Sepsis acute organ dysfunction status: with acute organ dysfunction Severe sepsis acute organ dysfunction type: acute respiratory failure Acute respiratory failure type: with hypercapnia Severe sepsis shock status: with septic shock Qualified Code(s): A41.9 - Sepsis, unspecified organism; R65.21 - Severe sepsis with septic shock; J96.02 - Acute respiratory failure with hypercapnia Is this a current diagnosis for this admission?: Yes Plan: Patient is admitted to the ICU and started on a sepsis protocol. She will be monitored closely and will be treated with vancomycin as well as Zosyn empirically with no source of infection noted. Patient's hypertension be treated with a Levophed infusion and IV fluids. Patient's renal function will be followed closely with a Amezquita catheter and frequent urine output evaluations. Patient's respiratory failure will be treated with BiPAP and supplemental oxygen. Hypothermia will be treated with a bear hugger blanket and close monitoring of the patient's core temperature. 11/24/2018-the patient is on dual antibiotic therapy. She has pleural effusions but no obvious evidence of pneumonia. As she was coded she certainly could have aspiration pneumonia. Blood cultures are pending as well. We will continue the dual antibiotic therapy at this time. Pulse and blood pressures are improved. We will institute pressor therapy if needed. 11/25/2018-we will continue the current antibiotics. Blood cultures are positive with gram-positive cocci. If no evidence of gram-negative bacillus then we will discontinue the Zosyn. Blood pressures are better. 11/26/2018-still with a pending blood culture of gram-positive cocci in clusters. Await final identification and sensitivities. (3) Hypothermia Qualifiers: Encounter type: initial encounter Qualified Code(s): T68.XXXA - Hypothermia, initial encounter Is this a current diagnosis for this admission?: Yes Plan: 11/24/2018-at the time of admission the patient's core temperature dropped to 85.2. It is unknown how long she was hypothermic. We are utilizing a bear hugger and her temperatures are improving. Core temperatures now are in the 97- 98 range. Continue warming with core temperature monitoring. 11/25/2018-patient continues with bear hugger. Temperatures are better. Continue to monitor. The patient is also getting hydrocortisone twice daily stress dose. 11/26/2018-still with a bear hugger heating device in place. (4) Acute kidney injury superimposed on chronic kidney disease Is this a current diagnosis for this admission?: Yes Plan: Patient's renal function will be followed closely with a Amezquita catheter and frequent urine output evaluations. Patient will be receiving IV fluids and pressor support to maintain adequate renal perfusion. 11/24/2018-the patient's serum creatinine typically runs around 2.0. She was 2.9 on admission and is up to 3.19 currently. We will continue to monitor renal function as well as intake and output. 11/25/2018-unfortunately the patient's serum creatinine is up to 4.9. Urine output is minimal. I am going to try a dose of IV Lasix today. If the patient remains an uric the prognosis is grave. I will continue to monitor the renal function. 11/26/2018-the serum creatinine is now over 5. Urine output remains poor. This is a very poor prognosis. (5) Congestive heart failure (CHF) Qualifiers: Heart failure type: diastolic Heart failure chronicity: acute on chronic Qualified Code(s): I50.33 - Acute on chronic diastolic (congestive) heart failure Is this a current diagnosis for this admission?: Yes Plan: 11/25/2018-the patient has a history of diastolic failure and pulmonary hypertension. Echocardiogram in March of this year reveals ejection fraction of 60% with suggested low diastolic function. As noted above I am going to attempt diuresis now that her blood pressure is better. 11/26/2018-the patient is still markedly oliguric. Her breathing is not terribly uncomfortable but she is still dependent on BiPAP. With worsening renal failure her treatment options are limited. - Time Time Spent with patient: 35 or more minutes Medications reviewed and adjusted accordingly: Yes
[2018-11-27] MEDS: PIPERACILLIN SODIUM/TAZOBACTAM 2.25 GM in NORMAL SALINE 50 ML IV SCH ×4 (00:17→17:29)
[2018-11-27] MEDS: HYDROCORTISONE SOD SUCCINATE INJ/PF 100 MG/2 ML SDV IV SCH ×2 (09:34→17:30)
[2018-11-27] MEDS: PANTOPRAZOLE SODIUM 40 MG VIAL IV SCH ×2 (09:35→22:20)
[2018-11-27] MEDS: DEXTROSE 5%-WATER 1000 ML 1,000 ML IV PRN (10:58)
[2018-11-27 11:37] LABS: ANION GAP 15 (5-19); BLOOD UREA NITROGEN 87 mg/dL (7-20); CALCIUM 9.1 mg/dL (8.4-10.2); CARBON DIOXIDE 19 mmol/L (22-30); CHLORIDE 108 mmol/L (98-107); CREATINE KINASE 37 U/L (30-135); GLUCOSE 131 mg/dL (75-110); POTASSIUM 5.3 mmol/L (3.6-5.0)
[2018-11-27 11:45] LABS: CREATINE KINASE MB 1.82 ng/mL (<4.55)
[2018-11-27 11:51] LABS: TROPONIN I 0.222 ng/mL
[2018-11-27] MEDS ORDERED: NORMAL SALINE 1000 ML 1,000 ML IV ONE (12:09)
[2018-11-27] MEDS: NALBUPHINE HCL INJ 10 MG/1 ML AMPULE IV PRN ×3 (13:00→20:47)
[2018-11-27] MEDS ORDERED: HYDRALAZINE HCL INJ/PF 20 MG/1 ML SDV ONE ×2 (14:44→17:33)
--- NOTE | 2018-11-27 16:33 | PDOC PROGRESS REPORT ---
Subjective Progress Note for:: 11/27/18 Subjective:: The patient is opening her eyes. She is trying to verbalize. I did not appreciate any meaningful communication however family reports that she has spoken some short sentences. Reason For Visit: SEPSIS Physical Exam Vital Signs: Temp Pulse Resp BP Pulse Ox 97.2 F 63 9 L 178/76 H 94 11/27/18 14:00 11/27/18 14:00 11/27/18 14:01 11/27/18 14:02 11/27/18 14:02 Intake & Output 11/26/18 11/27/18 11/28/18 06:59 06:59 06:59 Intake Total 914 1200 600 Output Total 437 95 78 Balance 477 1105 522 Weight 110.5 kg 110.1 kg General appearance: PRESENT: other - The patient is actually opening her eyes intermittently today. Head exam: PRESENT: atraumatic, normocephalic Eye exam: PRESENT: conjunctiva pale. ABSENT: scleral icterus Ear exam: PRESENT: normal external ear exam. ABSENT: bleeding, drainage Mouth exam: PRESENT: moist, tongue midline, other - BiPAP mask is off. Teeth exam: PRESENT: poor dentation Respiratory exam: PRESENT: decreased breath sounds - Due to body habitus., rales - Possible rales at bases. Difficult to appreciate., symmetrical. ABSENT: rhonchi, tachypnea, wheezes Cardiovascular exam: PRESENT: RRR, +S1, +S2 GI/Abdominal exam: PRESENT: diminished bowel sounds, soft. ABSENT: distended - Protuberant abdomen., tenderness Rectal exam: PRESENT: deferred Gentrourinary exam: PRESENT: indwelling catheter - Scant urine present Extremities exam: PRESENT: pedal edema. ABSENT: joint swelling Musculoskeletal exam: ABSENT: deformity Neurological exam: PRESENT: awake, other - No meaningful verbal interaction.. ABSENT: alert, oriented to person Psychiatric exam: PRESENT: unusual affect - Affect reflects her current state including probable anoxic encephalopathy.. ABSENT: agitated Focused psych exam: PRESENT: restlessness - Scratching her neck. It appears that she was trying to grab the IV tubing in her IJ line. Results Laboratory Results: 11/26/18 03:20 11/27/18 11:00 11/27/18 11:00 Sodium 141.8 Potassium 5.3 H Chloride 108 H Carbon Dioxide 19 L Anion Gap 15 BUN 87 H Creatinine 6.98 H Est GFR ( Amer) 7 L Glucose 131 H Calcium 9.1 11/26/18 11/27/18 11/27/18 06:30 11:00 11:00 Creatine Kinase 37 CK-MB (CK-2) 1.82 Troponin I 0.251 0.222 Impressions: Chest X-Ray 11/26/18 00:00 IMPRESSION: Persisting cardiomegaly and vascular congestion with bilateral pleural effusions. Overall findings are improved from prior study. Assessment and Plan - Diagnosis (1) Acute encephalopathy Is this a current diagnosis for this admission?: Yes Plan: Patient be admitted to the ICU on a sepsis protocol. Her neurologic status will be checked on a regular basis throughout her stay. 11/24/2018-patient is unresponsive as noted above. The patient's son is at the bedside and felt that his mother knew that he was there and change her facial e xpression to suggest that she was aware of his presence. As she was found down the encephalopathy may very well be anoxic versus from sepsis. We will continue to monitor closely. 11/25/2018-patient did not respond to verbal stimuli from either myself or her eldest son. Spontaneous moan was observed. She possibly responded to painful stimuli with nailbed pressure on her foot but she definitely responded with deep palpation of the abdomen. Blood cultures are positive for gram-positive cocci. I still believe that the encephalopathy is most likely from anoxic injury first with infection likely secondary. No improvement. 11/26/2018-the encephalopathy is most likely related to an anoxic injury. She also is experiencing increasing renal failure. This could contribute as well. As she is not responsive to me it is difficult to truly assess. 11/27/2018-even though the patient is on nasal cannula and opening her eyes, I explained to the family that this is not necessarily a sign of true recovery. The patient's daughter even recognize that sometimes patients will perk up just before they . I asked them to be not overly optimistic since this is not a prolonged meaningful change. (2) Sepsis Qualifiers: Sepsis type: sepsis due to unspecified organism Sepsis acute organ dysfunction status: with acute organ dysfunction Severe sepsis acute organ dysfunction type: acute respiratory failure Acute respiratory failure type: with hypercapnia Severe sepsis shock status: with septic shock Qualified Code(s): A41.9 - Sepsis, unspecified organism; R65.21 - Severe sepsis with septic shock; J96.02 - Acute respiratory failure with hypercapnia Is this a current diagnosis for this admission?: Yes Plan: Patient is admitted to the ICU and started on a sepsis protocol. She will be monitored closely and will be treated with vancomycin as well as Zosyn emp irically with no source of infection noted. Patient's hypertension be treated with a Levophed infusion and IV fluids. Patient's renal function will be followed closely with a Amezquita catheter and frequent urine output evaluations. Patient's respiratory failure will be treated with BiPAP and supplemental oxygen. Hypothermia will be treated with a bear hugger blanket and close monitoring of the patient's core temperature. 11/24/2018-the patient is on dual antibiotic therapy. She has pleural effusions but no obvious evidence of pneumonia. As she was coded she certainly could have aspiration pneumonia. Blood cultures are pending as well. We will continue the dual antibiotic therapy at this time. Pulse and blood pressures are improved. We will institute pressor therapy if needed. 11/25/2018-we will continue the current antibiotics. Blood cultures are positive with gram-positive cocci. If no evidence of gram-negative bacillus then we will discontinue the Zosyn. Blood pressures are better. 11/26/2018-still with a pending blood culture of gram-positive cocci in clusters. Await final identification and sensitivities. 11/27/2018-currently still on antibiotics. (3) Hypothermia Qualifiers: Encounter type: initial encounter Qualified Code(s): T68.XXXA - Hypothermia, initial encounter Is this a current diagnosis for this admission?: Yes Plan: 11/24/2018-at the time of admission the patient's core temperature dropped to 85.2. It is unknown how long she was hypothermic. We are utilizing a bear hugger and her temperatures are improving. Core temperatures now are in the 97- 98 range. Continue warming with core temperature monitoring. 11/25/2018-patient continues with bear hugger. Temperatures are better. Continue to monitor. The patient is also getting hydrocortisone twice daily stress dose. 11/26/2018-still with a bear hugger heating device in place. 11/27/2018-temperature is improved slightly. (4) Acute kidney injury superimposed on chronic kidney disease Is this a current diagnosis for this admission?: Yes Plan: Patient's renal function will be followed closely with a Amezquita catheter and frequent urine output evaluations. Patient will be receiving IV fluids and pressor support to maintain adequate renal perfusion. 11/24/2018-the patient's serum creatinine typically runs around 2.0. She was 2.9 on admission and is up to 3.19 currently. We will continue to monitor renal f unction as well as intake and output. 11/25/2018-unfortunately the patient's serum creatinine is up to 4.9. Urine output is minimal. I am going to try a dose of IV Lasix today. If the patient remains an uric the prognosis is grave. I will continue to monitor the renal function. 11/26/2018-the serum creatinine is now over 5. Urine output remains poor. This is a very poor prognosis. 11/27/2018-unfortunately the serum creatinine is up to 6.98 and urine output is minimal. We are going to try a fluid challenge however I explained to the family that I am not confident that this will work but it is worth a try. The fluid may end up in her lungs but after long discussion yesterday she is likely moving towards comfort measures only. (5) Congestive heart failure (CHF) Qualifiers: Heart failure type: diastolic Heart failure chronicity: acute on chronic Qualified Code(s): I50.33 - Acute on chronic diastolic (congestive) heart failure Is this a current diagnosis for this admission?: Yes Plan: 11/25/2018-the patient has a history of diastolic failure and pulmonary hypertension. Echocardiogram in March of this year reveals ejection fraction of 60% with suggested low diastolic function. As noted above I am going to attempt diuresis now that her blood pressure is better. 11/26/2018-the patient is still markedly oliguric. Her breathing is not terribly uncomfortable but she is still dependent on BiPAP. With worsening renal failure her treatment options are limited. 11/27/2018-unfortunately due to renal failure we have not been able to diurese the patient. It seems that the fluid we gave her is being retained and her blood pressure is trending upwards. - Time Time Spent with patient: 35 or more minutes - Plan Summary Plan Summary: This morning the patient's 2 sons and daughter are present at the bedside. Yesterday we reviewed the heart, lungs and kidneys. I explained that they are not making progress. The organ systems were reviewed again. The urine output is even less today. The patient is off of BiPAP but her lungs are still not clear. Her blood pressure is increasing. Unfortunately she is holding onto any fluid we have given her. Her blood pressure is increasing. The likelihood of reversing any of her pathologies is minimal. With this in mind everyone agreed to changing her CODE STATUS to DO NOT RESUSCITATE. I spoke to the patient's legal guardian and she is in agreement. I did explain very bluntly that I do not believe a fluid challenge (which we will try) or any other intervention is going to change the outcome. The patient's prognosis is grave. If there is no change in the patient's condition we will make her comfort measures only tomorrow. The guardian is in agreement with this plan as well. If I feel that the patient is in an unreasonable amount of discomfort I will be more aggressive with analgesia and anxiolytics. The patient is comfort measures we will need to turn off her pacemaker as well.
--- NOTE | 2018-11-27 16:46 | ADVANCED CARE ---
- Diagnosis (1) Acute encephalopathy Diagnosis Current: Yes (2) Sepsis Diagnosis Current: Yes (3) Hypothermia Diagnosis Current: Yes (4) Acute kidney injury superimposed on chronic kidney disease Diagnosis Current: Yes (5) Congestive heart failure (CHF) Diagnosis Current: Yes Attendance: The discussion was held at the patient's bedside. 2 of her sons and her daughter were present. Resuscitation Status: Do Not Resuscitate Discussion: I reviewed yesterday's discussion and explained the ever decreasing urine output. With her underlying cardiac history, and inability to get fluid out of her lungs as well as her worsening kidney failure her prognosis is grave. I reiterated that my belief is that she suffered a significant anoxic injury when she was discovered. I warned them that even though she is opening her eyes and trying to verbalize it is not meaningful communication and they should not be overly optimistic. The patient's daughter understood that some people will have a brief rally before they . We settled on a plan whereby we will try a bolus of fluid. If her urine output did not shrimp picker then she would be comfort measures only tomorrow. I did speak to the patient's guardian, since she is a sharp of the [employer], and if the patient has a downturn later today where it appears that she is very agitated, having increased difficulty breathing or in significant pain we will move forward with comfort measures only today. Care Planning Goals: The initial goal today was to explain the difference between comfort measures and DO NOT RESUSCITATE. The family did agree to DO NOT RESUSCITATE. If the patient does not improve or in fact declines we will make her to comfort measures only tomorrow. Document(s) Completed: None Time Spent: 25 min
[2018-11-27] MEDS: HYDRALAZINE HCL INJ/PF 20 MG/1 ML SDV IV PRN ×2 (17:47→23:32)
[2018-11-27] MEDS ORDERED: LEVALBUTEROL HCL NEB 1.25 MG/3 ML AMPUL NEB PRN (17:51)
[2018-11-27] MEDS: CHLORPROMAZINE HCL INJ 25 MG/1 ML AMPULE IV PRN (20:48)
[2018-11-27 21:43] LABS: VANCOMYCIN,TROUGH 12.6 ug/mL (5.0-20.0)
[2018-11-27] MEDS ORDERED: VANCOMYCIN HCL 500 MG in DEXTROSE 5%-WATER 100 ML IV SCH (22:00)
[2018-11-28] MEDS ORDERED: HYDRALAZINE HCL INJ/PF 20 MG/1 ML SDV IV PRN (00:30)
[2018-11-28] MEDS: HYDRALAZINE HCL INJ/PF 20 MG/1 ML SDV IV PRN ×2 (00:45→08:06)
[2018-11-28] MEDS ORDERED: MORPHINE SULFATE 10 MG/ML INJ IV PRN ×4 (01:36→14:45)
[2018-11-28] MEDS: PIPERACILLIN SODIUM/TAZOBACTAM 2.25 GM in NORMAL SALINE 50 ML IV SCH ×3 (01:40→11:04)
[2018-11-28] MEDS: LABETALOL HCL INJ 20 MG/4 ML DISP.SYRIN IV PRN ×6 (01:40→13:57)
[2018-11-28] MEDS: MORPHINE SULFATE 10 MG/ML INJ IV PRN ×7 (01:51→15:44)
[2018-11-28 03:51] LABS: HEMATOCRIT 26.7 % (36.0-47.0); HEMOGLOBIN 8.6 g/dL (12.0-15.5); MEAN CORPUSCULAR HEMOGLOBIN 26.7 pg (27.0-33.4); MEAN CORPUSCULAR HGB CONC 32.4 g/dL (32.0-36.0); MEAN CORPUSCULAR VOLUME 83 fl (80-97); RED BLOOD COUNT 3.23 10^6/uL (3.72-5.28); WHITE BLOOD COUNT 9.3 10^3/uL (4.0-10.5)
[2018-11-28 04:06] LABS: PLATELET COUNT 62 10^3/uL (150-450)
[2018-11-28 04:14] LABS: ANION GAP 17 (5-19); BLOOD UREA NITROGEN 93 mg/dL (7-20); CALCIUM 9.1 mg/dL (8.4-10.2); CARBON DIOXIDE 15 mmol/L (22-30); CHLORIDE 109 mmol/L (98-107); GLUCOSE 169 mg/dL (75-110); POTASSIUM 5.3 mmol/L (3.6-5.0)
[2018-11-28] MEDS: HYDROCORTISONE SOD SUCCINATE INJ/PF 100 MG/2 ML SDV IV SCH (11:02)
[2018-11-28] MEDS: PANTOPRAZOLE SODIUM 40 MG VIAL IV SCH (11:02)
[2018-11-28] MEDS: LORAZEPAM INJ 2 MG/1 ML VIAL IV PRN (15:44)
--- NOTE | 2018-11-28 20:14 | PDOC PROGRESS REPORT ---
Subjective Progress Note for:: 11/28/18 Subjective:: The patient has wheezes and is moaning but does not open her eyes. No voluntary movement. Reason For Visit: SEPSIS Physical Exam Vital Signs: Temp Pulse Resp BP Pulse Ox 95.9 F L 62 10 L 178/80 H 98 11/28/18 14:02 11/28/18 14:00 11/28/18 14:02 11/28/18 14:02 11/28/18 14:02 Intake & Output 11/27/18 11/28/18 11/29/18 06:59 06:59 06:59 Intake Total 1200 800 138 Output Total 95 233 72 Balance 1105 567 66 Weight 110.1 kg 110.6 kg General appearance: PRESENT: mild distress, morbidly obese Eye exam: PRESENT: other - Unable to assess Ear exam: PRESENT: normal external ear exam Mouth exam: PRESENT: dry mucosa Teeth exam: PRESENT: poor dentation Respiratory exam: PRESENT: tachypnea, wheezes - Bilaterally. ABSENT: rales, rhonchi Cardiovascular exam: PRESENT: RRR, +S1, +S2 GI/Abdominal exam: PRESENT: diminished bowel sounds, firm, other - Pitting edema lower abdomen. ABSENT: tenderness Rectal exam: PRESENT: deferred Gentrourinary exam: PRESENT: indwelling catheter Extremities exam: PRESENT: pedal edema Musculoskeletal exam: PRESENT: other - No voluntary and extremely limited spontaneous movement. ABSENT: ambulatory Neurological exam: PRESENT: other - The patient did moan with every exhale but no verbalization. ABSENT: awake Results Laboratory Results: 11/28/18 03:33 11/28/18 03:33 11/28/18 11/28/18 03:33 03:33 WBC 9.3 RBC 3.23 L Hgb 8.6 L Hct 26.7 L MCV 83 MCH 26.7 L MCHC 32.4 RDW 16.0 H Plt Count 62 L Sodium 141.3 Potassium 5.3 H Chloride 109 H Carbon Dioxide 15 L Anion Gap 17 BUN 93 H Creatinine 7.58 H Est GFR ( Amer) 6 L Glucose 169 H Calcium 9.1 11/23/18 17:50 Blood Blood Culture - Final NO GROWTH IN 5 DAYS 11/26/18 11/27/18 11/27/18 06:30 11:00 11:00 Creatine Kinase 37 CK-MB (CK-2) 1.82 Troponin I 0.251 0.222 Impressions: Chest X-Ray 11/26/18 00:00 IMPRESSION: Persisting cardiomegaly and vascular congestion with bilateral pleural effusions. Overall findings are improved from prior study. Assessment and Plan - Diagnosis (1) Acute encephalopathy Is this a current diagnosis for this admission?: Yes Plan: Patient be admitted to the ICU on a sepsis protocol. Her neurologic status will be checked on a regular basis throughout her stay. 11/24/2018-patient is unresponsive as noted above. The patient's son is at the [facility] and felt that his mother knew that he was there and change her facial expression to suggest that she was aware of his presence. As she was found down the encephalopathy may very well be anoxic versus from sepsis. We will continue to monitor closely. 11/25/2018-patient did not respond to verbal stimuli from either myself or her eldest son. Spontaneous moan was observed. She possibly responded to painful stimuli with nailbed pressure on her foot but she definitely responded with deep palpation of the abdomen. Blood cultures are positive for gram-positive cocci. I still believe that the encephalopathy is most likely from anoxic injury first with infection likely secondary. No improvement. 11/26/2018-the encephalopathy is most likely related to an anoxic injury. She also is experiencing increasing renal failure. This could contribute as well. As she is not responsive to me it is difficult to truly assess. 11/27/2018-even though the patient is on nasal cannula and opening her eyes, I explained to the family that this is not necessarily a sign of true recovery. The patient's daughter even recognize that sometimes patients will perk up just before they . I asked them to be not overly optimistic since this is not a prolonged meaningful change. 11/28/2018-encephalopathy is likely due to anoxic injury based on the patient presentation and clinical events. The patient continues to moan without meaningful verbal communication. Based on discussions over the last several days the treatment plan will not move to comfort measures only. (2) Sepsis Qualifiers: Sepsis type: sepsis due to unspecified organism Sepsis acute organ dysfunction status: with acute organ dysfunction Severe sepsis acute organ dysfunction type: acute respiratory failure Acute respiratory failure type: with hypercapnia Severe sepsis shock status: with septic shock Qualified Code(s): A41.9 - Sepsis, unspecified organism; R65.21 - Severe sepsis with septic shock; J96.02 - Acute respiratory failure with hypercapnia Is this a current diagnosis for this admission?: Yes Plan: Patient is admitted to the ICU and started on a sepsis protocol. She will be monitored closely and will be treated with vancomycin as well as Zosyn empirically with no source of infection noted. Patient's hypertension be treated with a Levophed infusion and IV fluids. Patient's renal function will be followed closely with a Amezquita catheter and frequent urine output evaluations. Patient's respiratory failure will be treated with BiPAP and supplemental oxygen. Hypothermia will be treated with a bear hugger blanket and close monitoring of the patient's core temperature. 11/24/2018-the patient is on dual antibiotic therapy. She has pleural effusions but no obvious evidence of pneumonia. As she was coded she certainly could have aspiration pneumonia. Blood cultures are pending as well. We will continue the dual antibiotic therapy at this time. Pulse and blood pressures are improved. We will institute pressor therapy if needed. 11/25/2018-we will continue the current antibiotics. Blood cultures are positive with gram-positive cocci. If no evidence of gram-negative bacillus then we will discontinue the Zosyn. Blood pressures are better. 11/26/2018-still with a pending blood culture of gram-positive cocci in clusters. Await final identification and sensitivities. 11/27/2018-currently still on antibiotics. 11/28/2018-discontinue antibiotics as patient is comfort measures only (3) Hypothermia Qualifiers: Encounter type: initial encounter Qualified Code(s): T68.XXXA - Hypothermia, initial encounter Is this a current diagnosis for this admission?: Yes Plan: 11/24/2018-at the time of admission the patient's core temperature dropped to 85 .2. It is unknown how long she was hypothermic. We are utilizing a bear hugger and her temperatures are improving. Core temperatures now are in the 97-98 range. Continue warming with core temperature monitoring. 11/25/2018-patient continues with bear hugger. Temperatures are better. Continue to monitor. The patient is also getting hydrocortisone twice daily stress dose. 11/26/2018-still with a bear hugger heating device in place. 11/27/2018-temperature is improved slightly. 11/28/2018-resolved (4) Acute kidney injury superimposed on chronic kidney disease Is this a current diagnosis for this admission?: Yes Plan: Patient's renal function will be followed closely with a Amezquita catheter and frequent urine output evaluations. Patient will be receiving IV fluids and pressor support to maintain adequate renal perfusion. 11/24/2018-the patient's serum creatinine typically runs around 2.0. She was 2.9 on admission and is up to 3.19 currently. We will continue to monitor renal function as well as intake and output. 11/25/2018-unfortunately the patient's serum creatinine is up to 4.9. Urine output is minimal. I am going to try a dose of IV Lasix today. If the patient remains an uric the prognosis is grave. I will continue to monitor the renal function. 11/26/2018-the serum creatinine is now over 5. Urine output remains poor. This is a very poor prognosis. 11/27/2018-unfortunately the serum creatinine is up to 6.98 and urine output is minimal. We are going to try a fluid challenge however I explained to the famil y that I am not confident that this will work but it is worth a try. The fluid may end up in her lungs but after long discussion yesterday she is likely moving towards comfort measures only. 11/28/2018-despite increased fluids the urine output remains dismal. The patient has increasing fluid retention. Serum creatinine continues to rise. Because of the continued to decline with no reasonable chance of recovery the patient is now comfort measures only. (5) Congestive heart failure (CHF) Qualifiers: Heart failure type: diastolic Heart failure chronicity: acute on chronic Qualified Code(s): I50.33 - Acute on chronic diastolic (congestive) heart failure Is this a current diagnosis for this admission?: Yes Plan: 11/25/2018-the patient has a history of diastolic failure and pulmonary hypertension. Echocardiogram in March of this year reveals ejection fraction of 60% with suggested low diastolic function. As noted above I am going to attempt diuresis now that her blood pressure is better. 11/26/2018-the patient is still markedly oliguric. Her breathing is not terribly uncomfortable but she is still dependent on BiPAP. With worsening renal failure her treatment options are limited. 11/27/2018-unfortunately due to renal failure we have not been able to diurese the patient. It seems that the fluid we gave her is being retained and her blood pressure is trending upwards. 11/28/2018-patient is now comfort measures only. - Time Time Spent with patient: 25-34 minutes - Plan Summary Plan Summary: As per discussions over the 2 previous days the patient was converted to comfort measures only. There has not been any improvement in her condition. There is no reasonable expectation that she will improve. There have been multiple discussions with family members as well as her guardian since she is a sharp of the [facility]. We are moving to comfort measures only at this point. If in fact the patient is stable for transfer to hospice we will infects try to arrange this.
[2018-11-29] MEDS: MORPHINE SULFATE 10 MG/ML INJ IV PRN (00:41)
[2018-11-29] MEDS: LORAZEPAM INJ 2 MG/1 ML VIAL IV PRN (00:42)
[2018-11-29 01:01] VITALS: BP 134/65
--- NOTE | 2018-11-29 09:29 | PDOC PROGRESS REPORT ---
Subjective Progress Note for:: 11/29/18 Subjective:: The patient is bradypneic. Pacer spikes still noted on telemetry. No verbal interaction. Unresponsive Reason For Visit: SEPSIS Physical Exam Vital Signs: Temp Pulse Resp BP Pulse Ox 99.0 F 62 5 L 134/65 H 87 L 11/29/18 01:00 11/28/18 14:00 11/29/18 00:00 11/29/18 00:01 11/29/18 01:00 Intake & Output 11/28/18 11/29/18 11/30/18 06:59 06:59 06:59 Intake Total 800 138 Output Total 233 117 Balance 567 21 Weight 110.6 kg 111.8 kg General appearance: PRESENT: no acute distress, morbidly obese, other - Unr esponsive with slow deep breaths Head exam: PRESENT: atraumatic, normocephalic Eye exam: PRESENT: conjunctiva pale, scleral icterus - dirty sclera Ear exam: PRESENT: normal external ear exam. ABSENT: bleeding, drainage Teeth exam: PRESENT: poor dentation Respiratory exam: PRESENT: clear to auscultation bimal - anteriorly. Shallow respirations., symmetrical. ABSENT: rales, rhonchi, wheezes Cardiovascular exam: PRESENT: RRR, +S1, +S2 GI/Abdominal exam: PRESENT: diminished bowel sounds, firm Gentrourinary exam: PRESENT: indwelling catheter Extremities exam: PRESENT: pedal edema Musculoskeletal exam: ABSENT: ambulatory Neurological exam: ABSENT: awake Psychiatric exam: ABSENT: agitated Focused psych exam: ABSENT: restlessness Results Laboratory Results: 11/28/18 03:33 11/28/18 03:33 11/23/18 17:50 Blood Blood Culture - Final NO GROWTH IN 5 DAYS 11/26/18 11/27/18 11/27/18 06:30 11:00 11:00 Creatine Kinase 37 CK-MB (CK-2) 1.82 Troponin I 0.251 0.222 Impressions: Chest X-Ray 11/26/18 00:00 IMPRESSION: Persisting cardiomegaly and vascular congestion with bilateral pleural effusions. Overall findings are improved from prior study. Assessment and Plan - Diagnosis (1) Acute encephalopathy Is this a current diagnosis for this admission?: Yes Plan: Patient be admitted to the ICU on a sepsis protocol. Her neurologic status will be checked on a regular basis throughout her stay. 11/24/2018-patient is unresponsive as noted above. The patient's son is at the bedside and felt that his mother knew that he was there and change her facial expression to suggest that she was aware of his presence. As she was found down the encephalopathy may very well be anoxic versus from sepsis. We will continue to monitor closely. 11/25/2018-patient did not respond to verbal stimuli from either myself or her eldest son. Spontaneous moan was observed. She possibly responded to painful stimuli with nailbed pressure on her foot but she definitely responded with deep palpation of the abdomen. Blood cultures are positive for gram-positive cocci. I still believe that the encephalopathy is most likely from anoxic injury first with infection likely secondary. No improvement. 11/26/2018-the encephalopathy is most likely related to an anoxic injury. She also is experiencing increasing renal failure. This could contribute as well. As she is not responsive to me it is difficult to truly assess. 11/27/2018-even though the patient is on nasal cannula and opening her eyes, I explained to the family that this is not necessarily a sign of true recovery. The patient's daughter even recognize that sometimes patients will perk up just before they . I asked them to be not overly optimistic since this is not a prolonged meaningful change. 11/28/2018-encephalopathy is likely due to anoxic injury based on the patient presentation and clinical events. The patient continues to moan without meaningful verbal communication. Based on discussions over the last several days the treatment plan will not move to comfort measures only. 11/29/2018-the patient is incapable of meaningful interaction. Unresponsive to verbal stimuli. Continue comfort measures. (2) Sepsis Qualifiers: Sepsis type: sepsis due to unspecified organism Sepsis acute organ dysfunction status: with acute organ dysfunction Severe sepsis acute organ dysfunction type: acute respiratory failure Acute respiratory failure type: with hypercapnia Severe sepsis shock status: with septic shock Qualified Code(s): A41.9 - Sepsis, unspecified organism; R65.21 - Severe sepsis with septic shock; J96.02 - Acute respiratory failure with hypercapnia Is this a current diagnosis for this admission?: Yes Plan: Patient is admitted to the ICU and started on a sepsis protocol. She will be monitored closely and will be treated with vancomycin as well as Zosyn empirically with no source of infection noted. Patient's hypertension be treat ed with a Levophed infusion and IV fluids. Patient's renal function will be followed closely with a Amezquita catheter and frequent urine output evaluations. Patient's respiratory failure will be treated with BiPAP and supplemental oxygen. Hypothermia will be treated with a bear hugger blanket and close monitoring of the patient's core temperature. 11/24/2018-the patient is on dual antibiotic therapy. She has pleural effusions but no obvious evidence of pneumonia. As she was coded she certainly could have aspiration pneumonia. Blood cultures are pending as well. We will continue the dual antibiotic therapy at this time. Pulse and blood pressures are improved. We will institute pressor therapy if needed. 11/25/2018-we will continue the current antibiotics. Blood cultures are positive with gram-positive cocci. If no evidence of gram-negative bacillus then we will discontinue the Zosyn. Blood pressures are better. 11/26/2018-still with a pending blood culture of gram-positive cocci in clusters. Await final identification and sensitivities. 11/27/2018-currently still on antibiotics. 11/28/2018-discontinue antibiotics as patient is comfort measures only 11/29/2018-as above (3) Hypothermia Qualifiers: Encounter type: initial encounter Qualified Code(s): T68.XXXA - Hypothermia, initial encounter Is this a current diagnosis for this admission?: Yes Plan: 11/24/2018-at the time of admission the patient's core temperature dropped to 85.2. It is unknown how long she was hypothermic. We are utilizing a bear hugger and her temperatures are improving. Core temperatures now are in the 97- 98 range. Continue warming with core temperature monitoring. 11/25/2018-patient continues with bear hugger. Temperatures are better. Continue to monitor. The patient is also getting hydrocortisone twice daily stress dose. 11/26/2018-still with a bear hugger heating device in place. 11/27/2018-temperature is improved slightly. 11/28/2018-comfort measures only (4) Acute kidney injury superimposed on chronic kidney disease Is this a current diagnosis for this admission?: Yes Plan: Patient's renal function will be followed closely with a Amezquita catheter and frequent urine output evaluations. Patient will be receiving IV fluids and pressor support to maintain adequate renal perfusion. 11/24/2018-the patient's serum creatinine typically runs around 2.0. She was 2.9 on admission and is up to 3.19 currently. We will continue to monitor renal function as well as intake and output. 11/25/2018-unfortunately the patient's serum creatinine is up to 4.9. Urine output is minimal. I am going to try a dose of IV Lasix today. If the patient remains an uric the prognosis is grave. I will continue to monitor the renal function. 11/26/2018-the serum creatinine is now over 5. Urine output remains poor. This is a very poor prognosis. 11/27/2018-unfortunately the serum creatinine is up to 6.98 and urine output is minimal. We are going to try a fluid challenge however I explained to the family that I am not confident that this will work but it is worth a try. The fluid may end up in her lungs but after long discussion yesterday she is likely moving towards comfort measures only. 11/28/2018-despite increased fluids the urine output remains dismal. The patient has increasing fluid retention. Serum creatinine continues to rise. Because of the continued to decline with no reasonable chance of recovery the patient is now comfort measures only. 11/29/2018-comfort measures only (5) Congestive heart failure (CHF) Qualifiers: Heart failure type: diastolic Heart failure chronicity: acute on chronic Qualified Code(s): I50.33 - Acute on chronic diastolic (congestive) heart failure Is this a current diagnosis for this admission?: Yes Plan: 11/25/2018-the patient has a history of diastolic failure and pulmonary hypertension. Echocardiogram in March of this year reveals ejection fraction of 60% with suggested low diastolic function. As noted above I am going to attempt diuresis now that her blood pressure is better. 11/26/2018-the patient is still markedly oliguric. Her breathing is not terribly uncomfortable but she is still dependent on BiPAP. With worsening renal failure her treatment options are limited. 11/27/2018-unfortunately due to renal failure we have not been able to diurese the patient. It seems that the fluid we gave her is being retained and her blood pressure is trending upwards. 11/28/2018-patient is now comfort measures only. 11/29/2018-as above - Time Time Spent with patient: Less than 15 minutes Medications reviewed and adjusted accordingly: Yes
--- NOTE | 2018-11-30 09:05 | Death Summary ---
Summary Date : 11/29/18 Time of :: 23:30 Autopsy: No Resuscitation Status: Comfort Measures Only - Final Diagnosis (1) Acute encephalopathy Is this a current diagnosis for this admission?: Yes (2) Sepsis Is this a current diagnosis for this admission?: Yes (3) Hypothermia Is this a current diagnosis for this admission?: Yes (4) Acute kidney injury superimposed on chronic kidney disease Is this a current diagnosis for this admission?: Yes (5) Congestive heart failure (CHF) Is this a current diagnosis for this admission?: Yes Hospital Course:: The patient presented with sepsis, acute on chronic kidney failure, acute on chronic heart failure and acute respiratory failure. She was intubated in the emergency department before being transferred to ICU. She was successfully extubated and weaned off of BiPAP however she never recovered. I believe there was anoxic injury but it is difficult to be sure. From the day of admission she had worsening kidney failure. Attempts at fluid challenges and modifying diuretic therapy did not help. After several days I explained to the family that I did not think she was going to recover. Several discussions were had. Eventually they agreed to comfort measures only. The patient peacefully with family at the bedside.
== END 2018-11-30 01:40 | DRG 871 ==
LOC: ER 17:26 → EH 21:34 → ICU 23:18
PROVIDERS: ADMIT Emergency Medicine; ATTEND Emergency Medicine
PROC: 5A09457 Assistance with Respiratory Ventilation, 24-96 Consecutive Hours, Continuous Positive Airway Pressure (ICD-10-PCS; principal; 2018-11-23)
DX: A41.9 Sepsis, unspecified organism (principal); J96.02 Acute respiratory failure with hypercapnia; R65.21 Severe sepsis with septic shock; J96.01 Acute respiratory failure with hypoxia; I50.33 Acute on chronic diastolic (congestive) heart failure; N17.9 Acute kidney failure, unspecified; G93.40 Encephalopathy, unspecified; N18.9 Chronic kidney disease, unspecified; F03.90 Unspecified dementia, unspecified severity, without behavioral disturbance, psychotic disturbance, mood disturbance, and anxiety; I48.91 Unspecified atrial fibrillation; K21.9 Gastro-esophageal reflux disease without esophagitis; F32.9 Major depressive disorder, single episode, unspecified; E66.01 Morbid (severe) obesity due to excess calories; T68.XXXA Hypothermia, initial encounter; I25.2 Old myocardial infarction; Z66 Do not resuscitate; Z95.0 Presence of cardiac pacemaker; Z79.899 Other long term (current) drug therapy; Z79.891 Long term (current) use of opiate analgesic; Z79.890 Hormone replacement therapy; Z88.8 Allergy status to other drugs, medicaments and biological substances; Z88.6 Allergy status to analgesic agent; Z91.013 Allergy to seafood
CPT/HCPCS: 36415; 36600; 71045; 80048; 80053; 80069; 80202; 82550; 82553; 82803; 82962; 83605; 83735; 84484; 85025; 85027; 85610; 87040; 87077; 87186; 93005; 93010; 94640; 94660; 96361; 96365; 96367; 96375; 96376; 99285; J0360; J1720; J1940; J2060; J2270; J2300; J2543; J3230; J3370; J3490; J7030; J7040; J7042; J7060; J7120; J7121; S0164